=== PATIENT | male | born 1940 | race Caucasian/White ===

== ENCOUNTER → 2017-10-04 07:46 | Outpatient (CLI) | payer MEDICARE, BC, SELFPAY ==
[2017-10-04 09:02] LABS: Basophils % 0.5 % (0.1-2.0); Eosinophils # 0.1 K/mm3 (0.0-0.4); Hematocrit 39.7 % (42.0-52.0); Hemoglobin 13.2 g/dL (14.1-18.0); Lymphocytes # 1.3 K/mm3 (0.7-4.5); Lymphocytes % 22.2 K/mm3 (10-50); Mean Corpuscular HGB Conc 33.2 g/dL (31.8-35.4); Mean Corpuscular Hemoglobin 32.2 pg (27.0-31.2); Mean Corpuscular Volume 97.1 fl (80-94); Mean Platelet Volume 7.2 fl (7.4-10.4); Monocytes # 0.3 K/mm3 (0.1-1.0); Monocytes % 5.9 % (1.7-9.3); Neutrophils # 3.9 K/mm3 (1.8-7.8); Neutrophils % 69.4 % (37.0-80.0); Platelet Count 187 K/mm3 (142-424); Red Blood Count 4.09 M/mm3 (4.60-6.20); Red Cell Distribution Width 17.5 % (11.5-17.5); White Blood Count 5.6 K/mm3 (4.8-10.8)
[2017-10-04 10:31] LABS: Alanine Aminotransferase 21 U/L (12-78); Albumin Level 3.1 gm/dL (3.4-5.0); Alkaline Phosphatase 65 U/L (46-116); Anion Gap 13.3 mEq/L (5-15); Aspartate Amino Transferase 19 U/L (15-37); Bilirubin,Total 0.7 mg/dL (0.2-1.0); Blood Urea Nitrogen 11 mg/dL (7-18); Calcium 8.4 mg/dL (8.5-10.1); Carbon Dioxide 26 mmol/L (21.0-32.0); Chloride 100 mmol/L (98-107); Creatinine,Serum 1.03 mg/dL (0.70-1.30); Estimated Glomerular Filt Rate 70 ml/min (>60); GFR (African American) 85 ML/MIN (>60); Globulin 3.2 gm/dl (1.3-3.2); Glucose 129 mg/dL (74-106); Potassium 3.3 mmoL/L (3.5-5.1); Sodium 136 mmol/L (136-145); Total Protein,Serum 6.3 gm/dL (6.4-8.2)
== END ==
PROVIDERS: PCP Internal Medicine; Visit Provider Dermatology
DX: L40.0 Psoriasis vulgaris (principal)
CPT/HCPCS: 36415; 80053; 85025

== ENCOUNTER → 2017-11-17 07:40 | Outpatient (CLI) | payer MEDICARE, BC, SELFPAY ==
[2017-11-17 08:15] LABS: Alanine Aminotransferase 29 U/L (12-78); Albumin/Globulin Ratio 0.8 (1.1-1.8); Alkaline Phosphatase 71 U/L (46-116); Anion Gap 10.5 mEq/L (5-15); Aspartate Amino Transferase 15 U/L (15-37); Bilirubin,Total 0.5 mg/dL (0.2-1.0); Blood Urea Nitrogen 13 mg/dL (7-18); Calcium 8.6 mg/dL (8.5-10.1); Carbon Dioxide 28 mmol/L (21.0-32.0); Chloride 100 mmol/L (98-107); Creatinine,Serum 1.09 mg/dL (0.70-1.30); Estimated Glomerular Filt Rate 66 ml/min (>60); GFR (African American) 80 ML/MIN (>60); Globulin 3.9 gm/dl (1.3-3.2); Glucose 143 mg/dL (74-106); Potassium 3.5 mmoL/L (3.5-5.1); Sodium 135 mmol/L (136-145); Total Protein,Serum 6.9 gm/dL (6.4-8.2)
[2017-11-17 08:20] LABS: Basophils # 0.1 K/mm3 (0-0.2); Basophils % 0.6 % (0.1-2.0); Eosinophils # 0.1 K/mm3 (0.0-0.4); Eosinophils % 1.7 % (0.1-12.0); Hematocrit 43.6 % (42.0-52.0); Hemoglobin 13.8 g/dL (14.1-18.0); Lymphocytes # 1.5 K/mm3 (0.7-4.5); Lymphocytes % 19.7 K/mm3 (10-50); Mean Corpuscular HGB Conc 31.7 g/dL (31.8-35.4); Mean Corpuscular Hemoglobin 32.2 pg (27.0-31.2); Mean Corpuscular Volume 101.5 fl (80-94); Mean Platelet Volume 7.2 fl (7.4-10.4); Monocytes # 0.5 K/mm3 (0.1-1.0); Neutrophils # 5.4 K/mm3 (1.8-7.8); Platelet Count 280 K/mm3 (142-424); Red Blood Count 4.29 M/mm3 (4.60-6.20); Red Cell Distribution Width 16.3 % (11.5-17.5); White Blood Count 7.6 K/mm3 (4.8-10.8)
== END ==
PROVIDERS: Visit Provider Dermatology
DX: L40.0 Psoriasis vulgaris (principal)
CPT/HCPCS: 36415; 80053; 85025

== ENCOUNTER → 2018-01-03 07:55 | Outpatient (CLI) | payer MEDICARE, BC, SELFPAY ==
[2018-01-03 09:07] LABS: Basophils % 0.6 % (0.1-2.0); Eosinophils # 0.1 K/mm3 (0.0-0.4); Eosinophils % 2.2 % (0.1-12.0); Hematocrit 41.2 % (42.0-52.0); Hemoglobin 13.4 g/dL (14.1-18.0); Lymphocytes # 1.3 K/mm3 (0.7-4.5); Lymphocytes % 20.6 K/mm3 (10-50); Mean Corpuscular HGB Conc 32.4 g/dL (31.8-35.4); Mean Corpuscular Hemoglobin 31.7 pg (27.0-31.2); Mean Corpuscular Volume 97.8 fl (80-94); Mean Platelet Volume 7.1 fl (7.4-10.4); Monocytes # 0.3 K/mm3 (0.1-1.0); Monocytes % 4.3 % (1.7-9.3); Neutrophils # 4.5 K/mm3 (1.8-7.8); Neutrophils % 72.3 % (37.0-80.0); Platelet Count 271 K/mm3 (142-424); Red Blood Count 4.21 M/mm3 (4.60-6.20); White Blood Count 6.2 K/mm3 (4.8-10.8)
[2018-01-03 10:00] LABS: Hemoglobin A1C 6.5 % (0.0-7.0)
[2018-01-03 10:06] LABS: Chol/HDL Ratio 2.6 (1-3.5); Cholesterol 170 mg/dL (140-200); HDL Cholesterol 65 mg/dL (27-67); LDL Cholesterol 88 mg/dL (0-130); Triglycerides 84 mg/dL (30-200); VLDL Cholesterol 17 mg/dL (0-40)
[2018-01-03 10:08] LABS: Alanine Aminotransferase 27 U/L (12-78); Albumin Level 3.1 gm/dL (3.4-5.0); Albumin/Globulin Ratio 0.9 (1.1-1.8); Alkaline Phosphatase 76 U/L (46-116); Anion Gap 15.8 mEq/L (5-15); Aspartate Amino Transferase 25 U/L (15-37); Bilirubin,Total 0.7 mg/dL (0.2-1.0); Blood Urea Nitrogen 14 mg/dL (7-18); Calcium 8.9 mg/dL (8.5-10.1); Carbon Dioxide 25 mmol/L (21.0-32.0); Chloride 101 mmol/L (98-107); Estimated Glomerular Filt Rate 82 ml/min (>60); GFR (African American) 99 ML/MIN (>60); Globulin 3.4 gm/dl (1.3-3.2); Glucose 133 mg/dL (74-106); Potassium 3.8 mmoL/L (3.5-5.1); Sodium 138 mmol/L (136-145); Total Protein,Serum 6.5 gm/dL (6.4-8.2)
[2018-01-06 12:43] LABS: Microalbumin, Urine 12.8 ug/mL (Not Estab.)
== END ==
PROVIDERS: Dermatology; PCP Internal Medicine; Visit Provider Internal Medicine
DX: E11.9 Type 2 diabetes mellitus without complications (principal); I10 Essential (primary) hypertension; E78.5 Hyperlipidemia, unspecified; L40.0 Psoriasis vulgaris
CPT/HCPCS: 36415; 80053; 80061; 82043; 83036; 85025

== ENCOUNTER → 2018-02-13 07:09 | Outpatient (CLI) | payer MEDICARE, BC, SELFPAY ==
[2018-02-13 08:17] LABS: Basophils # 0.1 K/mm3 (0-0.2); Basophils % 0.7 % (0.1-2.0); Eosinophils # 0.2 K/mm3 (0.0-0.4); Eosinophils % 2.4 % (0.1-12.0); Hematocrit 44.9 % (42.0-52.0); Hemoglobin 13.8 g/dL (14.1-18.0); Lymphocytes # 1.8 K/mm3 (0.7-4.5); Lymphocytes % 23.8 K/mm3 (10-50); Mean Corpuscular HGB Conc 30.7 g/dL (31.8-35.4); Mean Corpuscular Hemoglobin 30.5 pg (27.0-31.2); Mean Corpuscular Volume 99.3 fl (80-94); Mean Platelet Volume 7.1 fl (7.4-10.4); Monocytes # 0.5 K/mm3 (0.1-1.0); Monocytes % 6.2 % (1.7-9.3); Neutrophils # 5.2 K/mm3 (1.8-7.8); Platelet Count 261 K/mm3 (142-424); Red Blood Count 4.52 M/mm3 (4.60-6.20); Red Cell Distribution Width 16.4 % (11.5-17.5); White Blood Count 7.7 K/mm3 (4.8-10.8)
[2018-02-16 13:09] LABS: Alanine Aminotransferase 25 U/L (12-78); Albumin Level 3.2 gm/dL (3.4-5.0); Alkaline Phosphatase 87 U/L (46-116); Anion Gap 14.9 mEq/L (5-15); Aspartate Amino Transferase 14 U/L (15-37); Bilirubin,Total 0.4 mg/dL (0.2-1.0); Blood Urea Nitrogen 15 mg/dL (7-18); Calcium 8.8 mg/dL (8.5-10.1); Carbon Dioxide 26 mmol/L (21.0-32.0); Chloride 102 mmol/L (98-107); Creatinine,Serum 1.11 mg/dL (0.70-1.30); Estimated Glomerular Filt Rate 64 ml/min (>60); GFR (African American) 78 ML/MIN (>60); Globulin 3.1 gm/dl (1.3-3.2); Glucose 141 mg/dL (74-106); Potassium 3.9 mmoL/L (3.5-5.1); Sodium 139 mmol/L (136-145); Total Protein,Serum 6.3 gm/dL (6.4-8.2)
== END ==
PROVIDERS: Visit Provider Dermatology
DX: L40.0 Psoriasis vulgaris (principal)
CPT/HCPCS: 36415; 80053; 85025

== ENCOUNTER → 2018-03-27 07:19 | Outpatient (CLI) | payer MEDICARE, BC, SELFPAY ==
[2018-03-27 07:37] LABS: Basophils # 0.1 K/mm3 (0-0.2); Basophils % 0.7 % (0.1-2.0); Eosinophils # 0.2 K/mm3 (0.0-0.4); Eosinophils % 2.4 % (0.1-12.0); Hematocrit 43.8 % (42.0-52.0); Hemoglobin 14.2 g/dL (14.1-18.0); Lymphocytes # 1.8 K/mm3 (0.7-4.5); Lymphocytes % 17.7 K/mm3 (10-50); Mean Corpuscular HGB Conc 32.5 g/dL (31.8-35.4); Mean Corpuscular Hemoglobin 31.4 pg (27.0-31.2); Mean Corpuscular Volume 96.6 fl (80-94); Mean Platelet Volume 6.9 fl (7.4-10.4); Monocytes # 0.4 K/mm3 (0.1-1.0); Monocytes % 4.1 % (1.7-9.3); Neutrophils # 7.4 K/mm3 (1.8-7.8); Platelet Count 216 K/mm3 (142-424); Red Blood Count 4.53 M/mm3 (4.60-6.20); Red Cell Distribution Width 15.9 % (11.5-17.5); White Blood Count 9.9 K/mm3 (4.8-10.8)
[2018-03-27 09:42] LABS: Alanine Aminotransferase 25 U/L (12-78); Albumin Level 3.1 gm/dL (3.4-5.0); Albumin/Globulin Ratio 0.9 (1.1-1.8); Alkaline Phosphatase 76 U/L (46-116); Anion Gap 14.2 mEq/L (5-15); Aspartate Amino Transferase 14 U/L (15-37); Bilirubin,Total 0.6 mg/dL (0.2-1.0); Blood Urea Nitrogen 15 mg/dL (7-18); Calcium 8.6 mg/dL (8.5-10.1); Carbon Dioxide 25 mmol/L (21.0-32.0); Chloride 106 mmol/L (98-107); Creatinine,Serum 1.07 mg/dL (0.70-1.30); Estimated Glomerular Filt Rate 67 ml/min (>60); GFR (African American) 81 ML/MIN (>60); Globulin 3.4 gm/dl (1.3-3.2); Glucose 128 mg/dL (74-106); Potassium 4.2 mmoL/L (3.5-5.1); Sodium 141 mmol/L (136-145); Total Protein,Serum 6.5 gm/dL (6.4-8.2)
== END ==
PROVIDERS: Visit Provider Dermatology
DX: L40.0 Psoriasis vulgaris (principal)
CPT/HCPCS: 36415; 80053; 85025

== ENCOUNTER → 2018-04-26 08:05 | Outpatient (CLI) | payer MEDICARE, BC, SELFPAY ==
[2018-04-26 08:29] LABS: Basophils # 0.1 K/mm3 (0-0.2); Basophils % 0.6 % (0.1-2.0); Eosinophils # 0.2 K/mm3 (0.0-0.4); Eosinophils % 1.8 % (0.1-12.0); Hematocrit 44.5 % (42.0-52.0); Hemoglobin 14.4 g/dL (14.1-18.0); Lymphocytes # 1.9 K/mm3 (0.7-4.5); Lymphocytes % 22.9 K/mm3 (10-50); Mean Corpuscular HGB Conc 32.3 g/dL (31.8-35.4); Mean Corpuscular Volume 96.2 fl (80-94); Mean Platelet Volume 6.9 fl (7.4-10.4); Monocytes # 0.6 K/mm3 (0.1-1.0); Monocytes % 6.6 % (1.7-9.3); Neutrophils # 5.8 K/mm3 (1.8-7.8); Neutrophils % 68.2 % (37.0-80.0); Platelet Count 210 K/mm3 (142-424); Red Blood Count 4.63 M/mm3 (4.60-6.20); White Blood Count 8.5 K/mm3 (4.8-10.8)
[2018-04-26 09:00] LABS: Alanine Aminotransferase 26 U/L (12-78); Albumin Level 3.2 gm/dL (3.4-5.0); Albumin/Globulin Ratio 0.9 (1.1-1.8); Alkaline Phosphatase 75 U/L (46-116); Aspartate Amino Transferase 17 U/L (15-37); Bilirubin,Total 0.6 mg/dL (0.2-1.0); Blood Urea Nitrogen 16 mg/dL (7-18); Calcium 8.8 mg/dL (8.5-10.1); Carbon Dioxide 27 mmol/L (21.0-32.0); Chloride 101 mmol/L (98-107); Creatinine,Serum 1.28 mg/dL (0.70-1.30); Estimated Glomerular Filt Rate 55 ml/min (>60); GFR (African American) 66 ML/MIN (>60); Globulin 3.4 gm/dl (1.3-3.2); Glucose 140 mg/dL (74-106); Sodium 138 mmol/L (136-145); Total Protein,Serum 6.6 gm/dL (6.4-8.2)
== END ==
PROVIDERS: Visit Provider Dermatology
DX: L40.0 Psoriasis vulgaris (principal)
CPT/HCPCS: 36415; 80053; 85025

== ENCOUNTER → 2018-04-27 07:46 | Outpatient (CLI) | payer MEDICARE, BC, SELFPAY ==
--- NOTE | 2018-04-27 07:50 | CA_ITS ---
PROCEDURE: 2-D M-mode and color Doppler study INDICATIONS FOR THE TEST: Chest pain COPD Heart Murmur Tobacco Smoking Palpitations Fatigue Syncope EdemaX HypertensionXDiabetes MellitusX Rheumatic Fever SOBXDOEXObesityXHyperlipidemia Family History HD Additional History CAD,AF,SUMAN TDS OBESITY PATIENT INFORMATION HEIGHT: 70 WEIGHT:284 GENDER: Male B/P:133/60 2-D/M-MODE INTERPRETATION: 2-D MEASUREMENTS OBSERVED VALUES IN CMS Right Ventricular Dimension (RVDd) 1.9 Interventricular Septum (Thickness)(IVsd) 1.4 Left Ventricular Internal Dimensions(LVIDd) 5.0 Left Ventricular Posterior Wall (Thickness)(LVPWd) 1.2 Aortic Root 3.4 Aortic Cusp Separation 1.9 Left Atrial Dimensions (LAD) 4.0 2D 1. Left atrium is mildly enlarged, left ventricle is normal size, mild concentric left ventricular hypertrophy, visually estimated ejection fraction 55% with no obvious regional wall motion abnormality, endocardial surfaces are poorly visualized. 2. The right atrium and right ventricle are mildly enlarged with normal contractility. 3. The aortic valve is minimally thickened and fibrosed. 4. The mitral and tricuspid valve is normal. 5. The pulmonic valve is poorly 6. No significant pericardial effusion noted. DOPPLER INTERROGATION: Doppler interrogation of the aortic, mitral and tricuspid valvular presence of mild mitral and tricuspid regurgitation, tricuspid regurgitant jet velocity insufficient for calculation of the right ventricular systolic pressure, diastolic parameters are inconclusive. CONCLUSION: 1. Mildly enlarged left atrium, normal left ventricular size, mild concentric left ventricular hypertrophy, visually estimated ejection fraction 55% with no obvious regional wall motion abnormality, endocardial surfaces are poorly visualized. Diastolic parameters are inconclusive. 2. Mild mitral and tricuspid regurgitation 3. No significant pericardial effusion noted.
== END ==
PROVIDERS: Family Provider Internal Medicine; PCP Internal Medicine; Visit Provider Internal Medicine
DX: I48.0 Paroxysmal atrial fibrillation (principal); I25.10 Atherosclerotic heart disease of native coronary artery without angina pectoris; R06.00 Dyspnea, unspecified; R60.9 Edema, unspecified
CPT/HCPCS: 93306

== ENCOUNTER → 2018-04-28 11:39 | Outpatient (CLI) | payer MEDICARE, BC, SELFPAY ==
--- NOTE | 2018-04-28 11:41 | NM_ITS ---
History and Indications: Obesity, hypertension, diabetes, chest pain, shortness of breath and fatigue Procedure: Patient received a 0.4 mg of Lexiscan, resting heart rate was 87 beats per resting blood pressure 142/77, with Lexiscan maximum heart rate achieved was 96 bpm which is less than 85% of the maximum predicted heart rate and a blood pressure was 120/61. With Lexiscan patient complained of nausea. Electrocardiogram: Resting electrocardiogram showed atrial fibrillation, right bundle branch block, with Lexiscan there is less than 1.[address] segment depression noted from the baseline EKG. The EKG portion of the Lexiscan Myoview is nondiagnostic. Cardiac stress and resting SPECT images: Cardiac stress and rest SPECT images were obtained using technetium 99 Myoview 31.0 mCi at stress and 10.6 mCi at rest. Gated SPECT further analysis of segmental wall motion and calculation of the ejection fraction also done. Cardiac stress and rest images show uniform myocardial activity without any segmental perfusion abnormality, computer derived ejection fraction is over 65% with no obvious regional wall motion abnormality, right ventricle is mildly enlarged with normal contractility. Conclusion: 1. The EKG portion of the Lexiscan Myoview is nondiagnostic. 2. No obvious scintigraphic evidence of reversible ischemia seen, computer derived ejection fraction is over 65% with no obvious regional wall motion abnormality, right ventricle is mildly enlarged with normal contractility.
== END ==
PROVIDERS: Family Provider Internal Medicine; PCP Internal Medicine; Visit Provider Internal Medicine
DX: I48.91 Unspecified atrial fibrillation (principal); R06.00 Dyspnea, unspecified; I25.10 Atherosclerotic heart disease of native coronary artery without angina pectoris
CPT/HCPCS: 78452; 93017; A9502; J2785

== ENCOUNTER 2018-05-29 13:53 | Outpatient (RCR) | payer MEDICARE, BC, SELFPAY | END 2018-07-26 10:19 | disposition home or self-care (01) | LOC: PT 13:53 | PROVIDERS: Family Provider Internal Medicine; PCP Internal Medicine; Visit Provider Internal Medicine | DX: I73.9 Peripheral vascular disease, unspecified (principal) | CPT/HCPCS: 93798 ==

== ENCOUNTER → 2018-06-26 07:26 | Outpatient (CLI) | payer MEDICARE, BC, SELFPAY ==
[2018-06-26 08:29] LABS: Basophils # 0.1 K/mm3 (0-0.2); Basophils % 0.7 % (0.1-2.0); Eosinophils # 0.2 K/mm3 (0.0-0.4); Eosinophils % 2.8 % (0.1-12.0); Hemoglobin 12.3 g/dL (14.1-18.0); Lymphocytes # 1.4 K/mm3 (0.7-4.5); Lymphocytes % 20.7 K/mm3 (10-50); Mean Corpuscular HGB Conc 32.5 g/dL (31.8-35.4); Mean Corpuscular Hemoglobin 30.6 pg (27.0-31.2); Mean Corpuscular Volume 94.3 fl (80-94); Mean Platelet Volume 7.1 fl (7.4-10.4); Monocytes # 0.4 K/mm3 (0.1-1.0); Monocytes % 6.2 % (1.7-9.3); Neutrophils # 4.7 K/mm3 (1.8-7.8); Neutrophils % 69.5 % (37.0-80.0); Platelet Count 241 K/mm3 (142-424); Red Blood Count 4.03 M/mm3 (4.60-6.20); Red Cell Distribution Width 16.9 % (11.5-17.5); White Blood Count 6.7 K/mm3 (4.8-10.8)
[2018-06-26 08:44] LABS: Hemoglobin A1C 6.9 % (0.0-7.0)
[2018-06-26 09:36] LABS: Alanine Aminotransferase 23 U/L (12-78); Albumin Level 3.1 gm/dL (3.4-5.0); Alkaline Phosphatase 91 U/L (46-116); Anion Gap 12.1 mEq/L (5-15); Aspartate Amino Transferase 21 U/L (15-37); Bilirubin,Total 0.8 mg/dL (0.2-1.0); Blood Urea Nitrogen 14 mg/dL (7-18); Calcium 8.7 mg/dL (8.5-10.1); Carbon Dioxide 29 mmol/L (21.0-32.0); Chloride 103 mmol/L (98-107); Creatinine,Serum 1.02 mg/dL (0.70-1.30); Estimated Glomerular Filt Rate 71 ml/min (>60); GFR (African American) 86 ML/MIN (>60); Globulin 3.2 gm/dl (1.3-3.2); Glucose 160 mg/dL (74-106); Potassium 3.1 mmoL/L (3.5-5.1); Sodium 141 mmol/L (136-145); Total Protein,Serum 6.3 gm/dL (6.4-8.2)
[2018-06-26 09:47] LABS: Chol/HDL Ratio 1.8 (1-3.5); Cholesterol 114 mg/dL (140-200); HDL Cholesterol 62 mg/dL (27-67); LDL Cholesterol 34 mg/dL (0-130); Prostate Specific Ag, Diagnost 3.04 ng/mL (0.0-4.0); Triglycerides 91 mg/dL (30-200); VLDL Cholesterol 18 mg/dL (0-40)
== END ==
PROVIDERS: PCP Internal Medicine; Visit Provider Dermatology
DX: L40.0 Psoriasis vulgaris (principal); E11.59 Type 2 diabetes mellitus with other circulatory complications; R39.198 Other difficulties with micturition; E78.5 Hyperlipidemia, unspecified; I10 Essential (primary) hypertension; R33.9 Retention of urine, unspecified
CPT/HCPCS: 36415; 80053; 80061; 83036; 84153; 85025

== ENCOUNTER → 2018-08-01 16:40 | Outpatient (CLI) | payer MEDICARE, BC, SELFPAY | LOC: LAB 16:50 → LAB.DROPOF 08-02 08:16 | PROVIDERS: Visit Provider Urology | DX: N39.9 Disorder of urinary system, unspecified (principal); R82.90 Unspecified abnormal findings in urine | CPT/HCPCS: 87086 ==

== ENCOUNTER → 2018-08-14 08:37 | Outpatient (CLI) | payer MEDICARE, BC, SELFPAY ==
[2018-08-14 09:12] LABS: Basophils % 0.5 % (0.1-2.0); Eosinophils # 0.1 K/mm3 (0.0-0.4); Eosinophils % 1.3 % (0.1-12.0); Hematocrit 38.3 % (42.0-52.0); Hemoglobin 12.1 g/dL (14.1-18.0); Lymphocytes # 1.6 K/mm3 (0.7-4.5); Mean Corpuscular HGB Conc 31.5 g/dL (31.8-35.4); Mean Corpuscular Hemoglobin 30.1 pg (27.0-31.2); Mean Corpuscular Volume 95.4 fl (80-94); Monocytes # 0.2 K/mm3 (0.1-1.0); Monocytes % 2.6 % (1.7-9.3); Neutrophils # 6.8 K/mm3 (1.8-7.8); Neutrophils % 77.6 % (37.0-80.0); Platelet Count 276 K/mm3 (142-424); Red Blood Count 4.02 M/mm3 (4.60-6.20); Red Cell Distribution Width 16.6 % (11.5-17.5); White Blood Count 8.8 K/mm3 (4.8-10.8)
[2018-08-14 11:07] LABS: Alanine Aminotransferase 30 U/L (12-78); Albumin Level 3.1 gm/dL (3.4-5.0); Albumin/Globulin Ratio 0.8 (1.1-1.8); Alkaline Phosphatase 101 U/L (46-116); Anion Gap 14.7 mEq/L (5-15); Aspartate Amino Transferase 32 U/L (15-37); Bilirubin,Total 0.8 mg/dL (0.2-1.0); Blood Urea Nitrogen 13 mg/dL (7-18); Calcium 9.2 mg/dL (8.5-10.1); Carbon Dioxide 28 mmol/L (21.0-32.0); Chloride 100 mmol/L (98-107); Creatinine,Serum 1.11 mg/dL (0.70-1.30); Estimated Glomerular Filt Rate 64 ml/min (>60); GFR (African American) 78 ML/MIN (>60); Globulin 3.7 gm/dl (1.3-3.2); Glucose 161 mg/dL (74-106); Potassium 3.7 mmoL/L (3.5-5.1); Sodium 139 mmol/L (136-145); Total Protein,Serum 6.8 gm/dL (6.4-8.2)
== END ==
PROVIDERS: Visit Provider Dermatology
DX: L40.0 Psoriasis vulgaris (principal)
CPT/HCPCS: 36415; 80053; 85025

== ENCOUNTER → 2018-10-02 09:03 | Outpatient (CLI) | payer MEDICARE, BC, SELFPAY ==
[2018-10-02 09:23] LABS: Basophils # 0.1 K/mm3 (0-0.2); Basophils % 0.7 % (0.1-2.0); Eosinophils # 0.1 K/mm3 (0.0-0.4); Eosinophils % 1.8 % (0.1-12.0); Hematocrit 36.6 % (42.0-52.0); Hemoglobin 11.7 g/dL (14.1-18.0); Lymphocytes # 1.5 K/mm3 (0.7-4.5); Mean Corpuscular HGB Conc 31.9 g/dL (31.8-35.4); Mean Corpuscular Hemoglobin 29.9 pg (27.0-31.2); Mean Corpuscular Volume 93.7 fl (80-94); Mean Platelet Volume 7.1 fl (7.4-10.4); Monocytes # 0.4 K/mm3 (0.1-1.0); Monocytes % 5.4 % (1.7-9.3); Neutrophils # 5.5 K/mm3 (1.8-7.8); Neutrophils % 72.1 % (37.0-80.0); Platelet Count 267 K/mm3 (142-424); Red Blood Count 3.91 M/mm3 (4.60-6.20); Red Cell Distribution Width 16.6 % (11.5-17.5); White Blood Count 7.7 K/mm3 (4.8-10.8)
[2018-10-02 10:56] LABS: Hemoglobin A1C 7.9 % (0.0-7.0)
[2018-10-02 13:06] LABS: Alanine Aminotransferase 31 U/L (12-78); Albumin Level 3.1 gm/dL (3.4-5.0); Albumin/Globulin Ratio 0.9 (1.1-1.8); Alkaline Phosphatase 101 U/L (46-116); Anion Gap 16.6 mEq/L (5-15); Aspartate Amino Transferase 27 U/L (15-37); Bilirubin,Total 0.6 mg/dL (0.2-1.0); Blood Urea Nitrogen 16 mg/dL (7-18); Calcium 8.8 mg/dL (8.5-10.1); Carbon Dioxide 25 mmol/L (21.0-32.0); Chloride 102 mmol/L (98-107); Chol/HDL Ratio 2.7 (1-3.5); Cholesterol 142 mg/dL (140-200); Creatinine,Serum 1.15 mg/dL (0.70-1.30); Estimated Glomerular Filt Rate 62 ml/min (>60); GFR (African American) 75 ML/MIN (>60); Globulin 3.6 gm/dl (1.3-3.2); Glucose 187 mg/dL (74-106); HDL Cholesterol 52 mg/dL (27-67); LDL Cholesterol 73 mg/dL (0-130); Potassium 3.6 mmoL/L (3.5-5.1); Prostate Specific Ag Screen 4.1 ng/mL (0.0-4.0); Sodium 140 mmol/L (136-145); Total Protein,Serum 6.7 gm/dL (6.4-8.2); Triglycerides 85 mg/dL (30-200); VLDL Cholesterol 17 mg/dL (0-40)
== END ==
PROVIDERS: Dermatology; Visit Provider Internal Medicine
DX: E11.59 Type 2 diabetes mellitus with other circulatory complications (principal); I25.10 Atherosclerotic heart disease of native coronary artery without angina pectoris; Z12.5 Encounter for screening for malignant neoplasm of prostate; E66.01 Morbid (severe) obesity due to excess calories; I10 Essential (primary) hypertension; K50.90 Crohn's disease, unspecified, without complications; G47.33 Obstructive sleep apnea (adult) (pediatric)
CPT/HCPCS: 36415; 80053; 80061; 83036; 85025; G0103

== ENCOUNTER 2018-10-25 02:02 | Observation (INO) | payer MEDICARE, BC, SELFPAY ==
[2018-10-25 02:02] VITALS: BP 123/59; PULSE 60; RESP 18; TEMP 36.4; O2SAT 96; BMI 40.1
--- NOTE | 2018-10-25 02:09 | XR_ITS ---
XR chest AP HISTORY: Pain following injury ITS.REASON: fall ORDERING PHYSICIAN: Craig Vegas MD PATIENT AGE: 78 years COMPARISON: 08/20/2013 FINDINGS: Cardiomegaly without failure. Clear lungs. No acute bony findings. Old left eighth and ninth rib fracture. IMPRESSION: Cardiomegaly, no acute finding.
--- NOTE | 2018-10-25 02:09 | XR_ITS ---
XR pelvis 1-2V HISTORY: Fall with injury and pain ITS.REASON: fall ORDERING PHYSICIAN: Craig Vegas MD PATIENT AGE: 78 years Comparison: None FINDINGS: No fracture or dislocation is evident. No significant degenerative change. No lytic or blastic change. The SI joints have an unremarkable appearance. Unremarkable soft tissues. Small sclerotic focus is present overlying the left ilium medially 7 mm and could be due to bone island or an overlying soft tissue calcification. A curvilinear density overlies right ilium could be due to a clip with a similar density in the right lower quadrant. There are mild osteoarthritic changes of the hips IMPRESSION: No acute finding
--- NOTE | 2018-10-25 02:09 | CT_ITS ---
CT CERVICAL SPINE WITHOUT CONTRAST CT RECONSTRUCTIONS HISTORY:Neck pain following injury, cervical sprain or strain all with inability to get up ORDERING PHYSICIAN: Craig Vegas MD PATIENT AGE: 78 years COMPARISON: None Technique: All CT scans at the facility use one or more dose reduction, viz: automated exposure control, ma/kV adjustment per patient size (including targeted exams where dose is matched to indication, i.e. head), or iterative reconstruction technique PROCEDURE: Axial spiral CT scanning performed of the cervical spine beginning at the base of the skull and continuing to the upper T-spine. 3-D multiplanar reconstruction with 3-D manipulation of volumetric data set in image rendering was completed by the radiologist and/or technologist with the supervision of the radiologist on independent workstation. FINDINGS: Normal alignment. No fracture or dislocation evident. Mild degenerative disc disease along the facet and uncovertebral arthrosis. C5-C6: Degenerative disc disease with endplate osteophytes/bulging disc with canal stenosis and bilateral lateral recess and foraminal narrowing. C6-C7: Degenerative disc disease with endplate osteophyte/bulging disc with canal stenosis and bilateral lateral recess and foraminal narrowing. No prevertebral soft tissue swelling. There are scattered small nodes in the hepatic. There is a 6 mm noncalcified nodule in the left apex. There is mild thickening of the upper thoracic esophagus. IMPRESSION: 1. No acute fracture. 2. Cervical spondylosis with canal stenosis C5-C6 and C6-C7 3. Noncalcified 6 mm left apical nodule. Consider 6 month follow-up
--- NOTE | 2018-10-25 02:09 | CT_ITS ---
CT head/brain wo con HISTORY: Headache, pain, contusion or hematoma following blunt trauma ITS.REASON: fall ORDERING PHYSICIAN: Craig Vegas MD PATIENT AGE: 78 years COMPARISON: None TECHNIQUE: Axial images obtained without contrast. Brain and bone windows reviewed. All CT scans at the facility use one or more dose reduction, viz: automated exposure control, ma/kV adjustment per patient size (including targeted exams where dose is matched to indication, i.e. head), or iterative reconstruction technique. FINDINGS: No midline shift, mass effect, intracranial hemorrhage, hydrocephalus, or extra-axial fluid collection is evident. Involutional changes of age with mild atrophy and mild periventricular ischemic gliotic change. Small osteoma is present in the left frontal sinus The calvarium has an unremarkable appearance. No mastoid effusion. No sinus air-fluid levels.. IMPRESSION: No acute intracranial findings
[2018-10-25 02:13] VITALS: BP 102/45; BP 105/57; BP 123/59; PULSE 51; PULSE 58; PULSE 69
[2018-10-25 02:25] LABS: Basophils # 0.1 K/mm3 (0-0.2); Basophils % 0.4 % (0.1-2.0); Eosinophils # 0.1 K/mm3 (0.0-0.4); Eosinophils % 1.1 % (0.1-12.0); Hematocrit 35.8 % (42.0-52.0); Hemoglobin 11.4 g/dL (14.1-18.0); Lymphocytes # 2.8 K/mm3 (0.7-4.5); Mean Corpuscular HGB Conc 31.9 g/dL (31.8-35.4); Mean Corpuscular Hemoglobin 29.8 pg (27.0-31.2); Mean Corpuscular Volume 93.3 fl (80-94); Mean Platelet Volume 7.1 fl (7.4-10.4); Monocytes # 0.7 K/mm3 (0.1-1.0); Monocytes % 6.6 % (1.7-9.3); Neutrophils # 6.8 K/mm3 (1.8-7.8); Neutrophils % 64.8 % (37.0-80.0); Platelet Count 260 K/mm3 (142-424); Red Blood Count 3.84 M/mm3 (4.60-6.20); White Blood Count 10.5 K/mm3 (4.8-10.8)
[2018-10-25 02:42] LABS: Alanine Aminotransferase 20 U/L (12-78); Albumin Level 3.1 gm/dL (3.4-5.0); Albumin/Globulin Ratio 0.8 (1.1-1.8); Alkaline Phosphatase 99 U/L (46-116); Anion Gap 15.5 mEq/L (5-15); Aspartate Amino Transferase 16 U/L (15-37); Bilirubin,Total 0.6 mg/dL (0.2-1.0); Blood Urea Nitrogen 14 mg/dL (7-18); Carbon Dioxide 26 mmol/L (21.0-32.0); Chloride 101 mmol/L (98-107); Creatinine Clearance Estimated 77 mL/min (50-200); Creatinine,Serum 1.44 mg/dL (0.70-1.30); Digoxin 0.55 ng/mL (0.90-2.00); Estimated Glomerular Filt Rate 48 ml/min (>60); GFR (African American) 58 ML/MIN (>60); Globulin 4.1 gm/dl (1.3-3.2); Glucose 188 mg/dL (74-106); Potassium 3.5 mmoL/L (3.5-5.1); Sodium 139 mmol/L (136-145); Total Protein,Serum 7.2 gm/dL (6.4-8.2); Troponin I < 0.02 ng/ml (0.00-0.06)
--- NOTE | 2018-10-25 02:53 | HMH.EDDIZZ ---
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 Obesity Qualifiers: Obesity type: due to excess calories Obesity classification: adult class 3 (BMI >= 40) Serious obesity comorbidity presence: with serious comorbidity Body mass index: BMI 40.0-44.9 Qualified Code(s): E66.01 - Morbid (severe) obesity due to excess calories; Z68.41 - Body mass index (BMI) 40.0-44.9, adult Disposition: Admitted as Observation Condition on Discharge: Good Referrals: [place] [Primary Care Provider] - - Critical Care Critical Care Time: No Attestation: On 10/25/18, the high probability of a clinically significant, sudden or life threatening deterioration of the following system(s) required my full and direct attention, intervention and personal management. The time I documented below is in addition to time spent performing reported procedures but includes the following listed in this critical care notation. Medical Decision Making - Medical Records Medical records reviewed: Yes: I reviewed the patient's medical records. - Quentin Inquiry Pt receiving controlled substance: No Vital Signs: 10/25/18 02:02 10/25/18 02:13 Temperature 97.5 F L Temperature Source Oral Pulse Rate [Orthostatic Lying Right Radial] 69 Pulse Rate [Orthostatic Sitting Right Radial] 51 L Pulse Rate [Orthostatic Standing Right Brachial] 58 L Pulse Rate [Right Radial] 60 Respiratory Rate 18 Blood Pressure [Orthostatic Lying Right Arm] 123/59 L Blood Pressure [Orthostatic Sitting Right Arm] 102/45 L Blood Pressure [Orthostatic Standing Right Arm] 105/57 L Blood Pressure [Right Arm] 123/59 L Blood Pressure Mean [Right Arm] 80 02 Sat by Pulse Oximetry 96 - Lab Data Lab results reviewed: Yes: I reviewed the patient's lab results. Lab Results 10/25/18 02:00: WBC 10.5, RBC 3.84 L, Hgb 11.4 L, Hct 35.8 L, MCV 93.3, MCH 29.8, MCHC 31.9, RDW 17.0, Plt Count 260, MPV 7.1 L, Neut % (Auto) 64.8, Lymph % (Auto) 27.0, [place] % (Auto) 6.6, Eos % (Auto) 1.1, Baso % (Auto) 0.4, Neut # (Auto) 6.8, Lymph # (Auto) 2.8, [place] # (Auto) 0.7, Eos # (Auto) 0.1, Baso # (Auto) 0.1 10/25/18 02:00: Sodium 139, Potassium 3.5, Chloride 101, Carbon Dioxide 26, Anion Gap 15.5 H, BUN 14, Creatinine 1.44 H, Estimated Creat Clear 77, Estimated GFR 48 L, Est GFR ( Amer) 58 L, Glucose 188 H, Calcium 9.0, Total Bilirubin 0.6, AST 16, ALT 20, Alkaline Phosphatase 99, Troponin I < 0.02, Total Protein 7.2, Albumin 3.1 L, Globulin 4.1 H, Albumin/Globulin Ratio 0.8 L, Digoxin 0.55 L Result diagrams: 10/25/18 02:00 10/25/18 02:00 Orders (Tests/Meds): ED MEDICATIONS Generic Name Dose Route Start Last Admin Trade Name Freq PRN Reason Stop Dose Admin Sodium Chloride 1,000 mls @ 999 mls/hr 10/25/18 02:15 Sod Chlor 0.9% 1000ml Bag IV 10/25/18 03:15 .Q1H1M STEWART Sodium Chloride 10 ml 10/25/18 02:09 Saline Flush 10ml Syringe IV 11/24/18 02:08 NEEDED PRN Maintain IV Site ORDERS Category Date Time Status CT cervical spine wo con Stat Cat Scan 10/25/18 02:[address] head/brain wo con Stat Cat Scan 10/25/18 02:09 Ordered XR chest AP Stat Exams 10/25/18 02:09 Ordered XR pelvis 1-2V Stat Exams 10/25/18 02:09 Ordered - Radiology Data #1 Image(s): Chest, Pelvis Image Reviewed: Yes I reviewed the patient's radiology image Preliminary Findings: No Fracture Seen - CT Data CT Scan: Head, C-Spine Time Received: 03:[address] Reviewed: Yes: I have viewed the radiologist's in
[2018-10-25 04:22] VITALS: BP 127/79; PULSE 61; RESP 14; TEMP 36.6; O2SAT 95
[2018-10-25 04:35] VITALS: BP 106/53; PULSE 66; RESP 17; TEMP 36.4; O2SAT 98; BMI 37.0
--- NOTE | 2018-10-25 04:45 | PC.NURSE ---
ARRIVED TO FLOOR, PER STRETCHER, FROM ED @ 1903
[2018-10-25 04:47] VITALS: PULSE 52
[2018-10-25 06:17] LABS: POC Glucose,Bedside 166 (70-110)
[2018-10-25 06:20] LABS: Basophils % 0.4 % (0.1-2.0); Eosinophils % 0.1 % (0.1-12.0); Hematocrit 32.7 % (42.0-52.0); Hemoglobin 10.4 g/dL (14.1-18.0); Lymphocytes # 0.8 K/mm3 (0.7-4.5); Lymphocytes % 10.2 % (10-50); Mean Corpuscular HGB Conc 31.9 g/dL (31.8-35.4); Mean Corpuscular Hemoglobin 29.8 pg (27.0-31.2); Mean Corpuscular Volume 93.5 fl (80-94); Mean Platelet Volume 6.8 fl (7.4-10.4); Monocytes # 0.3 K/mm3 (0.1-1.0); Monocytes % 4.1 % (1.7-9.3); Neutrophils % 85.2 % (37.0-80.0); Platelet Count 205 K/mm3 (142-424); Red Cell Distribution Width 17.1 % (11.5-17.5); White Blood Count 8.3 K/mm3 (4.8-10.8)
[2018-10-25 06:29] LABS: Anion Gap 12.5 mEq/L (5-15); Blood Urea Nitrogen 13 mg/dL (7-18); Calcium 8.7 mg/dL (8.5-10.1); Carbon Dioxide 27 mmol/L (21.0-32.0); Chloride 103 mmol/L (98-107); Creatinine Clearance Estimated 83 mL/min (50-200); Creatinine,Serum 1.24 mg/dL (0.70-1.30); Estimated Glomerular Filt Rate 57 ml/min (>60); GFR (African American) 68 ML/MIN (>60); Glucose 185 mg/dL (74-106); Potassium 3.5 mmoL/L (3.5-5.1); Sodium 139 mmol/L (136-145)
--- NOTE | 2018-10-25 06:35 | PC.NURSE ---
0600 ROUND ICE WATER FILLED AND TRASH EMPTIED . HEART MONITOR FIXED . PATIENT VOICED NO NEEDS AT THIS TIME BUT SLEEP.
[2018-10-25 06:38] LABS: MANUAL DIFFERENTIAL MANUAL DIFFERENTIAL (MANUAL DIFF)
[2018-10-25 06:47] LABS: Magnesium 1.5 mg/dL (1.4-2.2); Troponin I < 0.02 ng/ml (0.00-0.06)
--- NOTE | 2018-10-25 07:25 | PC.NURSE ---
REPORT GIVEN TO Konstantin LUCIANO W/C
--- NOTE | 2018-10-25 07:32 | P.CONPHA_ITS ---
[facility] Pharmacy VTE Monitoring - Patient Demographics Admission date: 10/25/18 Report Date: 10/25/18 Time: 07:32 Allergies/Adverse Reactions: Patient Allergies infliximab [From Remicade] Allergy (Severe, Verified 10/25/18 02:15) S-ANAPHYLAXIS Influenza Virus Vaccines Allergy (Unknown, Verified 10/25/18 02:15) HX OF GUILLAN BARRE ustekinumab [From Stelara] Allergy (Unknown, Verified 10/25/18 02:15) SUPPRESS IMMUNE SYSTEM Height: 1.78 m Weight: 117.197 kg Patient Problems: Current Active Problems Dizziness (Acute) Obesity (Acute) DM2 (diabetes mellitus, type 2) (Chronic) Afib (Chronic) - VTE Risk Labs: VTE Related Lab Results Hgb 10.4 g/dL (14.1-18.0) L 10/25/18 05:58 Hct 32.7 % (42.0-52.0) L 10/25/18 05:58 Plt Count 205 K/mm3 (142-424) 10/25/18 05:58 BUN 13 mg/dL (7-18) 10/25/18 05:58 Creatinine 1.24 mg/dL (0.70-1.30) 10/25/18 05:58 Estimated Creat Clear 83 mL/min (50-200) 10/25/18 05:58 Was VTE Risk Assessment Performed: Yes VTE Score: 3 VTE Risk Level: Low Risk - Prophylaxis VTE Prophylaxis Ordered?: Yes Types of VTE Prophylaxis: TEDS Knee High, Pharmacological Location of Applied Device: Bilateral Lower Extremeties Pharmacologic Type: Other (ELIQUIS) - VTE Diagnosis Confirmed Treatment or plan recommended: Continue Current Treatment
[2018-10-25 08:00] VITALS: BP 92/51; PULSE 62; RESP 16; TEMP 36.7; O2SAT 96
[2018-10-25 08:03] LABS: Eosinophils % 1 % (0-3); Lymphocytes % 9 % (10-50); Monocytes % 4 % (2-9); Neutrophils % 86 % (42-76); Platelet Estimate Normal; Total Cells Counted 100
[2018-10-25 08:04] LABS: RBC Morphology Normal
--- NOTE | 2018-10-25 08:31 | HMH.HPDC ---
General - General Admission date:: 10/25/18 Discharge date: 10/25/18 *Admission Date: 10/25/18 *Chief complaint: Fall with dizziness *History of present illness: 78-year-old white male with history of chronic atrial fibrillation over the past 3-4 months who has been maintained on rate control with digoxin as well as anticoagulation therapy who was at his home yesterday evening after returning from the basketball game in [place] and had done well with normal exercise walking to and from the game and had gone home uneventfully. He awoke around 1 AM to go use the restroom and when he got up from the side of his bed slid down on to the floor with some weakness and orthostasis type dizziness but no actual vertiginous symptoms. He was unable to get back up because of the orthostatic weakness and summoned EMS who brought him to the hospital. He was found to be in his chronic atrial fibrillation rhythm. Initial troponins were negative. CT scan of head and other imaging of musculoskeletal areas were unremarkable and he was admitted overnight to rule out [place] and to further evaluate his cause of presyncope with orthostasis. This morning he feels much better. Is slightly weak, ate breakfast well with no problems. Of note, he reports that last night he took 1 of his 's tizanidine tablets before bedtime because of some muscle aches and he thinks this also may have been a problem. [facility] History I have reviewed the patient's past medical history: Yes Medical History: Reports:: Atrial Fibrillation, Coronary Artery Disease, Diabetes Mellitus Type 2, Gastroesophageal Reflux Disease(GERD), Hypertension Denies:: Cancer, Diabetes Mellitus Type 1, Internal Pacemaker, MRSA, Seizures Have you ever received a pneumonia vaccine?: No Have you received a flu vaccine this season?: No Other Surgeries: Yes: Cardiac Catheterization. No: Pacemaker Amputation: No Fractures: No - *Social History Educational Level: Completed College Smoking Status: Never smoker Alcohol Intake: never Alcohol Intake Frequency:: other Substance Use Type: denies use Occupational Status: retired Housing: house Household Members: spouse Travel in the last 8 weeks: None - Psychiatric History Expresses thoughts of harming self/others: None Suicide Plan Description: No Plan Family Hx:: Cancer Review of Systems - Review of Systems Review of systems:: pertinent systems reviewed and negative unless documented below - Constitutional Denies anorexia, Denies body ache(s) - Eyes Denies blind spots, Denies blurry vision - ENT Denies abnormal hearing - *Cardiovascular Reports irregular heart rhythm, Denies chest pain, Denies chest pain at rest, Denies shortness of breath when lying down - *Respiratory Denies change in phlegm color, Denies chest congestion, Denies shortness of breath with activity - *Gastrointestinal Denies abdominal pain, Denies belching - *Genitourinary Denies difficulty urinating - *Musculoskeletal Denies abnormal walking, Denies limited joint movement - Integumentary/Breasts Denies acne, Denies hair loss, Denies change in skin color - *Neurologic Reports dizziness, Reports localized weakness, Reports dizziness, Reports weakness, Denies headache(s), Denies seizure-like activity - Psychiatric Denies abnormal sleep pattern - Endocrine Denies cold intolerance - Hematologic/Lymphatic Denies easy bleeding Exam Vital signs and Labs for Last 24 Hours: Temp Pulse Resp BP Pulse Ox 97.6 F 52 L 17 106/53 L 98 10/25/18 04:35 10/25/18 04:47 10/25/18 04:35 10/25/18 04:35 10/25/18 04:35 Laboratory Results - last 24 hr 10/25/18 02:00: WBC 10.5, RBC 3.84 L, Hgb 11.4 L, Hct 35.8 L, MCV 93.3, MCH 29.8, MCHC 31.9, RDW 17.0, Plt Count 260, MPV 7.1 L, Neut % (Auto) 64.8, Lymph % (Auto) 27.0, [place] % (Auto) 6.6, Eos % (Auto) 1.1, Baso % (Auto) 0.4, Neut # (Auto) 6.8, Lymph # (Auto) 2.8, [place] # (Auto) 0.7, Eos # (Auto) 0.1, Baso # (Auto)
--- NOTE | 2018-10-25 08:35 | P.HPDS_ITS ---
General - General Admission date:: 10/25/18 Discharge date: 10/25/18 *Admission Date: 10/25/18 *Chief complaint: Fall with dizziness *History of present illness: 78-year-old white male with history of chronic atrial fibrillation over the past 3-4 months who has been maintained on rate control with digoxin as well as anticoagulation therapy who was at his home yesterday evening after returning from the basketball game in [place] and had done well with normal exercise walking to and from the game and had gone home uneventfully. He awoke around 1 AM to go use the restroom and when he got up from the side of his bed slid down on to the floor with some weakness and orthostasis type dizziness but no actual vertiginous symptoms. He was unable to get back up because of the orthostatic weakness and summoned EMS who brought him to the hospital. He was found to be in his chronic atrial fibrillation rhythm. Initial troponins were negative. CT scan of head and other imaging of musculoskeletal areas were unremarkable and he was admitted overnight to rule out [place] and to further evaluate his cause of presyncope with orthostasis. This morning he feels much better. Is slightly weak, ate breakfast well with no problems. Of note, he reports that last night he took 1 of his 's tizanidine tablets before bedtime because of some muscle aches and he thinks this also may have been a problem. [facility] History I have reviewed the patient's past medical history: Yes Medical History: Reports:: Atrial Fibrillation, Coronary Artery Disease, Diabetes Mellitus Type 2, Gastroesophageal Reflux Disease(GERD), Hypertension Denies:: Cancer, Diabetes Mellitus Type 1, Internal Pacemaker, MRSA, Seizures Have you ever received a pneumonia vaccine?: No Have you received a flu vaccine this season?: No Other Surgeries: Yes: Cardiac Catheterization. No: Pacemaker Amputation: No Fractures: No - *Social History Educational Level: Completed College Smoking Status: Never smoker Alcohol Intake: never Alcohol Intake Frequency:: other Substance Use Type: denies use Occupational Status: retired Housing: house Household Members: spouse Travel in the last 8 weeks: None - Psychiatric History Expresses thoughts of harming self/others: None Suicide Plan Description: No Plan Family Hx:: Cancer Review of Systems - Review of Systems Review of systems:: pertinent systems reviewed and negative unless documented below - Constitutional Denies anorexia, Denies body ache(s) - Eyes Denies blind spots, Denies blurry vision - ENT Denies abnormal hearing - *Cardiovascular Reports irregular heart rhythm, Denies chest pain, Denies chest pain at rest, Denies shortness of breath when lying down - *Respiratory Denies change in phlegm color, Denies chest congestion, Denies shortness of breath with activity - *Gastrointestinal Denies abdominal pain, Denies belching - *Genitourinary Denies difficulty urinating - *Musculoskeletal Denies abnormal walking, Denies limited joint movement - Integumentary/Breasts Denies acne, Denies hair loss, Denies change in skin color - *Neurologic Reports dizziness, Reports localized weakness, Reports dizziness, Reports weakness, Denies headache(s), Denies seizure-like activity - Psychiatric Denies abnormal sleep pattern - Endocrine Denies cold intolerance - Hematologic/Lymphatic Denies easy bleeding Exam Vital signs and Labs for Last 24 Hours:
--- NOTE | 2018-10-25 09:35 | HMH.PTEV ---
Physical Therapy Evaluation Rehab PT IP Evaluation Start: 10/25/18 07:55 Freq: ONCE Status: Active Protocol: Document 10/25/18 09:33 MULU (Rec: 10/25/18 09:35 MULU [id number]) Subjective/History History History This is the initial IP PT evaluation for Ned Melendez. Pt is a 78 y/o male admitted to [facility] s/p fall at home from syncopal episode Subjective Subjective no complaints Rehab PT IP Eval Objective Appearance Patient Behavior Appropriate Cooperative Patient Orientation Person Place Time Difficulty following instructions none Speech Pattern Clear Appropriate Ambulation Patient Able to Ambulate Yes Ambulation Observation IP General Gait Pattern Observation No Deviations/Normal Ambulation Distance (feet) 400 Ambulation Assistive Device None Balance Ability to Arise Able, w/o using arms Sitting Balance Steady, safe Standing Balance Narrow stance w/o support Dynamic Sitting Balance Ability Normal Dynamic Standing Balance Ability Good Transfers Bed Transfer Ability Independent Sit to Stand Bed Transfer Ability Independent ROM All Extremities PT ROM Status WFL MMT All Extremities PT MMT WFL Rehab PT IP prob,goals,plan Problems Date of Evaluation: 10/25/18 Rehab Potential Rehab Potential Innapropriate for Skilled Therapy Discharge Plan PT Discharge Plan dc today to home G -code Required Yes Eval Complexity Eval Charge Codes 81621 - Low Complexity G Codes PT Current Status Mobility PT Current Status Modifier CI-At least 1% but less than 20% impaired, limited or restricted PT Goal Status Mobility PT Goal Status Modifer CI-At least 1% but less than 20% impaired, limited or restricted PHYSICIAN CERTIFICATION: I certify the specified therapy services for Ned Melendez are required, authorized, and reviewed every 30 days.
--- NOTE | 2018-10-25 12:01 | HMH.PHAINT ---
DISCHARGE--DISCUSSED WITH PATIENT MD CHANGING DIGOXIN TO Q48H AT THIS TIME. OTHER MEDS ALL REMAINED THE SAME.
== END 2018-10-25 09:59 | disposition home or self-care (01) ==
LOC: ER 02:09 → 2ND 04:08
PROVIDERS: Admitting Provider Internal Medicine Adolescent Medicine; Emergency Provider Emergency Medicine; PCP Internal Medicine; Visit Provider Internal Medicine Adolescent Medicine
DX: R00.1 Bradycardia, unspecified (principal); R42 Dizziness and giddiness; I48.2 Chronic atrial fibrillation; E11.8 Type 2 diabetes mellitus with unspecified complications; E66.01 Morbid (severe) obesity due to excess calories; Z68.41 Body mass index [BMI] 40.0-44.9, adult; R11.0 Nausea; I25.10 Atherosclerotic heart disease of native coronary artery without angina pectoris; Z79.899 Other long term (current) drug therapy; Z88.7 Allergy status to serum and vaccine; Z88.8 Allergy status to other drugs, medicaments and biological substances; I10 Essential (primary) hypertension
CPT/HCPCS: 36415; 70450; 71045; 72125; 72170; 80048; 80053; 80162; 82962; 83735; 84484; 85007; 85025; 93005; 96365; 97161; 99284; G0378

== ENCOUNTER → 2018-11-14 07:41 | Outpatient (CLI) | payer MEDICARE, BC, SELFPAY ==
[2018-11-14 08:12] LABS: Basophils % 0.5 % (0.1-2.0); Eosinophils # 0.2 K/mm3 (0.0-0.4); Eosinophils % 2.2 % (0.1-12.0); Hematocrit 37.1 % (42.0-52.0); Hemoglobin 12.1 g/dL (14.1-18.0); Lymphocytes # 1.8 K/mm3 (0.7-4.5); Lymphocytes % 20.2 % (10-50); Mean Corpuscular HGB Conc 32.5 g/dL (31.8-35.4); Mean Corpuscular Hemoglobin 29.8 pg (27.0-31.2); Mean Corpuscular Volume 91.8 fl (80-94); Mean Platelet Volume 6.9 fl (7.4-10.4); Monocytes # 0.5 K/mm3 (0.1-1.0); Monocytes % 5.6 % (1.7-9.3); Neutrophils # 6.2 K/mm3 (1.8-7.8); Neutrophils % 71.6 % (37.0-80.0); Platelet Count 243 K/mm3 (142-424); Red Blood Count 4.04 M/mm3 (4.60-6.20); Red Cell Distribution Width 16.8 % (11.5-17.5); White Blood Count 8.7 K/mm3 (4.8-10.8)
[2018-11-14 09:52] LABS: Alanine Aminotransferase 24 U/L (12-78); Albumin Level 3.3 gm/dL (3.4-5.0); Albumin/Globulin Ratio 0.9 (1.1-1.8); Alkaline Phosphatase 106 U/L (46-116); Anion Gap 14.6 mEq/L (5-15); Aspartate Amino Transferase 20 U/L (15-37); Bilirubin,Total 0.7 mg/dL (0.2-1.0); Blood Urea Nitrogen 15 mg/dL (7-18); Carbon Dioxide 27 mmol/L (21.0-32.0); Chloride 100 mmol/L (98-107); Creatinine,Serum 1.13 mg/dL (0.70-1.30); Estimated Glomerular Filt Rate 63 ml/min (>60); GFR (African American) 76 ML/MIN (>60); Globulin 3.8 gm/dl (1.3-3.2); Glucose 171 mg/dL (74-106); Potassium 3.6 mmoL/L (3.5-5.1); Sodium 138 mmol/L (136-145); Total Protein,Serum 7.1 gm/dL (6.4-8.2)
== END ==
PROVIDERS: Visit Provider Dermatology
DX: L40.0 Psoriasis vulgaris (principal)
CPT/HCPCS: 36415; 80053; 85025

== ENCOUNTER → 2018-12-22 07:44 | Outpatient (CLI) | payer MEDICARE, BC, SELFPAY ==
[2018-12-22 08:02] LABS: Basophils % 0.4 % (0.1-2.0); Eosinophils # 0.1 K/mm3 (0.0-0.4); Eosinophils % 1.6 % (0.1-12.0); Hematocrit 34.5 % (42.0-52.0); Hemoglobin 11.6 g/dL (14.1-18.0); Lymphocytes # 1.5 K/mm3 (0.7-4.5); Lymphocytes % 19.5 % (10-50); Mean Corpuscular HGB Conc 33.6 g/dL (31.8-35.4); Mean Corpuscular Hemoglobin 29.8 pg (27.0-31.2); Mean Corpuscular Volume 88.6 fl (80-94); Monocytes # 0.2 K/mm3 (0.1-1.0); Monocytes % 2.4 % (1.7-9.3); Neutrophils # 5.9 K/mm3 (1.8-7.8); Neutrophils % 76.1 % (37.0-80.0); Platelet Count 232 K/mm3 (142-424); Red Blood Count 3.89 M/mm3 (4.60-6.20); Red Cell Distribution Width 16.2 % (11.5-17.5); White Blood Count 7.8 K/mm3 (4.8-10.8)
[2018-12-22 13:55] LABS: Alanine Aminotransferase 29 U/L (12-78); Albumin Level 3.4 gm/dL (3.4-5.0); Albumin/Globulin Ratio 0.9 (1.1-1.8); Alkaline Phosphatase 92 U/L (46-116); Anion Gap 19.7 mEq/L (5-15); Aspartate Amino Transferase 35 U/L (15-37); Bilirubin,Total 0.8 mg/dL (0.2-1.0); Blood Urea Nitrogen 14 mg/dL (7-18); Calcium 8.9 mg/dL (8.5-10.1); Carbon Dioxide 22 mmol/L (21.0-32.0); Chloride 99 mmol/L (98-107); Estimated Glomerular Filt Rate 59 ml/min (>60); GFR (African American) 71 ML/MIN (>60); Globulin 3.6 gm/dl (1.3-3.2); Glucose 170 mg/dL (74-106); Potassium 3.7 mmoL/L (3.5-5.1); Sodium 137 mmol/L (136-145)
== END ==
PROVIDERS: PCP Internal Medicine; Visit Provider Dermatology
DX: L40.0 Psoriasis vulgaris (principal); Z79.899 Other long term (current) drug therapy
CPT/HCPCS: 36415; 80053; 85025

== ENCOUNTER → 2019-01-29 07:48 | Outpatient (CLI) | payer MEDICARE, BC, SELFPAY ==
[2019-01-29 08:11] LABS: Basophils # 0.1 K/mm3 (0-0.2); Basophils % 0.7 % (0.1-2.0); Eosinophils # 0.2 K/mm3 (0.0-0.4); Eosinophils % 2.1 % (0.1-12.0); Hemoglobin 11.7 g/dL (14.1-18.0); Lymphocytes # 1.5 K/mm3 (0.7-4.5); Lymphocytes % 18.2 % (10-50); Mean Corpuscular HGB Conc 31.7 g/dL (31.8-35.4); Mean Corpuscular Hemoglobin 29.6 pg (27.0-31.2); Mean Corpuscular Volume 93.4 fl (80-94); Mean Platelet Volume 7.1 fl (7.4-10.4); Monocytes # 0.6 K/mm3 (0.1-1.0); Neutrophils # 6.1 K/mm3 (1.8-7.8); Platelet Count 241 K/mm3 (142-424); Red Blood Count 3.96 M/mm3 (4.60-6.20); Red Cell Distribution Width 17.1 % (11.5-17.5); White Blood Count 8.4 K/mm3 (4.8-10.8)
[2019-01-29 10:42] LABS: Alanine Aminotransferase 25 U/L (12-78); Albumin Level 3.2 gm/dL (3.4-5.0); Albumin/Globulin Ratio 0.9 (1.1-1.8); Alkaline Phosphatase 110 U/L (46-116); Anion Gap 15.4 mEq/L (5-15); Aspartate Amino Transferase 16 U/L (15-37); Bilirubin,Total 0.6 mg/dL (0.2-1.0); Blood Urea Nitrogen 14 mg/dL (7-18); Calcium 9.2 mg/dL (8.5-10.1); Carbon Dioxide 28 mmol/L (21.0-32.0); Chloride 103 mmol/L (98-107); Creatinine,Serum 1.29 mg/dL (0.70-1.30); Estimated Glomerular Filt Rate 54 ml/min (>60); GFR (African American) 65 ML/MIN (>60); Globulin 3.7 gm/dl (1.3-3.2); Glucose 152 mg/dL (74-106); Potassium 4.4 mmoL/L (3.5-5.1); Sodium 142 mmol/L (136-145); Total Protein,Serum 6.9 gm/dL (6.4-8.2)
== END ==
PROVIDERS: Visit Provider Dermatology
DX: L40.0 Psoriasis vulgaris (principal); Z79.899 Other long term (current) drug therapy
CPT/HCPCS: 36415; 80053; 85025

== ENCOUNTER → 2019-03-19 07:50 | Outpatient (CLI) | payer MEDICARE, BC, SELFPAY ==
[2019-03-19 08:02] LABS: Basophils # 0.1 K/mm3 (0-0.2); Basophils % 0.5 % (0.1-2.0); Eosinophils # 0.2 K/mm3 (0.0-0.4); Hematocrit 38.8 % (42.0-52.0); Hemoglobin 11.8 g/dL (14.1-18.0); Lymphocytes # 1.6 K/mm3 (0.7-4.5); Mean Corpuscular HGB Conc 30.3 g/dL (31.8-35.4); Mean Corpuscular Hemoglobin 28.4 pg (27.0-31.2); Mean Corpuscular Volume 93.8 fl (80-94); Mean Platelet Volume 7.4 fl (7.4-10.4); Monocytes # 0.4 K/mm3 (0.1-1.0); Monocytes % 4.7 % (1.7-9.3); Neutrophils # 6.9 K/mm3 (1.8-7.8); Neutrophils % 75.8 % (37.0-80.0); Platelet Count 367 K/mm3 (142-424); Red Blood Count 4.14 M/mm3 (4.60-6.20); Red Cell Distribution Width 17.4 % (11.5-17.5); White Blood Count 9.1 K/mm3 (4.8-10.8)
[2019-03-19 09:23] LABS: Alanine Aminotransferase 29 U/L (12-78); Albumin/Globulin Ratio 0.9 (1.1-1.8); Alkaline Phosphatase 112 U/L (46-116); Anion Gap 13.1 mEq/L (5-15); Aspartate Amino Transferase 25 U/L (15-37); Bilirubin,Total 0.5 mg/dL (0.2-1.0); Blood Urea Nitrogen 16 mg/dL (7-18); Calcium 8.7 mg/dL (8.5-10.1); Carbon Dioxide 30 mmol/L (21.0-32.0); Chloride 102 mmol/L (98-107); Creatinine,Serum 1.21 mg/dL (0.70-1.30); Estimated Glomerular Filt Rate 58 ml/min (>60); GFR (African American) 70 ML/MIN (>60); Globulin 3.5 gm/dl (1.3-3.2); Glucose 166 mg/dL (74-106); Potassium 4.1 mmoL/L (3.5-5.1); Sodium 141 mmol/L (136-145); Total Protein,Serum 6.5 gm/dL (6.4-8.2)
== END ==
PROVIDERS: Visit Provider Dermatology
DX: L40.0 Psoriasis vulgaris (principal); Z79.899 Other long term (current) drug therapy
CPT/HCPCS: 36415; 80053; 85025

== ENCOUNTER 2019-04-12 16:59 | Inpatient (IN) ==
--- NOTE | 2019-04-12 17:26 | Emergency Department Note ---
ED Disposition Clinical Impression: Fever, Prostatitis Disposition: Admitted as Observation Condition on Discharge: Fair Time of Disposition: 21:11 - Critical Care Critical Care Time: No Attestation: On 04/12/19, the high probability of a clinically significant, sudden or life threatening deterioration of the following system(s) required my full and direct attention, intervention and personal management. The time I documented below is in addition to time spent performing reported procedures but includes the following listed in this critical care notation. Medical Decision Making - Medical Records Medical records reviewed: Yes: I reviewed the patient's medical records. - Quentin Inquiry Pt receiving controlled substance: No Quentin was queried for this patient: No Vital Signs: 04/12/19 17:02 04/12/19 17:53 04/12/19 18:54 Temperature 100.3 F H Temperature Source Oral Pulse Rate [Right Radial] 89 82 86 Respiratory Rate 16 22 20 Blood Pressure [Right Arm] 124/58 L 139/59 L 120/65 Blood Pressure Mean [Right Arm] 80 85 83 Blood Pressure Source [Right Arm] Automatic Cuff Automatic Cuff Blood Pressure Position [Right Arm] Sitting Supine 02 Sat by Pulse Oximetry 95 95 95 Oxygen Delivery Method Room Air Room Air 04/12/19 20:30 Temperature 98.8 F Temperature Source Oral Pulse Rate [Right Radial] 73 Respiratory Rate 18 Blood Pressure [Right Arm] 103/48 L Blood Pressure Mean [Right Arm] 66 Blood Pressure Source [Right Arm] Automatic Cuff Blood Pressure Position [Right Arm] Sitting 02 Sat by Pulse Oximetry 93 L Oxygen Delivery Method Room Air - Lab Data Lab results reviewed: Yes: I reviewed the patient's lab results. Lab Results 04/12/19 17:00: WBC 19.0 H, RBC 4.42 L, Hgb 12.5 L, Hct 40.4 L, MCV 91.5, MCH 28.3, MCHC 30.9 L, RDW 17.5, Plt Count 251, MPV 8.0, Neut % (Auto) 91.7 H, Lymph % (Auto) 5.3 L, [place] % (Auto) 2.7, Eos % (Auto) 0.0 L, Baso % (Auto) 0.2, Neut # (Auto) 17.4 H, Lymph # (Auto) 1.0, [place] # (Auto) 0.5, Eos # (Auto) 0.0, Baso # (Auto) 0.0, Total Counted 100, Neutrophils % (Manual) 90 H, Lymphocytes % (Manual) 7 L, Monocytes % (Manual) 3, Platelet Estimate Normal, RBC Morphology Not Reportable, Hypochromasia 1+ 04/12/19 17:00: Sodium 134 L, Potassium 3.0 L, Chloride 95 L, Carbon Dioxide 24, Anion Gap 18.0 H, BUN 19 H, Creatinine 1.85 H, Estimated Creat Clear 54, Estim ated GFR 36 L, Est GFR ( Amer) 43 L, Glucose 208 H, Calcium 9.3, Total Bilirubin 1.2 H, AST 13 L, ALT 19, Alkaline Phosphatase 83, Total Protein 7.4, Albumin 3.0 L, Globulin 4.4 H, Albumin/Globulin Ratio 0.7 L 04/12/19 17:20: Lactate 2.6 H 04/12/19 19:32: Urine Color Yellow, Urine Appearance Clear, Urine pH 5.5, Ur Specific [place] 1.025, Urine Protein 2+, Urine Glucose (UA) Trace, Urine Ketones Trace, Urine Blood 3+, Urine Nitrate Negative, Urine Bilirubin Negative, Urine Urobilinogen 0.2, Ur Leukocyte Esterase 2+ A, Urine RBC 10-20, Urine WBC 20-50, Urine Bacteria 3+ Result diagrams: 04/12/19 17:00 04/12/19 17:00 Orders (Tests/Meds): ED MEDICATIONS Generic Name Dose Route Start Last Admin Trade Name Freq PRN Reason Stop Dose Admin Sodium Chloride 1,000 mls @ 999 mls/hr 04/12/19 17:30 04/12/19 18:49 Sod Chlor 0.9% 1000ml Bag IV 04/12/19 19:30 999 mls/hr .Q1H1M STEWART Administration Ceftriaxone Sodium 2 gm/ 100 mls @ 200 mls/hr 04/12/19 20:15 04/12/19 20:11 Sodium Chloride IV 04/26/19 20:14 200 mls/hr Q24H STEWART Administration Protocol Discontinued Medications Generic Name Dose Route Start Last Admin Trade Name Freq PRN Reason Stop Dose Admin Acetaminophen 1,000 mg 04/12/19 18:48 04/12/19 18:49 Tylenol 500mg Tablet PO 04/12/19 18:49 1,000 mg ONCE ONE Administration ORDERS Category Date Time Status Blood Culture Stat Micro 04/12/19 17:20 Received Urine Culture Stat Micro 04/12/19 19:32 Received - Physician Consults Time: 21:10 General Adult HPI - General Chief complaint: Nausea/Vomiting/Diarrhea Stated complaint: NAUSEA Time Seen by Provider: 04/12/19 17:23 Mode of Arrival: EMS Source of Information: Patient Limitations: No Limitations Description of Symptoms (Recalled from ER Triage Doc. by RN): PT BROUGHT IN VIA EMS WITH C/O NAUSEA X FEW DAYS. PT DENIES VOMITING AND/OR DIARRHEA - Related Data Home Medications Medication Instructions Recorded Confirmed diphenhydramine 50 mg capsule 50 mg PO Q4-6H PRN 01/31/18 01/30/19 latanoprost 0.005 % eye drops 1 drp OPHTHALMIC HS 01/31/18 01/30/19 omeprazole 20 mg capsule,delayed 20 mg PO DAILY 01/31/18 01/30/19 release diltiazem 120 mg tablet 120 mg PO DAILY tab 04/25/18 01/30/19 folic acid 1 mg tablet 1 mg PO DAILY 04/25/18 01/30/19 Apixaban [Eliquis] 5 mg PO BID 10/25/18 01/30/19 Atorvastatin Calcium [Lipitor 40mg 40 mg PO DAILY 10/25/18 01/30/19 Tablet] Losartan/Hydrochlorothiazide 1 each PO DAILY 10/25/18 01/30/19 [Losartan-Hctz 100-12.5 mg Tab] metformin 500 mg tablet 1,000 mg PO DAILY tab 11/21/18 01/30/19 methotrexate 2.5 mg/mL oral 2.5 mg PO WEEKLY ml 11/21/18 01/30/19 solution sulfasalazine 500 mg tablet 1.5 g PO BID tab 11/21/18 01/30/19 Previous Rx's Medication Instructions Recorded Digoxin 0.125 mg PO Q48H #0 10/25/18 Tamsulosin HCl [Flomax 0.4mg 0.4 mg PO HS cap.er.24h 10/25/18 capsule] apixaban 5 mg tablet 5 mg PO BID #60 tab 03/21/19 Allergies Allergy/AdvReac Type Severity Reaction Status Date / Time infliximab [From Remicade] Allergy Severe S-ANAPHYLAX Verified 01/30/19 11:00 IS Influenza Virus Vaccines Allergy Unknown 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 I have reviewed the patient's past medical history: Yes Medical History: Reports:: Atrial Fibrillation, Coronary Artery Disease, Diabetes Mellitus Type 2, Gastroesophageal Reflux Disease(GERD), Hypertension Denies:: Cancer, Diabetes Mellitus Type 1, Internal Pacemaker, MRSA, Seizures Other Medical History: Reports: Glaucoma Comment: Immune disease Other Surgeries: Yes: Cardiac Catheterization, Colon Resection. No: Pacemaker Amputation: No Fractures: No Comment: Lasik bilat, Lithotripsy, Heart Cath - Social History Smoking Status: Never smoker Alcohol Intake: never Alcohol Intake Frequency:: other Substance Use Type: denies use Occupational Status: retired Housing: house Household Members: spouse Family Hx:: Cancer Comment: Immune disease, COPD ROS Obtained: Yes All systems reviewed & no additional complaints - Constitutional Constitutional: Reports chills, Reports fever(s) - Cardiovascular Cardiovascular: Denies chest pain - Respiratory Respiratory: No chest congestion, No cough, No dyspnea - Gastrointestinal Gastrointestingal: Reports: diarrhea, nausea, vomiting. Denies: abdominal pain - Genitourinary Male Genitourinary: Reports difficulty urinating, Denies flank pain, Denies hematuria - Musculoskeletal Musculoskeletal: Reports muscle weakness - Integumentary/Breasts Skin/Breast: Denies rash, Denies skin pain - Neurologic Neurologic: Denies headache(s) - Hematologic/Lymphatic Henatologic/Lymphatic: Denies easy bleeding, Denies easy bruising Physical Exam - General General appearance: alert, other (appears to feel poorly) - Head Head exam: atraumatic, normocephalic, normal inspection - ENT ENT exam: Present: normal exam, normal oropharynx, mucous membranes moist, mucous membranes dry, TM's normal bilaterally, normal external ear exam - Neck Neck exam: Present: normal inspection - Respiratory Respiratory exam: Present: normal lung sounds bilaterally. Absent: respiratory distress - Cardiovascular Cardiovascular exam: Present: regular rate, normal rhythm. Absent: JVD - Abdominal Exam Abdominal exam: Present: soft. Absent: distention, tenderness - Back Exam Back exam: Present: normal inspection. Absent: tenderness - Neurological Exam Neurological exam: Present: alert, oriented X3, CN II-XII intact - Psychiatric Psychiatric exam: Present: normal affect - Skin Skin exam: Present: warm, dry, intact, normal color - Lymphatic Lymphatic Findings: no adenopathy
[2019-04-12 17:35] LABS: Basophils % 0.2 % (0.1-2.0); Hematocrit 40.4 % (42.0-52.0); Hemoglobin 12.5 g/dL (14.1-18.0); Lymphocytes % 5.3 % (10-50); Mean Corpuscular HGB Conc 30.9 g/dL (31.8-35.4); Mean Corpuscular Volume 91.5 fl (80-94); Monocytes # 0.5 K/mm3 (0.1-1.0); Monocytes % 2.7 % (1.7-9.3); Neutrophils # 17.4 K/mm3 (1.8-7.8); Neutrophils % 91.7 % (37.0-80.0); Platelet Count 251 K/mm3 (142-424); Red Blood Count 4.42 M/mm3 (4.60-6.20); Red Cell Distribution Width 17.5 % (11.5-17.5)
[2019-04-12 17:46] LABS: Albumin/Globulin Ratio 0.7 (1.1-1.8); Bilirubin,Total 1.2 mg/dL (0.2-1.0); Calcium 9.3 mg/dL (8.5-10.1); Globulin 4.4 gm/dl (1.3-3.2); Total Protein,Serum 7.4 gm/dL (6.4-8.2)
[2019-04-12 18:23] LABS: Lymphocytes % 7 % (10-50); Monocytes % 3 % (2-9); Neutrophils % 90 % (42-76); Total Cells Counted 100
[2019-04-12 18:24] LABS: Hypochromasia 1+
[2019-04-12 19:39] LABS: Microscopic, Urine URINE MICROSCOPIC (MICROSCOPIC)
[2019-04-12 19:42] LABS: Appearance,Urine CLEAR (Clear); Bilirubin,Urine Negative (Negative); Blood, Urine 3+ (Negative); Color,Urine YELLOW (Yellow); Glucose,Urine (UA) TRACE (Negative); Ketones,Urine TRACE (Negative); Leukocyte Esterase,Urine 2+ (Negative); PH,Urine 5.5 (5.0-8.5); Protein,Urine 2+ (Negative); Specific Gravity, Urine 1.025 (1.005-1.030); Urobilinogen,Urine 0.2 EU/dl (0.2)
[2019-04-12 20:13] LABS: Bacteria,Urine 3+ /lpf; WBC,Urine 20-50 #/hpf (0-3)
[2019-04-13 06:57] LABS: Anion Gap 13.3 mEq/L (5-15)
[2019-04-13 06:58] LABS: Basophils % 0.2 % (0.1-2.0); Eosinophils % 0.1 % (0.1-12.0); Hematocrit 34.9 % (42.0-52.0); Lymphocytes # 0.6 K/mm3 (0.7-4.5); Lymphocytes % 3.6 % (10-50); Mean Corpuscular HGB Conc 30.7 g/dL (31.8-35.4); Mean Corpuscular Volume 91.3 fl (80-94); Mean Platelet Volume 7.5 fl (7.4-10.4); Monocytes # 0.5 K/mm3 (0.1-1.0); Monocytes % 3.1 % (1.7-9.3); Platelet Count 175 K/mm3 (142-424); Red Blood Count 3.82 M/mm3 (4.60-6.20); Red Cell Distribution Width 17.5 % (11.5-17.5); White Blood Count 16.1 K/mm3 (4.8-10.8)
[2019-04-13 07:16] LABS: Calcium 7.9 mg/dL (8.5-10.1)
[2019-04-13 07:29] LABS: Hemoglobin 10.8 g/dL (14.1-18.0)
--- NOTE | 2019-04-13 07:51 | History & Physical Report ---
*Admission Date: 04/12/19 *Chief complaint: abdominal pain, nausea *History of present illness: Mr. Melendez is a 78-year-old male who presented yesterday to the ER via ambulance due to abdominal pain, nausea, fatigue. He has a history of immune suppression and Crohn's, diabetes, hypertension. States he has had an episode similar to this before that was prostatitis from his diabetes medication. He is found good benefit with his Jardiance but concerned it may be causing his problem. States he has had no dysuria, no shortness of breath, no chest pain. Does report some nausea without emesis or diarrhea. Has felt more fatigued and was unable to get himself up and come by personal vehicle yesterday, hence the reason he had the ambulance bring him to the hospital. States he feels stable this morning, no new symptoms or significant change. Arteaga was placed in the ER with very turbid urine. Lab findings consistent with with urinary tract infection versus prostatitis. Patient has been tachycardic with an elevated white cell count therefore meeting criteria for sepsis. Tolerating IV fluids. Admitted to medicine for further management [facility] History I have reviewed the patient's past medical history: Yes Medical History: Reports:: Atrial Fibrillation, Coronary Artery Disease, Diabetes Mellitus Type 2, Gastroesophageal Reflux Disease(GERD), Hypertension Denies:: Cancer, Diabetes Mellitus Type 1, Internal Pacemaker, MRSA, Seizures *Have you ever received a pneumonia vaccine?: No *Have you received a flu vaccine this season?: No Other Medical History: Reports: Glaucoma Other Surgeries: Yes: Cardiac Catheterization, Colon Resection. No: Pacemaker Amputation: No Fractures: No - *Social History Educational Level: Completed College Smoking Status: Never smoker Alcohol Intake: never Alcohol Intake Frequency:: other Substance Use Type: denies use *Occupational Status:: retired Housing: house Household Members: spouse *Travel in the last 8 weeks: None - Psychiatric History Expresses thoughts of harming self/others: None Suicide Plan Description: No Plan Family Hx:: Cancer Review of Systems - Review of Systems Review of systems:: pertinent systems reviewed and negative unless documented below - *Neurologic Denies headache(s) Meds Home Medications Medication Instructions Recorded Confirmed Type latanoprost 0.005 % eye drops 1 drp OPHTHALMIC HS 01/31/18 04/12/19 History omeprazole 20 mg capsule,delayed 20 mg PO HS 01/31/18 04/12/19 History release diltiazem 120 mg tablet 120 mg PO DAILY tab 04/25/18 04/12/19 History folic acid 1 mg tablet 1 mg PO WEEKLY 04/25/18 04/12/19 History Atorvastatin Calcium [Lipitor 40mg 40 mg PO HS 10/25/18 04/13/19 History Tablet] Losartan/Hydrochlorothiazide 1 each PO DAILY 10/25/18 04/12/19 History [Losartan-Hctz 100-12.5 mg Tab] Tamsulosin HCl [Flomax 0.4mg 0.4 mg PO HS cap.er.24h 10/25/18 04/12/19 Rx capsule] metformin 500 mg tablet 1,000 mg PO HS tab 11/21/18 04/12/19 History sulfasalazine 500 mg tablet 1.5 g PO BID tab 11/21/18 04/12/19 History apixaban 5 mg tablet 5 mg PO BID #60 tab 03/21/19 04/12/19 Rx Digoxin [Digoxin 0.125mg Tablet] 125 mcg PO Q48H 04/12/19 04/12/19 History metHOTREXate sodium [metHOTREXate 12.5 mg PO WEEKLY 04/13/19 04/13/19 History 2.5mg Tablet] Allergies Allergy/AdvReac Type Severity Reaction Status Date / Time infliximab [From Remicade] Allergy Severe S-ANAPHYLAX Verified 01/30/19 11:00 IS Influenza Virus Vaccines Allergy Unknown 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 [From Stelara] Allergy Unknown SUPPRESS Verified 01/30/19 11:00 IMMUNE SYSTEM Exam Vital signs and Labs for Last 24 Hours: Temp Pulse Resp BP Pulse Ox 98.5 F 77 24 133/51 L 91 L 04/13/19 04:00 04/13/19 04:00 04/13/19 04:00 04/13/19 04:00 04/13/19 04:00 Laboratory Results - last 24 hr 04/12/19 17:00: WBC 19.0 H, RBC 4.42 L, Hgb 12.5 L, Hct 40.4 L, MCV 91.5, MCH 28.3, MCHC 30.9 L, RDW 17.5, Plt Count 251, MPV 8.0, Neut % (Auto) 91.7 H, Lymph % (Auto) 5.3 L, [place] % (Auto) 2.7, Eos % (Auto) 0.0 L, Baso % (Auto) 0.2, Neut # (Auto) 17.4 H, Lymph # (Auto) 1.0, [place] # (Auto) 0.5, Eos # (Auto) 0.0, Baso # (Auto) 0.0, Total Counted 100, Neutrophils % (Manual) 90 H, Lymphocytes % (Manual) 7 L, Monocytes % (Manual) 3, Platelet Estimate Normal, RBC Morphology Not Reportable, Hypochromasia 1+ 04/12/19 17:00: Sodium 134 L, Potassium 3.0 L, Chloride 95 L, Carbon Dioxide 24, Anion Gap 18.0 H, BUN 19 H, Creatinine 1.85 H, Estimated Creat Clear 54, Estimated GFR 36 L, Est GFR ( Amer) 43 L, Glucose 208 H, Calcium 9.3, Total Bilirubin 1.2 H, AST 13 L, ALT 19, Alkaline Phosphatase 83, Total Protein 7.4, Albumin 3.0 L, Globulin 4.4 H, Albumin/Globulin Ratio 0.7 L 04/12/19 17:20: Lactate 2.6 H 04/12/19 19:32: Urine Color Yellow, Urine Appearance Clear, Urine pH 5.5, Ur Specific [place] 1.025, Urine Protein 2+, Urine Glucose (UA) Trace, Urine Ketones Trace, Urine Blood 3+, Urine Nitrate Negative, Urine Bilirubin Negative, Urine Urobilinogen 0.2, Ur Leukocyte Esterase 2+ A, Urine RBC 10-20, Urine WBC 20-50, Urine Bacteria 3+ 04/12/19 22:10: Lactate 2.9 H 04/13/19 00:30: Lactate 6.2 H 04/13/19 06:20: WBC 16.1 H, RBC 3.82 L, Hgb 10.8 L D, Hct 34.9 L, MCV 91.3, MCH 28.0, MCHC 30.7 L, RDW 17.5, Plt Count 175 D, MPV 7.5, Neut % (Auto) 93.0 H, Lymph % (Auto) 3.6 L, [place] % (Auto) 3.1, Eos % (Auto) 0.1, Baso % (Auto) 0.2, Neut # (Auto) 15.0 H, Lymph # (Auto) 0.6 L, [place] # (Auto) 0.5, Eos # (Auto) 0.0, Baso # (Auto) 0.0 04/13/19 06:20: Sodium 135 L, Potassium 3.3 L, Chloride 100, Carbon Dioxide 25, Anion Gap 13.3, BUN 21 H, Creatinine 1.83 H, Estimated Creat Clear 56, Estimated GFR 36 L, Est GFR ( Amer) 44 L, Glucose 221 H, Calcium 7.9 L D I & O for Last 24 hours: Intake & Output 04/10/19 04/11/19 04/12/19 04/13/19 23:59 23:59 23:59 23:59 Intake Total 1008 / 1008 Output Total 550 / 550 Balance 458 / 458 Weight 116.205 kg 118.104 kg - Constitutional no acute distress, obese - *Routine HEENT Exam Head: Present: normocephalic, atraumatic Eye: Present: EOMI, PERRL ENT: Present: mucous membranes moist - *Routine Neck Exam Present: supple, full ROM. Absent: JVD - *Routine Respiratory Exam Present: CTA bilaterally. Absent: prolonged expiratory phase, wheezes - *Routine Cardiovascular Exam Present: RRR, Normal S1, Normal S2. Absent: murmur - *Routine Abdominal Exam Present: soft, normoactive bowel sounds, distended - *Routine Rectal Exam Patient deferred: visual exam - *Routine Exam Comments: arteaga in place. - *Routine Extremities Exam Present: edema (trace). Absent: cyanosis, clubbing - *Routine Skin Exam Present: intact. Absent: cyanosis, erythema - *Routine Neurological Exam Present: alert, oriented X3. Absent: altered mental status Assessment and Plan (1) Sepsis Current visit: Yes Status: Acute Qualifiers: Sepsis type: sepsis due to unspecified organism Category: Medical Code(s): A41.9 - Sepsis, unspecified organism Tachycardic greater than 90, leukocytosis, presumed urinary tract infection. Antibiotics initiated on admission, continue IV fluids. Continue to monitor for defervescence (2) Prostatitis Current visit: Yes Status: Acute Qualifiers: Prostatitis type: acute Qualified Code(s): N41.0 - Acute prostatitis Category: Medical Code(s): N41.9 - Inflammatory disease of prostate, unspecified (3) Crohn disease Current visit: No Status: Chronic Qualifiers: Digestive disease complication type: without complication Category: Medical Code(s): K50.90 - Crohn's disease, unspecified, without complications Complicates his care given immune suppression. 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 Sliding scale insulin during admission. (6) Fatigue Current visit: No Status: Acute Qualifiers: Fatigue type: chronic, unspecified Qualified Code(s): R53.82 - Chronic fatigue, unspecified Category: Medical Code(s): R53.83 - Other fatigue Suspect due to acute illness (7) HTN (hypertension) Current visit: No Status: Chronic Qualifiers: Hypertension type: essential hypertension Qualified Code(s): I10 - Essential (primary) hypertension Category: Medical Code(s): I10 - Essential (primary) hypertension (8) SUMAN (obstructive sleep apnea) Current visit: No Status: Chronic Category: Medical Code(s): G47.33 - Obstructive sleep apnea (adult) (pediatric) We will continue CPAP if patient wears at home. - Assessment and plan all Dx Assessment and Plan for all problems:: Patient at this time meets criteria for sepsis. Will transition to acute admission. Continue antibiotics, transition to Levaquin for better coverage of prostatitis. Continue IV fluids in the setting of sepsis. Continue to monitor ins and outs strictly. Acute kidney injury still present, monitor for improvement with fluid rehydration. Continues to require inpatient management
--- NOTE | 2019-04-13 08:47 | Pharmacy Consult Notes ---
[facility] Pharmacy VTE Monitoring - Patient Demographics Admission date: 04/12/19 Report Date: 04/13/19 Time: 08:47 Allergies/Adverse Reactions: Patient Allergies infliximab [From Remicade] Allergy (Severe, Verified 01/30/19 11:00) S-ANAPHYLAXIS Influenza Virus Vaccines Allergy (Unknown, Verified 01/30/19 11:00) HX OF GUILLAN BARRE ustekinumab [From Stelara] Allergy (Unknown, Verified 01/30/19 11:00) SUPPRESS IMMUNE SYSTEM Height: 1.78 m Weight: 118.104 kg Patient Problems: Current Active Problems Fever (Acute) Prostatitis (Acute) - VTE Risk Labs: VTE Related Lab Results Hgb 10.8 g/dL (14.1-18.0) L D 04/13/19 06:20 Hct 34.9 % (42.0-52.0) L 04/13/19 06:20 Plt Count 175 K/mm3 (142-424) D 04/13/19 06:20 BUN 21 mg/dL (7-18) H 04/13/19 06:20 Creatinine 1.83 mg/dL (0.70-1.30) H 04/13/19 06:20 Estimated Creat Clear 56 mL/min (50-200) 04/13/19 06:20 - Prophylaxis VTE Prophylaxis Ordered?: Yes Types of VTE Prophylaxis: Pharmacological Pharmacologic Type: Other (ELIQUIS)
[2019-04-13 13:08] LABS: Hypochromasia 1+; Lymphocytes % 5 % (10-50); Monocytes % 3 % (2-9); Neutrophils % 89 % (42-76); Total Cells Counted 100
[2019-04-14 06:29] LABS: Basophils % 0.1 % (0.1-2.0); Eosinophils % 0.2 % (0.1-12.0); Hematocrit 30.7 % (42.0-52.0); Hemoglobin 9.9 g/dL (14.1-18.0); Lymphocytes # 0.6 K/mm3 (0.7-4.5); Lymphocytes % 5.4 % (10-50); Mean Corpuscular HGB Conc 32.3 g/dL (31.8-35.4); Mean Corpuscular Volume 88.1 fl (80-94); Mean Platelet Volume 7.9 fl (7.4-10.4); Monocytes # 0.5 K/mm3 (0.1-1.0); Monocytes % 4.7 % (1.7-9.3); Neutrophils # 10.1 K/mm3 (1.8-7.8); Neutrophils % 89.5 % (37.0-80.0); Platelet Count 151 K/mm3 (142-424); Red Blood Count 3.48 M/mm3 (4.60-6.20); Red Cell Distribution Width 17.8 % (11.5-17.5); White Blood Count 11.3 K/mm3 (4.8-10.8)
[2019-04-14 06:50] LABS: Anion Gap 14.3 mEq/L (5-15)
[2019-04-14 07:27] LABS: Calcium 7.1 mg/dL (8.5-10.1)
--- NOTE | 2019-04-14 08:26 | Progress Note ---
Internal Medicine - PN: Subj *Date: 04/14/19 *Time: 08:23 Interval history: Overnight patient states that he feels a little bit less fatigued, but has had some coughing and some shortness of air. This morning has been placed on 2 L nasal cannula because of O2 saturations in the mid 80% range. Labs show some improvement in white cell count, and his acute kidney injury is also improving nicely. Hypocalcemia noted on labs this morning. Urine culture is no growth, somewhat surprisingly. Exam Vital signs and Labs for Last 24 Hours: Temp Pulse Resp BP Pulse Ox 98.1 F 87 20 152/62 H 90 L 04/14/19 07:56 04/14/19 08:12 04/14/19 08:12 04/14/19 07:56 04/14/19 08:12 Laboratory Results - last 24 hr 04/13/19 06:20: Total Counted 100, Neutrophils % (Manual) 89 H, Band Neutrophils % 3.0, Lymphocytes % (Manual) 5 L, Monocytes % (Manual) 3, Platelet Estimate Normal, RBC Morphology Not Reportable, Hypochromasia 1+ 04/13/19 19:35: POC Glucose 180 H 04/14/19 06:05: WBC 11.3 H D, RBC 3.48 L, Hgb 9.9 L, Hct 30.7 L, MCV 88.1, MCH 28.5, MCHC 32.3, RDW 17.8 H, Plt Count 151, MPV 7.9, Neut % (Auto) 89.5 H, Lymph % (Auto) 5.4 L, [place] % (Auto) 4.7, Eos % (Auto) 0.2, Baso % (Auto) 0.1, Neut # (Auto) 10.1 H, Lymph # (Auto) 0.6 L, [place] # (Auto) 0.5, Eos # (Auto) 0.0, Baso # (Auto) 0.0 04/14/19 06:05: Sodium 137, Potassium 3.3 L, Chloride 103, Carbon Dioxide 23, Anion Gap 14.3, BUN 21 H, Creatinine 1.39 H D, Estimated Creat Clear 74, Estimated GFR 50 L, Est GFR ( Amer) 60 D, Glucose 156 H D, Calcium 7.1 L D I & O for Last 24 hours: Intake & Output 04/11/19 04/12/19 04/13/19 04/14/19 11:59 11:59 11:59 11:59 Intake Total 1368 / 1368 3210 / 3210 Output Total 550 / 550 500 / 500 Balance 818 / 818 2710 / 2710 Weight 260 lb 6 oz 258 lb 6 oz Microbiology Reports for the Last 24 Hours: Microbiology 04/12/19 17:20 Blood Blood Culture - Preliminary 04/12/19 19:32 Urine,Clean Catch Urine Culture - Final Klebsiella oxytoca 04/13/19 00:50 Urine,Catheterized Urine Culture - Preliminary Narrative: Patient is awake. Alert. Appears fatigued but is oriented x3. Lungs have some rhonchi and expiratory wheezing that were not present yesterday. No crackles noted. Abdomen is soft and nontender. Vital signs unremarkable. Labs reviewed. Distal extremities warm and well-perfused. Patel catheter draining cloudy urine as previously noted. Perirectal area eroded with evidence of yeast and some skin abrasions right around the rectal area. (Patient notes this has been a problem since he started his SGLT2 inhibitor for diabetes several weeks ago.) Prostate exam done, tender, 45 g. No masses. Assessment and Plan (1) Sepsis Current visit: Yes Status: Acute Qualifiers: Sepsis type: sepsis due to unspecified organism Category: Medical Code(s): A41.9 - Sepsis, unspecified organism (2) Prostatitis Current visit: Yes Status: Acute Qualifiers: Prostatitis type: acute Qualified Code(s): N41.0 - Acute prostatitis Category: Medical Code(s): N41.9 - Inflammatory disease of prostate, unspecified (3) Crohn disease Current visit: No Status: Chronic Qualifiers: Digestive disease complication type: without complication Category: Medical Code(s): K50.90 - Crohn's disease, unspecified, without complications (4) Obesity Current visit: No Status: Acute Qualifiers: Obesity type: due to excess calories Obesity classification: adult class 3 (BMI >= 40) Serious obesity comorbidity presence: with serious comorbidity Body mass index: BMI 40.0-44.9 Qualified Code(s): E66.01 - Morbid (severe) obesity due to excess calories; Z68.41 - Body mass index (BMI) 40.0-44.9, adult Category: Medical Code(s): E66.9 - Obesity, unspecified (5) DM2 (diabetes mellitus, type 2) Current visit: No Status: Chronic Qualifiers: Diabetes mellitus half-way insulin use: with intermission coordinator use Diabetes mellitus complication status: without complication Qualified Code(s): E11.9 - Type 2 diabetes mellitus without complications; Z79.4 - jail (current) use of insulin Category: Medical Code(s): E11.9 - Type 2 diabetes mellitus without complications (6) Fatigue Current visit: No Status: Acute Qualifiers: Fatigue type: chronic, unspecified Qualified Code(s): R53.82 - Chronic fatigue, unspecified Category: Medical Code(s): R53.83 - Other fatigue (7) HTN (hypertension) Current visit: No Status: Chronic Qualifiers: Hypertension type: essential hypertension Qualified Code(s): I10 - Essential (primary) hypertension Category: Medical Code(s): I10 - Essential (primary) hypertension (8) SUMAN (obstructive sleep apnea) Current visit: No Status: Chronic Category: Medical Code(s): G47.33 - Obstructive sleep apnea (adult) (pediatric) - Assessment and plan all Dx Assessment and Plan for all problems:: Continue present management with levofloxacin and fluids which have certainly help from a lab perspective. I believe patient has prostatitis, I also think skin infection around the rectal area may be contributing to his fever and we may need to reconsider his SGLT2 inhibitor on discharge. Nystatin topically. Continue levofloxacin. Patient also has developed pulmonary symptoms. I believe these were not present on admission because he was dry and I think there is a high likelihood of pneumonia that was home acquired. Chest x-ray today. Breathing treatments. Sputum culture and upper respiratory PCR.
[2019-04-14 08:39] LABS: Lymphocytes % 1 % (10-50); Monocytes % 2 % (2-9); Neutrophils % 97 % (42-76); RBC Morphology Normal; Total Cells Counted 100
[2019-04-14 08:42] LABS: Coronavirus 229E Not Detected (NotDetected); Coronavirus NL63 Not Detected (NotDetected); Coronavirus OC43 Not Detected (NotDetected); Coronovirus HKU1,PCR Not Detected (NotDetected)
[2019-04-15 07:39] LABS: Basophils % 0.2 % (0.1-2.0); Hematocrit 29.3 % (42.0-52.0); Hemoglobin 9.3 g/dL (14.1-18.0); Lymphocytes # 0.9 K/mm3 (0.7-4.5); Lymphocytes % 9.6 % (10-50); Mean Corpuscular HGB Conc 31.7 g/dL (31.8-35.4); Mean Corpuscular Volume 87.8 fl (80-94); Mean Platelet Volume 7.9 fl (7.4-10.4); Monocytes # 0.6 K/mm3 (0.1-1.0); Monocytes % 5.8 % (1.7-9.3); Neutrophils # 8.3 K/mm3 (1.8-7.8); Neutrophils % 84.5 % (37.0-80.0); Platelet Count 164 K/mm3 (142-424); Red Blood Count 3.34 M/mm3 (4.60-6.20); Red Cell Distribution Width 17.7 % (11.5-17.5); White Blood Count 9.8 K/mm3 (4.8-10.8)
[2019-04-15 07:50] LABS: Albumin Level 1.9 gm/dL (3.4-5.0); Albumin/Globulin Ratio 0.5 (1.1-1.8); Anion Gap 13.7 mEq/L (5-15); Bilirubin,Total 0.6 mg/dL (0.2-1.0); Calcium 7.6 mg/dL (8.5-10.1); Globulin 3.9 gm/dl (1.3-3.2); Total Protein,Serum 5.8 gm/dL (6.4-8.2)
--- NOTE | 2019-04-15 08:59 | Progress Note ---
Internal Medicine - PN: Subj *Date: 04/15/19 *Time: 08:56 Interval history: Patient continues to feel "rough" but has had episodes of feeling somewhat better. Respiratory treatments have improved his dyspnea, but he still continues to have an oxygen requirement. Chest x-ray, labs and culture results reviewed. Exam Vital signs and Labs for Last 24 Hours: Temp Pulse Resp BP Pulse Ox 98.4 F 72 20 113/92 H 92 L 04/15/19 08:00 04/15/19 08:00 04/15/19 08:00 04/15/19 08:00 04/15/19 08:00 Laboratory Results - last 24 hr 04/14/19 08:00: Chlamy pneumoniae PCR Not detected, Adenovirus (PCR) Not detected, B. pertussis DNA (PCR) Not detected, Coronavirus OC43 (PCR) Not detected, Coronavirus HKU1 (PCR) Not detected, Coronavirus 229E (PCR) Not detected, Coronavirus NL63 (PCR) Not detected, Human Metapneumovir PCR Not detected, Influenza A (H1) PCR Not detected, Influ A (H1N1/09) PCR Not detected, Influenza A (H3) PCR Not detected, Influenza Type A (PCR) Not detected, Influenza Type B (PCR) Not detected, M. pneumoniae (PCR) Not detected, Parainfluenza 1 (PCR) Not detected, Parainfluenza 2 (PCR) Not detected, Parainfluenza 3 (PCR) Not detected, Parainfluenza 4 (PCR) Not detected, RSV (PCR) Not detected, Entero/Rhino (PCR) Not detected 04/14/19 11:27: POC Glucose 166 H 04/14/19 16:27: POC Glucose 201 H 04/14/19 21:46: POC Glucose 162 H 04/15/19 06:10: POC Glucose 148 H 04/15/19 07:20: WBC 9.8, RBC 3.34 L, Hgb 9.3 L, Hct 29.3 L, MCV 87.8, MCH 27.9, MCHC 31.7 L, RDW 17.7 H, Plt Count 164, MPV 7.9, Neut % (Auto) 84.5 H, Lymph % (Auto) 9.6 L, [place] % (Auto) 5.8, Eos % (Auto) 0.0 L, Baso % (Auto) 0.2, Neut # (Auto) 8.3 H, Lymph # (Auto) 0.9, [place] # (Auto) 0.6, Eos # (Auto) 0.0, Baso # (Auto) 0.0 04/15/19 07:20: Sodium 135 L, Potassium 2.7 L*, Chloride 102, Carbon Dioxide 22, Anion Gap 13.7, BUN 17, Creatinine 1.27, Estimated Creat Clear 83, Estimated GFR 55 L, Est GFR ( Amer) 67, Glucose 147 H, Calcium 7.6 L, Total Bilirubin 0.6, AST 23 D, ALT 14 D, Alkaline Phosphatase 77, Total Protein 5.8 L, Albumin 1.9 L, Globulin 3.9 H, Albumin/Globulin Ratio 0.5 L I & O for Last 24 hours: Intake & Output 04/12/19 04/13/19 04/14/19 04/15/19 11:59 11:59 11:59 11:59 Intake Total 1368 / 1368 3210 / 3210 5572 / 5572 Output Total 550 / 550 500 / 500 1600 / 1600 Balance 818 / 818 2710 / 2710 3972 / 3972 Weight 260 lb 6 oz 258 lb 6 oz 267 lb 2 oz Microbiology Reports for the Last 24 Hours: Microbiology 04/12/19 17:20 Blood Blood Culture - Preliminary Gram Negative Rods Gram Negative Rods#2 04/13/19 00:50 Urine,Catheterized Urine Culture - Preliminary Gram Negative Rods Gram Negative Rods#2 04/12/19 17:20 Blood Blood Culture - Preliminary NO GROWTH AFTER 48 HOURS 04/12/19 19:32 Urine,Clean Catch Urine Culture - Final Klebsiella oxytoca Narrative: Patient is alert, oriented x3. Patel catheter draining clear yellow urine. Lung [place] are clear than yesterday. Heart rate regular. Abdomen soft. Oropharynx clear, no JVD. Perfusion is good. Neurologically patient is intact although globally weak and fatigued. Assessment and Plan (1) Sepsis Current visit: Yes Status: Acute Qualifiers: Sepsis type: sepsis due to unspecified organism Category: Medical Code(s): A41.9 - Sepsis, unspecified organism Probable Klebsiella sepsis along with possible Enterobacter. Patient is improving lab correa and clinically on single agent levofloxacin therapy. Await culture results and assess need for length of therapy once culture results and echocardiogram have returned. (2) Prostatitis Current visit: Yes Status: Acute Qualifiers: Prostatitis type: acute Qualified Code(s): N41.0 - Acute prostatitis Category: Medical Code(s): N41.9 - Inflammatory disease of prostate, unspecified (3) Crohn disease Current visit: No Status: Chronic Qualifiers: Digestive disease complication type: without complication Category: Medical Code(s): K50.90 - Crohn's disease, unspecified, without complications (4) Obesity Current visit: No Status: Acute Qualifiers: Obesity type: due to excess calories Obesity classification: adult class 3 (BMI >= 40) Serious obesity comorbidity presence: with serious comorbidity Body mass index: BMI 40.0-44.9 Qualified Code(s): E66.01 - Morbid (severe) obesity due to excess calories; Z68.41 - Body mass index (BMI) 40.0-44.9, adult Category: Medical Code(s): E66.9 - Obesity, unspecified Complicates his care (5) DM2 (diabetes mellitus, type 2) Current visit: No Status: Chronic Qualifiers: Diabetes mellitus tank terminal gauger insulin use: with assisted use Diabetes mellitus complication status: without complication Qualified Code(s): E11.9 - Type 2 diabetes mellitus without complications; Z79.4 - local company intermodal truck driver (current) use of insulin Category: Medical Code(s): E11.9 - Type 2 diabetes mellitus without complications (6) Fatigue Current visit: No Status: Acute Qualifiers: Fatigue type: chronic, unspecified Qualified Code(s): R53.82 - Chronic fatigue, unspecified Category: Medical Code(s): R53.83 - Other fatigue Obviously patient has significant medical problems to cause fatigue. PT/OT evaluation to assess and assist in recovery from his metabolic illness. (7) HTN (hypertension) Current visit: No Status: Chronic Qualifiers: Hypertension type: essential hypertension Qualified Code(s): I10 - Essential (primary) hypertension Category: Medical Code(s): I10 - Essential (primary) hypertension (8) SUMAN (obstructive sleep apnea) Current visit: No Status: Chronic Category: Medical Code(s): G47.33 - Obstructive sleep apnea (adult) (pediatric) (9) Hypokalemia Current visit: Yes Status: Acute Category: Medical Code(s): E87.6 - Hypokalemia Replace orally today. Repeat labs tomorrow. (10) Dyspnea Current visit: No Status: Chronic Qualifiers: Dyspnea type: dyspnea on exertion Qualified Code(s): R06.09 - Other forms of dyspnea Category: Medical Code(s): R06.00 - Dyspnea, unspecified Improving with oxygen, probably from metabolic disease. Check echocardiogram tomorrow.
[2019-04-16 06:48] LABS: Basophils % 0.2 % (0.1-2.0); Eosinophils % 0.1 % (0.1-12.0); Hemoglobin 10.1 g/dL (14.1-18.0); Lymphocytes % 8.3 % (10-50); Mean Corpuscular HGB Conc 31.6 g/dL (31.8-35.4); Mean Corpuscular Volume 88.3 fl (80-94); Mean Platelet Volume 7.3 fl (7.4-10.4); Monocytes # 0.9 K/mm3 (0.1-1.0); Monocytes % 7.1 % (1.7-9.3); Neutrophils # 10.7 K/mm3 (1.8-7.8); Neutrophils % 84.4 % (37.0-80.0); Platelet Count 226 K/mm3 (142-424); Red Blood Count 3.63 M/mm3 (4.60-6.20); Red Cell Distribution Width 17.8 % (11.5-17.5); White Blood Count 12.7 K/mm3 (4.8-10.8)
[2019-04-16 07:16] LABS: Albumin/Globulin Ratio 0.5 (1.1-1.8); Anion Gap 11.9 mEq/L (5-15); Bilirubin,Total 0.6 mg/dL (0.2-1.0); Calcium 7.8 mg/dL (8.5-10.1); Globulin 4.4 gm/dl (1.3-3.2); Total Protein,Serum 6.4 gm/dL (6.4-8.2)
--- NOTE | 2019-04-16 08:30 | Progress Note ---
Internal Medicine - PN: Subj *Date: 04/16/19 *Time: 08:28 Interval history: Patient has the main complaint today of insomnia. He reports bad dreams with trazodone and melatonin last night was ineffective. At home apparently he takes Unisom and this seems to help him. However otherwise he feels a little better, is up in a chair and has eaten some breakfast. Physical therapy notes reviewed from yesterday. Has been afebrile. Exam Vital signs and Labs for Last 24 Hours: Temp Pulse Resp BP Pulse Ox 98.0 F 90 20 123/51 L 94 L 04/16/19 04:00 04/16/19 06:10 04/16/19 04:00 04/16/19 04:00 04/16/19 06:10 Laboratory Results - last 24 hr 04/15/19 11:04: POC Glucose 185 H 04/15/19 16:34: POC Glucose 176 H 04/15/19 21:41: POC Glucose 160 H 04/16/19 06:28: WBC 12.7 H D, RBC 3.63 L, Hgb 10.1 L, Hct 32.0 L, MCV 88.3, MCH 27.9, MCHC 31.6 L, RDW 17.8 H, Plt Count 226 D, MPV 7.3 L, Neut % (Auto) 84.4 H , Lymph % (Auto) 8.3 L, [place] % (Auto) 7.1, Eos % (Auto) 0.1, Baso % (Auto) 0.2, Neut # (Auto) 10.7 H, Lymph # (Auto) 1.0, [place] # (Auto) 0.9, Eos # (Auto) 0.0, Baso # (Auto) 0.0 04/16/19 06:28: Sodium 137, Potassium 2.9 L*, Chloride 105, Carbon Dioxide 23, Anion Gap 11.9, BUN 19 H, Creatinine 1.25, Estimated Creat Clear 86, Estimated GFR 56 L, Est GFR ( Amer) 68, Glucose 142 H, Calcium 7.8 L, Total Bilirubin 0.6, AST 33 D, ALT 20 D, Alkaline Phosphatase 115, Total Protein 6.4, Albumin 2.0 L, Globulin 4.4 H, Albumin/Globulin Ratio 0.5 L 04/16/19 06:28: POC Glucose 139 H I & O for Last 24 hours: Intake & Output 04/13/19 04/14/19 04/15/19 04/16/19 11:59 11:59 11:59 11:59 Intake Total 1368 / 1368 3210 / 3210 5722 / 5722 4764 / 4764 Output Total 550 / 550 500 / 500 1600 / 1600 1425 / 1425 Balance 818 / 818 2710 / 2710 4122 / 4122 3339 / 3339 Weight 260 lb 6 oz 258 lb 6 oz 267 lb 2 oz 270 lb 4 oz Microbiology Reports for the Last 24 Hours: Microbiology 04/12/19 17:20 Blood Blood Culture - Preliminary Gram Negative Rods Gram Negative Rods#2 04/13/19 00:50 Urine,Catheterized Urine Culture - Preliminary Gram Negative Rods Gram Negative Rods#2 Narrative: Alert, oriented x3, appears fatigued but is very pleasant. Lungs have good air movement. Heart rate regular. Abdomen soft. Patel catheter draining clear yellow urine than previously. No edema or clubbing. Sensorium intact. Oropharynx moist. No JVD. Assessment and Plan (1) Sepsis Current visit: Yes Status: Acute Qualifiers: Sepsis type: sepsis due to unspecified organism Category: Medical Code(s): A41.9 - Sepsis, unspecified organism (2) Prostatitis Current visit: Yes Status: Acute Qualifiers: Prostatitis type: acute Qualified Code(s): N41.0 - Acute prostatitis Category: Medical Code(s): N41.9 - Inflammatory disease of prostate, unspecified (3) Crohn disease Current visit: No Status: Chronic Qualifiers: Digestive disease complication type: without complication Category: Medical Code(s): K50.90 - Crohn's disease, unspecified, without complications (4) Obesity Current visit: No Status: Acute Qualifiers: Obesity type: due to excess calories Obesity classification: adult class 3 (BMI >= 40) Serious obesity comorbidity presence: with serious comorbidity Body mass index: BMI 40.0-44.9 Qualified Code(s): E66.01 - Morbid (severe) obesity due to excess calories; Z68.41 - Body mass index (BMI) 40.0-44.9, adult Category: Medical Code(s): E66.9 - Obesity, unspecified (5) DM2 (diabetes mellitus, type 2) Current visit: No Status: Chronic Qualifiers: Diabetes mellitus mcc insulin use: with mcc use Diabetes mellitus complication status: without complication Qualified Code(s): E11.9 - Type 2 diabetes mellitus without complications; Z79.4 - intermediate teacher (current) use of insulin Category: Medical Code(s): E11.9 - Type 2 diabetes mellitus without complications (6) Fatigue Current visit: No Status: Acute Qualifiers: Fatigue type: chronic, unspecified Qualified Code(s): R53.82 - Chronic fatigue, unspecified Category: Medical Code(s): R53.83 - Other fatigue (7) HTN (hypertension) Current visit: No Status: Chronic Qualifiers: Hypertension type: essential hypertension Qualified Code(s): I10 - Essential (primary) hypertension Category: Medical Code(s): I10 - Essential (primary) hypertension (8) SUMAN (obstructive sleep apnea) Current visit: No Status: Chronic Category: Medical Code(s): G47.33 - Obstructive sleep apnea (adult) (pediatric) (9) Hypokalemia Current visit: Yes Status: Acute Category: Medical Code(s): E87.6 - Hypokalemia (10) Dyspnea Current visit: No Status: Chronic Qualifiers: Dyspnea type: dyspnea on exertion Qualified Code(s): R06.09 - Other forms of dyspnea Category: Medical Code(s): R06.00 - Dyspnea, unspecified - Assessment and plan all Dx Assessment and Plan for all problems:: Overall patient is slightly improved. Blood counts improving. Plan will be to have PICC line placed today. We await final identification and sensitivities on gram-negative nicholas #2 from the blood, so far Klebsiella species from urine has shown good sensitivity to levofloxacin. Echocardiogram preliminary report looks encouraging and I would anticipate continuing IV antibiotics for the next week given his severe sepsis on admission with the addition of other coverage if sensitivities indicate. Physical therapy will need to continue. I think a swing bed would be reasonable for this patient but we will check his insurance status. Replace potassium orally, and pharmacy will work on obtaining some Unisom for the patient to help him sleep.
--- NOTE | 2019-04-16 09:02 | Progress Note ---
Internal Medicine - PN: Subj *Date: 04/16/19 *Time: 09:02 Exam Vital signs and Labs for Last 24 Hours: Temp Pulse Resp BP Pulse Ox 98.2 F 87 19 162/68 H 96 04/16/19 08:00 04/16/19 08:00 04/16/19 08:00 04/16/19 08:00 04/16/19 08:00 Laboratory Results - last 24 hr 04/15/19 11:04: POC Glucose 185 H 04/15/19 16:34: POC Glucose 176 H 04/15/19 21:41: POC Glucose 160 H 04/16/19 06:28: WBC 12.7 H D, RBC 3.63 L, Hgb 10.1 L, Hct 32.0 L, MCV 88.3, MCH 27.9, MCHC 31.6 L, RDW 17.8 H, Plt Count 226 D, MPV 7.3 L, Neut % (Auto) 84.4 H , Lymph % (Auto) 8.3 L, [place] % (Auto) 7.1, Eos % (Auto) 0.1, Baso % (Auto) 0.2, Neut # (Auto) 10.7 H, Lymph # (Auto) 1.0, [place] # (Auto) 0.9, Eos # (Auto) 0.0, Baso # (Auto) 0.0 04/16/19 06:28: Sodium 137, Potassium 2.9 L*, Chloride 105, Carbon Dioxide 23, Anion Gap 11.9, BUN 19 H, Creatinine 1.25, Estimated Creat Clear 86, Estimated GFR 56 L, Est GFR ( Amer) 68, Glucose 142 H, Calcium 7.8 L, Total Bilirubin 0.6, AST 33 D, ALT 20 D, Alkaline Phosphatase 115, Total Protein 6.4, Albumin 2.0 L, Globulin 4.4 H, Albumin/Globulin Ratio 0.5 L 04/16/19 06:28: POC Glucose 139 H I & O for Last 24 hours: Intake & Output 04/13/19 04/14/19 04/15/19 04/16/19 23:59 23:59 23:59 23:59 Intake Total 2118 / 2118 4156 / 4156 6413 / 6413 2617 / 2617 Output Total 1050 / 1050 700 / 700 1525 / 1525 800 / 800 Balance 1068 / 1068 3456 / 3456 4888 / 4888 1817 / 1817 Weight 118.104 kg 117.197 kg 121.166 kg 122.583 kg Microbiology Reports for the Last 24 Hours: Microbiology 04/12/19 17:20 Blood Blood Culture - Preliminary Gram Negative Rods Gram Negative Rods#2 04/13/19 00:50 Urine,Catheterized Urine Culture - Preliminary Gram Negative Rods Gram Negative Rods#2 Assessment and Plan (1) Sepsis Current visit: Yes Status: Acute Qualifiers: Sepsis type: sepsis due to unspecified organism Category: Medical Code(s): A41.9 - Sepsis, unspecified organism (2) Prostatitis Current visit: Yes Status: Acute Qualifiers: Prostatitis type: acute Qualified Code(s): N41.0 - Acute prostatitis Category: Medical Code(s): N41.9 - Inflammatory disease of prostate, unspecified (3) Crohn disease Current visit: No Status: Chronic Qualifiers: Digestive disease complication type: without complication Category: Medical Code(s): K50.90 - Crohn's disease, unspecified, without complications (4) Obesity Current visit: No Status: Acute Qualifiers: Obesity type: due to excess calories Obesity classification: adult class 3 (BMI >= 40) Serious obesity comorbidity presence: with serious comorbidity Body mass index: BMI 40.0-44.9 Qualified Code(s): E66.01 - Morbid (severe) obesity due to excess calories; Z68.41 - Body mass index (BMI) 40.0-44.9, adult Category: Medical Code(s): E66.9 - Obesity, unspecified (5) DM2 (diabetes mellitus, type 2) Current visit: No Status: Chronic Qualifiers: Diabetes mellitus mcc insulin use: with terminal gauger supervisor use Diabetes mellitus complication status: without complication Qualified Code(s): E11.9 - Type 2 diabetes mellitus without complications; Z79.4 - halfway (current) use of insulin Category: Medical Code(s): E11.9 - Type 2 diabetes mellitus without complications (6) Fatigue Current visit: No Status: Acute Qualifiers: Fatigue type: chronic, unspecified Qualified Code(s): R53.82 - Chronic fatigue, unspecified Category: Medical Code(s): R53.83 - Other fatigue (7) HTN (hypertension) Current visit: No Status: Chronic Qualifiers: Hypertension type: essential hypertension Qualified Code(s): I10 - Essential (primary) hypertension Category: Medical Code(s): I10 - Essential (primary) hypertension (8) SUMAN (obstructive sleep apnea) Current visit: No Status: Chronic Category: Medical Code(s): G47.33 - Obstructive sleep apnea (adult) (pediatric) (9) Hypokalemia Current visit: Yes Status: Acute Category: Medical Code(s): E87.6 - Hypokalemia (10) Dyspnea Current visit: No Status: Chronic Qualifiers: Dyspnea type: dyspnea on exertion Qualified Code(s): R06.09 - Other forms of dyspnea Category: Medical Code(s): R06.00 - Dyspnea, unspecified The patient's infection will respond to the chosen ABx?: Yes Is the patient receiving the right drug, dose, and route?: Yes Could a more targeted ABx be ordered?: No (CULTURES STILL PENDING WITH KLEBSIELLA SENSITIVE TO LEVAQUIN)
--- NOTE | 2019-04-16 18:03 | Cardiology Report ---
PROCEDURE: 2-D M-mode and color Doppler study INDICATIONS FOR THE TEST: Chest pain COPD Heart Murmur Tobacco Smoking Palpitations FatigueX Syncope Edema HypertensionXDiabetes MellitusX Rheumatic Fever SOBXDOE ObesityXHyperlipidemia Family History HD Additional History CROHN DISEASE,SUMAN,ABN EKG TLS/ TDS OBESITY PATIENT INFORMATION HEIGHT: 70 WEIGHT:267 GENDER: Male B/P:113/92 2-D/M-MODE INTERPRETATION: 2-D MEASUREMENTS OBSERVED VALUES IN CMS Right Ventricular Dimension (RVDd) 3.0 Interventricular Septum (Thickness)(IVsd) 1.2 Left Ventricular Internal Dimensions(LVIDd) 4.5 Left Ventricular Posterior Wall (Thickness)(LVPWd) 1.0 Aortic Root 4.0 Aortic Cusp Separation 2.2 Left Atrial Dimensions (LAD) 4.0 2D 1. Left atrium is mildly enlarged size, mild concentric left ventricular hypertrophy, visually estimated ejection fraction 55% with no regional wall motion abnormality. 2. The right atrium and right ventricle are moderately enlarged with normal contractility. 3. The aortic valve is minimally thickened and fibrosed. 4. The mitral and tricuspid valve leaflets are minimally thickened. 5. Pulmonic valve is poorly visualized. 6. No significant pericardial effusion noted. DOPPLER INTERROGATION: Doppler interrogation of the aortic, mitral and tricuspid valvular presence of mild mitral and tricuspid regurgitation, tricuspid regurgitation jet velocity is inadequate for calculation of the right ventricular systolic pressure, diastolic parameters are inconclusive. CONCLUSION: 1. Mildly enlarged left atrium, normal left ventricular size, mild concentric left ventricular hypertrophy, visually is 55% with no regional wall motion abnormality, diastolic parameters are inconclusive. 2. Moderately enlarged right atrium and right ventricle, contractility of the right ventricle is normal 3. Mild mitral and tricuspid regurgitation 4. No significant pericardial effusion noted.
[2019-04-17 06:55] LABS: Basophils % 0.1 % (0.1-2.0); Eosinophils % 0.1 % (0.1-12.0); Hematocrit 33.5 % (42.0-52.0); Hemoglobin 10.6 g/dL (14.1-18.0); Lymphocytes # 1.1 K/mm3 (0.7-4.5); Lymphocytes % 6.7 % (10-50); Mean Corpuscular HGB Conc 31.7 g/dL (31.8-35.4); Mean Corpuscular Volume 88.2 fl (80-94); Mean Platelet Volume 7.3 fl (7.4-10.4); Monocytes # 1.2 K/mm3 (0.1-1.0); Monocytes % 7.2 % (1.7-9.3); Neutrophils % 85.9 % (37.0-80.0); Platelet Count 301 K/mm3 (142-424); Red Cell Distribution Width 17.9 % (11.5-17.5); White Blood Count 16.3 K/mm3 (4.8-10.8)
[2019-04-17 07:27] LABS: Total Protein,Serum 6.5 gm/dL (6.4-8.2)
[2019-04-17 07:52] LABS: Albumin Level 2.1 gm/dL (3.4-5.0); Albumin/Globulin Ratio 0.5 (1.1-1.8); Anion Gap 14.6 mEq/L (5-15); Bilirubin,Total 0.8 mg/dL (0.2-1.0); Calcium 8.3 mg/dL (8.5-10.1); Globulin 4.4 gm/dl (1.3-3.2)
--- NOTE | 2019-04-17 10:23 | Progress Note ---
Internal Medicine - PN: Subj *Date: 04/17/19 *Time: 08:45 Interval history: Overnight the patient had some abdominal discomfort and bloating. KUB was obtained showing mild ileus. Try to take p.o. potassium but is been intolerant due to tearing of his stomach. Treated reflux overnight as well as this was his main complaint. Slept poorly though wore his CPAP while trying to sleep. Sitting up in chair at bedside on interview this morning. Denies any nausea, vomiting, diarrhea, headache, chest pain. Stable shortness of breath. Afebrile Exam Vital signs and Labs for Last 24 Hours: Temp Pulse Resp BP Pulse Ox 98.2 F 88 21 118/57 L 96 04/17/19 08:00 04/17/19 08:00 04/17/19 08:00 04/17/19 08:00 04/17/19 08:00 Laboratory Results - last 24 hr 04/16/19 11:56: POC Glucose 162 H 04/16/19 17:03: POC Glucose 140 H 04/16/19 21:15: POC Glucose 159 H 04/17/19 05:36: POC Glucose 153 H 04/17/19 06:30: WBC 16.3 H D, RBC 3.80 L, Hgb 10.6 L, Hct 33.5 L, MCV 88.2, MCH 28.0, MCHC 31.7 L, RDW 17.9 H, Plt Count 301 D, MPV 7.3 L, Neut % (Auto) 85.9 H , Lymph % (Auto) 6.7 L, [place] % (Auto) 7.2, Eos % (Auto) 0.1, Baso % (Auto) 0.1, Neut # (Auto) 14.0 H, Lymph # (Auto) 1.1, [place] # (Auto) 1.2 H, Eos # (Auto) 0.0, Baso # (Auto) 0.0 04/17/19 06:30: Sodium 139, Potassium 2.6 L*, Chloride 103, Carbon Dioxide 24, Anion Gap 14.6, BUN 18, Creatinine 1.27, Estimated Creat Clear 87, Estimated GFR 55 L, Est GFR ( Amer) 67, Glucose 153 H, Calcium 8.3 L, Total Bilirubin 0.8, AST 25, ALT 18, Alkaline Phosphatase 114, Total Protein 6.5, Albumin 2.1 L, Globulin 4.4 H, Albumin/Globulin Ratio 0.5 L I & O for Last 24 hours: Intake & Output 04/14/19 04/15/19 04/16/19 04/17/19 23:59 23:59 23:59 23:59 Intake Total 4156 / 4156 6563 / 6563 4805 / 4805 120 / 120 Output Total 700 / 700 1525 / 1525 1550 / 1550 200 / 200 Balance 3456 / 3456 5038 / 5038 3255 / 3255 -80 / -80 Weight 117.197 kg 121.166 kg 122.583 kg 126.666 kg Microbiology Reports for the Last 24 Hours: Microbiology 04/15/19 10:05 Blood Blood Culture - Preliminary NO GROWTH AFTER 48 HOURS 04/15/19 09:50 Blood Blood Culture - Preliminary NO GROWTH AFTER 48 HOURS 04/13/19 00:50 Urine,Catheterized Urine Culture - Final Enterobacter cloacae Klebsiella pneumoniae ozaenae Narrative: Alert, oriented x3, appears fatigued but is very pleasant. In bedside chair Heart regular rate and rhythm, no murmur appreciated. Lungs have good air movement, distant breath sounds due to body habitus Abdomen distended with no guarding or rebound, abdominal sounds sluggish Patel catheter in place draining light yellow urine 2+ edema to knees, no clubbing Oropharynx moist. No JVD Assessment and Plan (1) Sepsis Current visit: Yes Status: Acute Qualifiers: Sepsis type: sepsis due to unspecified organism Category: Medical Code(s): A41.9 - Sepsis, unspecified organism (2) Prostatitis Current visit: Yes Status: Acute Qualifiers: Prostatitis type: acute Qualified Code(s): N41.0 - Acute prostatitis Category: Medical Code(s): N41.9 - Inflammatory disease of prostate, unspecified (3) Crohn disease Current visit: No Status: Chronic Qualifiers: Digestive disease complication type: without complication Category: Medical Code(s): K50.90 - Crohn's disease, unspecified, without complications (4) Obesity Current visit: No Status: Acute Qualifiers: Obesity type: due to excess calories Obesity classification: adult class 3 (BMI >= 40) Serious obesity comorbidity presence: with serious comorbidity Body mass index: BMI 40.0-44.9 Qualified Code(s): E66.01 - Morbid (severe) obesity due to excess calories; Z68.41 - Body mass index (BMI) 40.0-44.9, adult Category: Medical Code(s): E66.9 - Obesity, unspecified (5) DM2 (diabetes mellitus, type 2) Current visit: No Status: Chronic Qualifiers: Diabetes mellitus intermediate school teacher insulin use: with intermediate school teacher use Diabetes mellitus complication status: without complication Qualified Code(s): E11.9 - Type 2 diabetes mellitus without complications; Z79.4 - long-term (current) use of insulin Category: Medical Code(s): E11.9 - Type 2 diabetes mellitus without complications (6) Fatigue Current visit: No Status: Acute Qualifiers: Fatigue type: chronic, unspecified Qualified Code(s): R53.82 - Chronic fatigue, unspecified Category: Medical Code(s): R53.83 - Other fatigue (7) HTN (hypertension) Current visit: No Status: Chronic Qualifiers: Hypertension type: essential hypertension Qualified Code(s): I10 - Essential (primary) hypertension Category: Medical Code(s): I10 - Essential (primary) hypertension (8) SUMAN (obstructive sleep apnea) Current visit: No Status: Chronic Category: Medical Code(s): G47.33 - Obstructive sleep apnea (adult) (pediatric) (9) Hypokalemia Current visit: Yes Status: Acute Category: Medical Code(s): E87.6 - Hypokalemia (10) Dyspnea Current visit: No Status: Chronic Qualifiers: Dyspnea type: dyspnea on exertion Qualified Code(s): R06.09 - Other forms of dyspnea Category: Medical Code(s): R06.00 - Dyspnea, unspecified - Assessment and plan all Dx Assessment and Plan for all problems:: Patient continues to require acute care. Continue antibiotics based on sensitivities. Will replace potassium via IV today due to intolerance of p.o. Liquid diet given ileus. Stopped IV fluids due to volume overload and edema. Will diuresis x1 today with discontinuing Patel thereafter. Encourage patient to get up and ambulate to help mobilize his bowels. Still not appropriate for swing status. Repeat labs this evening.
[2019-04-17 13:11] LABS: Lymphocytes % 6 % (10-50); Monocytes % 7 % (2-9); Neutrophils % 87 % (42-76); Total Cells Counted 100
[2019-04-17 13:13] LABS: Anisocytosis 1+
[2019-04-17 13:14] LABS: Ovalocytes 1+; Stomatocytes 1+
[2019-04-17 18:09] LABS: Basophils % 0.2 % (0.1-2.0); Eosinophils # 0.1 K/mm3 (0.0-0.4); Eosinophils % 0.4 % (0.1-12.0); Hemoglobin 10.8 g/dL (14.1-18.0); Lymphocytes # 0.9 K/mm3 (0.7-4.5); Lymphocytes % 5.8 % (10-50); Mean Corpuscular HGB Conc 31.6 g/dL (31.8-35.4); Mean Corpuscular Volume 88.5 fl (80-94); Mean Platelet Volume 7.5 fl (7.4-10.4); Monocytes # 0.9 K/mm3 (0.1-1.0); Monocytes % 5.8 % (1.7-9.3); Neutrophils # 13.9 K/mm3 (1.8-7.8); Neutrophils % 87.8 % (37.0-80.0); Platelet Count 318 K/mm3 (142-424); Red Blood Count 3.85 M/mm3 (4.60-6.20); Red Cell Distribution Width 17.9 % (11.5-17.5); White Blood Count 15.8 K/mm3 (4.8-10.8)
[2019-04-17 18:17] LABS: Anion Gap 12.7 mEq/L (5-15); Calcium 8.7 mg/dL (8.5-10.1)
[2019-04-17 21:33] LABS: Eosinophils % 1 % (0-3); Lymphocytes % 7 % (10-50); Monocytes % 6 % (2-9); Neutrophils % 86 % (42-76); Total Cells Counted 100
[2019-04-17 21:34] LABS: RBC Morphology Normal
[2019-04-18 06:25] LABS: Basophils % 0.3 % (0.1-2.0); Eosinophils % 0.3 % (0.1-12.0); Hematocrit 32.4 % (42.0-52.0); Hemoglobin 10.1 g/dL (14.1-18.0); Lymphocytes % 7.9 % (10-50); Mean Corpuscular HGB Conc 31.2 g/dL (31.8-35.4); Mean Corpuscular Volume 87.9 fl (80-94); Mean Platelet Volume 7.2 fl (7.4-10.4); Monocytes # 1.3 K/mm3 (0.1-1.0); Monocytes % 9.9 % (1.7-9.3); Neutrophils # 10.4 K/mm3 (1.8-7.8); Neutrophils % 81.5 % (37.0-80.0); Platelet Count 363 K/mm3 (142-424); Red Blood Count 3.69 M/mm3 (4.60-6.20); Red Cell Distribution Width 18.1 % (11.5-17.5); White Blood Count 12.7 K/mm3 (4.8-10.8)
[2019-04-18 06:37] LABS: Anion Gap 10.6 mEq/L (5-15); Calcium 8.5 mg/dL (8.5-10.1)
--- NOTE | 2019-04-18 08:26 | Progress Note ---
Internal Medicine - PN: Subj *Date: 04/18/19 *Time: 08:24 Interval history: Patient had NG tube placed yesterday. Had 750 mL's of bilious gastric juice removed, since that time feels much better, less heartburn symptoms. Less abdominal pressure. Exam Vital signs and Labs for Last 24 Hours: Temp Pulse Resp BP Pulse Ox 97.9 F 81 16 134/69 95 04/18/19 04:00 04/18/19 05:49 04/18/19 04:00 04/18/19 04:00 04/18/19 04:00 Laboratory Results - last 24 hr 04/17/19 06:30: Total Counted 100, Neutrophils % (Manual) 87 H, Lymphocytes % (Manual) 6 L, Monocytes % (Manual) 7, Platelet Estimate Normal, Anisocytosis 1+, Ovalocytes 1+, Stomatocytes 1+ 04/17/19 11:46: POC Glucose 164 H 04/17/19 17:29: POC Glucose 152 H 04/17/19 18:00: Sodium 138, Potassium 2.7 L*, Chloride 102, Carbon Dioxide 26, Anion Gap 12.7, BUN 17, Creatinine 1.29, Estimated Creat Clear 86, Estimated GFR 54 L, Est GFR ( Amer) 65, Glucose 151 H, Calcium 8.7 04/17/19 18:30: WBC 15.8 H, RBC 3.85 L, Hgb 10.8 L, Hct 34.0 L, MCV 88.5, MCH 28.0, MCHC 31.6 L, RDW 17.9 H, Plt Count 318, MPV 7.5, Neut % (Auto) 87.8 H, Lymph % (Auto) 5.8 L, [place] % (Auto) 5.8, Eos % (Auto) 0.4, Baso % (Auto) 0.2, Neut # (Auto) 13.9 H, Lymph # (Auto) 0.9, [place] # (Auto) 0.9, Eos # (Auto) 0.1, Baso # (Auto) 0.0, Total Counted 100, Neutrophils % (Manual) 86 H, Lymphocytes % (Manual) 7 L, Monocytes % (Manual) 6, Eosinophils % (Manual) 1, Platelet Estimate Normal, RBC Morphology Normal 04/17/19 21:52: POC Glucose 142 H 04/18/19 06:00: WBC 12.7 H, RBC 3.69 L, Hgb 10.1 L, Hct 32.4 L, MCV 87.9, MCH 27.4, MCHC 31.2 L, RDW 18.1 H, Plt Count 363, MPV 7.2 L, Neut % (Auto) 81.5 H, Lymph % (Auto) 7.9 L, [place] % (Auto) 9.9 H, Eos % (Auto) 0.3, Baso % (Auto) 0.3, Neut # (Auto) 10.4 H, Lymph # (Auto) 1.0, [place] # (Auto) 1.3 H, Eos # (Auto) 0.0, Baso # (Auto) 0.0 04/18/19 06:00: Sodium 141, Potassium 2.6 L*, Chloride 104, Carbon Dioxide 29, Anion Gap 10.6, BUN 19 H, Creatinine 1.22, Estimated Creat Clear 90, Estimated GFR 58 L, Est GFR ( Amer) 70, Glucose 134 H, Calcium 8.5 04/18/19 06:47: POC Glucose 132 H I & O for Last 24 hours: Intake & Output 04/15/19 04/16/19 04/17/19 04/18/19 11:59 11:59 11:59 11:59 Intake Total 5872 / 5872 5004 / 5004 2308 / 2308 490 / 490 Output Total 1600 / 1600 1425 / 1425 3150 / 3150 2075 / 2075 Balance 4272 / 4272 3579 / 3579 -842 / -842 -1585 / -1585 Weight 267 lb 2 oz 270 lb 4 oz 279 lb 4 oz 277 lb 8 oz Microbiology Reports for the Last 24 Hours: Microbiology 04/12/19 17:20 Blood Blood Culture - Final NO GROWTH AFTER 5 DAYS 04/15/19 10:05 Blood Blood Culture - Preliminary NO GROWTH AFTER 48 HOURS 04/15/19 09:50 Blood Blood Culture - Preliminary NO GROWTH AFTER 48 HOURS Narrative: Patient is alert, pleasant. Appears a little bit better as far as perfusion status and alertness than yesterday. Lungs have good air movement. Abdomen is soft, NG tube in good position in the nostril. Heart rate regular. Distal perfusion status looks good. Oropharynx clear. Neurologically intact. Assessment and Plan (1) Sepsis Current visit: Yes Status: Acute Qualifiers: Sepsis type: sepsis due to unspecified organism Category: Medical Code(s): A41.9 - Sepsis, unspecified organism (2) Prostatitis Current visit: Yes Status: Acute Qualifiers: Prostatitis type: acute Qualified Code(s): N41.0 - Acute prostatitis Category: Medical Code(s): N41.9 - Inflammatory disease of prostate, unspecified (3) Crohn disease Current visit: No Status: Chronic Qualifiers: Digestive disease complication type: without complication Category: Medical Code(s): K50.90 - Crohn's disease, unspecified, without complications (4) Obesity Current visit: No Status: Acute Qualifiers: Obesity type: due to excess calories Obesity classification: adult class 3 (BMI >= 40) Serious obesity comorbidity presence: with serious comorbidity Body mass index: BMI 40.0-44.9 Qualified Code(s): E66.01 - Morbid (severe) obesity due to excess calories; Z68.41 - Body mass index (BMI) 40.0-44.9, adult Category: Medical Code(s): E66.9 - Obesity, unspecified (5) DM2 (diabetes mellitus, type 2) Current visit: No Status: Chronic Qualifiers: Diabetes mellitus long-term insulin use: with long-term use Diabetes mellitus complication status: without complication Qualified Code(s): E11.9 - Type 2 diabetes mellitus without complications; Z79.4 - [facility] (current) use of insulin Category: Medical Code(s): E11.9 - Type 2 diabetes mellitus without complications (6) Fatigue Current visit: No Status: Acute Qualifiers: Fatigue type: chronic, unspecified Qualified Code(s): R53.82 - Chronic fatigue, unspecified Category: Medical Code(s): R53.83 - Other fatigue (7) HTN (hypertension) Current visit: No Status: Chronic Qualifiers: Hypertension type: essential hypertension Qualified Code(s): I10 - Essential (primary) hypertension Category: Medical Code(s): I10 - Essential (primary) hypertension (8) SUMAN (obstructive sleep apnea) Current visit: No Status: Chronic Category: Medical Code(s): G47.33 - Obstructive sleep apnea (adult) (pediatric) (9) Hypokalemia Current visit: Yes Status: Acute Category: Medical Code(s): E87.6 - Hypokalemia (10) Dyspnea Current visit: No Status: Chronic Qualifiers: Dyspnea type: dyspnea on exertion Qualified Code(s): R06.09 - Other forms of dyspnea Category: Medical Code(s): R06.00 - Dyspnea, unspecified - Assessment and plan all Dx Assessment and Plan for all problems:: Patient continues to be significantly ill, but is improved after NG tube. I given instructions to the nurses if drainage slows down to place a drain bag to see if patient can have this removed tomorrow. Patient's kidney function remains appropriate and normal with lab work this morning. Remains hypokalemic. Replace intravenously today. Pulmonary status improving. Continue intravenous antibiotics for sepsis/bloodstream infection.
[2019-04-19 07:01] LABS: Basophils % 0.3 % (0.1-2.0); Eosinophils # 0.1 K/mm3 (0.0-0.4); Eosinophils % 1.4 % (0.1-12.0); Hematocrit 30.9 % (42.0-52.0); Hemoglobin 9.9 g/dL (14.1-18.0); Lymphocytes # 1.2 K/mm3 (0.7-4.5); Lymphocytes % 12.3 % (10-50); Mean Corpuscular HGB Conc 32.1 g/dL (31.8-35.4); Mean Corpuscular Volume 87.9 fl (80-94); Monocytes # 0.8 K/mm3 (0.1-1.0); Monocytes % 7.9 % (1.7-9.3); Neutrophils # 7.7 K/mm3 (1.8-7.8); Neutrophils % 78.1 % (37.0-80.0); Platelet Count 410 K/mm3 (142-424); Red Blood Count 3.51 M/mm3 (4.60-6.20); White Blood Count 9.9 K/mm3 (4.8-10.8)
[2019-04-19 07:13] LABS: Calcium 8.5 mg/dL (8.5-10.1)
[2019-04-19 07:37] LABS: Anion Gap 8.8 mEq/L (5-15)
--- NOTE | 2019-04-19 14:09 | Progress Note ---
Internal Medicine - PN: Subj *Date: 04/19/19 *Time: 08:30 Interval history: Overnight Mr. Mendieta did well. Tolerated the NG yesterday well with good response. Has been feeling better after low wall suction and rest of his bowels. Tolerated clear liquid diet last night and this morning with no issues. Denied any nausea this morning on rounds. Remains hemodynamically stable, afebrile. Review labs this morning shows improvement in his leukocytosis. Continues to have hypokalemia. Denies nausea, chest pain, headache, shortness of breath. Still feeling bloated though better. Later this afternoon, called to check on patient and was reported that he had had an episode of emesis and was feeling more distended. Exam Vital signs and Labs for Last 24 Hours: Temp Pulse Resp BP Pulse Ox 97.5 F L 91 H 18 115/55 L 99 04/19/19 08:00 04/19/19 13:49 04/19/19 08:00 04/19/19 08:00 04/19/19 08:00 Laboratory Results - last 24 hr 04/18/19 16:50: POC Glucose 144 H 04/18/19 21:21: POC Glucose 132 H 04/19/19 06:45: WBC 9.9, RBC 3.51 L, Hgb 9.9 L, Hct 30.9 L, MCV 87.9, MCH 28.2, MCHC 32.1, RDW 18.0 H, Plt Count 410, MPV 7.0 L, Neut % (Auto) 78.1, Lymph % (Auto) 12.3, [place] % (Auto) 7.9, Eos % (Auto) 1.4, Baso % (Auto) 0.3, Neut # (Auto) 7.7, Lymph # (Auto) 1.2, [place] # (Auto) 0.8, Eos # (Auto) 0.1, Baso # (Auto) 0.0 04/19/19 06:45: Sodium 142, Potassium 2.8 L*, Chloride 104, Carbon Dioxide 32, Anion Gap 8.8, BUN 18, Creatinine 1.17, Estimated Creat Clear 92, Estimated GFR 60, Est GFR ( Amer) 73, Glucose 116 H, Calcium 8.5 04/19/19 06:48: POC Glucose 96 08/08/19 12:46: POC Glucose 126 H I & O for Last 24 hours: Intake & Output 04/16/19 04/17/19 04/18/19 04/19/19 23:59 23:59 23:59 23:59 Intake Total 4805 / 4805 610 / 610 470 / 470 800 / 800 Output Total 1550 / 1550 3600 / 3600 1125 / 1125 150 / 150 Balance 3255 / 3255 -2990 / -2990 -655 / -655 650 / 650 Weight 122.583 kg 126.666 kg 125.872 kg 122.555 kg Narrative: Patient is alert, pleasant, upright in bedside chair. Not dyspneic on interview. Lungs have good air movement. Abdomen is soft, but distended. Heart rate regular, no murmurs Distal perfusion status looks good, 2+ edema to knee Oropharynx clear. Neurologically intact. Assessment and Plan (1) Sepsis Current visit: Yes Status: Acute Qualifiers: Sepsis type: sepsis due to unspecified organism Category: Medical Code(s): A41.9 - Sepsis, unspecified organism (2) Prostatitis Current visit: Yes Status: Acute Qualifiers: Prostatitis type: acute Qualified Code(s): N41.0 - Acute prostatitis Category: Medical Code(s): N41.9 - Inflammatory disease of prostate, unspecified (3) Crohn disease Current visit: No Status: Chronic Qualifiers: Digestive disease complication type: without complication Category: Medical Code(s): K50.90 - Crohn's disease, unspecified, without complications (4) Obesity Current visit: No Status: Acute Qualifiers: Obesity type: due to excess calories Obesity classification: adult class 3 (BMI >= 40) Serious obesity comorbidity presence: with serious comorbidity Body mass index: BMI 40.0-44.9 Qualified Code(s): E66.01 - Morbid (severe) obesity due to excess calories; Z68.41 - Body mass index (BMI) 40.0-44.9, adult Category: Medical Code(s): E66.9 - Obesity, unspecified (5) DM2 (diabetes mellitus, type 2) Current visit: No Status: Chronic Qualifiers: Diabetes mellitus longterm insulin use: with adjunct faculty for medical terminology use Diabetes mellitus complication status: without complication Qualified Code(s): E11.9 - Type 2 diabetes mellitus without complications; Z79.4 - alf (current) use of insulin Category: Medical Code(s): E11.9 - Type 2 diabetes mellitus without complications (6) Fatigue Current visit: No Status: Acute Qualifiers: Fatigue type: chronic, unspecified Qualified Code(s): R53.82 - Chronic fatigue, unspecified Category: Medical Code(s): R53.83 - Other fatigue (7) HTN (hypertension) Current visit: No Status: Chronic Qualifiers: Hypertension type: essential hypertension Qualified Code(s): I10 - Essential (primary) hypertension Category: Medical Code(s): I10 - Essential (primary) hypertension (8) SUMAN (obstructive sleep apnea) Current visit: No Status: Chronic Category: Medical Code(s): G47.33 - Obstructive sleep apnea (adult) (pediatric) (9) Hypokalemia Current visit: Yes Status: Acute Category: Medical Code(s): E87.6 - Hypokalemia (10) Dyspnea Current visit: No Status: Chronic Qualifiers: Dyspnea type: dyspnea on exertion Qualified Code(s): R06.09 - Other forms of dyspnea Category: Medical Code(s): R06.00 - Dyspnea, unspecified - Assessment and plan all Dx Assessment and Plan for all problems:: Interval improvement this morning though some slight concern given emesis around lunchtime. We will continue current course. Replacing potassium aggressively today with IV runs. Will diuresis with Lasix x1. Additionally will order some Reglan for nausea or repeat emesis to help with gastric motility and anti-emetic benefit. Continues have guarded condition and fair prognosis. Physical therapy continuing to work with patient. Continue IV antibiotics.
[2019-04-20 07:32] LABS: Basophils % 0.3 % (0.1-2.0); Eosinophils # 0.1 K/mm3 (0.0-0.4); Eosinophils % 1.2 % (0.1-12.0); Hematocrit 32.1 % (42.0-52.0); Hemoglobin 10.1 g/dL (14.1-18.0); Lymphocytes # 1.6 K/mm3 (0.7-4.5); Mean Corpuscular HGB Conc 31.4 g/dL (31.8-35.4); Mean Corpuscular Volume 87.6 fl (80-94); Mean Platelet Volume 6.9 fl (7.4-10.4); Monocytes # 1.2 K/mm3 (0.1-1.0); Neutrophils # 8.2 K/mm3 (1.8-7.8); Neutrophils % 73.4 % (37.0-80.0); Platelet Count 449 K/mm3 (142-424); Red Blood Count 3.66 M/mm3 (4.60-6.20); Red Cell Distribution Width 18.3 % (11.5-17.5); White Blood Count 11.2 K/mm3 (4.8-10.8)
[2019-04-20 09:47] LABS: Anion Gap 13.9 mEq/L (5-15); Calcium 8.6 mg/dL (8.5-10.1)
--- NOTE | 2019-04-20 11:23 | Progress Note ---
Internal Medicine - PN: Subj *Date: 04/20/19 *Time: 08:55 Interval history: Mr. Melendez did well overnight with one single episode of emesis. Denies significant abdominal pain this morning, however does still have significant distention. Belly nontender per his report. Still no bowel movement in the past 24 hours. Tolerating clear liquids. Remains afebrile, hemodynamically stable. In bedside chair this morning on assessment. Responding well to Lasix with good diuresis however still fluid positive with significant edema. Denies shortness of breath, headache, chest pain. Exam Vital signs and Labs for Last 24 Hours: Temp Pulse Resp BP Pulse Ox 98.1 F 86 20 135/60 98 04/20/19 08:00 04/20/19 08:00 04/20/19 08:00 04/20/19 08:00 04/20/19 08:00 Laboratory Results - last 24 hr 04/19/19 06:48: POC Glucose 96 04/19/19 12:46: POC Glucose 126 H 04/19/19 17:01: POC Glucose 133 H 04/19/19 18:06: Potassium 2.8 L* 04/19/19 20:44: POC Glucose 114 H 04/20/19 06:48: POC Glucose 115 H 04/20/19 07:13: WBC 11.2 H, RBC 3.66 L, Hgb 10.1 L, Hct 32.1 L, MCV 87.6, MCH 27.5, MCHC 31.4 L, RDW 18.3 H, Plt Count 449 H, MPV 6.9 L, Neut % (Auto) 73.4, Lymph % (Auto) 14.0, [place] % (Auto) 11.0 H, Eos % (Auto) 1.2, Baso % (Auto) 0.3, Neut # (Auto) 8.2 H, Lymph # (Auto) 1.6, [place] # (Auto) 1.2 H, Eos # (Auto) 0.1, Baso # (Auto) 0.0 04/20/19 08:30: Sodium 139, Potassium 2.9 L*, Chloride 100, Carbon Dioxide 28, Anion Gap 13.9, BUN 16, Creatinine 1.16, Estimated Creat Clear 94, Estimated GFR 61, Est GFR ( Amer) 74, Glucose 113 H, Calcium 8.6 I & O for Last 24 hours: Intake & Output 04/17/19 04/18/19 04/19/19 04/20/19 23:59 23:59 23:59 23:59 Intake Total 610 / 610 620 / 620 1711.667 / 1711.667 0 / 0 Output Total 3600 / 3600 1125 / 1125 950 / 950 100 / 100 Balance -2990 / -2990 -505 / -505 761.667 / 761.667 -100 / -100 Weight 126.666 kg 125.872 kg 122.555 kg 124.874 kg Microbiology Reports for the Last 24 Hours: Microbiology 04/15/19 10:05 Blood Blood Culture - Final NO GROWTH AFTER 5 DAYS 04/15/19 09:50 Blood Blood Culture - Final NO GROWTH AFTER 5 DAYS Narrative: Patient is alert, Oriented x 3. pleasant, upright in bedside chair. Not dyspneic on interview. Lungs have good air movement. Abdomen is soft, but distended. Heart rate regular, no murmurs Distal perfusion status looks good, 2+ edema to knee, marginal improvement in past 24hrs. Oropharynx clear. Neurologically intact, Assessment and Plan (1) Sepsis Current visit: Yes Status: Acute Qualifiers: Sepsis type: sepsis due to unspecified organism Severe sepsis acute organ dysfunction type: acute renal failure Severe sepsis shock status: without septic shock Category: Medical Code(s): A41.9 - Sepsis, unspecified organism Sepsis due to Enterobacter Klebsiella.. (2) Prostatitis Current visit: Yes Status: Acute Qualifiers: Prostatitis type: acute Qualified Code(s): N41.0 - Acute prostatitis Category: Medical Code(s): N41.9 - Inflammatory disease of prostate, unspecified (3) Crohn disease Current visit: No Status: Chronic Qualifiers: Digestive disease complication type: without complication Category: Medical Code(s): K50.90 - Crohn's disease, unspecified, without complications (4) Obesity Current visit: No Status: Acute Qualifiers: Obesity type: due to excess calories Obesity classification: adult class 3 (BMI >= 40) Serious obesity comorbidity presence: with serious comorbidity Body mass index: BMI 40.0-44.9 Qualified Code(s): E66.01 - Morbid (severe) obesity due to excess calories; Z68.41 - Body mass index (BMI) 40.0-44.9, adult Category: Medical Code(s): E66.9 - Obesity, unspecified (5) DM2 (diabetes mellitus, type 2) Current visit: No Status: Chronic Qualifiers: Diabetes mellitus longterm insulin use: with terminal worker use Diabetes mellitus complication status: without complication Qualified Code(s): E11.9 - Type 2 diabetes mellitus without complications; Z79.4 - intermediate project manager (current) use of insulin Category: Medical Code(s): E11.9 - Type 2 diabetes mellitus without complications (6) Fatigue Current visit: No Status: Acute Qualifiers: Fatigue type: chronic, unspecified Qualified Code(s): R53.82 - Chronic fatigue, unspecified Category: Medical Code(s): R53.83 - Other fatigue (7) HTN (hypertension) Current visit: No Status: Chronic Qualifiers: Hypertension type: essential hypertension Qualified Code(s): I10 - Essential (primary) hypertension Category: Medical Code(s): I10 - Essential (primary) hypertension (8) SUMAN (obstructive sleep apnea) Current visit: No Status: Chronic Category: Medical Code(s): G47.33 - Obstructive sleep apnea (adult) (pediatric) (9) Hypokalemia Current visit: Yes Status: Acute Category: Medical Code(s): E87.6 - Hypokalemia (10) Dyspnea Current visit: No Status: Chronic Qualifiers: Dyspnea type: dyspnea on exertion Qualified Code(s): R06.09 - Other forms of dyspnea Category: Medical Code(s): R06.00 - Dyspnea, unspecified (11) Ileus Current visit: Yes Status: Acute Category: Medical Code(s): K56.7 - Ileus, unspecified Secondary to severe infection/illness. Continue to monitor with slow advancement of diet. Enema today to promote gastric motility from below. Reglan for nausea to promote gastric motility. Low threshold to make n.p.o. and place NG tube if patient's symptoms worsen. - Assessment and plan all Dx Assessment and Plan for all problems:: Patient was initiated on antibiotics at time of admission. 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 Transitioned to Levaquin on the sixth. Currently day 4 of 14 of goal-directed therapy based on sensitivities. Continuing to monitor for improvement. Ileus complicating disposition. Continue to advance diet slowly and promote gastric motility as well as bowel movements. Diuresis again today in hopes of decreasing volume overload. Continue repletion of potassium for hypokalemia. Patient's condition is guarded, prognosis fair. Will have case management discuss disposition options consisting of swing status or possible short-term nursing care status when patient ready for discharge.
--- NOTE | 2019-04-20 11:31 | Progress Note ---
Internal Medicine - PN: Subj *Date: 04/20/19 *Time: 11:30 Exam Vital signs and Labs for Last 24 Hours: Temp Pulse Resp BP Pulse Ox 98.1 F 86 20 135/60 98 04/20/19 08:00 04/20/19 08:00 04/20/19 08:00 04/20/19 08:00 04/20/19 08:00 Laboratory Results - last 24 hr 04/19/19 06:48: POC Glucose 96 04/19/19 12:46: POC Glucose 126 H 04/19/19 17:01: POC Glucose 133 H 04/19/19 18:06: Potassium 2.8 L* 04/19/19 20:44: POC Glucose 114 H 04/20/19 06:48: POC Glucose 115 H 04/20/19 07:13: WBC 11.2 H, RBC 3.66 L, Hgb 10.1 L, Hct 32.1 L, MCV 87.6, MCH 27.5, MCHC 31.4 L, RDW 18.3 H, Plt Count 449 H, MPV 6.9 L, Neut % (Auto) 73.4, Lymph % (Auto) 14.0, [place] % (Auto) 11.0 H, Eos % (Auto) 1.2, Baso % (Auto) 0.3, Neut # (Auto) 8.2 H, Lymph # (Auto) 1.6, [place] # (Auto) 1.2 H, Eos # (Auto) 0.1, Baso # (Auto) 0.0 04/20/19 08:30: Sodium 139, Potassium 2.9 L*, Chloride 100, Carbon Dioxide 28, Anion Gap 13.9, BUN 16, Creatinine 1.16, Estimated Creat Clear 94, Estimated GFR 61, Est GFR ( Amer) 74, Glucose 113 H, Calcium 8.6 I & O for Last 24 hours: Intake & Output 04/17/19 04/18/19 04/19/19 04/20/19 23:59 23:59 23:59 23:59 Intake Total 610 / 610 620 / 620 1711.667 / 1711.667 0 / 0 Output Total 3600 / 3600 1125 / 1125 950 / 950 100 / 100 Balance -2990 / -2990 -505 / -505 761.667 / 761.667 -100 / -100 Weight 126.666 kg 125.872 kg 122.555 kg 124.874 kg Microbiology Reports for the Last 24 Hours: Microbiology 04/15/19 10:05 Blood Blood Culture - Final NO GROWTH AFTER 5 DAYS 04/15/19 09:50 Blood Blood Culture - Final NO GROWTH AFTER 5 DAYS Assessment and Plan (1) Sepsis Current visit: Yes Status: Acute Qualifiers: Sepsis type: sepsis due to unspecified organism Category: Medical Code(s): A41.9 - Sepsis, unspecified organism (2) Prostatitis Current visit: Yes Status: Acute Qualifiers: Prostatitis type: acute Qualified Code(s): N41.0 - Acute prostatitis Category: Medical Code(s): N41.9 - Inflammatory disease of prostate, unspecified (3) Crohn disease Current visit: No Status: Chronic Qualifiers: Digestive disease complication type: without complication Category: Medical Code(s): K50.90 - Crohn's disease, unspecified, without complications (4) Obesity Current visit: No Status: Acute Qualifiers: Obesity type: due to excess calories Obesity classification: adult class 3 (BMI >= 40) Serious obesity comorbidity presence: with serious comorbidity Body mass index: BMI 40.0-44.9 Qualified Code(s): E66.01 - Morbid (severe) obesity due to excess calories; Z68.41 - Body mass index (BMI) 40.0-44.9, adult Category: Medical Code(s): E66.9 - Obesity, unspecified (5) DM2 (diabetes mellitus, type 2) Current visit: No Status: Chronic Qualifiers: Diabetes mellitus fci insulin use: with manager terminal use Diabetes mellitus complication status: without complication Qualified Code(s): E11.9 - Type 2 diabetes mellitus without complications; Z79.4 - senior living (current) use of insulin Category: Medical Code(s): E11.9 - Type 2 diabetes mellitus without complications (6) Fatigue Current visit: No Status: Acute Qualifiers: Fatigue type: chronic, unspecified Qualified Code(s): R53.82 - Chronic fatigue, unspecified Category: Medical Code(s): R53.83 - Other fatigue (7) HTN (hypertension) Current visit: No Status: Chronic Qualifiers: Hypertension type: essential hypertension Qualified Code(s): I10 - Essential (primary) hypertension Category: Medical Code(s): I10 - Essential (primary) hypertension (8) SUMAN (obstructive sleep apnea) Current visit: No Status: Chronic Category: Medical Code(s): G47.33 - Obstructive sleep apnea (adult) (pediatric) (9) Hypokalemia Current visit: Yes Status: Acute Category: Medical Code(s): E87.6 - Hypokalemia (10) Dyspnea Current visit: No Status: Chronic Qualifiers: Dyspnea type: dyspnea on exertion Qualified Code(s): R06.09 - Other forms of dyspnea Category: Medical Code(s): R06.00 - Dyspnea, unspecified The patient's infection will respond to the chosen ABx?: Yes Is the patient receiving the right drug, dose, and route?: Yes Could a more targeted ABx be ordered?: No (CULTURES SENSITIVE TO LEVAQUIN)
[2019-04-21 07:18] LABS: Basophils % 0.2 % (0.1-2.0); Eosinophils # 0.1 K/mm3 (0.0-0.4); Eosinophils % 0.5 % (0.1-12.0); Hematocrit 31.7 % (42.0-52.0); Lymphocytes # 1.5 K/mm3 (0.7-4.5); Lymphocytes % 11.9 % (10-50); Mean Corpuscular HGB Conc 31.6 g/dL (31.8-35.4); Mean Corpuscular Volume 87.4 fl (80-94); Mean Platelet Volume 6.7 fl (7.4-10.4); Monocytes # 0.9 K/mm3 (0.1-1.0); Monocytes % 6.9 % (1.7-9.3); Neutrophils # 10.2 K/mm3 (1.8-7.8); Neutrophils % 80.4 % (37.0-80.0); Platelet Count 427 K/mm3 (142-424); Red Blood Count 3.63 M/mm3 (4.60-6.20); Red Cell Distribution Width 18.2 % (11.5-17.5); White Blood Count 12.7 K/mm3 (4.8-10.8)
[2019-04-21 07:29] LABS: Anion Gap 14.9 mEq/L (5-15); Calcium 8.7 mg/dL (8.5-10.1)
--- NOTE | 2019-04-21 08:15 | Progress Note ---
Internal Medicine - PN: Subj *Date: 04/21/19 *Time: 08:55 Interval history: Patient responded well to enema yesterday with improvement in his distention and discomfort. Tolerating full liquid diet without complaint. No further emesis overnight. Responded well to Lasix, difficulty quantifying output due to use of diapers and patient having accidents. Of concern is this morning he still has hypokalemia. Magnesium also low. Remains afebrile, hemodynamically stable. No headache, chest pain, shortness of breath. Continuing to transfer with assistance from the bed to bedside chair. Ambulating to the bathroom with assistance. Exam Vital signs and Labs for Last 24 Hours: Temp Pulse Resp BP Pulse Ox 98.4 F 88 17 141/78 H 95 04/21/19 07:36 04/21/19 07:36 04/21/19 07:36 04/21/19 07:36 04/21/19 07:36 Laboratory Results - last 24 hr 04/20/19 08:30: Sodium 139, Potassium 2.9 L*, Chloride 100, Carbon Dioxide 28, Anion Gap 13.9, BUN 16, Creatinine 1.16, Estimated Creat Clear 94, Estimated GFR 61, Est GFR ( Amer) 74, Glucose 113 H, Calcium 8.6 04/20/19 12:32: POC Glucose 120 H 04/20/19 17:11: POC Glucose 126 H 04/20/19 22:06: POC Glucose 116 H 04/21/19 06:21: POC Glucose 117 H 04/21/19 06:40: WBC 12.7 H, RBC 3.63 L, Hgb 10.0 L, Hct 31.7 L, MCV 87.4, MCH 27.6, MCHC 31.6 L, RDW 18.2 H, Plt Count 427 H, MPV 6.7 L, Neut % (Auto) 80.4 H, Lymph % (Auto) 11.9, [place] % (Auto) 6.9, Eos % (Auto) 0.5, Baso % (Auto) 0.2, Neut # (Auto) 10.2 H, Lymph # (Auto) 1.5, [place] # (Auto) 0.9, Eos # (Auto) 0.1, Baso # (Auto) 0.0 04/21/19 06:40: Sodium 140, Potassium 2.9 L*, Chloride 99, Carbon Dioxide 29, Anion Gap 14.9, BUN 16, Creatinine 1.17, Estimated Creat Clear 93, Estimated GFR 60, Est GFR ( Amer) 73, Glucose 122 H, Calcium 8.7 04/21/19 06:40: Magnesium 1.3 L I & O for Last 24 hours: Intake & Output 04/18/19 04/19/19 04/20/19 04/21/19 23:59 23:59 23:59 23:59 Intake Total 620 / 620 1861.667 / 5285.770 7220 / 1463 480 / 480 Output Total 1125 / 1125 950 / 950 400 / 400 200 / 200 Balance -505 / -505 911.667 / 980.749 8202 / 1063 280 / 280 Weight 125.872 kg 122.555 kg 124.874 kg 124.874 kg Microbiology Reports for the Last 24 Hours: Microbiology 04/12/19 17:20 Blood Blood Culture - Final Klebsiella pneumoniae 04/15/19 10:05 Blood Blood Culture - Final NO GROWTH AFTER 5 DAYS 04/15/19 09:50 Blood Blood Culture - Final NO GROWTH AFTER 5 DAYS Narrative: Patient is alert, Oriented x 3. pleasant, upright in bedside chair. Not dyspneic on interview. No longer wearing nasal cannula oxygen Lungs have good air movement. Abdomen is soft, less distention than previous exam. Bowel sounds active. Nontender Heart rate regular, no murmurs Distal perfusion status looks good, 2+ edema to knee, marginal improvement in past 24hrs, wrinkles noticed in anterior shins Oropharynx clear. Neurologically intact, Assessment and Plan (1) Sepsis Current visit: Yes Status: Acute Qualifiers: Sepsis type: sepsis due to unspecified organism Severe sepsis acute organ dysfunction type: acute renal failure Severe sepsis shock status: without septic shock Category: Medical Code(s): A41.9 - Sepsis, unspecified organism (2) Prostatitis Current visit: Yes Status: Acute Qualifiers: Prostatitis type: acute Qualified Code(s): N41.0 - Acute prostatitis Category: Medical Code(s): N41.9 - Inflammatory disease of prostate, unspecified (3) Crohn disease Current visit: No Status: Chronic Qualifiers: Digestive disease complication type: without complication Category: Medical Code(s): K50.90 - Crohn's disease, unspecified, without complications (4) Obesity Current visit: No Status: Acute Qualifiers: Obesity type: due to excess calories Obesity classification: adult class 3 (BMI >= 40) Serious obesity comorbidity presence: with serious comorbidity Body mass index: BMI 40.0-44.9 Qualified Code(s): E66.01 - Morbid (severe) obesity due to excess calories; Z68.41 - Body mass index (BMI) 40.0-44.9, adult Category: Medical Code(s): E66.9 - Obesity, unspecified (5) DM2 (diabetes mellitus, type 2) Current visit: No Status: Chronic Qualifiers: Diabetes mellitus halfway insulin use: with watermelon harvesting supervisor use Diabetes mellitus complication status: without complication Qualified Code(s): E11.9 - Type 2 diabetes mellitus without complications; Z79.4 - bed bug exterminator (current) use of insulin Category: Medical Code(s): E11.9 - Type 2 diabetes mellitus without complications (6) Fatigue Current visit: No Status: Acute Qualifiers: Fatigue type: chronic, unspecified Qualified Code(s): R53.82 - Chronic fatigue, unspecified Category: Medical Code(s): R53.83 - Other fatigue (7) HTN (hypertension) Current visit: No Status: Chronic Qualifiers: Hypertension type: essential hypertension Qualified Code(s): I10 - Essential (primary) hypertension Category: Medical Code(s): I10 - Essential (primary) hypertension (8) SUMAN (obstructive sleep apnea) Current visit: No Status: Chronic Category: Medical Code(s): G47.33 - Obstructive sleep apnea (adult) (pediatric) (9) Hypokalemia Current visit: Yes Status: Acute Category: Medical Code(s): E87.6 - Hypokalemia (10) Dyspnea Current visit: No Status: Chronic Qualifiers: Dyspnea type: dyspnea on exertion Qualified Code(s): R06.09 - Other forms of dyspnea Category: Medical Code(s): R06.00 - Dyspnea, unspecified (11) Ileus Current visit: Yes Status: Acute Category: Medical Code(s): K56.7 - Ileus, unspecified - Assessment and plan all Dx Assessment and Plan for all problems:: Slow gradual improvement. Still requiring significant electrolyte repletion. If does better with advancement of diet, bowel movements, electrolyte repletion in the next 24 hours may consider transitioning to oral antibiotics and possible transition to swing status or SNF for rehab. He needs to require inpatient management
[2019-04-22 06:24] LABS: Basophils % 0.2 % (0.1-2.0); Eosinophils # 0.1 K/mm3 (0.0-0.4); Eosinophils % 0.6 % (0.1-12.0); Hematocrit 30.9 % (42.0-52.0); Hemoglobin 9.7 g/dL (14.1-18.0); Lymphocytes # 1.3 K/mm3 (0.7-4.5); Lymphocytes % 9.3 % (10-50); Mean Corpuscular HGB Conc 31.3 g/dL (31.8-35.4); Mean Corpuscular Volume 87.6 fl (80-94); Mean Platelet Volume 6.5 fl (7.4-10.4); Monocytes # 1.1 K/mm3 (0.1-1.0); Monocytes % 7.8 % (1.7-9.3); Neutrophils # 11.2 K/mm3 (1.8-7.8); Neutrophils % 82.2 % (37.0-80.0); Platelet Count 450 K/mm3 (142-424); Red Blood Count 3.53 M/mm3 (4.60-6.20); Red Cell Distribution Width 18.3 % (11.5-17.5); White Blood Count 13.6 K/mm3 (4.8-10.8)
[2019-04-22 06:43] LABS: Albumin Level 2.1 gm/dL (3.4-5.0); Albumin/Globulin Ratio 0.5 (1.1-1.8); Anion Gap 14.3 mEq/L (5-15); Bilirubin,Total 0.8 mg/dL (0.2-1.0); Calcium 8.3 mg/dL (8.5-10.1); Globulin 4.1 gm/dl (1.3-3.2); Phosphorous 2.9 mg/dL (2.4-4.9); Total Protein,Serum 6.2 gm/dL (6.4-8.2)
--- NOTE | 2019-04-22 09:10 | Progress Note ---
Internal Medicine - PN: Subj *Date: 04/22/19 *Time: 09:51 Interval history: Mr. George Petersen did well overnight. No hiccups while he slept however has repeat hiccups this morning. Continuing to have significant loose stools however noninfectious based on stool study yesterday. Tolerating p.o. intake with full liquid diet. Remains afebrile and hemodynamically stable. Sitting in bedside chair again this morning. Worked with physical therapy today for a little bit. Overall improving slowly but still very tired and weak. Denies nausea, vomiting, chest pain, shortness of breath, headache. Complains of some abdominal distention and intermittent pain but nothing persistent Exam Vital signs and Labs for Last 24 Hours: Temp Pulse Resp BP Pulse Ox 98.1 F 84 17 129/58 L 95 04/22/19 07:38 04/22/19 07:49 04/22/19 07:38 04/22/19 07:38 04/22/19 07:49 Laboratory Results - last 24 hr 04/21/19 08:28: Stl Aeromonas (PCR) Not detected, Stl C. cayetanensis PCR Not detected, Stool Rotavirus (PCR) Not detected, Stl Adenov F 40/41 PCR Not detected, Stool Astrovirus (PCR) Not detected, Stool Campylobacter PCR Not detected, Stl C.difficile Tox PCR Not detected, Stool Cryptosporidium PCR Not detected, Stl E.coli Shiga Tox PCR Not detected, Stool E coli O157 PCR Not detected, Stl Enterotoxigenic E PCR Not detected, Stool EPEC (PCR) Not detected, Stool EAEC (PCR) Not detected, Stl E. histolytica PCR Not detected, Stool Giardia Lamblia PCR Not detected, Stool Salmonella PCR Not detected, Stool Sapovirus (PCR) Not detected, Stl P. shigelloides PCR Not detected, Stl Shigella/EIEC PCR Not detected, St Y.enterocolitica PCR Not detected, Stool Vibrio (PCR) Not detected, Stl Vibrio cholerae PCR Not detected, Stl Norovirus GI/GII PCR Not detected 04/21/19 11:58: POC Glucose 126 H 04/21/19 16:59: POC Glucose 123 H 04/21/19 20:29: POC Glucose 106 04/22/19 06:10: WBC 13.6 H, RBC 3.53 L, Hgb 9.7 L, Hct 30.9 L, MCV 87.6, MCH 27.4, MCHC 31.3 L, RDW 18.3 H, Plt Count 450 H, MPV 6.5 L, Neut % (Auto) 82.2 H, Lymph % (Auto) 9.3 L, [place] % (Auto) 7.8, Eos % (Auto) 0.6, Baso % (Auto) 0.2, Neut # (Auto) 11.2 H, Lymph # (Auto) 1.3, [place] # (Auto) 1.1 H, Eos # (Auto) 0.1, Baso # (Auto) 0.0 04/22/19 06:10: Sodium 137, Potassium 3.3 L, Chloride 97 L, Carbon Dioxide 29, Anion Gap 14.3, BUN 17, Creatinine 1.16, Estimated Creat Clear 90, Estimated GFR 61, Est GFR ( Amer) 74, Glucose 105, Calcium 8.3 L, Phosphorus 2.9, Magnesium 1.7 D, Total Bilirubin 0.8, AST 14 L, ALT 8 L, Alkaline Phosphatase 95, Total Protein 6.2 L, Albumin 2.1 L, Globulin 4.1 H, Albumin/Globulin Ratio 0.5 L 04/22/19 06:15: POC Glucose 105 I & O for Last 24 hours: Intake & Output 04/19/19 04/20/19 04/21/19 04/22/19 23:59 23:59 23:59 23:59 Intake Total 1861.667 / 9732.660 4479 / 1613 2040 / 2040 480 / 480 Output Total 950 / 950 400 / 400 504 / 504 Balance 911.667 / 652.269 1508 / 1213 1536 / 1536 480 / 480 Weight 122.555 kg 124.874 kg 124.874 kg 119.862 kg Narrative: Patient is alert, Oriented x 3. pleasant, upright in bedside chair. Not dyspneic on interview. No longer wearing nasal cannula oxygen Lungs have good air movement. Abdomen is soft, less distention than previous exam. Bowel sounds active. Nontender Heart rate regular, no murmurs Distal perfusion status looks good, 2+ edema to knee, wrinkles noticed in anterior shins Oropharynx clear. Neurologically intact Assessment and Plan (1) Sepsis Current visit: Yes Status: Acute Qualifiers: Sepsis type: sepsis due to unspecified organism Severe sepsis acute organ dysfunction type: acute renal failure Severe sepsis shock status: without septic shock Category: Medical Code(s): A41.9 - Sepsis, unspecified organism (2) Prostatitis Current visit: Yes Status: Acute Qualifiers: Prostatitis type: acute Qualified Code(s): N41.0 - Acute prostatitis Category: Medical Code(s): N41.9 - Inflammatory disease of prostate, unspecified (3) Crohn disease Current visit: No Status: Chronic Qualifiers: Digestive disease complication type: without complication Category: Medical Code(s): K50.90 - Crohn's disease, unspecified, without complications (4) Obesity Current visit: No Status: Acute Qualifiers: Obesity type: due to excess calories Obesity classification: adult class 3 (BMI >= 40) Serious obesity comorbidity presence: with serious comorbidity Body mass index: BMI 40.0-44.9 Qualified Code(s): E66.01 - Morbid (severe) obesity due to excess calories; Z68.41 - Body mass index (BMI) 40.0-44.9, adult Category: Medical Code(s): E66.9 - Obesity, unspecified (5) DM2 (diabetes mellitus, type 2) Current visit: No Status: Chronic Qualifiers: Diabetes mellitus usp insulin use: with long term care pharmacist use Diabetes mellitus complication status: without complication Qualified Code(s): E11.9 - Type 2 diabetes mellitus without complications; Z79.4 - retirement (current) use of insulin Category: Medical Code(s): E11.9 - Type 2 diabetes mellitus without complications (6) Fatigue Current visit: No Status: Acute Qualifiers: Fatigue type: chronic, unspecified Qualified Code(s): R53.82 - Chronic fatigue, unspecified Category: Medical Code(s): R53.83 - Other fatigue (7) HTN (hypertension) Current visit: No Status: Chronic Qualifiers: Hypertension type: essential hypertension Qualified Code(s): I10 - Essential (primary) hypertension Category: Medical Code(s): I10 - Essential (primary) hypertension (8) SUMAN (obstructive sleep apnea) Current visit: No Status: Chronic Category: Medical Code(s): G47.33 - Obstructive sleep apnea (adult) (pediatric) (9) Hypokalemia Current visit: Yes Status: Acute Category: Medical Code(s): E87.6 - Hypokalemia (10) Dyspnea Current visit: No Status: Chronic Qualifiers: Dyspnea type: dyspnea on exertion Qualified Code(s): R06.09 - Other forms of dyspnea Category: Medical Code(s): R06.00 - Dyspnea, unspecified (11) Ileus Current visit: Yes Status: Acute Category: Medical Code(s): K56.7 - Ileus, unspecified - Assessment and plan all Dx Assessment and Plan for all problems:: Continue current course. Initiate probiotics for loose stools today. Will attempt to wrap legs or place IRINEO hose to mobilize edema. Diuresis x1 to help decrease volume overload. Continue aggressive potassium and magnesium repletion. Patient showing improvement. Plan to assess for placement in nursing facility for continued rehab and recovery. Continues to require acute management.
[2019-04-23 06:27] LABS: Basophils % 0.2 % (0.1-2.0); Eosinophils # 0.1 K/mm3 (0.0-0.4); Eosinophils % 0.9 % (0.1-12.0); Hematocrit 33.1 % (42.0-52.0); Hemoglobin 10.1 g/dL (14.1-18.0); Lymphocytes # 1.4 K/mm3 (0.7-4.5); Lymphocytes % 9.9 % (10-50); Mean Corpuscular HGB Conc 30.4 g/dL (31.8-35.4); Mean Corpuscular Volume 87.8 fl (80-94); Monocytes # 1.4 K/mm3 (0.1-1.0); Monocytes % 9.4 % (1.7-9.3); Neutrophils # 11.6 K/mm3 (1.8-7.8); Neutrophils % 79.7 % (37.0-80.0); Platelet Count 458 K/mm3 (142-424); Red Blood Count 3.77 M/mm3 (4.60-6.20); Red Cell Distribution Width 18.2 % (11.5-17.5); White Blood Count 14.5 K/mm3 (4.8-10.8)
[2019-04-23 06:56] LABS: Albumin Level 2.2 gm/dL (3.4-5.0); Albumin/Globulin Ratio 0.5 (1.1-1.8); Anion Gap 15.1 mEq/L (5-15); Bilirubin,Total 0.7 mg/dL (0.2-1.0); Calcium 8.1 mg/dL (8.5-10.1); Globulin 4.3 gm/dl (1.3-3.2); Total Protein,Serum 6.5 gm/dL (6.4-8.2)
--- NOTE | 2019-04-23 07:39 | Progress Note ---
Internal Medicine - PN: Subj *Date: 04/23/19 *Time: 07:37 Interval history: Patient continues to have liquid stools, serologic testing was negative for detectable enteric pathogens. Patient remains afebrile, has tolerated intravenous levofloxacin very well. Blood cultures remain negative from repeat earlier last week. No fevers noted. Breathing is better, no oxygen requirements. Exam Vital signs and Labs for Last 24 Hours: Temp Pulse Resp BP Pulse Ox 97.8 F 88 21 139/68 95 04/23/19 03:41 04/23/19 03:41 04/23/19 03:41 04/23/19 03:41 04/23/19 03:41 Laboratory Results - last 24 hr 04/22/19 06:15: POC Glucose 105 04/22/19 12:01: POC Glucose 99 04/22/19 17:05: POC Glucose 104 04/22/19 20:54: POC Glucose 90 04/23/19 05:40: WBC 14.5 H, RBC 3.77 L, Hgb 10.1 L, Hct 33.1 L, MCV 87.8, MCH 26.7 L, MCHC 30.4 L, RDW 18.2 H, Plt Count 458 H, MPV 7.0 L, Neut % (Auto) 79.7, Lymph % (Auto) 9.9 L, [place] % (Auto) 9.4 H, Eos % (Auto) 0.9, Baso % (Auto) 0.2, Neut # (Auto) 11.6 H, Lymph # (Auto) 1.4, [place] # (Auto) 1.4 H, Eos # (Auto) 0.1, Baso # (Auto) 0.0 04/23/19 05:40: Sodium 137, Potassium 3.1 L, Chloride 97 L, Carbon Dioxide 28, Anion Gap 15.1 H, BUN 17, Creatinine 1.20, Estimated Creat Clear 85, Estimated GFR 59, Est GFR ( Amer) 71, Glucose 92, Calcium 8.1 L, Magnesium 1.7, Total Bilirubin 0.7, AST 15, ALT 11 L D, Alkaline Phosphatase 102, Total Protein 6.5, Albumin 2.2 L, Globulin 4.3 H, Albumin/Globulin Ratio 0.5 L 04/23/19 06:00: POC Glucose 88 I & O for Last 24 hours: Intake & Output 04/20/19 04/21/19 04/22/19 04/23/19 11:59 11:59 11:59 11:59 Intake Total 1521.667 / 9582.448 1727 / 2193 2089 / 2089 1943 / 1943 Output Total 900 / 900 503 / 503 301 / 301 127 / 127 Balance 621.667 / 110.883 6585 / 1690 1789 / 1789 1817 / 1817 Weight 275 lb 4.8 oz 275 lb 4.8 oz 264 lb 4 oz 258 lb 1 oz Narrative: Patient appears very weak, however is pleasant, talkative and alert and oriented x3. Lungs are clear. Heart rate regular. Oropharynx clear, no JVD. Abdomen soft and nontender. Distal extremities are warm and well-perfused. Assessment and Plan (1) Sepsis Current visit: Yes Status: Acute Qualifiers: Sepsis type: sepsis due to unspecified organism Severe sepsis acute organ dysfunction type: acute renal failure Severe sepsis shock status: without septic shock Category: Medical Code(s): A41.9 - Sepsis, unspecified organism Secondary to Klebsiella and Enterobacter. Prostatitis seems to be the causative agent for the sepsis. (2) Prostatitis Current visit: Yes Status: Acute Qualifiers: Prostatitis type: acute Qualified Code(s): N41.0 - Acute prostatitis Category: Medical Code(s): N41.9 - Inflammatory disease of prostate, unspecified Secondary to Klebsiella/Enterobacter. (3) Crohn disease Current visit: No Status: Chronic Qualifiers: Digestive disease complication type: without complication Category: Medical Code(s): K50.90 - Crohn's disease, unspecified, without complications (4) Obesity Current visit: No Status: Acute Qualifiers: Obesity type: due to excess calories Obesity classification: adult class 3 (BMI >= 40) Serious obesity comorbidity presence: with serious comorbidity Body mass index: BMI 40.0-44.9 Qualified Code(s): E66.01 - Morbid (severe) obesity due to excess calories; Z68.41 - Body mass index (BMI) 40.0-44.9, adult Category: Medical Code(s): E66.9 - Obesity, unspecified (5) DM2 (diabetes mellitus, type 2) Current visit: No Status: Chronic Qualifiers: Diabetes mellitus termite control technician insulin use: with retirement use Diabetes mellitus complication status: without complication Qualified Code(s): E11.9 - Type 2 diabetes mellitus without complications; Z79.4 - [facility] (current) use of insulin Category: Medical Code(s): E11.9 - Type 2 diabetes mellitus without complications (6) Fatigue Current visit: No Status: Acute Qualifiers: Fatigue type: chronic, unspecified Qualified Code(s): R53.82 - Chronic fatigue, unspecified Category: Medical Code(s): R53.83 - Other fatigue (7) HTN (hypertension) Current visit: No Status: Chronic Qualifiers: Hypertension type: essential hypertension Qualified Code(s): I10 - Essential (primary) hypertension Category: Medical Code(s): I10 - Essential (primary) hypertension (8) SUMAN (obstructive sleep apnea) Current visit: No Status: Chronic Category: Medical Code(s): G47.33 - Obstructive sleep apnea (adult) (pediatric) (9) Hypokalemia Current visit: Yes Status: Acute Category: Medical Code(s): E87.6 - Hypokalemia (10) Dyspnea Current visit: No Status: Chronic Qualifiers: Dyspnea type: dyspnea on exertion Qualified Code(s): R06.09 - Other forms of dyspnea Category: Medical Code(s): R06.00 - Dyspnea, unspecified (11) Ileus Current visit: Yes Status: Acute Category: Medical Code(s): K56.7 - Ileus, unspecified (12) Diarrhea Current visit: Yes Status: Acute Category: Medical Code(s): R19.7 - Diarrhea, unspecified Stop metformin. Stop HCTZ given his hypokalemia. Seems to be noninfectious but possibly antibiotic associated. Given his ongoing weakness we will evaluate for transfer to skilled care for ongoing physical therapy.
[2019-04-23 08:57] LABS: Anion Gap 11.9 mEq/L (5-15)
--- NOTE | 2019-04-23 14:08 | Discharge Summary ---
General - General Admission date:: 04/13/19 Discharge date: 04/23/19 HPI HPI: Mr. Melendez is a 78-year-old male who presented yesterday to the ER via ambulance due to abdominal pain, nausea, fatigue. He has a history of immune suppression and Crohn's, diabetes, hypertension. States he has had an episode similar to this before that was prostatitis from his diabetes medication. He is found good benefit with his Jardiance but concerned it may be causing his problem. States he has had no dysuria, no shortness of breath, no chest pain. Does report some nausea without emesis or diarrhea. Has felt more fatigued and was unable to get himself up and come by personal vehicle yesterday, hence the reason he had the ambulance bring him to the hospital. States he feels stable this morning, no new symptoms or significant change. Patel was placed in the ER with very turbid urine. Lab findings consistent with with urinary tract infection versus prostatitis. Patient has been tachycardic with an elevated white cell count therefore meeting criteria for sepsis. Tolerating IV fluids. Admitted to medicine for further management Hospital Course Hospital Course: Patient was admitted as noted above. Found to exhibit signs and symptoms of sepsis and indeed did have bacteremia of Klebsiella and Enterobacter. Fortunately, both organisms were sensitive to levofloxacin and this was continued intravenously for 10 days -- PICC line was placed patient tolerated this well. Source of infection was identified as prostatitis-see progress notes. Patient improved in a stepwise fashion in regards to leukocytosis. Did have an episode of an ileus, NG tube was placed overnight which seemed to resolve this and Reglan, 1 dose, seem to help with improvement in this allowed us to re-feed patient with good oral toleration. Patient was exceedingly weak, physical therapy evaluated him and felt that he would be a good candidate for long-term care for skilled rehabilitation for PT and OT. Patient's diarrhea was evaluated with serologic testing, no evidence of C. difficile or other bacterial or viral organisms identified in the DNA testing. Today patient is awake, alert, eating much better, feels much more energetic and is able to participate in PT. Plan will be to transfer to [place] today, I will recommend continuing the PICC line for at least a week in case we need this for IV fluids. He will have several medication changes: I have recommended losartan instead of losartan/HCTZ because of ongoing hypokalemia. I recommended stopping metformin and doing sliding scale insulin, medium intensity, with fingersticks q. before meals and at bedtime over the next 3 to 4 days, and holding all oral diabetic agents because of his yeast balanitis issues and diarrhea respectively. In regards to his hypokalemia potassium will be prescribed and will need to have a CBC and a BMP done in the morning of April 25. PT/OT/speech therapy will need to continue. Diet will need to be a low residue diet, follow-up will be per our skilled nursing rounds. Objective Vital signs: Temp Pulse Resp BP Pulse Ox 98.3 F 84 16 118/56 L 96 04/23/19 08:00 04/23/19 08:26 04/23/19 08:00 04/23/19 08:00 04/23/19 08:00 Narrative: Patient is awake, up in the chair, abdomen soft, hyperactive bowel sounds. Some burping. Oropharynx clear, no JVD. Heart rate regular. Lungs clear and well-expanded. Neurologic exam is notable for patient's global weakness but no cranial nerve deficits. No skin breakdown, no pedal edema, good distal perfusion. Results Labs on day of discharge: Labs from last 24 hours 04/23/19 04/23/19 04/23/19 12:08 08:25 06:00 WBC RBC Hgb Hct MCV MCH MCHC RDW Plt Count MPV Neut % (Auto) Lymph % (Auto) Terrell % (Auto) Eos % (Auto) Baso % (Auto) Neut # (Auto) Lymph # (Auto) Terrell # (Auto) Eos # (Auto) Baso # (Auto) Sodium 136 Potassium 2.9 L* Chloride 97 L Carbon Dioxide 30 Anion Gap 11.9 BUN 16 Creatinine 1.18 Estimated Creat Clear 87 Estimated GFR 60 Est GFR ( Amer) 72 Glucose 105 POC Glucose 112 H 88 Calcium 8.0 L Magnesium Total Bilirubin AST ALT Alkaline Phosphatase Total Protein Albumin Globulin Albumin/Globulin Ratio 04/23/19 04/23/19 04/22/19 05:40 05:40 20:54 WBC 14.5 H RBC 3.77 L Hgb 10.1 L Hct 33.1 L MCV 87.8 MCH 26.7 L MCHC 30.4 L RDW 18.2 H Plt Count 458 H MPV 7.0 L Neut % (Auto) 79.7 Lymph % (Auto) 9.9 L Terrell % (Auto) 9.4 H Eos % (Auto) 0.9 Baso % (Auto) 0.2 Neut # (Auto) 11.6 H Lymph # (Auto) 1.4 Terrell # (Auto) 1.4 H Eos # (Auto) 0.1 Baso # (Auto) 0.0 Sodium 137 Potassium 3.1 L Chloride 97 L Carbon Dioxide 28 Anion Gap 15.1 H BUN 17 Creatinine 1.20 Estimated Creat Clear 85 Estimated GFR 59 Est GFR ( Amer) 71 Glucose 92 POC Glucose 90 Calcium 8.1 L Magnesium 1.7 Total Bilirubin 0.7 AST 15 ALT 11 L D Alkaline Phosphatase 102 Total Protein 6.5 Albumin 2.2 L Globulin 4.3 H Albumin/Globulin Ratio 0.5 L 04/22/19 17:05 WBC RBC Hgb Hct MCV MCH MCHC RDW Plt Count MPV Neut % (Auto) Lymph % (Auto) [place] % (Auto) Eos % (Auto) Baso % (Auto) Neut # (Auto) Lymph # (Auto) [place] # (Auto) Eos # (Auto) Baso # (Auto) Sodium Potassium Chloride Carbon Dioxide Anion Gap BUN Creatinine Estimated Creat Clear Estimated GFR Est GFR ( Amer) Glucose POC Glucose 104 Calcium Magnesium Total Bilirubin AST ALT Alkaline Phosphatase Total Protein Albumin Globulin Albumin/Globulin Ratio DS: Diagnosis - Discharge Diagnosis (1) Sepsis Status: Resolved (2) Prostatitis Status: Resolved (3) Crohn disease Status: Chronic (4) Obesity Status: Chronic (5) DM2 (diabetes mellitus, type 2) Status: Chronic (6) Fatigue Status: Acute (7) HTN (hypertension) Status: Chronic (8) SUMAN (obstructive sleep apnea) Status: Chronic (9) Hypokalemia Status: Acute (10) Dyspnea Status: Resolved (11) Ileus Status: Resolved (12) Diarrhea Status: Acute Discharge Plan - Patient Discharge Instructions ACTIVITY: Continue current activity DIET: other (low residue) Patient Instructions: Fever of Unknown Origin, DI for Urinary Tract Infection (UTI), DI for Sepsis -- Adult, DI for Multiple Drug-resistant Organism (MDRO) Infection, DI for Acute Prostatitis - Follow up Plan Follow up with: Carey Pereyra APRN [Nurse Practitioner] - Disposition: Xfer [facility] Home Medications: Home Medications Medication Instructions Recorded Confirmed Type latanoprost 0.005 % eye drops 1 drp OPHTHALMIC HS 01/31/18 04/12/19 History omeprazole 20 mg capsule,delayed 20 mg PO HS 01/31/18 04/12/19 History release diltiazem 120 mg tablet 120 mg PO DAILY tab 04/25/18 04/12/19 History folic acid 1 mg tablet 1 mg PO WEEKLY 04/25/18 04/12/19 History Atorvastatin Calcium [Lipitor 40mg 40 mg PO HS 10/25/18 04/13/19 History Tablet] Losartan/Hydrochlorothiazide 1 each PO DAILY 10/25/18 04/12/19 History [Losartan-Hctz 100-12.5 mg Tab] Tamsulosin HCl [Flomax 0.4mg 0.4 mg PO HS cap.er.24h 10/25/18 04/12/19 Rx capsule] metformin 500 mg tablet 1,000 mg PO HS tab 11/21/18 04/12/19 History sulfasalazine 500 mg tablet 1.5 g PO BID tab 11/21/18 04/12/19 History apixaban 5 mg tablet 5 mg PO BID #60 tab 03/21/19 04/12/19 Rx Digoxin [Digoxin 0.125mg Tablet] 125 mcg PO Q48H 04/12/19 04/12/19 History metHOTREXate sodium [metHOTREXate 12.5 mg PO WEEKLY 04/13/19 04/13/19 History 2.5mg Tablet] Lactobacillus 3/Fos/Pantethine 1 each PO DAILY #30 capsule 04/23/19 Rx [Probiotic & Acidophilus Cap] Potassium Chloride [K-Tab ER 20 20 meq PO BID #60 tab 04/23/19 Rx mEq] Prescriptions/Medication Reconciliation: New Lactobacillus 3/Fos/Pantethine [Probiotic & Acidophilus Cap] 1 each PO DAILY #30 capsule Potassium Chloride [K-Tab ER 20 mEq] 20 meq PO BID #60 tab Continued omeprazole 20 mg capsule,delayed release 20 mg PO HS latanoprost 0.005 % eye drops 1 drp OPHTHALMIC HS folic acid 1 mg tablet 1 mg PO WEEKLY diltiazem 120 mg tablet 120 mg PO DAILY tab sulfasalazine 500 mg tablet 1.5 g PO BID tab apixaban 5 mg tablet 5 mg PO BID #60 tab Atorvastatin Calcium [Lipitor 40mg Tablet] 40 mg PO HS Tamsulosin HCl [Flomax 0.4mg capsule] 0.4 mg PO HS cap.er.24h Digoxin [Digoxin 0.125mg Tablet] 125 mcg PO Q48H metHOTREXate sodium [metHOTREXate 2.5mg Tablet] 12.5 mg PO WEEKLY Discontinued metformin 500 mg tablet 1,000 mg PO HS tab Losartan/Hydrochlorothiazide [Losartan-Hctz 100-12.5 mg Tab] 1 each PO DAILY - Problem Reconciliation Problems Reviewed?: Yes
== END 2019-04-23 15:33 | DRG 872 ==
LOC: 2ND 16:59 → ER 16:59 → 2ND 21:52
PROVIDERS: ADMIT Family Medicine; ATTEND Internal Medicine Adolescent Medicine
CPT/HCPCS: 36415; 36569; 71010; 71045; 74000; 74018; 74021; 74022; 80048; 80053; 81001; 82962; 83605; 83735; 84100; 84132; 85007; 85025; 87040; 87077; 87086; 87088; 87186; 87486; 87506; 87581; 87633; 87798; 93306; 94640; 94761; 96365; 96366; 97110; 97116; 97162; 97166; 97530; 97535; 99285; C1751; G0378; J1956; J2405

== ENCOUNTER → 2019-06-19 08:02 | Outpatient (CLI) | payer MEDICARE, BC, SELFPAY ==
[2019-06-19 08:23] LABS: Basophils # 0.1 K/mm3 (0-0.2); Basophils % 0.8 % (0.1-2.0); Eosinophils # 0.2 K/mm3 (0.0-0.4); Eosinophils % 2.4 % (0.1-12.0); Hematocrit 34.1 % (42.0-52.0); Hemoglobin 10.3 g/dL (14.1-18.0); Lymphocytes % 22.9 % (10-50); Mean Corpuscular HGB Conc 30.2 g/dL (31.8-35.4); Mean Corpuscular Hemoglobin 25.1 pg (27.0-31.2); Mean Corpuscular Volume 83.2 fl (80-94); Mean Platelet Volume 7.6 fl (7.4-10.4); Monocytes # 0.6 K/mm3 (0.1-1.0); Monocytes % 6.5 % (1.7-9.3); Neutrophils % 67.5 % (37.0-80.0); Platelet Count 347 K/mm3 (142-424); Red Cell Distribution Width 16.2 % (11.5-17.5); White Blood Count 8.8 K/mm3 (4.8-10.8)
[2019-06-19 08:35] LABS: Alanine Aminotransferase 12 U/L (12-78); Albumin/Globulin Ratio 0.7 (1.1-1.8); Alkaline Phosphatase 91 U/L (46-116); Anion Gap 12.9 mEq/L (5-15); Aspartate Amino Transferase 13 U/L (15-37); Bilirubin,Total 0.4 mg/dL (0.2-1.0); Blood Urea Nitrogen 13 mg/dL (7-18); Calcium 8.7 mg/dL (8.5-10.1); Carbon Dioxide 26 mmol/L (21.0-32.0); Chloride 101 mmol/L (98-107); Creatinine,Serum 0.99 mg/dL (0.70-1.30); Estimated Glomerular Filt Rate 73 ml/min (>60); GFR (African American) 88 ML/MIN (>60); Globulin 4.4 gm/dl (1.3-3.2); Glucose 155 mg/dL (74-106); Potassium 3.9 mmoL/L (3.5-5.1); Sodium 136 mmol/L (136-145); Total Protein,Serum 7.4 gm/dL (6.4-8.2)
== END ==
PROVIDERS: Visit Provider Dermatology
DX: L40.0 Psoriasis vulgaris (principal); Z79.899 Other long term (current) drug therapy
CPT/HCPCS: 36415; 80053; 85025

== ENCOUNTER → 2019-08-15 07:52 | Outpatient (CLI) | payer MEDICARE, BC, SELFPAY ==
[2019-08-15 09:06] LABS: Basophils % 0.3 % (0.1-2.0); Eosinophils # 0.2 K/mm3 (0.0-0.4); Eosinophils % 2.2 % (0.1-12.0); Hematocrit 34.9 % (42.0-52.0); Hemoglobin 10.4 g/dL (14.1-18.0); Lymphocytes # 1.7 K/mm3 (0.7-4.5); Lymphocytes % 20.7 % (10-50); Mean Corpuscular HGB Conc 29.8 g/dL (31.8-35.4); Mean Corpuscular Volume 80.6 fl (80-94); Mean Platelet Volume 7.5 fl (7.4-10.4); Monocytes # 0.5 K/mm3 (0.1-1.0); Monocytes % 5.8 % (1.7-9.3); Platelet Count 280 K/mm3 (142-424); Red Blood Count 4.33 M/mm3 (4.60-6.20); White Blood Count 8.4 K/mm3 (4.8-10.8)
[2019-08-15 10:42] LABS: Alanine Aminotransferase 13 U/L (12-78); Albumin Level 3.2 gm/dL (3.4-5.0); Albumin/Globulin Ratio 0.8 (1.1-1.8); Alkaline Phosphatase 110 U/L (46-116); Anion Gap 14.1 mEq/L (5-15); Aspartate Amino Transferase 16 U/L (15-37); Bilirubin,Total 0.6 mg/dL (0.2-1.0); Blood Urea Nitrogen 14 mg/dL (7-18); Calcium 8.5 mg/dL (8.5-10.1); Carbon Dioxide 25 mmol/L (21.0-32.0); Chloride 103 mmol/L (98-107); Creatinine,Serum 1.01 mg/dL (0.70-1.30); Estimated Glomerular Filt Rate 71 ml/min (>60); GFR (African American) 86 ML/MIN (>60); Globulin 3.8 gm/dl (1.3-3.2); Glucose 149 mg/dL (74-106); Potassium 4.1 mmoL/L (3.5-5.1); Sodium 138 mmol/L (136-145)
== END ==
PROVIDERS: Visit Provider Dermatology
DX: L40.0 Psoriasis vulgaris (principal); Z79.899 Other long term (current) drug therapy; Z92.25 Personal history of immunosuppression therapy
CPT/HCPCS: 36415; 80053; 85025

== ENCOUNTER → 2019-09-03 11:08 | Outpatient (CLI) | payer MEDICARE, BC, SELFPAY ==
[2019-09-03 13:01] LABS: Reticulocyte % (Auto) 2.5 % (0.9-3.2)
[2019-09-04 04:13] LABS: Iron 202 ug/dL (38-169); UIBC 153 ug/dL (111-343)
[2019-09-06 05:20] LABS: Iron Saturation 57 % (15-55); Vitamin B12 386 pg/mL (232-1245)
== END ==
PROVIDERS: Visit Provider Internal Medicine
DX: D64.9 Anemia, unspecified (principal); R53.83 Other fatigue
CPT/HCPCS: 36415; 82607; 83540; 83550; 85044

== ENCOUNTER → 2019-10-02 08:29 | Outpatient (CLI) | payer MEDICARE, BC, SELFPAY ==
[2019-10-02 09:39] LABS: Basophils # 0.1 K/mm3 (0-0.2); Basophils % 0.7 % (0.1-2.0); Eosinophils # 0.3 K/mm3 (0.0-0.4); Eosinophils % 3.3 % (0.1-12.0); Hematocrit 35.1 % (42.0-52.0); Hemoglobin 10.9 g/dL (14.1-18.0); Lymphocytes # 1.7 K/mm3 (0.7-4.5); Mean Corpuscular Hemoglobin 24.7 pg (27.0-31.2); Mean Corpuscular Volume 79.9 fl (80-94); Mean Platelet Volume 7.9 fl (7.4-10.4); Monocytes # 0.7 K/mm3 (0.1-1.0); Monocytes % 7.2 % (1.7-9.3); Neutrophils # 6.4 K/mm3 (1.8-7.8); Neutrophils % 69.9 % (37.0-80.0); Platelet Count 275 K/mm3 (142-424); Red Cell Distribution Width 19.5 % (11.5-17.5); White Blood Count 9.1 K/mm3 (4.8-10.8)
[2019-10-02 11:27] LABS: Alanine Aminotransferase 12 U/L (12-78); Albumin Level 3.1 gm/dL (3.4-5.0); Albumin/Globulin Ratio 0.9 (1.1-1.8); Alkaline Phosphatase 108 U/L (46-116); Anion Gap 17.1 mEq/L (5-15); Aspartate Amino Transferase 10 U/L (15-37); Bilirubin,Total 0.8 mg/dL (0.2-1.0); Blood Urea Nitrogen 15 mg/dL (7-18); Calcium 8.7 mg/dL (8.5-10.1); Carbon Dioxide 24 mmol/L (21.0-32.0); Chloride 100 mmol/L (98-107); Creatinine,Serum 1.18 mg/dL (0.70-1.30); Estimated Glomerular Filt Rate 60 ml/min (>60); GFR (African American) 72 ML/MIN (>60); Globulin 3.6 gm/dl (1.3-3.2); Glucose 194 mg/dL (74-106); Potassium 4.1 mmoL/L (3.5-5.1); Sodium 137 mmol/L (136-145); Total Protein,Serum 6.7 gm/dL (6.4-8.2)
== END ==
PROVIDERS: Visit Provider Dermatology
DX: L40.0 Psoriasis vulgaris (principal); Z79.899 Other long term (current) drug therapy
CPT/HCPCS: 36415; 80053; 85025

== ENCOUNTER → 2019-11-15 07:47 | Outpatient (CLI) | payer MEDICARE, BC, SELFPAY ==
[2019-11-15 08:47] LABS: Basophils # 0.1 K/mm3 (0-0.2); Basophils % 0.7 % (0.1-2.0); Eosinophils # 0.1 K/mm3 (0.0-0.4); Eosinophils % 1.7 % (0.1-12.0); Hematocrit 36.5 % (42.0-52.0); Hemoglobin 11.1 g/dL (14.1-18.0); Lymphocytes # 1.6 K/mm3 (0.7-4.5); Lymphocytes % 20.9 % (10-50); Mean Corpuscular HGB Conc 30.3 g/dL (31.8-35.4); Mean Corpuscular Hemoglobin 24.9 pg (27.0-31.2); Mean Corpuscular Volume 82.3 fl (80-94); Mean Platelet Volume 7.5 fl (7.4-10.4); Monocytes # 0.3 K/mm3 (0.1-1.0); Monocytes % 3.5 % (1.7-9.3); Neutrophils # 5.5 K/mm3 (1.8-7.8); Neutrophils % 73.2 % (37.0-80.0); Platelet Count 325 K/mm3 (142-424); Red Blood Count 4.44 M/mm3 (4.60-6.20); White Blood Count 7.5 K/mm3 (4.8-10.8)
[2019-11-15 09:23] LABS: Chloride 99 mmol/L (98-107)
[2019-11-15 09:24] LABS: Potassium 4.3 mmoL/L (3.5-5.1); Sodium 133 mmol/L (136-145)
[2019-11-15 09:26] LABS: Alanine Aminotransferase 14 U/L (12-78); Anion Gap 12.3 mEq/L (5-15); Aspartate Amino Transferase 20 U/L (17-59); Blood Urea Nitrogen 15 mg/dl (9-20); Carbon Dioxide 26 mmol/L (22.0-30.0); Estimated Glomerular Filt Rate 82 ml/min (>60); GFR (African American) 99 ML/MIN (>60)
[2019-11-15 09:27] LABS: Albumin Level 3.8 g/dl (3.5-5.0); Albumin/Globulin Ratio 1.4 (1.1-1.8); Alkaline Phosphatase 131 U/L (38-126); Bilirubin,Total 0.5 mg/dl (0.2-1.3); Calcium 9.3 mg/dl (8.4-10.2); Globulin 2.8 g/dL (1.3-3.2); Glucose 282 mg/dl (74-100); Total Protein,Serum 6.6 g/dl (6.3-8.2)
[2019-11-15 17:21] LABS: Hemoglobin A1C 9.8 % (4.0-6.0)
== END ==
PROVIDERS: Internal Medicine; Visit Provider Dermatology
DX: N40.1 Benign prostatic hyperplasia with lower urinary tract symptoms (principal); N13.8 Other obstructive and reflux uropathy; L40.0 Psoriasis vulgaris; E11.59 Type 2 diabetes mellitus with other circulatory complications; Z79.84 Long term (current) use of oral hypoglycemic drugs; Z79.899 Other long term (current) drug therapy
CPT/HCPCS: 36415; 80053; 83036; 84153; 85025

== ENCOUNTER → 2019-12-31 08:43 | Outpatient (CLI) | payer MEDICARE, BC, SELFPAY ==
[2019-12-31 10:05] LABS: Basophils # 0.1 K/mm3 (0-0.2); Eosinophils # 0.2 K/mm3 (0.0-0.4); Eosinophils % 1.7 % (0.1-12.0); Hematocrit 36.8 % (42.0-52.0); Hemoglobin 11.4 g/dL (14.1-18.0); Lymphocytes # 2.3 K/mm3 (0.7-4.5); Mean Corpuscular HGB Conc 31.1 g/dL (31.8-35.4); Mean Corpuscular Hemoglobin 25.4 pg (27.0-31.2); Mean Corpuscular Volume 81.8 fl (80-94); Mean Platelet Volume 8.4 fl (7.4-10.4); Monocytes # 0.7 K/mm3 (0.1-1.0); Monocytes % 7.1 % (1.7-9.3); Neutrophils # 6.4 K/mm3 (1.8-7.8); Neutrophils % 66.2 % (37.0-80.0); Platelet Count 304 K/mm3 (142-424); Red Cell Distribution Width 17.7 % (11.5-17.5); White Blood Count 9.6 K/mm3 (4.8-10.8)
[2019-12-31 10:15] LABS: Alanine Aminotransferase 18 U/L (12-78); Albumin Level 3.8 g/dl (3.5-5.0); Albumin/Globulin Ratio 1.4 (1.1-1.8); Alkaline Phosphatase 116 U/L (38-126); Anion Gap 15.2 mEq/L (5-15); Aspartate Amino Transferase 21 U/L (17-59); Bilirubin,Total 0.5 mg/dl (0.2-1.3); Blood Urea Nitrogen 15 mg/dl (9-20); Calcium 9.1 mg/dl (8.4-10.2); Carbon Dioxide 22 mmol/L (22.0-30.0); Chloride 99 mmol/L (98-107); Estimated Glomerular Filt Rate 72 ml/min (>60); GFR (African American) 87 ML/MIN (>60); Globulin 2.8 g/dL (1.3-3.2); Glucose 235 mg/dl (74-100); Potassium 4.2 mmoL/L (3.5-5.1); Sodium 132 mmol/L (136-145); Total Protein,Serum 6.6 g/dl (6.3-8.2)
== END ==
PROVIDERS: Visit Provider Dermatology
DX: L40.0 Psoriasis vulgaris (principal); Z92.25 Personal history of immunosuppression therapy; Z79.899 Other long term (current) drug therapy
CPT/HCPCS: 36415; 80053; 85025

== ENCOUNTER → 2020-02-12 08:51 | Outpatient (CLI) | payer MEDICARE, BC, SELFPAY ==
[2020-02-12 09:25] LABS: Basophils # 0.1 K/mm3 (0-0.2); Basophils % 0.7 % (0.1-2.0); Eosinophils # 0.2 K/mm3 (0.0-0.4); Eosinophils % 2.1 % (0.1-12.0); Hematocrit 33.8 % (42.0-52.0); Hemoglobin 10.4 g/dL (14.1-18.0); Lymphocytes # 1.9 K/mm3 (0.7-4.5); Lymphocytes % 20.7 % (10-50); Mean Corpuscular HGB Conc 30.9 g/dL (31.8-35.4); Mean Corpuscular Hemoglobin 26.6 pg (27.0-31.2); Mean Corpuscular Volume 86.3 fl (80-94); Mean Platelet Volume 7.5 fl (7.4-10.4); Monocytes # 0.6 K/mm3 (0.1-1.0); Monocytes % 6.3 % (1.7-9.3); Neutrophils # 6.5 K/mm3 (1.8-7.8); Neutrophils % 70.3 % (37.0-80.0); Platelet Count 258 K/mm3 (142-424); Red Blood Count 3.92 M/mm3 (4.60-6.20); Red Cell Distribution Width 17.8 % (11.5-17.5); White Blood Count 9.3 K/mm3 (4.8-10.8)
[2020-02-12 10:23] LABS: Chloride 102 mmol/L (98-107); Potassium 4.4 mmoL/L (3.5-5.1); Sodium 136 mmol/L (136-145)
[2020-02-12 10:25] LABS: Blood Urea Nitrogen 14 mg/dl (9-20); Estimated Glomerular Filt Rate 72 ml/min (>60); GFR (African American) 87 ML/MIN (>60)
[2020-02-12 10:26] LABS: Alanine Aminotransferase 16 U/L (12-78); Albumin Level 3.7 g/dl (3.5-5.0); Albumin/Globulin Ratio 1.2 (1.1-1.8); Alkaline Phosphatase 121 U/L (38-126); Anion Gap 12.4 mEq/L (5-15); Aspartate Amino Transferase 25 U/L (17-59); Bilirubin,Total 0.7 mg/dl (0.2-1.3); Calcium 9.1 mg/dl (8.4-10.2); Carbon Dioxide 26 mmol/L (22.0-30.0); Glucose 189 mg/dl (74-100); Total Protein,Serum 6.7 g/dl (6.3-8.2)
== END ==
PROVIDERS: Visit Provider Dermatology
DX: L40.0 Psoriasis vulgaris (principal); Z92.25 Personal history of immunosuppression therapy; Z79.899 Other long term (current) drug therapy
CPT/HCPCS: 36415; 80053; 85025

== ENCOUNTER → 2020-03-07 13:51 | Outpatient (CLI) | payer MEDICARE, BC, SELFPAY ==
--- NOTE | 2020-03-07 13:56 | XR_ITS ---
PROCEDURE: XR KNEE LT 4V CLINICAL INDICATION: left knee pain COMPARISON: No exams were available for comparison FINDINGS: Degenerative narrowing of the medial and patellofemoral joint spaces are present.. There is ossification of the tendinous insertions into the patella. There is no fracture or dislocation and the soft tissues are intact. IMPRESSION: No fracture or dislocation, degenerative changes as above. Dictated by: Sammy Dent 03/07/2020 14:15 Electronically signed by Sammy Dent in [place] 03/07/2020 14:15
== END ==
PROVIDERS: PCP Internal Medicine; Visit Provider Orthopaedic Surgery
DX: M25.562 Pain in left knee (principal)
CPT/HCPCS: 73564

== ENCOUNTER → 2020-03-31 07:42 | Outpatient (CLI) | payer MEDICARE, BC, SELFPAY ==
[2020-03-31 08:05] LABS: Basophils % 0.4 % (0.1-2.0); Eosinophils # 0.2 K/mm3 (0.0-0.4); Eosinophils % 2.5 % (0.1-12.0); Hematocrit 33.7 % (42.0-52.0); Lymphocytes % 22.8 % (10-50); Mean Corpuscular HGB Conc 32.8 g/dL (31.8-35.4); Mean Corpuscular Hemoglobin 26.8 pg (27.0-31.2); Mean Corpuscular Volume 81.8 fl (80-94); Mean Platelet Volume 7.8 fl (7.4-10.4); Monocytes # 0.4 K/mm3 (0.1-1.0); Monocytes % 4.4 % (1.7-9.3); Neutrophils % 69.9 % (37.0-80.0); Platelet Count 250 K/mm3 (142-424); Red Blood Count 4.12 M/mm3 (4.60-6.20); Red Cell Distribution Width 18.9 % (11.5-17.5); White Blood Count 8.6 K/mm3 (4.8-10.8)
[2020-03-31 09:02] LABS: Chloride 98 mmol/L (98-107)
[2020-03-31 09:03] LABS: Potassium 3.9 mmoL/L (3.5-5.1); Sodium 135 mmol/L (136-145)
[2020-03-31 09:05] LABS: Alanine Aminotransferase 16 U/L (12-78); Alkaline Phosphatase 133 U/L (38-126); Aspartate Amino Transferase 22 U/L (17-59); Bilirubin,Total 0.7 mg/dl (0.2-1.3); Blood Urea Nitrogen 13 mg/dl (9-20); Estimated Glomerular Filt Rate 82 ml/min (>60); GFR (African American) 99 ML/MIN (>60)
[2020-03-31 09:06] LABS: Albumin Level 3.7 g/dl (3.5-5.0); Albumin/Globulin Ratio 1.3 (1.1-1.8); Anion Gap 15.9 mEq/L (5-15); Calcium 8.8 mg/dl (8.4-10.2); Carbon Dioxide 25 mmol/L (22.0-30.0); Globulin 2.9 g/dL (1.3-3.2); Glucose 174 mg/dl (74-100); Total Protein,Serum 6.6 g/dl (6.3-8.2)
[2020-03-31 09:13] LABS: Hemoglobin A1C 8.5 % (4.0-6.0)
== END ==
PROVIDERS: Internal Medicine; Visit Provider Dermatology
DX: E11.59 Type 2 diabetes mellitus with other circulatory complications (principal); Z79.84 Long term (current) use of oral hypoglycemic drugs; L40.0 Psoriasis vulgaris; Z92.25 Personal history of immunosuppression therapy; Z79.899 Other long term (current) drug therapy
CPT/HCPCS: 36415; 80053; 83036; 85025

== ENCOUNTER → 2020-05-12 08:22 | Outpatient (CLI) | payer MEDICARE, BC, SELFPAY ==
[2020-05-12 09:12] LABS: Basophils # 0.1 K/mm3 (0-0.2); Basophils % 0.5 % (0.1-2.0); Eosinophils # 0.2 K/mm3 (0.0-0.4); Eosinophils % 1.5 % (0.1-12.0); Hematocrit 32.1 % (42.0-52.0); Hemoglobin 10.3 g/dL (14.1-18.0); Lymphocytes # 1.9 K/mm3 (0.7-4.5); Lymphocytes % 18.5 % (10-50); Mean Corpuscular HGB Conc 32.2 g/dL (31.8-35.4); Mean Corpuscular Hemoglobin 26.4 pg (27.0-31.2); Mean Corpuscular Volume 82.1 fl (80-94); Mean Platelet Volume 7.3 fl (7.4-10.4); Monocytes # 0.6 K/mm3 (0.1-1.0); Monocytes % 5.4 % (1.7-9.3); Neutrophils # 7.6 K/mm3 (1.8-7.8); Neutrophils % 74.1 % (37.0-80.0); Platelet Count 208 K/mm3 (142-424); Red Blood Count 3.91 M/mm3 (4.60-6.20); Red Cell Distribution Width 19.7 % (11.5-17.5); White Blood Count 10.2 K/mm3 (4.8-10.8)
[2020-05-12 09:37] LABS: Alanine Aminotransferase 16 U/L (12-78); Albumin Level 3.8 g/dl (3.5-5.0); Albumin/Globulin Ratio 1.4 (1.1-1.8); Alkaline Phosphatase 143 U/L (38-126); Anion Gap 13.9 mEq/L (5-15); Aspartate Amino Transferase 21 U/L (17-59); Bilirubin,Total 0.6 mg/dl (0.2-1.3); Blood Urea Nitrogen 14 mg/dl (9-20); Calcium 8.9 mg/dl (8.4-10.2); Carbon Dioxide 29 mmol/L (22.0-30.0); Chloride 97 mmol/L (98-107); Estimated Glomerular Filt Rate 72 ml/min (>60); GFR (African American) 87 ML/MIN (>60); Globulin 2.7 g/dL (1.3-3.2); Glucose 168 mg/dl (74-100); Potassium 3.9 mmoL/L (3.5-5.1); Sodium 136 mmol/L (136-145); Total Protein,Serum 6.5 g/dl (6.3-8.2)
== END ==
PROVIDERS: Visit Provider Dermatology
DX: L40.0 Psoriasis vulgaris (principal); Z92.25 Personal history of immunosuppression therapy; Z79.899 Other long term (current) drug therapy
CPT/HCPCS: 36415; 80053; 85025

== ENCOUNTER → 2020-06-24 08:12 | Outpatient (CLI) | payer MEDICARE, BC, SELFPAY ==
[2020-06-24 08:57] LABS: Basophils # 0.1 K/mm3 (0-0.2); Basophils % 0.6 % (0.1-2.0); Eosinophils # 0.2 K/mm3 (0.0-0.4); Eosinophils % 2.1 % (0.1-12.0); Hematocrit 33.2 % (42.0-52.0); Hemoglobin 9.9 g/dL (14.1-18.0); Lymphocytes # 1.9 K/mm3 (0.7-4.5); Lymphocytes % 18.2 % (10-50); Mean Corpuscular HGB Conc 29.7 g/dL (31.8-35.4); Mean Corpuscular Hemoglobin 24.7 pg (27.0-31.2); Mean Corpuscular Volume 83.2 fl (80-94); Mean Platelet Volume 7.8 fl (7.4-10.4); Monocytes # 0.9 K/mm3 (0.1-1.0); Monocytes % 8.3 % (1.7-9.3); Neutrophils # 7.5 K/mm3 (1.8-7.8); Neutrophils % 70.7 % (37.0-80.0); Platelet Count 238 K/mm3 (142-424); Red Blood Count 3.99 M/mm3 (4.60-6.20); White Blood Count 10.6 K/mm3 (4.8-10.8)
[2020-06-24 09:16] LABS: Chloride 100 mmol/L (98-107); Potassium 4.1 mmoL/L (3.5-5.1); Sodium 137 mmol/L (136-145)
[2020-06-24 09:18] LABS: Blood Urea Nitrogen 15 mg/dl (9-20); Estimated Glomerular Filt Rate 72 ml/min (>60); GFR (African American) 87 ML/MIN (>60)
[2020-06-24 09:19] LABS: Alanine Aminotransferase 16 U/L (12-78); Albumin Level 3.8 g/dl (3.5-5.0); Albumin/Globulin Ratio 1.5 (1.1-1.8); Alkaline Phosphatase 136 U/L (38-126); Anion Gap 12.1 mEq/L (5-15); Aspartate Amino Transferase 24 U/L (17-59); Bilirubin,Total 0.5 mg/dl (0.2-1.3); Calcium 8.9 mg/dl (8.4-10.2); Carbon Dioxide 29 mmol/L (22.0-30.0); Globulin 2.5 g/dL (1.3-3.2); Glucose 159 mg/dl (74-100); Total Protein,Serum 6.3 g/dl (6.3-8.2)
== END ==
PROVIDERS: Visit Provider Dermatology
DX: L40.0 Psoriasis vulgaris (principal); Z92.25 Personal history of immunosuppression therapy; Z79.899 Other long term (current) drug therapy
CPT/HCPCS: 36415; 80053; 85025

== ENCOUNTER → 2020-06-30 11:46 | Outpatient (CLI) | payer MEDICARE, BC, SELFPAY ==
--- NOTE | 2020-06-30 11:51 | XR_ITS ---
PROCEDURE: XR CERVICAL SPINE 5V CLINICAL INDICATION: CERVICALGIA COMPARISON: CT SPCERVWO CT cervical spine wo con from 10/25/2018 FINDINGS: There is normal curvature and alignment. C1 through C7 appear intact. There is [id number] neural foraminal compromise at the C6-7 level bilaterally secondary to spurring of the uncinate joints. There several small focal ossifications in the soft tissues of the posterior neck likely within the nuchal ligament and usually this is secondary to multiple repeated minor trauma. There is mild anterior osteophytic spurring at C2-3 and C3-4 levels. The prevertebral soft tissues are normal and the odontoid is normal. IMPRESSION: Chronic changes as described above basically unchanged from the previous CT scan cervical spine Dictated by: Dr. Jose Guadalupe Kulkarni MD 06/30/2020 13:15 Dr. Jose Guadalupe Kulkarni MD in [place] 06/30/2020 13:15
== END ==
PROVIDERS: PCP Internal Medicine; Visit Provider Internal Medicine
DX: M54.2 Cervicalgia (principal)
CPT/HCPCS: 72050

== ENCOUNTER → 2020-07-09 08:21 | Outpatient (CLI) | payer MEDICARE, BC, SELFPAY ==
[2020-07-09 08:47] LABS: Basophils # 0.1 K/mm3 (0-0.2); Basophils % 0.7 % (0.1-2.0); Eosinophils # 0.2 K/mm3 (0.0-0.4); Eosinophils % 2.1 % (0.1-12.0); Hematocrit 34.3 % (42.0-52.0); Hemoglobin 10.9 g/dL (14.1-18.0); Lymphocytes # 2.1 K/mm3 (0.7-4.5); Lymphocytes % 19.8 % (10-50); Mean Corpuscular HGB Conc 31.8 g/dL (31.8-35.4); Mean Corpuscular Hemoglobin 24.9 pg (27.0-31.2); Mean Corpuscular Volume 78.3 fl (80-94); Mean Platelet Volume 7.5 fl (7.4-10.4); Monocytes # 0.7 K/mm3 (0.1-1.0); Monocytes % 6.8 % (1.7-9.3); Neutrophils # 7.3 K/mm3 (1.8-7.8); Neutrophils % 70.7 % (37.0-80.0); Platelet Count 269 K/mm3 (142-424); Red Blood Count 4.38 M/mm3 (4.60-6.20); Red Cell Distribution Width 19.1 % (11.5-17.5); White Blood Count 10.4 K/mm3 (4.8-10.8)
[2020-07-09 09:00] LABS: Chloride 99 mmol/L (98-107); Sodium 135 mmol/L (136-145)
[2020-07-09 09:01] LABS: Potassium 3.7 mmoL/L (3.5-5.1)
[2020-07-09 09:03] LABS: Alanine Aminotransferase 16 U/L (12-78); Albumin Level 3.9 g/dl (3.5-5.0); Albumin/Globulin Ratio 1.5 (1.1-1.8); Alkaline Phosphatase 115 U/L (38-126); Anion Gap 12.7 mEq/L (5-15); Aspartate Amino Transferase 27 U/L (17-59); Bilirubin,Total 0.7 mg/dl (0.2-1.3); Blood Urea Nitrogen 12 mg/dl (9-20); Calcium 8.8 mg/dl (8.4-10.2); Carbon Dioxide 27 mmol/L (22.0-30.0); Estimated Glomerular Filt Rate 81 ml/min (>60); GFR (African American) 98 ML/MIN (>60); Globulin 2.6 g/dL (1.3-3.2); Glucose 191 mg/dl (74-100); Iron 40 ug/dL (49-181); Total Protein,Serum 6.5 g/dl (6.3-8.2)
[2020-07-09 09:13] LABS: Total Iron Binding Capacity 416 ug/dL (261-462)
[2020-07-09 09:38] LABS: Ferritin 9.65 ng/ml (17.9-464)
== END ==
PROVIDERS: PCP Internal Medicine; Visit Provider Dermatology
DX: L40.0 Psoriasis vulgaris (principal); Z79.899 Other long term (current) drug therapy; Z92.241 Personal history of systemic steroid therapy; D50.9 Iron deficiency anemia, unspecified
CPT/HCPCS: 36415; 80053; 82728; 83540; 83550; 85025

== ENCOUNTER 2020-07-29 10:00 | Outpatient (RCR) | payer MEDICARE, BC, SELFPAY | END 2020-07-29 10:54 | disposition home or self-care (01) | LOC: PT 10:00 | PROVIDERS: PCP Internal Medicine; Visit Provider Internal Medicine | DX: M54.2 Cervicalgia (principal) | CPT/HCPCS: 97163 ==

== ENCOUNTER → 2020-08-09 07:44 | Outpatient (CLI) | payer MEDICARE, BC, SELFPAY ==
[2020-08-09 10:11] LABS: Coronavirus 19 IgG Antibody Negative (Negative); Coronavirus 19 IgM Antibody Negative (Negative)
== END ==
PROVIDERS: Visit Provider Internal Medicine Gastroenterology
DX: L40.0 Psoriasis vulgaris (principal); Z79.899 Other long term (current) drug therapy; Z92.25 Personal history of immunosuppression therapy
CPT/HCPCS: 36415; 86328

== ENCOUNTER 2020-08-11 09:50 | Day surgery (SDC) | payer MEDICARE, BC, SELFPAY ==
[2020-08-04 12:50] VITALS: BMI 33.9
[2020-08-11 10:07] VITALS: BP 161/61; PULSE 86; RESP 18; TEMP 36.4; O2SAT 97
[2020-08-11 10:17] LABS: POC Glucose,Bedside 215 (70-110)
--- NOTE | 2020-08-11 10:44 | HMH.ANESCL ---
[facility] Anesthesia Checklist - Patient Identification Patient Identification: Arm Band - Structural Data Admitted From: Home Planned Operative Procedure/s: colonoscopy Consent for Planned Operative Procedure(s) Verified: Yes Verified Documents: Surgical Consent, History and Physical - NPO Status Verified Time NPO: 00:00 - Additional verifications Anesthesia Reactions: No - Airway Assessment C-Spine Mobility Assessed: Yes (mp2) TMJ Mobility Assessed: Yes Dentition: Good Dentition - Neurological Assessment Level of Consciousness: Awake, Alert - Anesthesia Plan Anesthesia Risk discussed: Yes Anesthesia Plan: Verified ASA Class: III Anesthesia Type: MAC [facility] History I have reviewed the patient's past medical history: Yes Medical History: Reports:: Atrial Fibrillation, Coronary Artery Disease, Diabetes Mellitus Type 2, Gastroesophageal Reflux Disease(GERD), Hypertension Denies:: Cancer, Diabetes Mellitus Type 1, Internal Pacemaker, MRSA, Seizures *Have you ever received a pneumonia vaccine?: Yes *Have you received a flu vaccine this season?: No (not flu season) Other Medical History: Reports: Glaucoma, Other Anesthesia experience/problems:: nac Other Surgeries: Yes: Cardiac Catheterization, Colonoscopy, Colon Resection, Other. No: Pacemaker Amputation: No Fractures: No - *Social History Last grade of school completed: Advanced degree Smoking Status: Never smoker Alcohol Intake: never Alcohol Intake Frequency:: other Substance Use Type: denies use *Occupational Status:: retired Housing: house Household Members: spouse *Travel in the last 8 weeks: None Family Hx:: Cancer
--- NOTE | 2020-08-11 11:10 | HMH.PROC ---
[facility] Procedure Note Procedure Note:: Colonoscopy Procedure Report: Colonoscopy with cold biopsies Endoscopist: Michael Catherine II, MD Referring physician: Sal[place] MD Date of Procedure: August 11, 2020 Equipment: Olympus 180 variable stiffness pediatric colonoscope Sedation: MAC sedation Indication: Mr. Melendez is a 80-year-old gentleman who is here for follow-up surveillance colonoscopy of his longstanding moderate Crohn's disease. The patient does have longstanding Crohn's disease diagnosed 30 years ago. He has had prior right hemicolectomy with ileocolonic anastomosis in April 1998 (Dr. Rupesh Greenwood?colorectal surgery [place]). The patient has been on methotrexate and sulfasalazine as maintenance therapy. The patient did have an anaphylactic reaction to Remicade previously. 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 The patient has had anemia recently with hemoglobin 10.9 and hematocrit 34.3 (microcytic indices). His serum iron was 40 with iron saturation of 9.6% and ferritin level of 9.65. His liver and kidney function were normal. He has had some exacerbation of his psoriasis. Procedure: Prior to the procedure, a history and physical exam was performed, and patient's medications and allergies were reviewed. The risks, benefits and alternatives of the sedation and procedure were discussed with the patient. All questions were answered and informed consent was obtained. The patient was brought to the procedure room. Patient identification and proposed procedure were verified by the physician and the nurse. The patient was placed in a left lateral decubitus position and the scope was passed under direct vision. Throughout the procedure, the patient's blood pressure, pulse, and oxygen saturations were monitored continuously. The colonoscopy was accomplished without difficulty. The patient tolerated the procedure well. Findings: On digital rectal examination there was significant psoriasis extending from the perianal region into the buttocks area. There were no external hemorrhoids. The prostate was 2+, smooth, soft, symmetric without nodules. The colonoscope was introduced through the anal canal to the rectum and advanced to the ileocolonic anastomosis.the scope was advanced approximately 30 cm into the ileum. There was involvement of the Crohn's disease in the latter 5 cm of ileum with moderately active disease with some penetration but no stenosis. Cold biopsies were obtained. The scope was then withdrawn into the colon. The remainder of the descending, sigmoid and rectum were grossly normal. Upon retroflexion within the rectum there were grade 1-2 internal hemorrhoids. The preparation was excellent throughout. Impression: 1. Moderate Crohn's disease of the terminal ileum (moderate Crohn's ileitis) without stenosis or visible fistulous disease 2. Prior extended right hemicolectomy with remaining descending colon to rectum (no evidence of Crohn's colitis) Plan: I would continue methotrexate as maintenance therapy along with the sulfasalazine. I do feel that the patient's iron deficiency anemia is likely related to the active Crohn's disease. He may require long-term maintenance with an iron supplement. 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 I will discuss whether ongoing surveillance is warranted. He does have otherwise very good health.
[2020-08-11 11:14] VITALS: O2SAT 97
[2020-08-11 11:30] VITALS: BP 96/64; PULSE 75; RESP 16; TEMP 36.8; O2SAT 95
[2020-08-11 11:40] VITALS: BP 115/59; PULSE 73; RESP 18; O2SAT 93
[2020-08-11 11:50] VITALS: BP 141/75; PULSE 62; RESP 16; O2SAT 96
[2020-08-11 12:25] VITALS: BP 160/91; PULSE 65; RESP 16; O2SAT 94
== END 2020-08-11 12:25 | disposition home or self-care (01) ==
LOC: OUTP 09:52
PROVIDERS: PCP Internal Medicine; Visit Provider Internal Medicine Gastroenterology
PROC: 0DJD8ZZ Inspection of Lower Intestinal Tract, Via Natural or Artificial Opening Endoscopic (ICD-10-PCS; CPT 45378; principal; 2020-08-11 11:00)
DX: Z12.11 Encounter for screening for malignant neoplasm of colon (principal); K50.10 Crohn's disease of large intestine without complications; Z90.49 Acquired absence of other specified parts of digestive tract; G61.0 Guillain-Barre syndrome; D64.9 Anemia, unspecified; L40.9 Psoriasis, unspecified; I48.91 Unspecified atrial fibrillation; I25.10 Atherosclerotic heart disease of native coronary artery without angina pectoris; E11.9 Type 2 diabetes mellitus without complications; I10 Essential (primary) hypertension; K21.9 Gastro-esophageal reflux disease without esophagitis; Z80.9 Family history of malignant neoplasm, unspecified
CPT/HCPCS: 45380; 82962; 88305

== ENCOUNTER → 2020-08-26 09:03 | Outpatient (CLI) | payer MEDICARE, BC, SELFPAY ==
[2020-08-26 10:14] LABS: Basophils % 0.5 % (0.1-2.0); Eosinophils # 0.2 K/mm3 (0.0-0.4); Hematocrit 37.4 % (42.0-52.0); Hemoglobin 11.7 g/dL (14.1-18.0); Lymphocytes # 1.5 K/mm3 (0.7-4.5); Lymphocytes % 15.6 % (10-50); Mean Corpuscular HGB Conc 31.2 g/dL (31.8-35.4); Mean Corpuscular Hemoglobin 24.5 pg (27.0-31.2); Mean Corpuscular Volume 78.4 fl (80-94); Monocytes # 0.5 K/mm3 (0.1-1.0); Monocytes % 4.7 % (1.7-9.3); Neutrophils # 7.4 K/mm3 (1.8-7.8); Neutrophils % 77.2 % (37.0-80.0); Platelet Count 233 K/mm3 (142-424); Red Blood Count 4.77 M/mm3 (4.60-6.20); Red Cell Distribution Width 20.4 % (11.5-17.5); White Blood Count 9.6 K/mm3 (4.8-10.8)
[2020-08-26 10:25] LABS: Chloride 99 mmol/L (98-107); Potassium 3.5 mmoL/L (3.5-5.1); Sodium 138 mmol/L (136-145)
[2020-08-26 10:28] LABS: Alanine Aminotransferase 18 U/L (12-78); Albumin Level 4.1 g/dl (3.5-5.0); Albumin/Globulin Ratio 1.4 (1.1-1.8); Alkaline Phosphatase 127 U/L (38-126); Anion Gap 12.5 mEq/L (5-15); Aspartate Amino Transferase 30 U/L (17-59); Bilirubin,Total 0.9 mg/dl (0.2-1.3); Blood Urea Nitrogen 10 mg/dl (9-20); Carbon Dioxide 30 mmol/L (22.0-30.0); Estimated Glomerular Filt Rate 93 ml/min (>60); GFR (African American) 113 ML/MIN (>60); Glucose 180 mg/dl (74-100); Total Protein,Serum 7.1 g/dl (6.3-8.2)
== END ==
PROVIDERS: Visit Provider Dermatology
DX: L40.0 Psoriasis vulgaris (principal); Z92.25 Personal history of immunosuppression therapy; Z79.899 Other long term (current) drug therapy
CPT/HCPCS: 36415; 80053; 85025

== ENCOUNTER → 2020-10-17 08:20 | Outpatient (CLI) | payer MEDICARE, BC, SELFPAY ==
[2020-10-17 09:06] LABS: Basophils # 0.1 K/mm3 (0-0.2); Basophils % 0.7 % (0.1-2.0); Eosinophils # 0.2 K/mm3 (0.0-0.4); Hematocrit 38.8 % (42.0-52.0); Hemoglobin 11.9 g/dL (14.1-18.0); Lymphocytes # 1.8 K/mm3 (0.7-4.5); Lymphocytes % 19.4 % (10-50); Mean Corpuscular HGB Conc 30.5 g/dL (31.8-35.4); Mean Corpuscular Hemoglobin 25.9 pg (27.0-31.2); Mean Corpuscular Volume 84.9 fl (80-94); Mean Platelet Volume 7.4 fl (7.4-10.4); Monocytes # 0.3 K/mm3 (0.1-1.0); Monocytes % 3.5 % (1.7-9.3); Neutrophils # 6.9 K/mm3 (1.8-7.8); Neutrophils % 74.4 % (37.0-80.0); Platelet Count 245 K/mm3 (142-424); Red Blood Count 4.57 M/mm3 (4.60-6.20); Red Cell Distribution Width 19.1 % (11.5-17.5); White Blood Count 9.3 K/mm3 (4.8-10.8)
[2020-10-17 09:26] LABS: Chloride 102 mmol/L (98-107); Potassium 3.9 mmoL/L (3.5-5.1); Sodium 137 mmol/L (136-145)
[2020-10-17 09:29] LABS: Alanine Aminotransferase 20 U/L (12-78); Albumin Level 3.9 g/dl (3.5-5.0); Albumin/Globulin Ratio 1.3 (1.1-1.8); Alkaline Phosphatase 143 U/L (38-126); Anion Gap 11.9 mEq/L (5-15); Aspartate Amino Transferase 27 U/L (17-59); Bilirubin,Total 0.7 mg/dl (0.2-1.3); Blood Urea Nitrogen 13 mg/dl (9-20); Carbon Dioxide 27 mmol/L (22.0-30.0); Estimated Glomerular Filt Rate 81 ml/min (>60); GFR (African American) 98 ML/MIN (>60); Globulin 3.1 g/dL (1.3-3.2)
[2020-10-17 09:30] LABS: Calcium 9.7 mg/dl (8.4-10.2); Glucose 211 mg/dl (74-100)
== END ==
PROVIDERS: Visit Provider Dermatology
DX: L40.0 Psoriasis vulgaris (principal); Z92.25 Personal history of immunosuppression therapy; Z79.899 Other long term (current) drug therapy
CPT/HCPCS: 36415; 80053; 85025

== ENCOUNTER → 2020-11-24 09:09 | Outpatient (CLI) | payer MEDICARE, BC, SELFPAY ==
[2020-11-24 09:35] LABS: Basophils # 0.1 K/mm3 (0-0.2); Basophils % 0.6 % (0.1-2.0); Eosinophils # 0.3 K/mm3 (0.0-0.4); Eosinophils % 3.3 % (0.1-12.0); Hematocrit 40.5 % (42.0-52.0); Hemoglobin 12.8 g/dL (14.1-18.0); Lymphocytes # 1.5 K/mm3 (0.7-4.5); Lymphocytes % 16.8 % (10-50); Mean Corpuscular HGB Conc 31.7 g/dL (31.8-35.4); Mean Corpuscular Hemoglobin 28.1 pg (27.0-31.2); Mean Corpuscular Volume 88.6 fl (80-94); Mean Platelet Volume 7.9 fl (7.4-10.4); Monocytes # 0.6 K/mm3 (0.1-1.0); Monocytes % 6.7 % (1.7-9.3); Neutrophils # 6.7 K/mm3 (1.8-7.8); Neutrophils % 72.7 % (37.0-80.0); Platelet Count 248 K/mm3 (142-424); Red Blood Count 4.58 M/mm3 (4.60-6.20); Red Cell Distribution Width 17.5 % (11.5-17.5); White Blood Count 9.1 K/mm3 (4.8-10.8)
[2020-11-24 10:05] LABS: Chloride 98 mmol/L (98-107); Potassium 3.7 mmoL/L (3.5-5.1); Sodium 135 mmol/L (136-145)
[2020-11-24 10:07] LABS: Blood Urea Nitrogen 11 mg/dl (9-20); Estimated Glomerular Filt Rate 81 ml/min (>60); GFR (African American) 98 ML/MIN (>60)
[2020-11-24 10:08] LABS: Alanine Aminotransferase 22 U/L (12-78); Albumin Level 3.9 g/dl (3.5-5.0); Albumin/Globulin Ratio 1.2 (1.1-1.8); Alkaline Phosphatase 134 U/L (38-126); Anion Gap 11.7 mEq/L (5-15); Aspartate Amino Transferase 33 U/L (17-59); Bilirubin,Total 0.9 mg/dl (0.2-1.3); Calcium 9.5 mg/dl (8.4-10.2); Carbon Dioxide 29 mmol/L (22.0-30.0); Globulin 3.2 g/dL (1.3-3.2); Glucose 256 mg/dl (74-100); Total Protein,Serum 7.1 g/dl (6.3-8.2)
== END ==
PROVIDERS: Visit Provider Dermatology
DX: L40.0 Psoriasis vulgaris (principal); Z92.25 Personal history of immunosuppression therapy; Z79.899 Other long term (current) drug therapy
CPT/HCPCS: 36415; 80053; 85025

== ENCOUNTER → 2021-01-13 08:26 | Outpatient (CLI) | payer MEDICARE, BC, SELFPAY ==
[2021-01-13 08:53] LABS: Basophils # 0.1 K/mm3 (0-0.2); Basophils % 0.8 % (0.1-2.0); Eosinophils # 0.2 K/mm3 (0.0-0.4); Eosinophils % 2.3 % (0.1-12.0); Hematocrit 40.9 % (42.0-52.0); Hemoglobin 13.2 g/dL (14.1-18.0); Lymphocytes # 2.2 K/mm3 (0.7-4.5); Lymphocytes % 21.4 % (10-50); Mean Corpuscular HGB Conc 32.4 g/dL (31.8-35.4); Mean Corpuscular Hemoglobin 28.7 pg (27.0-31.2); Mean Corpuscular Volume 88.7 fl (80-94); Monocytes # 0.6 K/mm3 (0.1-1.0); Neutrophils # 7.1 K/mm3 (1.8-7.8); Neutrophils % 69.6 % (37.0-80.0); Platelet Count 251 K/mm3 (142-424); Red Blood Count 4.61 M/mm3 (4.60-6.20); Red Cell Distribution Width 17.2 % (11.5-17.5); White Blood Count 10.2 K/mm3 (4.8-10.8)
[2021-01-13 09:41] LABS: Chloride 99 mmol/L (98-107); Sodium 135 mmol/L (136-145)
[2021-01-13 09:42] LABS: Potassium 3.7 mmoL/L (3.5-5.1)
[2021-01-13 09:44] LABS: Alanine Aminotransferase 23 U/L (12-78); Alkaline Phosphatase 137 U/L (38-126); Aspartate Amino Transferase 29 U/L (17-59); Bilirubin,Total 0.8 mg/dl (0.2-1.3); Blood Urea Nitrogen 10 mg/dl (9-20); Estimated Glomerular Filt Rate 93 ml/min (>60); GFR (African American) 113 ML/MIN (>60)
[2021-01-13 09:45] LABS: Anion Gap 13.7 mEq/L (5-15); Calcium 9.3 mg/dl (8.4-10.2); Carbon Dioxide 26 mmol/L (22.0-30.0); Glucose 248 mg/dl (74-100); Total Protein,Serum 6.8 g/dl (6.3-8.2)
[2021-01-13 11:16] LABS: Hemoglobin A1C 10.5 % (4.0-6.0)
[2021-01-13 16:19] LABS: Albumin/Globulin Ratio 1.4 (1.1-1.8); Globulin 2.8 g/dL (1.3-3.2)
== END ==
PROVIDERS: Visit Provider Dermatology
DX: L40.0 Psoriasis vulgaris (principal); Z79.899 Other long term (current) drug therapy
CPT/HCPCS: 36415; 80053; 83036; 85025

== ENCOUNTER → 2021-02-03 10:50 | Outpatient (CLI) | payer MEDICARE, BC, SELFPAY ==
--- NOTE | 2021-02-03 10:58 | XR_ITS ---
PROCEDURE: XR KUB CLINICAL INDICATION: hematuria COMPARISON: CT ABDWO CT ABD W/O CONT(RENAL ST.orAPP from 04/16/2015 CR XR ACUTE ABDOMEN SERIES from 04/17/2019 FINDINGS: Bowel gas pattern is nonspecific. Calcific densities are present in the left lower abdominal region and could be due to stones overlying the lower pole of the low lying left kidney. The largest of these calcifications measures 8 mm. IMPRESSION: Suspect stones within the lower pole of the low lying left kidney which could be confirmed with CT. Dictated by: Bernardo Alves MD 02/03/2021 11:46 Bernardo Alves MD in [place] 02/03/2021 11:46
== END ==
PROVIDERS: PCP Internal Medicine; Visit Provider Urology
DX: R31.9 Hematuria, unspecified (principal)
CPT/HCPCS: 74018

== ENCOUNTER → 2021-02-23 08:18 | Outpatient (CLI) | payer MEDICARE, BC, SELFPAY ==
[2021-02-23 09:08] LABS: Basophils # 0.1 K/mm3 (0-0.2); Basophils % 0.9 % (0.1-2.0); Eosinophils # 0.2 K/mm3 (0.0-0.4); Eosinophils % 2.3 % (0.1-12.0); Hematocrit 38.6 % (42.0-52.0); Hemoglobin 12.5 g/dL (14.1-18.0); Lymphocytes # 1.9 K/mm3 (0.7-4.5); Lymphocytes % 23.1 % (10-50); Mean Corpuscular HGB Conc 32.3 g/dL (31.8-35.4); Mean Corpuscular Hemoglobin 28.3 pg (27.0-31.2); Mean Corpuscular Volume 87.6 fl (80-94); Mean Platelet Volume 7.7 fl (7.4-10.4); Monocytes # 0.5 K/mm3 (0.1-1.0); Monocytes % 6.5 % (1.7-9.3); Neutrophils # 5.6 K/mm3 (1.8-7.8); Neutrophils % 67.1 % (37.0-80.0); Platelet Count 227 K/mm3 (142-424); Red Blood Count 4.41 M/mm3 (4.60-6.20); Red Cell Distribution Width 16.9 % (11.5-17.5); White Blood Count 8.3 K/mm3 (4.8-10.8)
[2021-02-23 09:52] LABS: Alanine Aminotransferase 19 U/L (12-78); Albumin Level 3.8 g/dl (3.5-5.0); Albumin/Globulin Ratio 1.4 (1.1-1.8); Alkaline Phosphatase 119 U/L (38-126); Aspartate Amino Transferase 28 U/L (17-59); Blood Urea Nitrogen 8 mg/dl (9-20); Calcium 8.9 mg/dl (8.4-10.2); Carbon Dioxide 26 mmol/L (22.0-30.0); Chloride 101 mmol/L (98-107); Estimated Glomerular Filt Rate 93 ml/min (>60); GFR (African American) 113 ML/MIN (>60); Globulin 2.7 g/dL (1.3-3.2); Glucose 197 mg/dl (74-100); Sodium 134 mmol/L (136-145); Total Protein,Serum 6.5 g/dl (6.3-8.2)
== END ==
PROVIDERS: Visit Provider Dermatology
DX: L40.0 Psoriasis vulgaris (principal); Z92.25 Personal history of immunosuppression therapy; Z79.899 Other long term (current) drug therapy
CPT/HCPCS: 36415; 80053; 85025

== ENCOUNTER 2021-04-06 01:36 | Observation (INO) | payer MEDICARE, BC, SELFPAY ==
[2021-04-06] VITALS (23 sets, daily range): BP systolic 127–181; BP diastolic 51–82; PULSE 57–76; RESP 16–18; TEMP 36.4–36.8; O2SAT 92–98; BMI 33.4; BMI 34.4
--- NOTE | 2021-04-06 01:55 | CT_ITS ---
PROCEDURE INFORMATION: Exam: CT Abdomen And Pelvis Without Contrast Exam date and time: 04/06/2021 1:55 AM Age: 80 years old Clinical indication: Abdominal pain; Left; Prior surgery; Surgery date: 6+ months; Surgery type: Lithotripsy; Patient HX: HX of stones, PT knows he has a stone, lt flank pain TECHNIQUE: Imaging protocol: Computed tomography of the abdomen and pelvis without contrast. Radiation optimization: All CT scans at this facility use at least one of these dose optimization techniques: automated exposure control; mA and/or kV adjustment per patient size (includes targeted exams where dose is matched to clinical indication); or iterative reconstruction. COMPARISON: ABDWO CT ABD W/O CONT(RENAL ST.orAPP 04/16/2015 10:21 AM FINDINGS: Lungs: Scattered punctate granulomas at the lung bases. Heart: Cardiomegaly. Coronary arterial calcifications. Mediastinal space: Small hiatal hernia. Liver: Scattered calcified granulomas in the liver. Gallbladder and bile ducts: Cholelithiasis. No gallbladder wall thickening. Pancreas: Unremarkable noncontrast appearance. Spleen: Calcified granulomas in the spleen. No splenomegaly. Adrenal glands: Normal. No mass. Kidneys and ureters: There is an 8 x 3 mm calculus in the left mid ureter. There is mild to moderate upstream left ureterectasis and pelvocaliectasis. There are several left renal caliceal calculi measuring up to 8 mm in size. No right renal/ureteral calculi. No right hydronephrosis. There is an apparent exophytic, isoattenuating 1.9 x 2.1 cm right anterior renal lesion, indeterminate (series 3, image 64). Stomach and bowel: No bowel obstruction. Postsurgical changes of subtotal colectomy are again seen. Appendix: Surgically absent. Intraperitoneal space: No pneumoperitoneum. No ascites. Vasculature: No abdominal aortic aneurysm. Scattered atherosclerotic calcifications. Lymph nodes: No enlarged lymph nodes. Urinary bladder: Bladder is partially fluid-filled, without evidence of wall thickening. Reproductive: Prostate gland is mildly enlarged, with nodular herniation into the bladder base. Bones/joints: Spondylosis with associated multilevel neural foraminal narrowing and mild multilevel degenerative malalignment. Soft tissues: Mild to moderate bilateral inguinal hernias containing fat. IMPRESSION: 1. Obstructing 8 x 3 mm calculus in the left mid ureter with mild to moderate upstream hydroureteronephrosis. 2. Additional nonobstructing left renal caliceal calculi. 3. Probable indeterminate right renal lesion measuring 1.9 x 2.1 cm. Less likely, this could represent a prominent lobulation of the renal parenchyma. Further evaluation with a nonemergent renal protocol MRI or CT is advised. 4. Cholelithiasis. Other chronic/ancillary findings as above.
[2021-04-06 02:02] LABS: Basophils # 0.1 K/mm3 (0-0.2); Basophils % 0.6 % (0.1-2.0); Eosinophils # 0.2 K/mm3 (0.0-0.4); Eosinophils % 1.7 % (0.1-12.0); Hematocrit 39.3 % (42.0-52.0); Hemoglobin 12.2 g/dL (14.1-18.0); Lymphocytes # 1.7 K/mm3 (0.7-4.5); Lymphocytes % 15.7 % (10-50); Mean Corpuscular Hemoglobin 27.3 pg (27.0-31.2); Mean Corpuscular Volume 87.8 fl (80-94); Monocytes # 0.7 K/mm3 (0.1-1.0); Monocytes % 5.9 % (1.7-9.3); Neutrophils # 8.4 K/mm3 (1.8-7.8); Platelet Count 242 K/mm3 (142-424); Red Blood Count 4.47 M/mm3 (4.60-6.20); Red Cell Distribution Width 17.2 % (11.5-17.5)
[2021-04-06 02:04] LABS: Potassium 3.8 mmoL/L (3.5-5.1); Sodium 136 mmol/L (136-145)
[2021-04-06 02:05] LABS: Chloride 96 mmol/L (98-107)
[2021-04-06 02:06] LABS: Blood Urea Nitrogen 10 mg/dl (9-20); Creatinine Clearance Estimated 90 mL/min (50-200); Estimated Glomerular Filt Rate 72 ml/min (>60); GFR (African American) 87 ML/MIN (>60)
[2021-04-06 02:07] LABS: Alanine Aminotransferase 21 U/L (12-78); Albumin Level 4.4 g/dl (3.5-5.0); Albumin/Globulin Ratio 1.4 (1.1-1.8); Alkaline Phosphatase 160 U/L (38-126); Anion Gap 11.8 mEq/L (5-15); Aspartate Amino Transferase 31 U/L (17-59); Bilirubin,Total 0.8 mg/dl (0.2-1.3); Carbon Dioxide 32 mmol/L (22.0-30.0); Globulin 3.2 g/dL (1.3-3.2); Glucose 284 mg/dl (74-100); Total Protein,Serum 7.6 g/dl (6.3-8.2)
--- NOTE | 2021-04-06 02:56 | HMH.EDGENADL ---
ED Disposition Clinical Impression: Left ureteral calculus, Nephrolithiasis, Renal lesion Cholelithiasis Qualifiers: Cholelithiasis location: gallbladder Cholecystitis presence: without cholecystitis Biliary obstruction: without biliary obstruction Qualified Code(s): K80.20 - Calculus of gallbladder without cholecystitis without obstruction Disposition: Admitted as Observation Condition on Discharge: Fair Referrals: [place] [Primary Care Provider] - - Critical Care Critical Care Time: No Attestation: On 04/06/21, the high probability of a clinically significant, sudden or life threatening deterioration of the following system(s) required my full and direct attention, intervention and personal management. The time I documented below is in addition to time spent performing reported procedures but includes the following listed in this critical care notation. Medical Decision Making - Quentin Inquiry Pt receiving controlled substance: No Quentin was queried for this patient: Yes Vital Signs: 04/06/21 01:37 04/06/21 02:00 04/06/21 02:20 Temperature 97.9 F Temperature Source Oral Pulse Rate 74 72 Pulse Rate [Right] 71 Respiratory Rate 18 Blood Pressure 158/68 H 161/51 H Blood Pressure [Right Arm] 181/75 H Blood Pressure Mean 87 Blood Pressure Mean [Right Arm] 110 Blood Pressure Source Blood Pressure Position Supine 02 Sat by Pulse Oximetry 97 97 95 Oxygen Delivery Method Room Air 04/06/21 02:30 04/06/21 02:52 04/06/21 03:00 Temperature Temperature Source Pulse Rate 68 73 63 Pulse Rate [Right] Respiratory Rate Blood Pressure 148/52 H 151/54 H 153/82 H Blood Pressure [Right Arm] Blood Pressure Mean 85 86 105 Blood Pressure Mean [Right Arm] Blood Pressure Source Blood Pressure Position Supine Supine 02 Sat by Pulse Oximetry 96 96 96 Oxygen Delivery Method Room Air 04/06/21 03:30 04/06/21 04:00 Temperature Temperature Source Pulse Rate 72 Pulse Rate [Right] Respiratory Rate Blood Pressure 153/82 H 159/60 H Blood Pressure [Right Arm] Blood Pressure Mean Blood Pressure Mean [Right Arm] Blood Pressure Source Automatic Cuff Blood Pressure Position Supine Supine 02 Sat by Pulse Oximetry 94 L 93 L Oxygen Delivery Method Room Air Room Air - Lab Data Lab Results 04/06/21 01:46: WBC 11.0 H, RBC 4.47 L, Hgb 12.2 L, Hct 39.3 L, MCV 87.8, MCH 27.3, MCHC 31.0 L, RDW 17.2, Plt Count 242, MPV 7.0 L, Neut % (Auto) 76.0, Lymph % (Auto) 15.7, [place] % (Auto) 5.9, Eos % (Auto) 1.7, Baso % (Auto) 0.6, Neut # (Auto) 8.4 H, Lymph # (Auto) 1.7, [place] # (Auto) 0.7, Eos # (Auto) 0.2, Baso # (Auto) 0.1 04/06/21 01:46: Sodium 136, Potassium 3.8, Chloride 96 L, Carbon Dioxide 32 H, Anion Gap 11.8, BUN 10, Creatinine 1.00, Estimated Creat Clear 90, Estimated GFR 72, Est GFR ( Amer) 87, Glucose 284 H, Calcium 9.0, Total Bilirubin 0.8, AST 31, ALT 21, Alkaline Phosphatase 160 H, Total Protein 7.6, Albumin 4.4, Globulin 3.2, Albumin/Globulin Ratio 1.4 04/06/21 03:10: SARS-CoV-2 (PCR) Not detected, Influenza A Untype (PCR) Not detected, Influenza Type B (PCR) Not detected 04/06/21 03:33: Urine Color Dk yellow, Urine Appearance Cloudy, Urine pH 6.0, Ur Specific [place] 1.020, Urine Protein 2+, Urine Glucose (UA) 3+, Urine Ketones Negative, Urine Blood 3+, Urine Nitrate Negative, Urine Bilirubin Negative, Urine Urobilinogen 0.2, Ur Leukocyte Esterase Trace, Urine RBC 50-100, Urine WBC 5-10 Result diagrams: 04/06/21 01:46 04/06/21 01:46 Orders (Tests/Meds): ED MEDICATIONS Generic Name Dose Route Start Last Admin Trade Name Freq PRN Reason Stop Dose Admin Sodium Chloride 1,000 mls @ 999 mls/hr 04/06/21 02:15 04/06/21 02:18 Sod Chlor 0.9% 1000ml Bag IV 04/06/21 03:15 999 mls/hr .[id number] STEWART Administration Discontinued Medications Generic Name Dose Route Start Last Admin Trade Name Freq PRN Reason Stop Dose Admin Ketorolac Tromethamine
[2021-04-06 03:17] LABS: Coronavirus 19, PCR Not Detected (NotDetected); Influenza A, PCR Not Detected (NotDetected); Influenza B, PCR Not Detected (NotDetected)
--- NOTE | 2021-04-06 03:23 | PC.NURSE ---
paged dr peterson @ this time
[2021-04-06 03:42] LABS: Microscopic, Urine URINE MICROSCOPIC (MICROSCOPIC)
[2021-04-06 03:44] LABS: Appearance,Urine CLOUDY (Clear); Bilirubin,Urine Negative (Negative); Blood, Urine 3+ (Negative); Color,Urine DK YELLOW (Yellow); Glucose,Urine (UA) 3+ (Negative); Ketones,Urine Negative (Negative); Leukocyte Esterase,Urine TRACE (Negative); Nitrate,Urine Negative (Negative); Protein,Urine 2+ (Negative); Urobilinogen,Urine 0.2 EU/dl (0.2)
[2021-04-06 03:47] LABS: RBC,Urine 50-100 #/hpf (0-3)
--- NOTE | 2021-04-06 04:06 | PC.NURSE ---
marco titus on phone with dr peterson
--- NOTE | 2021-04-06 04:14 | PC.NURSE ---
marco titus on phone with dr santana
--- NOTE | 2021-04-06 04:30 | PC.NURSE ---
Pt is an admission with no available bed on the floor, pt is now an ER boarder.
--- NOTE | 2021-04-06 05:06 | PC.NURSE ---
Pt is resting comfortably at this time, family has gone home for the night. Dr Martinez is aware of pt and will see him in the AM
--- NOTE | 2021-04-06 06:06 | PC.NURSE ---
pt resting voiced no c/o @ this time. call light within reach
--- NOTE | 2021-04-06 07:01 | PC.NURSE ---
report given to Balaji Reis. pt voiced no c/o @ this time
--- NOTE | 2021-04-06 08:03 | PC.NURSE ---
report called to brittany mccullough
--- NOTE | 2021-04-06 08:32 | HMH.HP ---
*Admission Date: 04/06/21 *Chief complaint: Left flank and groin pain *History of present illness: 80-year-old white male with excruciating left back and flank pain that started last night, relieved in the ER with some narcotic and antiemetic therapy, but CT scan revealed obstructing stone disease. Admitted to hospital for urology consultation given high likelihood of recurrence. [facility] History I have reviewed the patient's past medical history: Yes Medical History: Reports:: Atrial Fibrillation, Coronary Artery Disease, Diabetes Mellitus Type 2, Gastroesophageal Reflux Disease(GERD), Hypertension Denies:: Cancer, Diabetes Mellitus Type 1, Internal Pacemaker, MRSA, Seizures *Have you ever received a pneumonia vaccine?: No *Have you received a flu vaccine this season?: No Other Medical History: Reports: Glaucoma, Other Other Surgeries: Yes: No Previous Surgery, Cardiac Catheterization, Colonoscopy, Colon Resection, Other. No: Pacemaker Amputation: No Fractures: No - *Social History Smoking Status: Never smoker Alcohol Intake: never Alcohol Intake Frequency:: other Substance Use Type: denies use *Occupational Status:: retired Housing: house Household Members: spouse *Travel in the last 8 weeks: None Family Hx:: Cancer Review of Systems - Review of Systems Review of systems:: pertinent systems reviewed and negative unless documented below Meds Home Medications Medication Instructions Recorded Confirmed Type folic acid 1 mg tablet 1 mg PO WEEKLY 04/25/18 04/06/21 History aspirin 81 mg tablet,delayed 81 mg PO DAILY 07/10/19 04/06/21 History release digoxin 125 mcg (0.125 mg) tablet 125 mcg PO DAILY tab 07/10/19 04/06/21 History losartan 25 mg tablet 25 mg PO DAILY 07/10/19 04/06/21 History omeprazole 20 mg capsule,delayed 20 mg PO DAILY cap 07/10/19 04/06/21 History release sitagliptin 100 mg tablet 100 mg PO DAILY 07/10/19 04/06/21 History metformin 500 mg tablet 500 mg PO BID 03/25/20 04/06/21 History potassium chloride 10 mEq 10 meq PO DAILY tab 04/07/20 04/06/21 History tablet,extended release ferrous gluconate 325 mg (37 mg 325 mg PO DAILY 07/07/20 04/06/21 History iron) tablet Apixaban [Eliquis] 5 mg PO BID 08/04/20 04/06/21 History Tamsulosin HCl [Flomax 0.4mg 0.4 mg PO HS 08/04/20 04/06/21 History capsule] sulfasalazine 500 mg tablet 1.5 g PO BID tab 09/24/20 04/06/21 History atorvastatin 40 mg tablet 40 mg PO HS #90 tab 10/15/20 04/06/21 Rx diltiazem HCl 120 mg 120 mg PO DAILY cap 04/01/21 04/06/21 History capsule,extended release 24 hr furosemide 40 mg tablet 40 mg PO DAILY PRN tab 04/01/21 04/06/21 History methotrexate sodium 2.5 mg tablet 10 mg PO WEEKLY tab 04/01/21 04/06/21 History Allergies Allergy/AdvReac Type Severity Reaction Status Date / Time infliximab [From Remicade] Allergy Severe S-ANAPHYLAX Verified 04/01/21 11:25 IS Influenza Virus Vaccines Allergy Unknown 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 [From Stelara] Allergy Unknown SUPPRESS Verified 04/01/21 11:25 IMMUNE SYSTEM Exam Vital signs and Labs for Last 24 Hours: Temp Pulse Resp BP Pulse Ox 98 F 67 16 164/74 H 97 04/06/21 08:21 04/06/21 08:21 04/06/21 08:21 04/06/21 08:21 04/06/21 07:31 Laboratory Results - last 24 hr 04/06/21 01:46: WBC 11.0 H, RBC 4.47 L, Hgb 12.2 L, Hct 39.3 L, MCV 87.8, MCH 27.3, MCHC 31.0 L, RDW 17.2, Plt Count 242, MPV 7.0 L, Neut % (Auto) 76.0, Lymph % (Auto) 15.7, [place] % (Auto) 5.9, Eos % (Auto) 1.7, Baso % (Auto) 0.6, Neut # (Auto) 8.4 H, Lymph # (Auto) 1.7, [place] # (Auto) 0.7, Eos # (Auto) 0.2, Baso # (Auto) 0.1 04/06/21 01:46: Sodium 136, Potassium 3.8, Chloride 96 L, Carbon Dioxide 32 H, Anion Gap 11.8, BUN 10, Creatinine 1.00, Estimated Creat Clear 90, Estimated GFR 72, Est GFR ( Amer) 87, Glucose 284 H, Calcium 9.0, Total Bilirubin 0.8, AST 31, ALT 21, Alkaline Phosphatase 160 H, Total Protein 7.6, Albumin 4.4,
--- NOTE | 2021-04-06 08:47 | HMH.PHAVTE ---
[facility] Pharmacy VTE Monitoring - Patient Demographics Admission date: 04/06/21 Report Date: 04/06/21 Time: 08:47 Allergies/Adverse Reactions: Patient Allergies infliximab [From Remicade] Allergy (Severe, Verified 04/01/21 11:25) S-ANAPHYLAXIS Influenza Virus Vaccines Allergy (Unknown, Verified 04/01/21 11:25) HX OF GUILLAN BARRE ustekinumab [From Stelara] Allergy (Unknown, Verified 04/01/21 11:25) SUPPRESS IMMUNE SYSTEM Height: 1.78 m Weight: 109.089 kg Patient Problems: Current Active Problems Left ureteral calculus (Acute) Nephrolithiasis (Acute) Cholelithiasis (Acute) Renal lesion (Acute) - VTE Risk Labs: VTE Related Lab Results Hgb 12.2 g/dL (14.1-18.0) L 04/06/21 01:46 Hct 39.3 % (42.0-52.0) L 04/06/21 01:46 Plt Count 242 K/mm3 (142-424) 04/06/21 01:46 BUN 10 mg/dl (9-20) 04/06/21 01:46 Creatinine 1.00 mg/dl (0.66-1.25) 04/06/21 01:46 Estimated Creat Clear 90 mL/min (50-200) 04/06/21 01:46 Clinical Trial Participant: No - Prophylaxis VTE Prophylaxis Ordered?: Yes Types of VTE Prophylaxis: TEDS Knee High, Pharmacological Pharmacologic Type: Other (ELIQUIS)
--- NOTE | 2021-04-06 11:03 | HMH.PHAINT ---
home medication list verified using list from cardiology office, dr garcia office and home pharmacy
--- NOTE | 2021-04-06 15:36 | HMH.CONS ---
*Admission Date: 04/06/21 *Reason for consult:: Left ureteral stone with obstruction *History of present illness: Patient is a 80-year-old white male with history of nephrolithiasis. He presented yesterday with left renal colic and a CT scan showed an 8 x 3 mm stone in the mid ureter. He was admitted for pain control and hydration. States his pain is improved on the pain medicine and he is not having any nausea. He is afebrile and his white count was 11,000 on admission with normal renal function. There is also an exophytic 2.1 x 1.9 cm right anterior renal lesion which is indeterminate as to its diagnosis. It was not visualized on his last CT scan in 2014. [facility] History Medical History: Reports:: Atrial Fibrillation, Coronary Artery Disease, Diabetes Mellitus Type 2, Gastroesophageal Reflux Disease(GERD), Hyperlipidemia, Hypertension Denies:: Cancer, Diabetes Mellitus Type 1, Internal Pacemaker, MRSA, Seizures *Have you ever received a pneumonia vaccine?: Yes *Have you received a flu vaccine this season?: Yes Other Medical History: Reports: Glaucoma, Other Other Surgeries: Yes: No Previous Surgery, Cardiac Catheterization, Colonoscopy, Colon Resection, Other. No: Pacemaker Amputation: No Fractures: No - *Social History Last grade of school completed: Advanced degree Smoking Status: Never smoker Alcohol Intake: never Alcohol Intake Frequency:: other Substance Use Type: denies use *Occupational Status:: retired Housing: house Household Members: spouse *Travel in the last 8 weeks: None Family Hx:: Cancer Review of Systems - Review of Systems Review of systems:: pertinent systems reviewed and negative unless documented below Meds Home Medications Medication Instructions Recorded Confirmed Type folic acid 1 mg tablet 1 mg PO WEEKLY 04/25/18 04/06/21 History aspirin 81 mg tablet,delayed 81 mg PO DAILY 07/10/19 04/06/21 History release digoxin 125 mcg (0.125 mg) tablet 125 mcg PO DAILY tab 07/10/19 04/06/21 History losartan 25 mg tablet 25 mg PO DAILY 07/10/19 04/06/21 History omeprazole 20 mg capsule,delayed 20 mg PO DAILY cap 07/10/19 04/06/21 History release sitagliptin 100 mg tablet 100 mg PO DAILY 07/10/19 04/06/21 History metformin 500 mg tablet 500 mg PO BID 03/25/20 04/06/21 History potassium chloride 10 mEq 10 meq PO DAILY tab 04/07/20 04/06/21 History tablet,extended release Apixaban [Eliquis] 5 mg PO BID 08/04/20 04/06/21 History Tamsulosin HCl [Flomax 0.4mg 0.4 mg PO HS 08/04/20 04/06/21 History capsule] sulfasalazine 500 mg tablet 1,500 mg PO BID tab 09/24/20 04/06/21 History atorvastatin 40 mg tablet 40 mg PO HS #90 tab 10/15/20 04/06/21 Rx diltiazem HCl 120 mg 120 mg PO DAILY cap 04/01/21 04/06/21 History capsule,extended release 24 hr furosemide 40 mg tablet 40 mg PO DAILY tab 04/01/21 04/06/21 History methotrexate sodium 2.5 mg tablet 12.5 mg PO WEEKLY tab 04/01/21 04/06/21 History Ferrous Sulfate [Ferrous Sulfate 325 mg PO DAILY 04/06/21 04/06/21 History 325mg Tab] Gabapentin 600 mg PO HS 04/06/21 04/06/21 History Allergies Allergy/AdvReac Type Severity Reaction Status Date / Time infliximab [From Remicade] Allergy Severe S-ANAPHYLAX Verified 04/01/21 11:25 IS Influenza Virus Vaccines Allergy Unknown 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
--- NOTE | 2021-04-06 16:57 | US_ITS ---
PROCEDURE: US KIDNEY CLINICAL INDICATION: R renal lesion COMPARISON: CT CT ABDOMEN PELVIS WO CON from 04/06/2021 FINDINGS: The right kidney is [id number]. There is a cyst on the lower pole of the right kidney which measures 2 cm. This may correspond to the area of protrudes noted on the CT scan.. The left kidney is [id number]. A 2 cm cyst is present in the lower pole of the left kidney with a questionable solid lesion in the mid aspect of the left kidney anteriorly at 16 mm. Left renal calculi are also noted. Study is somewhat limited secondary to patient's body habitus. IMPRESSION: Bilateral renal cyst with questionable solid nodule in the mid polar region of the left kidney. Renal MRI or CT without and with contrast suggested for further evaluation. Dictated by: Bernardo Alves MD 04/08/2021 11:34 Bernardo Alves MD in [place] 04/08/2021 11:34
[2021-04-06 17:48] LABS: POC Glucose,Bedside 204 (70-110)
[2021-04-06 17:48] LABS: POC Glucose,Bedside 175 (70-110)
--- NOTE | 2021-04-06 19:35 | PC.NURSE ---
HE IS AOX4, HAS BEEN MEDICATED ONCE WITH PRN DILAUDID PER MAR WITH GOOD EFFECTIVENESS, TOLERATED PO INTAKE WELL, AMBULATED TO RESTROOM INDEPENDENTLY. VSS. NO NEEDS VOICED.
[2021-04-07] VITALS (24 sets, daily range): BP systolic 119–146; BP diastolic 54–73; PULSE 64–79; RESP 12–18; TEMP 36.5–43; O2SAT 91–97; BMI 33.9
--- NOTE | 2021-04-07 | XR_ITS ---
PROCEDURE: XR KUB CLINICAL INDICATION: URETEROSCOPY WITH STONE EXTRACTION COMPARISON: CT CT ABDOMEN PELVIS WO CON from 04/06/2021 FINDINGS: Fluoroscopy time: 45 seconds. Single image submitted shows ureteral scope in the left distal ureteral area. IMPRESSION: Status post ureteroscopy with C-arm assistance. Dictated by: Bernardo Alves MD 04/07/2021 18:00 Bernardo Alves MD in [place] 04/07/2021 18:00
[2021-04-07 01:00] LABS: POC Glucose,Bedside 215 (70-110)
--- NOTE | 2021-04-07 03:37 | PC.NURSE ---
No acute changes overnight . Pt asked for Dilaudid x1 for pain in flank region with desired effects. LUngs CTA, on room air. bowel sounds x4, abd soft and nontender. Urine being strained, no calculi noted this shift. Pt reports feeling better. VSS, call light in reach, no concerns at this time.
[2021-04-07 06:37] LABS: POC Glucose,Bedside 173 (70-110)
--- NOTE | 2021-04-07 07:20 | HMH.ACPN2 ---
Internal Medicine - PN: Subj *Date: 04/07/21 *Time: 07:20 Interval history: Patient did well overnight, no significant pain or vomiting. No fevers. Exam Vital signs and Labs for Last 24 Hours: Temp Pulse Resp BP Pulse Ox 98.1 F 75 17 140/68 95 04/07/21 04:00 04/07/21 04:00 04/07/21 04:00 04/07/21 04:00 04/07/21 04:00 Laboratory Results - last 24 hr 04/06/21 11:44: POC Glucose 175 H 04/06/21 17:37: POC Glucose 204 H 04/06/21 21:06: POC Glucose 215 H 04/07/21 05:20: POC Glucose 173 H I & O for Last 24 hours: Intake & Output 04/04/21 04/05/21 04/06/21 04/07/21 11:59 11:59 11:59 11:59 Intake Total 1080 / 1080 Balance 1080 / 1080 Weight 240 lb 8 oz 237 lb Narrative: Alert, pleasant. ENT exam clear, lungs clear, heart rate regular. Abdomen soft nontender. No edema or clubbing. Assessment and Plan (1) Left ureteral calculus Status: Acute Category: Medical Code(s): N20.1 - Calculus of ureter - Assessment and plan all Dx Assessment and Plan for all problems:: Patient had worsened pain last night, elected to stay overnight for urology intervention this morning given the size and obstructive issue of the stone.
--- NOTE | 2021-04-07 10:13 | HMH.CONFU ---
Internal Medicine - PN: Subj *Date: 04/07/21 *Time: 10:13 Interval history: Patient states some mild discomfort overnight states he may have taken a pain pill but has not had any significant left renal colic since yesterday morning. He has not passed a stone. Exam Vital signs and Labs for Last 24 Hours: Temp Pulse Resp BP Pulse Ox 98.4 F 64 17 125/67 95 04/07/21 08:00 04/07/21 08:33 04/07/21 08:00 04/07/21 08:00 04/07/21 08:00 Laboratory Results - last 24 hr 04/06/21 11:44: POC Glucose 175 H 04/06/21 17:37: POC Glucose 204 H 04/06/21 21:06: POC Glucose 215 H 04/07/21 05:20: POC Glucose 173 H I & O for Last 24 hours: Intake & Output 04/04/21 04/05/21 04/06/21 04/07/21 23:59 23:59 23:59 23:59 Intake Total 1080 / 1080 0 / 0 Output Total 200 / 200 Balance 1080 / 1080 -200 / -200 Weight 109 kg 107.501 kg - Constitutional no acute distress - *Routine HEENT Exam Head: Present: normocephalic Eye: Present: EOMI, PERRL ENT: Present: mucous membranes moist - *Routine Neck Exam Present: supple. Absent: lymphadenopathy - *Routine Respiratory Exam Absent: accessory muscle use - *Routine Cardiovascular Exam Absent: JVD - *Routine Abdominal Exam Present: soft. Absent: tenderness - *Routine Extremities Exam Absent: cyanosis, clubbing, edema - *Routine Skin Exam Present: warm. Absent: rash - *Routine Neurological Exam Present: alert, oriented X3 Assessment and Plan (1) Left ureteral calculus Status: Acute Category: Medical Code(s): N20.1 - Calculus of ureter (2) Right renal mass Status: Acute Category: Medical Code(s): N28.89 - Other specified disorders of kidney and ureter Patient with an 8 x 3 mm left proximal ureteral calculus. We discussed treatment options and he would like to proceed with stone management today. We discussed the possibility that the stone is pretty high in the ureter and we may not be able to get to it in which case a stent would be placed and we went stage the procedure at another date. We discussed possible complications including ureteral injury. CT scan has also shown a 2 cm right renal lesion and ultrasound was performed. By my reading that right renal lesion appears cystic and there is evidence of a small left renal lesion. The radiologist does not read the films yet and I will follow-up.
[2021-04-07 11:55] LABS: POC Glucose,Bedside 179 (70-110)
--- NOTE | 2021-04-07 12:24 | PC.NURSE ---
Pt down for surgery @ approx 1215.
--- NOTE | 2021-04-07 13:29 | HMH.ANESCL ---
[facility] Anesthesia Checklist - Structural Data Admitted From: Inpatient Planned Operative Procedure/s: l ureteroscopy Consent for Planned Operative Procedure(s) Verified: Yes - Additional verifications Anesthesia Reactions: No - Airway Assessment C-Spine Mobility Assessed: Yes TMJ Mobility Assessed: Yes Dentition: Good Dentition - Neurological Assessment Level of Consciousness: Awake, Alert, Appropriate - Anesthesia Plan Anesthesia Risk discussed: Yes Anesthesia Plan: Verified ASA Class: III Anesthesia Type: General [facility] History I have reviewed the patient's past medical history: Yes Medical History: Reports:: Atrial Fibrillation, Coronary Artery Disease, Diabetes Mellitus Type 2, Gastroesophageal Reflux Disease(GERD), Hyperlipidemia, Hypertension Denies:: Cancer, Diabetes Mellitus Type 1, Internal Pacemaker, MRSA, Seizures *Have you ever received a pneumonia vaccine?: Yes *Have you received a flu vaccine this season?: Yes Other Medical History: Reports: Glaucoma, Other Anesthesia experience/problems:: none Other Surgeries: Yes: No Previous Surgery, Cardiac Catheterization, Colonoscopy, Colon Resection, Other. No: Pacemaker Amputation: No Fractures: No - *Social History Last grade of school completed: Advanced degree Smoking Status: Never smoker Alcohol Intake: never Alcohol Intake Frequency:: other Substance Use Type: denies use *Occupational Status:: retired Housing: house Household Members: spouse *Travel in the last 8 weeks: None Family Hx:: Cancer
--- NOTE | 2021-04-07 14:23 | HMH.ANESI ---
[facility] Anesthesia Record Part I Intake, IV Amount: 1,000 Estimated blood loss (mL): 5 Urine output (mL): 50 Blood Pressure: 120/57 SaO2: 92 Pulse Rate: 78 Respiratory Rate: 14 Temperature: 98.3 F Patient is:: Awake Stable to PACU at:: 14:20
[2021-04-07 14:43] LABS: POC Glucose,Bedside 175 (70-110)
--- NOTE | 2021-04-07 15:06 | HMH.OPNOTE ---
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 CT scan shows an obstructing 8 x 3 mm stone in the proximal left ureter. He also has larger kidney stones in the upper, middle and lower pole of the left kidney. These are nonobstructing. His white count was 11,000 on admission and his renal function is normal. He has had some mild discomfort overnight but is worried that the stone will cause a more pain and would like to proceed with urologic management. Operative findings:: The ureteral stone had passed to the distal portion of the mid ureter. It was removed and sent for analysis. The bladder neck was quite high in instrumentation did result in some bleeding from the bladder neck and this was fulgurated and a Patel catheter placed for tamponade. Operative note:: Patient taken to the operating room after informed consent was obtained. He was placed on the operating table in the supine position and general anesthesia administered. He had been on preoperative IV Rocephin on the floor. Sequential compression devices placed and patient placed into the dorsal lithotomy position. Was prepped draped in the standard surgical fashion. 22 Nasim passed into the urethra and to the prostatic urethra which showed bilobar hyperplasia. The bladder neck was very high and there was difficulty getting the scope into the bladder but we were successful. The bladder was examined in a systematic fashion. There is no evidence of mucosal abnormalities, stones, diverticula or trabeculation. The left ureteral orifice was cannulated with a 0.035 guidewire and passed up to the renal pelvis without difficulty. Fluoroscopy was used during the case. There is no evidence of calcifications along the ureter however calcification was noted in the lower pole of the left kidney. The cystoscope removed and our flexible ureteroscope was then passed over the guidewire and into the left ureter. The guidewire was removed and the stone was noted in the distal portion of the mid ureter. A 1.9 Qatari flexible basket was passed through the scope and the stone engaged and brought down the ureter but we lost it in the bladder. The cystoscope was then passed back into the bladder and there was a lot of clot in the bladder making the stone difficult to visualize. It was difficult to irrigate the clot with the 22 Qatari scope and we removed the 22 Qatari scope and passed a 26 Qatari resectoscope sheath. We were then able to irrigate the clot and the stone out. There was some bleeding noted that bladder neck and it was lightly fulgurated. Scope then removed and a 20 Qatari coud? catheter passed without difficulty. Clear urine was obtained. Patient tolerated procedure well no complications. The stone was sent off for analysis as it was radiolucent. Condition: stable Disposition: PACU Specimens:: Ureteral stone Complications:: None
[2021-04-07 16:47] LABS: POC Glucose,Bedside 245 (70-110)
--- NOTE | 2021-04-07 19:54 | PC.NURSE ---
Pt is alert and oriented and able to make needs known. RR even and unlabored. NAD and no c/o of pain. Pt has had gross hematuia in arteaga cath draining since coming back from stone extraction this afternoon. Dr. Martinez was aware of the hematuria. Urine is more yellow and has slight hematuria at this time,therefore it is improving. CB in reach. VSS.
[2021-04-07 21:50] LABS: POC Glucose,Bedside 325 (70-110)
--- NOTE | 2021-04-07 21:56 | PC.NURSE ---
He is A&Ox3. He denies pain. He reports that he ambulates independently. SCDS removed per his request. He continues on RA. F/c patent and draining reddish brown urine. Eliquis held per Dr. Martinez @ 1999. He reports his last BM was today.
[2021-04-08] VITALS: BP 146/64; PULSE 72; RESP 18; TEMP 36.6; O2SAT 94
[2021-04-08 03:12] VITALS: BP 155/76; PULSE 75; RESP 18; TEMP 36.8; O2SAT 95
[2021-04-08 05:00] VITALS: BMI 33.9
[2021-04-08 05:31] LABS: POC Glucose,Bedside 271 (70-110)
--- NOTE | 2021-04-08 07:44 | HMH.DCSUM ---
General - General Admission date:: 04/06/21 Discharge date: 04/08/21 HPI HPI: 80-year-old white male with excruciating left back and flank pain that started last night, relieved in the ER with some narcotic and antiemetic therapy, but CT scan revealed obstructing stone disease. Admitted to hospital for urology consultation given high likelihood of recurrence. Hospital Course Hospital Course: Patient was admitted to hospital, did well with pain control and fluids but was unable to pass this fairly large stone was held over for urology intervention, intervention yesterday was successful, the stone was able to be retrieved, please see progress notes for details. Patel catheter was left into tamponade a minor amount of bleeding. This morning patient was doing well, eating well. No complaints except for mild discomfort from the Patel catheter. There was no blood in the Patel bag, and urine was clear. As a result Patel was discontinued, after patient urinates he will be discharged home. We will send him home with Omnicef to cover possible infection and recent instrumentation of his bladder, he will follow up with Dr. Martinez next week. Objective Vital signs: Temp Pulse Resp BP Pulse Ox 98.3 F 75 18 155/76 H 95 04/08/21 03:12 04/08/21 03:12 04/08/21 03:12 04/08/21 03:12 04/08/21 03:12 no acute distress - *Routine HEENT Exam Head: Present: normocephalic Eye: Present: EOMI, PERRL ENT: Present: mucous membranes moist - *Routine Neck Exam Present: supple - *Routine Respiratory Exam Present: CTA bilaterally - *Routine Cardiovascular Exam Present: RRR - *Routine Abdominal Exam Present: soft, normoactive bowel sounds. Absent: tenderness - *Routine Exam Comments: Patel catheter draining clear yellow urine - *Routine Extremities Exam Absent: cyanosis, clubbing, edema - *Routine Skin Exam Present: warm. Absent: rash - Detailed Eye Exam Eyelids: Bilateral normal inspection Results Labs on day of discharge: Labs from last 24 hours 04/08/21 04/07/21 04/07/21 05:13 19:47 15:37 POC Glucose 271 H 325 H* 245 H 04/07/21 04/07/21 14:26 11:37 POC Glucose 175 H 179 H DS: Diagnosis - Discharge Diagnosis (1) Left ureteral calculus Status: Resolved (2) Right renal mass Status: Acute Discharge Plan - Patient Discharge Instructions ACTIVITY: Continue current activity Patient Instructions: Kidney Stones -- Adult, Hydronephrosis -- Adult, DI for Surgical Site Infection - Follow up Plan Follow up with: Darren Martinez MD [Staff Physician] - 04/14/21 Disposition: Home, Self-Care Condition at discharge:: Improved Home Medications: Home Medications Medication Instructions Recorded Confirmed Type folic acid 1 mg tablet 1 mg PO WEEKLY 04/25/18 04/06/21 History aspirin 81 mg tablet,delayed 81 mg PO DAILY 07/10/19 04/06/21 History release digoxin 125 mcg (0.125 mg) tablet 125 mcg PO DAILY tab 07/10/19 04/06/21 History losartan 25 mg tablet 25 mg PO DAILY 07/10/19 04/06/21 History omeprazole 20 mg capsule,delayed 20 mg PO DAILY cap 07/10/19 04/06/21 History release sitagliptin 100 mg tablet 100 mg PO DAILY 07/10/19 04/06/21 History metformin 500 mg tablet 500 mg PO BID 03/25/20 04/06/21 History potassium chloride 10 mEq 10 meq PO DAILY tab 04/07/20 04/06/21 History tablet,extended release Apixaban [Eliquis] 5 mg PO BID 08/04/20 04/06/21 History Tamsulosin HCl [Flomax 0.4mg 0.4 mg PO HS 08/04/20 04/06/21 History capsule] sulfasalazine 500 mg tablet 1,500 mg PO BID tab 09/24/20 04/06/21 History atorvastatin 40 mg tablet 40 mg PO HS #90 tab 10/15/20 04/06/21 Rx diltiazem HCl 120 mg 120 mg PO DAILY cap 04/01/21 04/06/21 History capsule,extended release 24 hr furosemide 40 mg tablet 40 mg PO DAILY tab 04/01/21 04/06/21 History methotrexate sodium 2.5 mg tablet 12.5 mg PO WEEKLY tab 04/01/21 04/06/21 History Ferrous Sulfat
[2021-04-08 08:00] VITALS: BP 134/69; PULSE 77; RESP 15; TEMP 36.6; O2SAT 96
--- NOTE | 2021-04-08 10:12 | HMH.ANESII ---
[facility] Anesthesia Record Part II Discharge Time: 14:50 Destination: Medical Surgical Department PACU nurse assessment reviewed?: Yes Patient Condition:: Good Anesthesia Complications:: None Swallowing reflex intact?: Yes Cyanosis?: No Blood Pressure: 129/64 Pulse Rate: 75 Temperature: 97.8 F Mental Status: Alert & Oriented Pain level:: 0 Nausea and/or vomitting:: None Intake, IV Amount: 0
[2021-04-08 10:13] VITALS: BP 129/64; PULSE 75; TEMP 36.6
[2021-04-08 11:58] LABS: POC Glucose,Bedside 278 (70-110)
--- NOTE | 2021-04-08 13:13 | PC.NURSE ---
Pt did void prior to leaving. Pt's urine was bright yellow with scant hematuria. D/C instructions given prior to d/c.
== END 2021-04-08 12:54 | disposition home or self-care (01) ==
LOC: ER 04:15 → 2ND 04:22
PROVIDERS: Urology; Admitting Provider Internal Medicine Adolescent Medicine; Emergency Provider Emergency Medicine; PCP Internal Medicine; Visit Provider Internal Medicine Adolescent Medicine
PROC: (CPT 52352; principal; 2021-04-07 13:00)
DX: N40.0 Benign prostatic hyperplasia without lower urinary tract symptoms (principal); N20.1 Calculus of ureter; E11.9 Type 2 diabetes mellitus without complications; Z87.442 Personal history of urinary calculi; Z79.84 Long term (current) use of oral hypoglycemic drugs; I48.91 Unspecified atrial fibrillation; I10 Essential (primary) hypertension; I25.10 Atherosclerotic heart disease of native coronary artery without angina pectoris; K21.9 Gastro-esophageal reflux disease without esophagitis; Z79.899 Other long term (current) drug therapy; Z88.7 Allergy status to serum and vaccine; Z88.8 Allergy status to other drugs, medicaments and biological substances; Z20.822 Contact with and (suspected) exposure to COVID-19
CPT/HCPCS: 52214; 52352; G0378; 74018; 74176; 76000; 76770; 80053; 81001; 82370; 82962; 85025; 96365; 96375; 96376; 99284; J2405; J8610; U0003

== ENCOUNTER → 2021-04-10 18:18 | Outpatient (CLI) | payer MEDICARE, BC, SELFPAY | PROVIDERS: Visit Provider Internal Medicine | DX: Z01.812 Encounter for preprocedural laboratory examination (principal); N39.0 Urinary tract infection, site not specified; R31.9 Hematuria, unspecified | CPT/HCPCS: 87086 ==

== ENCOUNTER → 2021-04-21 08:08 | Outpatient (CLI) | payer MEDICARE, BC, SELFPAY ==
--- NOTE | 2021-04-21 08:21 | CT_ITS ---
PROCEDURE: CT ABDOMEN PELVIS WO/W CON CLINICAL INDICATION: renal lesion Evaluate bilateral renal lesions COMPARISON: CT ABDPELW/O CT ABD PELVIS W/O CONTRAST from 08/16/[address] ABD W/O CONT(RENAL ST.orAPP from 04/16/2015 US US KIDNEY from 04/06/[address] ABDOMEN PELVIS WO CON from 04/06/2021 TECHNIQUE: IV Contrast: 75ML Isovue 370 Oral Contrast None Axial images obtained with sagittal and coronal reformats. All CT scans at the facility use one or more dose reduction, viz: automated exposure control, ma/kV adjustment per patient size (including targeted exams where dose is matched to indication, i.e. head), or iterative reconstruction technique. FINDINGS: LOWER THORAX: No acute finding ABDOMEN & PELVIS: There is a small hiatal hernia. Small gallstones are present. The spleen, pancreas, and adrenal glands have an unremarkable appearance. Right kidney: An exophytic soft tissue density projects off the anterior aspect of the right kidney measuring approximately 18 mm. Unenhanced density is 25 Hounsfield units, immediate post enhanced density 35 Hounsfield units, 5 minutes delayed density 32 Hounsfield units. This does not appear to represent a simple cyst by CT criteria but did appear cystic on the previous ultrasound. There is a nonobstructing 2 mm stone in the anterior aspect of the right kidney. There is horizontal rotation of the right kidney Left kidney: Multiple left renal calculi are present in upper mid and lower pole measuring up to 10 mm. No ureteral calculi. No hydronephrosis. At 15 mm cyst is present in the lower pole. Ultrasound suggested a possible solid lesion in the mid aspect of the left kidney however this is not confirmed by CT. No retroperitoneal adenopathy. The renal veins are normal caliber with no thrombosis apparent. No intestinal obstruction or free air. There has been a prior right hemicolectomy. Urinary bladder wall is thickened with a small amount air within the urinary bladder anteriorly. There is a mixed sclerotic and lucent lesion within the right ilium at approximately 1.9 cm stable. Two sclerotic foci are present in the left ilium which appear stable. IMPRESSION: 1. Solid-appearing right renal nodule as described above measuring approximately 18 mm. This was felt to represent a cystic lesion by recent ultrasound however, this does not appear cystic by CT and appears suspicious for a solid neoplasm. Since there is discrepancy between the 2 imaging modalities, with suggest MRI without and with contrast to solidify the diagnosis.. 2. No solid appearing lesions of the left kidney. 3. Nonobstructing bilateral renal calculi Dictated by: Bernardo Alves MD 04/22/2021 10:45 Bernardo Alves MD in [place] 04/22/2021 10:45
[2021-04-21 08:33] LABS: Blood Urea Nitrogen 9 mg/dl (9-20); Estimated Glomerular Filt Rate 81 ml/min (>60); GFR (African American) 98 ML/MIN (>60)
== END ==
PROVIDERS: Visit Provider Urology
DX: N28.9 Disorder of kidney and ureter, unspecified (principal)
CPT/HCPCS: 36415; 74178; 82565; 84520; Q9967

== ENCOUNTER → 2021-05-04 08:39 | Outpatient (CLI) | payer MEDICARE, BC, SELFPAY ==
[2021-05-04 09:15] LABS: Basophils # 0.1 K/mm3 (0-0.2); Basophils % 0.7 % (0.1-2.0); Eosinophils # 0.2 K/mm3 (0.0-0.4); Eosinophils % 2.2 % (0.1-12.0); Hematocrit 38.9 % (42.0-52.0); Hemoglobin 12.3 g/dL (14.1-18.0); Lymphocytes % 21.1 % (10-50); Mean Corpuscular HGB Conc 31.7 g/dL (31.8-35.4); Mean Corpuscular Hemoglobin 27.3 pg (27.0-31.2); Mean Corpuscular Volume 85.9 fl (80-94); Mean Platelet Volume 8.3 fl (7.4-10.4); Monocytes # 0.3 K/mm3 (0.1-1.0); Monocytes % 2.7 % (1.7-9.3); Neutrophils # 6.9 K/mm3 (1.8-7.8); Neutrophils % 73.3 % (37.0-80.0); Platelet Count 244 K/mm3 (142-424); Red Blood Count 4.53 M/mm3 (4.60-6.20); Red Cell Distribution Width 16.3 % (11.5-17.5); White Blood Count 9.4 K/mm3 (4.8-10.8)
[2021-05-04 09:29] LABS: Chloride 100 mmol/L (98-107); Potassium 4.1 mmoL/L (3.5-5.1); Sodium 136 mmol/L (136-145)
[2021-05-04 09:32] LABS: Alanine Aminotransferase 23 U/L (12-78); Albumin Level 3.8 g/dl (3.5-5.0); Albumin/Globulin Ratio 1.4 (1.1-1.8); Alkaline Phosphatase 135 U/L (38-126); Anion Gap 15.1 mEq/L (5-15); Aspartate Amino Transferase 32 U/L (17-59); Bilirubin,Total 0.8 mg/dl (0.2-1.3); Blood Urea Nitrogen 13 mg/dl (9-20); Calcium 9.3 mg/dl (8.4-10.2); Carbon Dioxide 25 mmol/L (22.0-30.0); Estimated Glomerular Filt Rate 93 ml/min (>60); GFR (African American) 113 ML/MIN (>60); Globulin 2.8 g/dL (1.3-3.2); Glucose 214 mg/dl (74-100); Total Protein,Serum 6.6 g/dl (6.3-8.2)
== END ==
PROVIDERS: Visit Provider Dermatology
DX: L40.0 Psoriasis vulgaris (principal); Z92.25 Personal history of immunosuppression therapy; Z79.899 Other long term (current) drug therapy
CPT/HCPCS: 36415; 80053; 85025

== ENCOUNTER → 2021-06-15 09:14 | Outpatient (CLI) | payer MEDICARE, BC, SELFPAY ==
--- NOTE | 2021-06-15 09:17 | CA_ITS ---
APPROVED REPORT EXAM: Comprehensive 2D, Doppler, and color-flow Echocardiogram Ssn/Ssbn Assistant Navigator: Genie Srinivasan RVT Ht: 5 ft 10 in Wt: 240lbs BSA: 2.26 BP: 152/45 mmHg Indications: A-FIB,CAD,SUMAN,RBBB,ABN EKG,GERD,DM,GUERRERO,HTN,EDEMA 2D Dimensions LVOT 2.28 cm (M/F) 1.5-2.5 LA Volume 67.60 mL LA Volume Index 30.04 mL/m2 (M/F) 16-34 M-Mode Dimensions RVDd 3.46 cm (0.9-2.6) LA Diam 5.39 cm (1.9-4.0) LVDd 5.11 cm (3.5-5.7) Ao Diam 3.13 cm (2.0-3.7) LVDs 3.38 cm (3.5-5.7) IVSd 1.57 cm (0.6-1.1) PWd 1.25 cm (0.6-1.1) EF (Teich) 62.40% FS 33.90% EDV (Teich) 124.40 mL TAPSE 2.09 (<1.7) ESV (Teich) 46.80 mL LV Diastology E Decel Time 150.00 (160-240 msec) E/A Ratio 2.6 MED E' 7.40 (< 7 cm/sec) E'/MED E' Ratio 15.11 (>14) LAT E' 12.00 (<10 cm/sec) E/LAT E' Ratio 9.32 (>14) Aortic Valve AO Peak GR. 3.80 mmHg Mitral Valve MV E Max Carroll. 112.00 (40-130 cm/s) MV A Velocity 43.00 (40-130 cm/s) E/A Ratio 2.59 MV Decel. Time 150.00 (160-240 ms) MV PHT 44.00 ms Pulmonary Valve PV Peak Velocity 85.00 (50-150 cm/s) Tricuspid Valve TR P. Velocity 325.00 cm/s RAP Estimate 10.00 mmHg RVSP 52.30 mmHg Left Ventricle Left atrium is mildly enlarged, left ventricle is normal size, mild concentric left ventricular hypertrophy, visually estimated ejection fraction 55% with no regional wall motion abnormality, diastolic parameters are inconclusive. Right Ventricle Right atrium and right ventricle are mildly enlarged with normal contractility. Aortic Valve Aortic valve is minimally thickened and fibrosed, there is no aortic stenosis or aortic insufficiency. Mitral Valve Mitral valve leaflets are minimally thickened, there is mild mitral regurgitation. Tricuspid Valve Tricuspid valve is grossly normal, there is mild tricuspid regurgitation, tricuspid regurgitation jet velocity is inadequate for accurate assessment of the right ventricular systolic pressure. Pulmonic Valve Pulmonic valve is poorly visualized. Great Vessels Aortic root is normal size. Inferior vena cava is mildly dilated with normal inspiratory collapse. Pericardium No significant pericardial effusion noted. Conclusion 1. Mild biatrial enlargement, normal left ventricular size, mild concentric left ventricular hypertrophy, visually estimated ejection fraction 55% with no regional wall motion abnormality, diastolic parameters are inconclusive. 2. Mildly enlarged right ventricle with normal contractility. 3. Mild mitral and tricuspid regurgitation, tricuspid regurgitation jet velocity is inadequate for accurate assessment of the right ventricular systolic pressure. 4. No significant pericardial effusion noted. 5. Inferior vena cava is mildly dilated with normal inspiratory collapse. Electronically signed by : Patrick Yang MD 06/15/2021 19:53:08
== END ==
PROVIDERS: PCP Internal Medicine; Visit Provider Urology
DX: R06.00 Dyspnea, unspecified (principal)
CPT/HCPCS: 93306

== ENCOUNTER → 2021-06-29 08:05 | Outpatient (CLI) | payer MEDICARE, BC, SELFPAY ==
[2021-06-29 08:20] LABS: Basophils # 0.1 K/mm3 (0-0.2); Basophils % 0.8 % (0.1-2.0); Eosinophils # 0.1 K/mm3 (0.0-0.4); Eosinophils % 1.5 % (0.1-12.0); Hematocrit 39.9 % (42.0-52.0); Hemoglobin 12.6 g/dL (14.1-18.0); Lymphocytes # 1.6 K/mm3 (0.7-4.5); Lymphocytes % 20.1 % (10-50); Mean Corpuscular HGB Conc 31.6 g/dL (31.8-35.4); Mean Corpuscular Hemoglobin 28.9 pg (27.0-31.2); Mean Corpuscular Volume 91.4 fl (80-94); Mean Platelet Volume 7.3 fl (7.4-10.4); Monocytes # 0.3 K/mm3 (0.1-1.0); Monocytes % 3.9 % (1.7-9.3); Neutrophils # 5.9 K/mm3 (1.8-7.8); Neutrophils % 73.7 % (37.0-80.0); Platelet Count 204 K/mm3 (142-424); Red Blood Count 4.37 M/mm3 (4.60-6.20); Red Cell Distribution Width 18.8 % (11.5-17.5)
[2021-06-29 10:14] LABS: Chloride 99 mmol/L (98-107)
[2021-06-29 10:15] LABS: Sodium 138 mmol/L (136-145)
[2021-06-29 10:17] LABS: Alanine Aminotransferase 24 U/L (12-78); Blood Urea Nitrogen 10 mg/dl (9-20); Estimated Glomerular Filt Rate 109 ml/min (>60); GFR (African American) 131 ML/MIN (>60)
[2021-06-29 10:18] LABS: Albumin Level 3.6 g/dl (3.5-5.0); Albumin/Globulin Ratio 1.4 (1.1-1.8); Alkaline Phosphatase 139 U/L (38-126); Aspartate Amino Transferase 25 U/L (17-59); Bilirubin,Total 0.5 mg/dl (0.2-1.3); Calcium 9.1 mg/dl (8.4-10.2); Carbon Dioxide 28 mmol/L (22.0-30.0); Globulin 2.5 g/dL (1.3-3.2); Glucose 252 mg/dl (74-100); Total Protein,Serum 6.1 g/dl (6.3-8.2)
== END ==
PROVIDERS: Visit Provider Dermatology
DX: L40.0 Psoriasis vulgaris (principal); Z92.25 Personal history of immunosuppression therapy; Z79.899 Other long term (current) drug therapy
CPT/HCPCS: 36415; 80053; 85025

== ENCOUNTER → 2021-08-25 09:14 | Outpatient (CLI) | payer MEDICARE, BC, SELFPAY ==
--- NOTE | 2021-08-25 09:46 | XR_ITS ---
PROCEDURE: XR LUMBAR SPINE MIN 4V CLINICAL INDICATION: S/P FALL 08/21/21, LOW BACK AND TAIL BONE PAIN COMPARISON: No exams were available for comparison FINDINGS: There is mild retrolisthesis of L2 on L3 5 mm and 3 mm retrolisthesis of L3 on L4. Mild degenerative disc disease L1-L2 and L2-L3. Small anterior osteophytes are present. No fracture or dislocation. No lytic or blastic change. Incidental note is made several stones along the lower pole of the left kidney the largest at 6 mm. Surgical clips are present in the right abdomen and gastric region. Mild degenerative changes of the hips. IMPRESSION: Degenerative changes lumbar spine. Left nephrolithiasis. Dictated by: Bernardo Alves MD 08/25/2021 17:16 Bernardo Alves MD in [place] 08/25/2021 17:16
--- NOTE | 2021-08-25 09:47 | XR_ITS ---
PROCEDURE: XR SACRUM COCCYX MIN 2V CLINICAL INDICATION: S/P FALL 08/21/21, LOW BACK AND TAIL BONE PAIN COMPARISON: CR XR KUB from 02/03/2021 CR XR KUB from 04/07/2021 FINDINGS: No fracture or dislocation. No lytic or blastic change. There is normal mineralization. Small sclerotic focus overlies the left ilium medially and may be due to small bone island at approximately eight mm. Other findings:None. IMPRESSION: No acute findings. Dictated by: Bernardo Alves MD 08/25/2021 17:08 Bernardo Alves MD in [facility] 08/25/2021 17:08
[2021-08-25 10:21] LABS: Basophils # 0.1 K/mm3 (0-0.2); Basophils % 0.6 % (0.1-2.0); Eosinophils # 0.2 K/mm3 (0.0-0.4); Hematocrit 38.3 % (42.0-52.0); Hemoglobin 12.2 g/dL (14.1-18.0); Lymphocytes # 1.6 K/mm3 (0.7-4.5); Lymphocytes % 13.8 % (10-50); Mean Corpuscular HGB Conc 31.9 g/dL (31.8-35.4); Mean Corpuscular Hemoglobin 28.4 pg (27.0-31.2); Mean Corpuscular Volume 89.1 fl (80-94); Mean Platelet Volume 8.1 fl (7.4-10.4); Monocytes # 0.7 K/mm3 (0.1-1.0); Monocytes % 6.3 % (1.7-9.3); Neutrophils # 8.8 K/mm3 (1.8-7.8); Neutrophils % 77.3 % (37.0-80.0); Platelet Count 217 K/mm3 (142-424); Red Cell Distribution Width 17.1 % (11.5-17.5); White Blood Count 11.4 K/mm3 (4.8-10.8)
[2021-08-25 11:45] LABS: Chloride 100 mmol/L (98-107); Potassium 3.6 mmoL/L (3.5-5.1); Sodium 136 mmol/L (136-145)
[2021-08-25 11:48] LABS: Alanine Aminotransferase 18 U/L (12-78); Albumin/Globulin Ratio 1.5 (1.1-1.8); Alkaline Phosphatase 134 U/L (38-126); Anion Gap 13.6 mEq/L (5-15); Aspartate Amino Transferase 28 U/L (17-59); Bilirubin,Total 0.9 mg/dl (0.2-1.3); Blood Urea Nitrogen 12 mg/dl (9-20); Calcium 9.1 mg/dl (8.4-10.2); Carbon Dioxide 26 mmol/L (22.0-30.0); Estimated Glomerular Filt Rate 109 ml/min (>60); GFR (African American) 131 ML/MIN (>60); Globulin 2.6 g/dL (1.3-3.2); Glucose 212 mg/dl (74-100); Total Protein,Serum 6.6 g/dl (6.3-8.2)
== END ==
PROVIDERS: Dermatology; PCP Internal Medicine; Visit Provider Internal Medicine
DX: M54.50 Low back pain, unspecified (principal); W19.XXXA Unspecified fall, initial encounter; L40.0 Psoriasis vulgaris; Z92.25 Personal history of immunosuppression therapy; Z79.899 Other long term (current) drug therapy; M53.3 Sacrococcygeal disorders, not elsewhere classified
CPT/HCPCS: 36415; 72110; 72220; 80053; 85025

== ENCOUNTER → 2021-10-15 08:14 | Outpatient (CLI) | payer MEDICARE, BC, SELFPAY ==
[2021-10-15 09:51] LABS: Basophils # 0.1 K/mm3 (0-0.2); Basophils % 0.7 % (0.1-2.0); Eosinophils # 0.2 K/mm3 (0.0-0.4); Eosinophils % 1.8 % (0.1-12.0); Hematocrit 40.4 % (42.0-52.0); Hemoglobin 12.5 g/dL (14.1-18.0); Lymphocytes # 1.7 K/mm3 (0.7-4.5); Lymphocytes % 19.5 % (10-50); Mean Corpuscular Hemoglobin 27.7 pg (27.0-31.2); Mean Corpuscular Volume 89.2 fl (80-94); Mean Platelet Volume 8.5 fl (7.4-10.4); Monocytes # 0.3 K/mm3 (0.1-1.0); Monocytes % 3.5 % (1.7-9.3); Neutrophils # 6.4 K/mm3 (1.8-7.8); Neutrophils % 74.5 % (37.0-80.0); Platelet Count 213 K/mm3 (142-424); Red Blood Count 4.53 M/mm3 (4.60-6.20); Red Cell Distribution Width 18.1 % (11.5-17.5); White Blood Count 8.6 K/mm3 (4.8-10.8)
[2021-10-15 10:17] LABS: Alanine Aminotransferase 23 U/L (12-78); Albumin Level 4.1 g/dl (3.5-5.0); Alkaline Phosphatase 136 U/L (38-126); Aspartate Amino Transferase 31 U/L (17-59); Bilirubin,Direct 0.4 mg/dl (0.0-0.4); Bilirubin,Indirect 0.4 mg/dL (0.0-0.9); Bilirubin,Total 0.8 mg/dl (0.2-1.3); Bilirubin,Unconjugated 0.4 mg/dL (0.0-1.1); Cholesterol 122 mg/dl (140-200); HDL Cholesterol 62 mg/dl (40-60); Total Protein,Serum 6.6 g/dl (6.3-8.2); Triglycerides 103 mg/dl (30-150); VLDL Cholesterol 21 mg/dL (0-40)
[2021-10-15 10:19] LABS: Alanine Aminotransferase 23 U/L (12-78); Albumin Level 4.1 g/dl (3.5-5.0); Albumin/Globulin Ratio 1.6 (1.1-1.8); Alkaline Phosphatase 131 U/L (38-126); Anion Gap 11.3 mEq/L (5-15); Aspartate Amino Transferase 31 U/L (17-59); Bilirubin,Total 0.7 mg/dl (0.2-1.3); Blood Urea Nitrogen 9 mg/dl (9-20); Calcium 9.4 mg/dl (8.4-10.2); Carbon Dioxide 30 mmol/L (22.0-30.0); Chloride 99 mmol/L (98-107); Estimated Glomerular Filt Rate 93 ml/min (>60); GFR (African American) 113 ML/MIN (>60); Globulin 2.5 g/dL (1.3-3.2); Glucose 191 mg/dl (74-100); Potassium 4.3 mmoL/L (3.5-5.1); Sodium 136 mmol/L (136-145); Total Protein,Serum 6.6 g/dl (6.3-8.2)
[2021-10-15 10:28] LABS: Direct LDL Cholesterol 50.58 mg/dL (100-129)
[2021-10-16 15:12] LABS: Hemoglobin A1C 9.4 % (4.0-6.0)
== END ==
PROVIDERS: PCP Internal Medicine; Visit Provider Internal Medicine
DX: E11.9 Type 2 diabetes mellitus without complications (principal); G47.33 Obstructive sleep apnea (adult) (pediatric); I10 Essential (primary) hypertension; I25.10 Atherosclerotic heart disease of native coronary artery without angina pectoris; I45.10 Unspecified right bundle-branch block; I48.91 Unspecified atrial fibrillation; K21.9 Gastro-esophageal reflux disease without esophagitis; K50.90 Crohn's disease, unspecified, without complications; R06.00 Dyspnea, unspecified; R60.9 Edema, unspecified; R94.31 Abnormal electrocardiogram [ECG] [EKG]; L40.0 Psoriasis vulgaris; Z79.899 Other long term (current) drug therapy; Z79.84 Long term (current) use of oral hypoglycemic drugs
CPT/HCPCS: 36415; 80053; 80061; 80076; 83036; 85025

== ENCOUNTER 2021-10-23 13:00 | Outpatient (RCR) | payer MEDICARE, BC, SELFPAY ==
--- NOTE | 2021-09-25 11:54 | HMH.PTOPEV ---
PT Outpatient Evaluation Rehab PT Outpatient Evaluation Start: 09/25/21 11:36 Freq: Status: Active Protocol: Document 09/25/21 11:36 WON (Rec: 09/25/21 11:54 WON [id number]) Electronically Signed By Terence Landry, PT 09/25/21 11:36 Outpatient Therapy Subjective History Subjective History Patient is an 81 year old male presenting to outpatient PT with reports of poor balance and BLE pain/claudication. Patient has experienced 1 fall over the past 6 months in which he landed on his tailbone resulting in minimal low back pain. Patient main concern is poor balance and BLE weakness. Patient reports significant increase in symptoms over the past 2 months. Patient experiences peripheral neuoropathy in both feet secondary to diabetes. Patient was diagnosed with Guillan-Magdalena syndrom approximately 2 years ago which resulted in significant decondtioning/functional decline. Other comorbidities include hx of psoriatic arthritis, cardiac cath, autoimmune disorders, chrons disease and glaucoma/cataract sx. Chief Complaint Pain,Paresthesia,Weakness, Decreased Coordination Symptom Type Tingling Symptoms Relieved By Rest/Positioning Prior Functional Limitations Housework,Standing,Recreation Activity,Walking,Stairs, Balance Current Functional Limitations Housework,Standing,Recreation Activity,Walking,Stairs, Balance Symptom Description Constant but Variable Level of pain today (0-10) 3 Pain scale - at its best (0-10) 2 Pain scale - at its worst (0-10) 6 Balance Eval Subjective Hx of Complaint Comment Hx of poor balance, weakness, neuropathy and claudication Chief Complaint Did you feel dizzy, unsteady or faint? Yes: Unsteady due to weakness and neuropathy Activity at onset progressively worse over past 2 months
== END 2021-10-23 13:05 | disposition home or self-care (01) ==
LOC: PT 13:00
PROVIDERS: PCP Internal Medicine; Visit Provider Internal Medicine
DX: M79.605 Pain in left leg (principal); M79.604 Pain in right leg
CPT/HCPCS: 97110; 97112; 97163

== ENCOUNTER → 2021-12-29 08:09 | Outpatient (CLI) | payer MEDICARE, BC, SELFPAY ==
[2021-12-29 09:22] LABS: Basophils # 0.3 K/mm3 (0-0.2); Eosinophils # 0.2 K/mm3 (0.0-0.4); Eosinophils % 2.4 % (0.1-12.0); Hematocrit 38.1 % (42.0-52.0); Lymphocytes # 1.7 K/mm3 (0.7-4.5); Lymphocytes % 19.7 % (10-50); Mean Corpuscular HGB Conc 31.6 g/dL (31.8-35.4); Mean Corpuscular Hemoglobin 27.9 pg (27.0-31.2); Mean Corpuscular Volume 88.1 fl (80-94); Monocytes # 0.6 K/mm3 (0.1-1.0); Monocytes % 7.1 % (1.7-9.3); Neutrophils # 5.9 K/mm3 (1.8-7.8); Neutrophils % 67.7 % (37.0-80.0); Platelet Count 206 K/mm3 (142-424); Red Blood Count 4.32 M/mm3 (4.60-6.20); Red Cell Distribution Width 19.2 % (11.5-17.5); White Blood Count 8.6 K/mm3 (4.8-10.8)
[2021-12-29 09:47] LABS: Chloride 101 mmol/L (98-107); Potassium 3.8 mmoL/L (3.5-5.1); Sodium 133 mmol/L (136-145)
[2021-12-29 09:50] LABS: Alanine Aminotransferase 25 U/L (12-78); Albumin Level 3.6 g/dl (3.5-5.0); Alkaline Phosphatase 156 U/L (38-126); Aspartate Amino Transferase 30 U/L (17-59); Bilirubin,Total 0.5 mg/dl (0.2-1.3); Blood Urea Nitrogen 12 mg/dl (9-20); Estimated Glomerular Filt Rate 93 ml/min (>60); GFR (African American) 113 ML/MIN (>60)
[2021-12-29 09:51] LABS: Albumin/Globulin Ratio 1.5 (1.1-1.8); Anion Gap 9.8 mEq/L (5-15); Calcium 8.4 mg/dl (8.4-10.2); Carbon Dioxide 26 mmol/L (22.0-30.0); Globulin 2.4 g/dL (1.3-3.2); Glucose 223 mg/dl (74-100)
== END ==
PROVIDERS: Visit Provider Dermatology
DX: L40.0 Psoriasis vulgaris (principal); Z79.899 Other long term (current) drug therapy
CPT/HCPCS: 36415; 80053; 85025

== ENCOUNTER → 2022-02-08 08:29 | Outpatient (CLI) | payer MEDICARE, BC, SELFPAY ==
[2022-02-08 08:54] LABS: Basophils # 0.1 K/mm3 (0-0.2); Basophils % 1.6 % (0.1-2.0); Eosinophils # 0.2 K/mm3 (0.0-0.4); Eosinophils % 2.7 % (0.1-12.0); Hematocrit 38.7 % (42.0-52.0); Hemoglobin 12.9 g/dL (14.1-18.0); Lymphocytes # 1.6 K/mm3 (0.7-4.5); Lymphocytes % 19.3 % (10-50); Mean Corpuscular HGB Conc 33.4 g/dL (31.8-35.4); Mean Corpuscular Hemoglobin 28.3 pg (27.0-31.2); Mean Corpuscular Volume 84.8 fl (80-94); Mean Platelet Volume 8.3 fl (7.4-10.4); Monocytes # 0.7 K/mm3 (0.1-1.0); Monocytes % 8.1 % (1.7-9.3); Neutrophils # 5.6 K/mm3 (1.8-7.8); Neutrophils % 68.4 % (37.0-80.0); Platelet Count 239 K/mm3 (142-424); Red Blood Count 4.56 M/mm3 (4.60-6.20); White Blood Count 8.1 K/mm3 (4.8-10.8)
[2022-02-08 09:27] LABS: Alanine Aminotransferase 26 U/L (12-78); Albumin Level 3.7 g/dl (3.5-5.0); Albumin/Globulin Ratio 1.3 (1.1-1.8); Alkaline Phosphatase 148 U/L (38-126); Anion Gap 12.8 mEq/L (5-15); Aspartate Amino Transferase 33 U/L (17-59); Bilirubin,Total 0.4 mg/dl (0.2-1.3); Blood Urea Nitrogen 9 mg/dl (9-20); Calcium 9.3 mg/dl (8.4-10.2); Carbon Dioxide 28 mmol/L (22.0-30.0); Chloride 97 mmol/L (98-107); Estimated Glomerular Filt Rate 109 ml/min (>60); GFR (African American) 131 ML/MIN (>60); Globulin 2.8 g/dL (1.3-3.2); Glucose 251 mg/dl (74-100); Potassium 3.8 mmoL/L (3.5-5.1); Sodium 134 mmol/L (136-145); Total Protein,Serum 6.5 g/dl (6.3-8.2)
== END ==
PROVIDERS: PCP Internal Medicine; Referring Provider Urology; Visit Provider Dermatology
DX: L40.0 Psoriasis vulgaris (principal); Z92.25 Personal history of immunosuppression therapy; Z79.899 Other long term (current) drug therapy
CPT/HCPCS: 36415; 80053; 85025

== ENCOUNTER → 2022-02-09 09:43 | Outpatient (CLI) | payer MEDICARE, BC, SELFPAY ==
--- NOTE | 2022-02-09 09:43 | CT_ITS ---
FINAL REPORT TECHNIQUE: Axial CT images of the abdomen and pelvis were obtained before and after the administration of IV contrast. Oral contrast was administered.This study was performed with techniques to keep radiation doses as low as reasonably achievable (ALARA). Individualized dose reduction techniques using automated exposure control or adjustment of mA and/or kV according to the patient''s size were employed. CLINICAL HISTORY: RENAL MASS without/with and 10 min delay FINDINGS: Abdomen: The lung bases are clear. The heart is normal in size. The liver has an unremarkable appearance, without evidence of mass or biliary duct dilatation. The spleen is unremarkable. There is a mass in the anterior aspect of the right kidney measuring 16 mm does not appear to be a simple cyst but does not show evidence of significant contrast enhancement and favors a mildly complicated cyst (Bosniak category 2). There is a 19 mm cyst in the left kidney and also a less than 1 cm cyst in the posterior left kidney. The pancreas has an unremarkable appearance. The kidneys enhance normally. The aorta is normal in caliber. There is no free fluid or adenopathy. Precontrast images demonstrate multiple gallstones within the gallbladder. There also multiple left renal stones measuring up to 10 mm. Pelvis: There has been prior right hemicolectomy. There is urinary bladder wall thickening which is likely inflammatory. There are small inguinal hernias containing fat. There is no evidence of adenopathy. There is no evidence of bowel obstruction. IMPRESSION: 16 mm right renal mass favors a mildly complicated cyst (Bosniak category 2). Left renal cysts. Left nephrolithiasis. Cholelithiasis. Reviewed, Interpreted and Dictated by Denzel Mcqueen III, MD Transcribed by Virginia Mcnair Authenticated by Denzel Mcqueen III, MD on 02/09/2022 02:13:[address] [facility]
== END ==
PROVIDERS: PCP Internal Medicine; Visit Provider Urology
DX: N28.89 Other specified disorders of kidney and ureter (principal)
CPT/HCPCS: 74178; Q9967

== ENCOUNTER → 2022-04-09 08:43 | Outpatient (CLI) | payer MEDICARE, BC, SELFPAY ==
[2022-04-09 10:05] LABS: Basophils # 0.1 K/mm3 (0-0.2); Basophils % 0.7 % (0.1-2.0); Eosinophils # 0.2 K/mm3 (0.0-0.4); Eosinophils % 2.4 % (0.1-12.0); Hematocrit 37.6 % (42.0-52.0); Hemoglobin 11.7 g/dL (14.1-18.0); Lymphocytes # 1.5 K/mm3 (0.7-4.5); Lymphocytes % 18.1 % (10-50); Mean Corpuscular HGB Conc 31.1 g/dL (31.8-35.4); Mean Corpuscular Hemoglobin 26.8 pg (27.0-31.2); Mean Corpuscular Volume 86.1 fl (80-94); Mean Platelet Volume 8.6 fl (7.4-10.4); Monocytes # 0.4 K/mm3 (0.1-1.0); Monocytes % 4.4 % (1.7-9.3); Neutrophils # 6.1 K/mm3 (1.8-7.8); Neutrophils % 74.4 % (37.0-80.0); Platelet Count 232 K/mm3 (142-424); Red Blood Count 4.37 M/mm3 (4.60-6.20); Red Cell Distribution Width 19.4 % (11.5-17.5); White Blood Count 8.3 K/mm3 (4.8-10.8)
[2022-04-09 10:33] LABS: Alanine Aminotransferase 23 U/L (12-78); Albumin Level 3.6 g/dl (3.5-5.0); Albumin/Globulin Ratio 1.4 (1.1-1.8); Alkaline Phosphatase 168 U/L (38-126); Aspartate Amino Transferase 33 U/L (17-59); Bilirubin,Total 0.5 mg/dl (0.2-1.3); Blood Urea Nitrogen 10 mg/dl (9-20); Calcium 8.9 mg/dl (8.4-10.2); Carbon Dioxide 25 mmol/L (22.0-30.0); Chloride 102 mmol/L (98-107); Estimated Glomerular Filt Rate 109 ml/min (>60); GFR (African American) 131 ML/MIN (>60); Globulin 2.6 g/dL (1.3-3.2); Glucose 198 mg/dl (74-100); Sodium 134 mmol/L (136-145); Total Protein,Serum 6.2 g/dl (6.3-8.2)
== END ==
PROVIDERS: PCP Internal Medicine; Visit Provider Dermatology
DX: L40.0 Psoriasis vulgaris (principal); Z92.25 Personal history of immunosuppression therapy; Z79.899 Other long term (current) drug therapy
CPT/HCPCS: 36415; 80053; 85025

== ENCOUNTER → 2022-06-02 08:39 | Outpatient (CLI) | payer MEDICARE, BC, SELFPAY ==
[2022-06-02 10:29] LABS: Basophils # 0.1 K/mm3 (0-0.2); Basophils % 0.9 % (0.1-2.0); Eosinophils # 0.2 K/mm3 (0.0-0.4); Eosinophils % 1.7 % (0.1-12.0); Hematocrit 38.4 % (42.0-52.0); Hemoglobin 11.9 g/dL (14.1-18.0); Lymphocytes # 1.7 K/mm3 (0.7-4.5); Lymphocytes % 17.1 % (10-50); Mean Corpuscular HGB Conc 31.1 g/dL (31.8-35.4); Mean Corpuscular Hemoglobin 26.7 pg (27.0-31.2); Mean Platelet Volume 9.2 fl (7.4-10.4); Monocytes # 0.5 K/mm3 (0.1-1.0); Monocytes % 4.8 % (1.7-9.3); Neutrophils # 7.3 K/mm3 (1.8-7.8); Neutrophils % 75.5 % (37.0-80.0); Platelet Count 307 K/mm3 (142-424); Red Blood Count 4.47 M/mm3 (4.60-6.20); Red Cell Distribution Width 19.2 % (11.5-17.5); White Blood Count 9.7 K/mm3 (4.8-10.8)
[2022-06-02 10:47] LABS: Chloride 99 mmol/L (98-107); Potassium 4.6 mmoL/L (3.5-5.1); Sodium 136 mmol/L (136-145)
[2022-06-02 10:50] LABS: Alanine Aminotransferase 24 U/L (12-78); Albumin/Globulin Ratio 1.5 (1.1-1.8); Alkaline Phosphatase 161 U/L (38-126); Anion Gap 14.6 mEq/L (5-15); Aspartate Amino Transferase 40 U/L (17-59); Bilirubin,Total 0.7 mg/dl (0.2-1.3); Blood Urea Nitrogen 9 mg/dl (9-20); Carbon Dioxide 27 mmol/L (22.0-30.0); Estimated Glomerular Filt Rate 108 ml/min (>60); GFR (African American) 131 ML/MIN (>60); Globulin 2.6 g/dL (1.3-3.2); Total Protein,Serum 6.6 g/dl (6.3-8.2)
[2022-06-02 10:51] LABS: Calcium 8.9 mg/dl (8.4-10.2); Glucose 161 mg/dl (74-100)
== END ==
PROVIDERS: Dermatology; PCP Internal Medicine
DX: L40.0 Psoriasis vulgaris (principal); Z92.25 Personal history of immunosuppression therapy; Z79.899 Other long term (current) drug therapy
CPT/HCPCS: 36415; 80053; 85025

== ENCOUNTER → 2022-07-21 08:36 | Outpatient (CLI) | payer MEDICARE, BC, SELFPAY ==
[2022-07-21 09:51] LABS: Basophils # 0.1 K/mm3 (0-0.2); Basophils % 0.9 % (0.1-2.0); Eosinophils # 0.2 K/mm3 (0.0-0.4); Eosinophils % 2.4 % (0.1-12.0); Hematocrit 35.3 % (42.0-52.0); Hemoglobin 10.9 g/dL (14.1-18.0); Lymphocytes # 1.1 K/mm3 (0.7-4.5); Lymphocytes % 17.4 % (10-50); Mean Corpuscular Hemoglobin 25.4 pg (27.0-31.2); Mean Corpuscular Volume 82.1 fl (80-94); Mean Platelet Volume 8.6 fl (7.4-10.4); Monocytes # 0.3 K/mm3 (0.1-1.0); Monocytes % 5.5 % (1.7-9.3); Neutrophils # 4.6 K/mm3 (1.8-7.8); Neutrophils % 73.9 % (37.0-80.0); Platelet Count 244 K/mm3 (142-424); White Blood Count 6.3 K/mm3 (4.8-10.8)
[2022-07-21 10:31] LABS: Alanine Aminotransferase 20 U/L (12-78); Albumin/Globulin Ratio 1.4 (1.1-1.8); Alkaline Phosphatase 177 U/L (38-126); Anion Gap 17.1 mEq/L (5-15); Aspartate Amino Transferase 43 U/L (17-59); Bilirubin,Total 0.7 mg/dl (0.2-1.3); Blood Urea Nitrogen 11 mg/dl (9-20); Calcium 9.2 mg/dl (8.4-10.2); Carbon Dioxide 28 mmol/L (22.0-30.0); Chloride 99 mmol/L (98-107); Estimated Glomerular Filt Rate 108 ml/min (>60); GFR (African American) 131 ML/MIN (>60); Globulin 2.9 g/dL (1.3-3.2); Glucose 177 mg/dl (74-100); Potassium 5.1 mmoL/L (3.5-5.1); Sodium 139 mmol/L (136-145); Total Protein,Serum 6.9 g/dl (6.3-8.2)
== END ==
PROVIDERS: PCP Internal Medicine; Visit Provider Dermatology
DX: L40.0 Psoriasis vulgaris (principal); Z92.25 Personal history of immunosuppression therapy; Z79.899 Other long term (current) drug therapy
CPT/HCPCS: 36415; 80053; 85025

== ENCOUNTER → 2022-09-14 08:13 | Outpatient (CLI) | payer MEDICARE, BC, SELFPAY ==
[2022-09-14 08:47] LABS: Basophils # 0.1 K/mm3 (0-0.2); Basophils % 0.8 % (0.1-2.0); Eosinophils # 0.2 K/mm3 (0.0-0.4); Hematocrit 33.5 % (42.0-52.0); Hemoglobin 10.8 g/dL (14.1-18.0); Lymphocytes # 1.8 K/mm3 (0.7-4.5); Lymphocytes % 22.3 % (10-50); Mean Corpuscular HGB Conc 32.2 g/dL (31.8-35.4); Mean Corpuscular Hemoglobin 25.2 pg (27.0-31.2); Mean Corpuscular Volume 78.3 fl (80-94); Mean Platelet Volume 8.5 fl (7.4-10.4); Monocytes # 0.6 K/mm3 (0.1-1.0); Neutrophils # 5.2 K/mm3 (1.8-7.8); Neutrophils % 65.9 % (37.0-80.0); Platelet Count 214 K/mm3 (142-424); Red Blood Count 4.28 M/mm3 (4.60-6.20); Red Cell Distribution Width 21.4 % (11.5-17.5); White Blood Count 7.9 K/mm3 (4.8-10.8)
[2022-09-14 09:20] LABS: Alanine Aminotransferase 20 U/L (12-78); Albumin Level 3.8 g/dl (3.5-5.0); Albumin/Globulin Ratio 1.4 (1.1-1.8); Alkaline Phosphatase 153 U/L (38-126); Anion Gap 14.2 mEq/L (5-15); Aspartate Amino Transferase 33 U/L (17-59); Bilirubin,Total 0.7 mg/dl (0.2-1.3); Blood Urea Nitrogen 11 mg/dl (9-20); Calcium 8.8 mg/dl (8.4-10.2); Carbon Dioxide 23 mmol/L (22.0-30.0); Chloride 102 mmol/L (98-107); Estimated Glomerular Filt Rate 93 ml/min (>60); GFR (African American) 112 ML/MIN (>60); Globulin 2.7 g/dL (1.3-3.2); Glucose 173 mg/dl (74-100); Potassium 4.2 mmoL/L (3.5-5.1); Sodium 135 mmol/L (136-145); Total Protein,Serum 6.5 g/dl (6.3-8.2)
== END ==
PROVIDERS: PCP Internal Medicine; Visit Provider Dermatology
DX: L40.0 Psoriasis vulgaris (principal); Z92.25 Personal history of immunosuppression therapy; Z79.899 Other long term (current) drug therapy
CPT/HCPCS: 36415; 80053; 85025

== ENCOUNTER → 2022-09-30 08:31 | Outpatient (CLI) | payer MEDICARE, BC, SELFPAY ==
--- NOTE | 2022-09-30 | MR_ITS ---
FINAL REPORT TECHNIQUE: Dedicated imaging through the orbits was obtained before and after contrast. CLINICAL HISTORY: double vision left eye x2 weeks ago FINDINGS: The globes are intact. There is no retro bulbar mass. The extra ocular muscles are within normal limits and symmetric right to left. The optic nerves are not enlarged. There is no abnormal signal intensity. The optic chiasm is normal in size. No pituitary mass. Remaining soft tissues are without acute abnormality. No pathologic enhancement. IMPRESSION: No acute abnormality of the orbits and associated soft tissues. No pathologic enhancing Reviewed, Interpreted and Dictated by Cheli Berkowitz MD Transcribed by Swati Logan Authenticated and [facility]
--- NOTE | 2022-09-30 | MR_ITS ---
FINAL REPORT TECHNIQUE: Multiplanar and multisequence imaging of the brain was obtained before and after contrast administration. CLINICAL HISTORY: DOUBLE VISION in left eye x 2 weeks COMPARISON: none FINDINGS: There is no mass effect or midline shift. There is global atrophy with moderate periventricular and subcortical white matter changes. No hydrocephalus. The posterior fossa is without acute abnormality. No restricted diffusion to suggest acute ischemia. The flow voids are preserved. There is no acute soft tissue abnormality. No pathologic contrast enhancement is identified. IMPRESSION: No acute intracranial abnormality. Atrophy and moderate white matter changes, likely related to chronic small vessel ischemia. Reviewed, Interpreted and Dictated by Cheli Berkowitz MD Transcribed by Swati Logan Authenticated and [facility]
== END ==
PROVIDERS: PCP Internal Medicine; Visit Provider Internal Medicine
DX: H53.2 Diplopia (principal); H49.22 Sixth [abducent] nerve palsy, left eye
CPT/HCPCS: 70543; 70553; A9576

== ENCOUNTER → 2022-11-02 08:06 | Outpatient (CLI) | payer MEDICARE, BC, SELFPAY ==
[2022-11-02 08:41] LABS: Basophils # 0.1 K/mm3 (0-0.2); Basophils % 0.6 % (0.1-2.0); Eosinophils # 0.3 K/mm3 (0.0-0.4); Eosinophils % 3.6 % (0.1-12.0); Hematocrit 32.8 % (42.0-52.0); Hemoglobin 10.1 g/dL (14.1-18.0); Lymphocytes # 1.5 K/mm3 (0.7-4.5); Lymphocytes % 18.9 % (10-50); Mean Corpuscular HGB Conc 30.8 g/dL (31.8-35.4); Mean Corpuscular Hemoglobin 24.6 pg (27.0-31.2); Mean Corpuscular Volume 79.8 fl (80-94); Mean Platelet Volume 7.7 fl (7.4-10.4); Monocytes # 0.7 K/mm3 (0.1-1.0); Monocytes % 8.6 % (1.7-9.3); Neutrophils # 5.5 K/mm3 (1.8-7.8); Neutrophils % 68.2 % (37.0-80.0); Platelet Count 206 K/mm3 (142-424); Red Blood Count 4.11 M/mm3 (4.60-6.20); Red Cell Distribution Width 21.8 % (11.5-17.5); White Blood Count 8.1 K/mm3 (4.8-10.8)
[2022-11-02 09:14] LABS: Blood Urea Nitrogen 10 mg/dl (9-20); Calcium 8.9 mg/dl (8.4-10.2); Carbon Dioxide 25 mmol/L (22.0-30.0); Chloride 103 mmol/L (98-107); Estimated Glomerular Filt Rate 93 ml/min (>60); GFR (African American) 112 ML/MIN (>60); Glucose 195 mg/dl (74-100); Sodium 131 mmol/L (136-145)
[2022-11-02 09:15] LABS: Alanine Aminotransferase 19 U/L (12-78); Albumin Level 3.9 g/dl (3.5-5.0); Alkaline Phosphatase 165 U/L (38-126); Aspartate Amino Transferase 29 U/L (17-59); Bilirubin, Conjugated 0.3 mg/dL (0.0-0.3); Bilirubin,Direct 0.6 mg/dl (0.0-0.4); Bilirubin,Total 0.6 mg/dl (0.2-1.3); Chol/HDL Ratio 1.8 (1-3.5); Cholesterol 110 mg/dl (140-200); HDL Cholesterol 60 mg/dl (40-60); Magnesium 1.8 mg/dl (1.6-2.3); Total Protein,Serum 6.7 g/dl (6.3-8.2); Triglycerides 101 mg/dl (30-150); VLDL Cholesterol 20 mg/dL (0-40)
[2022-11-02 09:26] LABS: Direct LDL Cholesterol 38.94 mg/dL (100-129)
[2022-11-02 09:31] LABS: Free T4 (Free Thyroxine) 1.39 ng/dl (0.78-2.19)
[2022-11-02 09:45] LABS: Thyroid Stimulating Hormone 5.02 uIU/mL (0.465-4.68)
== END ==
PROVIDERS: Nurse Practitioner; PCP Internal Medicine; Visit Provider Dermatology
DX: E78.2 Mixed hyperlipidemia (principal); I10 Essential (primary) hypertension; Z79.899 Other long term (current) drug therapy
CPT/HCPCS: 36415; 80048; 80053; 80061; 80076; 83735; 84439; 84443; 85025

== ENCOUNTER → 2022-12-06 08:40 | Outpatient (CLI) | payer MEDICARE, BC, SELFPAY ==
[2022-12-06 09:15] LABS: Basophils # 0.1 K/mm3 (0-0.2); Basophils % 0.6 % (0.1-2.0); Eosinophils # 0.3 K/mm3 (0.0-0.4); Eosinophils % 3.7 % (0.1-12.0); Hematocrit 31.3 % (42.0-52.0); Lymphocytes % 23.7 % (10-50); Mean Corpuscular HGB Conc 31.8 g/dL (31.8-35.4); Mean Corpuscular Hemoglobin 24.4 pg (27.0-31.2); Mean Corpuscular Volume 76.8 fl (80-94); Mean Platelet Volume 7.7 fl (7.4-10.4); Monocytes # 0.7 K/mm3 (0.1-1.0); Monocytes % 8.8 % (1.7-9.3); Neutrophils # 5.2 K/mm3 (1.8-7.8); Neutrophils % 63.2 % (37.0-80.0); Platelet Count 229 K/mm3 (142-424); Red Blood Count 4.08 M/mm3 (4.60-6.20); Red Cell Distribution Width 21.9 % (11.5-17.5); White Blood Count 8.2 K/mm3 (4.8-10.8)
[2022-12-06 10:09] LABS: Alanine Aminotransferase 19 U/L (12-78); Albumin Level 3.7 g/dl (3.5-5.0); Albumin/Globulin Ratio 1.4 (1.1-1.8); Alkaline Phosphatase 155 U/L (38-126); Anion Gap 13.4 mEq/L (5-15); Aspartate Amino Transferase 30 U/L (17-59); Bilirubin,Total 0.6 mg/dl (0.2-1.3); Blood Urea Nitrogen 12 mg/dl (9-20); Calcium 8.5 mg/dl (8.4-10.2); Carbon Dioxide 27 mmol/L (22.0-30.0); Chloride 99 mmol/L (98-107); Estimated Glomerular Filt Rate 93 ml/min (>60); GFR (African American) 112 ML/MIN (>60); Globulin 2.7 g/dL (1.3-3.2); Glucose 180 mg/dl (74-100); Potassium 4.4 mmoL/L (3.5-5.1); Sodium 135 mmol/L (136-145); Total Protein,Serum 6.4 g/dl (6.3-8.2)
== END ==
PROVIDERS: PCP Internal Medicine; Visit Provider Dermatology
DX: L40.0 Psoriasis vulgaris (principal); Z92.25 Personal history of immunosuppression therapy; Z79.899 Other long term (current) drug therapy
CPT/HCPCS: 36415; 80053; 85025

== ENCOUNTER → 2023-01-12 08:06 | Outpatient (CLI) | payer MEDICARE, BC, SELFPAY ==
[2023-01-12 08:59] LABS: Basophils # 0.1 K/mm3 (0-0.2); Basophils % 0.5 % (0.1-2.0); Eosinophils # 0.4 K/mm3 (0.0-0.4); Eosinophils % 3.5 % (0.1-12.0); Hematocrit 34.7 % (42.0-52.0); Hemoglobin 10.6 g/dL (14.1-18.0); Lymphocytes % 19.4 % (10-50); Mean Corpuscular HGB Conc 30.6 g/dL (31.8-35.4); Mean Corpuscular Hemoglobin 23.8 pg (27.0-31.2); Mean Corpuscular Volume 77.6 fl (80-94); Mean Platelet Volume 7.7 fl (7.4-10.4); Monocytes # 0.6 K/mm3 (0.1-1.0); Monocytes % 5.7 % (1.7-9.3); Neutrophils # 7.1 K/mm3 (1.8-7.8); Neutrophils % 70.8 % (37.0-80.0); Platelet Count 317 K/mm3 (142-424); Red Blood Count 4.47 M/mm3 (4.60-6.20); Red Cell Distribution Width 21.8 % (11.5-17.5); White Blood Count 10.1 K/mm3 (4.8-10.8)
[2023-01-12 09:25] LABS: Chloride 92 mmol/L (98-107); Potassium 3.9 mmoL/L (3.5-5.1); Sodium 134 mmol/L (136-145)
[2023-01-12 09:27] LABS: Blood Urea Nitrogen 13 mg/dl (9-20); Estimated Glomerular Filt Rate 81 ml/min (>60); GFR (African American) 98 ML/MIN (>60)
[2023-01-12 09:28] LABS: Alanine Aminotransferase 27 U/L (12-78); Albumin Level 3.9 g/dl (3.5-5.0); Albumin/Globulin Ratio 1.4 (1.1-1.8); Alkaline Phosphatase 153 U/L (38-126); Anion Gap 18.9 mEq/L (5-15); Aspartate Amino Transferase 46 U/L (17-59); Bilirubin,Total 0.7 mg/dl (0.2-1.3); Calcium 8.9 mg/dl (8.4-10.2); Carbon Dioxide 27 mmol/L (22.0-30.0); Globulin 2.7 g/dL (1.3-3.2); Glucose 215 mg/dl (74-100); Total Protein,Serum 6.6 g/dl (6.3-8.2)
== END ==
PROVIDERS: PCP Internal Medicine; Visit Provider Dermatology
DX: L40.0 Psoriasis vulgaris (principal); Z92.25 Personal history of immunosuppression therapy; Z79.899 Other long term (current) drug therapy
CPT/HCPCS: 36415; 80053; 85025

== ENCOUNTER → 2023-03-02 08:28 | Outpatient (CLI) | payer MEDICARE, BC, SELFPAY ==
[2023-03-02 09:27] LABS: Basophils % 0.3 % (0.1-2.0); Eosinophils # 0.2 K/mm3 (0.0-0.4); Eosinophils % 2.3 % (0.1-12.0); Hematocrit 27.6 % (42.0-52.0); Hemoglobin 8.4 g/dL (14.1-18.0); Lymphocytes # 1.2 K/mm3 (0.7-4.5); Lymphocytes % 14.7 % (10-50); Mean Corpuscular HGB Conc 30.6 g/dL (31.8-35.4); Mean Corpuscular Hemoglobin 22.1 pg (27.0-31.2); Mean Corpuscular Volume 72.3 fl (80-94); Mean Platelet Volume 8.4 fl (7.4-10.4); Monocytes # 0.3 K/mm3 (0.1-1.0); Monocytes % 3.4 % (1.7-9.3); Neutrophils # 6.2 K/mm3 (1.8-7.8); Neutrophils % 79.4 % (37.0-80.0); Platelet Count 180 K/mm3 (142-424); Red Blood Count 3.82 M/mm3 (4.60-6.20); Red Cell Distribution Width 21.4 % (11.5-17.5); White Blood Count 7.8 K/mm3 (4.8-10.8)
[2023-03-02 09:59] LABS: Alanine Aminotransferase 25 U/L (12-78); Albumin Level 3.5 g/dl (3.5-5.0); Albumin/Globulin Ratio 1.3 (1.1-1.8); Alkaline Phosphatase 181 U/L (38-126); Aspartate Amino Transferase 40 U/L (17-59); Bilirubin,Total 0.5 mg/dl (0.2-1.3); Blood Urea Nitrogen 12 mg/dl (9-20); Calcium 8.4 mg/dl (8.4-10.2); Carbon Dioxide 25 mmol/L (22.0-30.0); Chloride 99 mmol/L (98-107); Estimated Glomerular Filt Rate 108 ml/min (>60); GFR (African American) 131 ML/MIN (>60); Globulin 2.6 g/dL (1.3-3.2); Glucose 219 mg/dl (74-100); Sodium 136 mmol/L (136-145); Total Protein,Serum 6.1 g/dl (6.3-8.2)
[2023-03-04 15:07] LABS: Vitamin B12 273 pg/mL (239-931)
[2023-03-04 15:19] LABS: Iron 30 ug/dL (49-181)
[2023-03-04 15:29] LABS: Total Iron Binding Capacity 390 ug/dL (261-462)
== END ==
PROVIDERS: PCP Internal Medicine; Visit Provider Dermatology
DX: D50.8 Other iron deficiency anemias (principal); L40.0 Psoriasis vulgaris; Z92.25 Personal history of immunosuppression therapy; Z79.899 Other long term (current) drug therapy
CPT/HCPCS: 36415; 80053; 82607; 83540; 83550; 85025

== ENCOUNTER → 2023-03-30 07:53 | Outpatient (CLI) | payer MEDICARE, BC, SELFPAY ==
[2023-03-30 08:20] LABS: Basophils # 0.1 K/mm3 (0-0.2); Basophils % 0.6 % (0.1-2.0); Eosinophils # 0.2 K/mm3 (0.0-0.4); Eosinophils % 3.1 % (0.1-12.0); Hematocrit 31.9 % (42.0-52.0); Hemoglobin 9.6 g/dL (14.1-18.0); Lymphocytes # 1.6 K/mm3 (0.7-4.5); Lymphocytes % 21.1 % (10-50); Mean Corpuscular Hemoglobin 22.7 pg (27.0-31.2); Mean Corpuscular Volume 75.4 fl (80-94); Mean Platelet Volume 6.9 fl (7.4-10.4); Monocytes # 0.4 K/mm3 (0.1-1.0); Monocytes % 4.6 % (1.7-9.3); Neutrophils # 5.4 K/mm3 (1.8-7.8); Neutrophils % 70.5 % (37.0-80.0); Platelet Count 201 K/mm3 (142-424); Red Blood Count 4.24 M/mm3 (4.60-6.20); White Blood Count 7.7 K/mm3 (4.8-10.8)
[2023-03-30 08:21] LABS: Red Cell Distribution Width 25.5 % (11.5-17.5)
[2023-03-30 09:12] LABS: Alanine Aminotransferase 22 U/L (12-78); Albumin Level 3.8 g/dl (3.5-5.0); Albumin/Globulin Ratio 1.4 (1.1-1.8); Alkaline Phosphatase 171 U/L (38-126); Anion Gap 13.1 mEq/L (5-15); Aspartate Amino Transferase 37 U/L (17-59); Bilirubin,Total 0.6 mg/dl (0.2-1.3); Blood Urea Nitrogen 11 mg/dl (9-20); Calcium 8.9 mg/dl (8.4-10.2); Carbon Dioxide 24 mmol/L (22.0-30.0); Chloride 101 mmol/L (98-107); Chol/HDL Ratio 1.9 (1-3.5); Cholesterol 105 mg/dl (140-200); Estimated Glomerular Filt Rate 93 ml/min (>60); GFR (African American) 112 ML/MIN (>60); Globulin 2.7 g/dL (1.3-3.2); Glucose 172 mg/dl (74-100); HDL Cholesterol 56 mg/dl (40-60); Potassium 4.1 mmoL/L (3.5-5.1); Sodium 134 mmol/L (136-145); Total Protein,Serum 6.5 g/dl (6.3-8.2); Triglycerides 140 mg/dl (30-150); VLDL Cholesterol 28 mg/dL (0-40)
[2023-03-30 10:03] LABS: Hemoglobin A1C 8.3 % (4.0-6.0)
== END ==
PROVIDERS: PCP Internal Medicine; Visit Provider Dermatology
DX: D50.9 Iron deficiency anemia, unspecified (principal); E11.42 Type 2 diabetes mellitus with diabetic polyneuropathy; I10 Essential (primary) hypertension; Z12.5 Encounter for screening for malignant neoplasm of prostate; Z79.84 Long term (current) use of oral hypoglycemic drugs
CPT/HCPCS: 36415; 80053; 80061; 83036; 85025; G0103

== ENCOUNTER → 2023-05-12 08:41 | Outpatient (CLI) | payer MEDICARE, BC, SELFPAY ==
[2023-05-12 09:32] LABS: Basophils % 0.5 % (0.1-2.0); Eosinophils # 0.2 K/mm3 (0.0-0.4); Eosinophils % 2.8 % (0.1-12.0); Hematocrit 37.6 % (42.0-52.0); Hemoglobin 11.8 g/dL (14.1-18.0); Lymphocytes # 1.4 K/mm3 (0.7-4.5); Mean Corpuscular HGB Conc 31.4 g/dL (31.8-35.4); Mean Corpuscular Hemoglobin 26.4 pg (27.0-31.2); Mean Platelet Volume 7.9 fl (7.4-10.4); Monocytes # 0.2 K/mm3 (0.1-1.0); Monocytes % 2.5 % (1.7-9.3); Neutrophils # 6.1 K/mm3 (1.8-7.8); Neutrophils % 76.2 % (37.0-80.0); Platelet Count 214 K/mm3 (142-424); Red Blood Count 4.48 M/mm3 (4.60-6.20); Red Cell Distribution Width 24.3 % (11.5-17.5)
[2023-05-12 10:57] LABS: Alanine Aminotransferase 28 U/L (12-78); Albumin Level 3.8 g/dl (3.5-5.0); Albumin/Globulin Ratio 1.4 (1.1-1.8); Alkaline Phosphatase 185 U/L (38-126); Anion Gap 15.1 mEq/L (5-15); Aspartate Amino Transferase 35 U/L (17-59); Bilirubin,Total 0.6 mg/dl (0.2-1.3); Blood Urea Nitrogen 11 mg/dl (9-20); Calcium 9.1 mg/dl (8.4-10.2); Carbon Dioxide 25 mmol/L (22.0-30.0); Chloride 100 mmol/L (98-107); Estimated Glomerular Filt Rate 93 ml/min (>60); GFR (African American) 112 ML/MIN (>60); Globulin 2.8 g/dL (1.3-3.2); Glucose 206 mg/dl (74-100); Potassium 4.1 mmoL/L (3.5-5.1); Sodium 136 mmol/L (136-145); Total Protein,Serum 6.6 g/dl (6.3-8.2)
== END ==
PROVIDERS: Dermatology; PCP Internal Medicine; Visit Provider Nurse Practitioner
DX: L40.0 Psoriasis vulgaris; Z92.25 Personal history of immunosuppression therapy; Z79.899 Other long term (current) drug therapy
CPT/HCPCS: 36415; 80053; 85025

== ENCOUNTER → 2023-07-18 08:34 | Outpatient (CLI) | payer MEDICARE, BC, SELFPAY ==
[2023-07-18 09:18] LABS: Basophils % 0.3 % (0.1-2.0); Eosinophils # 0.2 K/mm3 (0.0-0.4); Eosinophils % 2.9 % (0.1-12.0); Hematocrit 37.9 % (42.0-52.0); Hemoglobin 12.7 g/dL (14.1-18.0); Lymphocytes # 1.5 K/mm3 (0.7-4.5); Lymphocytes % 21.5 % (10-50); Mean Corpuscular HGB Conc 33.5 g/dL (31.8-35.4); Mean Corpuscular Volume 89.8 fl (80-94); Mean Platelet Volume 8.4 fl (7.4-10.4); Monocytes # 0.5 K/mm3 (0.1-1.0); Monocytes % 7.6 % (1.7-9.3); Neutrophils # 4.6 K/mm3 (1.8-7.8); Neutrophils % 67.7 % (37.0-80.0); Platelet Count 180 K/mm3 (142-424); Red Blood Count 4.22 M/mm3 (4.60-6.20); Red Cell Distribution Width 18.7 % (11.5-17.5); White Blood Count 6.9 K/mm3 (4.8-10.8)
[2023-07-18 09:47] LABS: Alanine Aminotransferase 23 U/L (12-78); Albumin Level 4.1 g/dl (3.5-5.0); Aspartate Amino Transferase 31 U/L (17-59); Bilirubin,Total 0.7 mg/dl (0.2-1.3); Blood Urea Nitrogen 13 mg/dl (9-20); Calcium 9.3 mg/dl (8.4-10.2); Carbon Dioxide 24 mmol/L (22.0-30.0); Chloride 100 mmol/L (98-107); Estimated Glomerular Filt Rate 93 ml/min (>60); GFR (African American) 112 ML/MIN (>60); Globulin 2.8 g/dL (1.3-3.2); Glucose 159 mg/dl (74-100); Sodium 136 mmol/L (136-145); Total Protein,Serum 6.9 g/dl (6.3-8.2)
[2023-07-18 09:48] LABS: Albumin/Globulin Ratio 1.5 (1.1-1.8); Alkaline Phosphatase 141 U/L (38-126)
== END ==
PROVIDERS: PCP Internal Medicine; Visit Provider Dermatology
DX: L40.0 Psoriasis vulgaris (principal); Z92.25 Personal history of immunosuppression therapy; Z79.899 Other long term (current) drug therapy
CPT/HCPCS: 36415; 80053; 85025

== ENCOUNTER → 2023-08-25 08:45 | Outpatient (CLI) | payer MEDICARE, BC, SELFPAY ==
[2023-08-25 09:05] LABS: Basophils % 0.6 % (0.1-2.0); Eosinophils # 0.2 K/mm3 (0.0-0.4); Eosinophils % 3.2 % (0.1-12.0); Hematocrit 40.2 % (42.0-52.0); Hemoglobin 12.8 g/dL (14.1-18.0); Lymphocytes # 1.7 K/mm3 (0.7-4.5); Lymphocytes % 24.5 % (10-50); Mean Corpuscular HGB Conc 31.9 g/dL (31.8-35.4); Mean Corpuscular Hemoglobin 29.4 pg (27.0-31.2); Mean Corpuscular Volume 92.2 fl (80-94); Mean Platelet Volume 7.9 fl (7.4-10.4); Monocytes # 0.3 K/mm3 (0.1-1.0); Monocytes % 4.7 % (1.7-9.3); Neutrophils # 4.7 K/mm3 (1.8-7.8); Neutrophils % 67.1 % (37.0-80.0); Platelet Count 200 K/mm3 (142-424); Red Blood Count 4.36 M/mm3 (4.60-6.20); Red Cell Distribution Width 18.1 % (11.5-17.5)
[2023-08-25 09:34] LABS: Chloride 101 mmol/L (98-107); Sodium 135 mmol/L (136-145)
[2023-08-25 09:35] LABS: Potassium 4.2 mmoL/L (3.5-5.1)
[2023-08-25 09:37] LABS: Alanine Aminotransferase 23 U/L (12-78); Albumin Level 4.2 g/dl (3.5-5.0); Albumin/Globulin Ratio 1.5 (1.1-1.8); Alkaline Phosphatase 159 U/L (38-126); Aspartate Amino Transferase 37 U/L (17-59); Bilirubin,Total 0.7 mg/dl (0.2-1.3); Blood Urea Nitrogen 13 mg/dl (9-20); Estimated Glomerular Filt Rate 93 ml/min (>60); GFR (African American) 112 ML/MIN (>60); Globulin 2.8 g/dL (1.3-3.2)
[2023-08-25 09:38] LABS: Anion Gap 11.2 mEq/L (5-15); Calcium 8.9 mg/dl (8.4-10.2); Carbon Dioxide 27 mmol/L (22.0-30.0); Glucose 149 mg/dl (74-100)
== END ==
PROVIDERS: PCP Internal Medicine; Visit Provider Dermatology
DX: Z79.899 Other long term (current) drug therapy (principal); L40.0 Psoriasis vulgaris
CPT/HCPCS: 36415; 80053; 85025

== ENCOUNTER 2023-10-03 11:17 | Outpatient (CLI) | payer MEDICARE, BC, SELFPAY ==
[2023-10-03 11:25] LABS: Microscopic, Urine URINE MICROSCOPIC (MICROSCOPIC)
[2023-10-03 11:50] LABS: Appearance,Urine CLEAR (Clear); Bilirubin,Urine Negative (Negative); Blood, Urine 3+ (Negative); Color,Urine YELLOW (Yellow); Glucose,Urine (UA) 2+ (Negative); Ketones,Urine Negative (Negative); Leukocyte Esterase,Urine Negative (Negative); Nitrate,Urine Negative (Negative); Protein,Urine 1+ (Negative); Urobilinogen,Urine 0.2 EU/dl (0.2)
[2023-10-03 11:53] LABS: Basophils % 0.5 % (0.1-2.0); Eosinophils # 0.2 K/mm3 (0.0-0.4); Eosinophils % 1.9 % (0.1-12.0); Hematocrit 40.7 % (42.0-52.0); Hemoglobin 12.9 g/dL (14.1-18.0); Lymphocytes # 1.2 K/mm3 (0.7-4.5); Lymphocytes % 15.5 % (10-50); Mean Corpuscular HGB Conc 31.7 g/dL (31.8-35.4); Mean Corpuscular Hemoglobin 29.1 pg (27.0-31.2); Mean Corpuscular Volume 91.7 fl (80-94); Mean Platelet Volume 8.4 fl (7.4-10.4); Monocytes # 0.5 K/mm3 (0.1-1.0); Monocytes % 6.4 % (1.7-9.3); Neutrophils # 6.1 K/mm3 (1.8-7.8); Neutrophils % 75.8 % (37.0-80.0); Platelet Count 152 K/mm3 (142-424); Red Blood Count 4.44 M/mm3 (4.60-6.20)
[2023-10-03 12:17] LABS: Bacteria,Urine Trace /lpf; RBC,Urine 50-100 #/hpf (0-3)
[2023-10-03 12:20] LABS: Chloride 98 mmol/L (98-107)
[2023-10-03 12:21] LABS: Potassium 3.9 mmoL/L (3.5-5.1); Sodium 135 mmol/L (136-145)
[2023-10-03 12:24] LABS: Alanine Aminotransferase 21 U/L (12-78); Albumin Level 4.3 g/dl (3.5-5.0); Albumin/Globulin Ratio 1.7 (1.1-1.8); Alkaline Phosphatase 145 U/L (38-126); Anion Gap 12.9 mEq/L (5-15); Aspartate Amino Transferase 30 U/L (17-59); Blood Urea Nitrogen 10 mg/dl (9-20); Calcium 8.9 mg/dl (8.4-10.2); Carbon Dioxide 28 mmol/L (22.0-30.0); Estimated Glomerular Filt Rate 93 ml/min (>60); GFR (African American) 112 ML/MIN (>60); Globulin 2.6 g/dL (1.3-3.2); Glucose 227 mg/dl (74-100); Total Protein,Serum 6.9 g/dl (6.3-8.2)
== END 2023-10-03 23:59 ==
LOC: LAB 11:19
PROVIDERS: PCP Internal Medicine; Visit Provider Urology
DX: N28.9 Disorder of kidney and ureter, unspecified (principal); Z79.899 Other long term (current) drug therapy
CPT/HCPCS: 36415; 80053; 81001; 85025

== ENCOUNTER 2023-10-12 09:00 | Outpatient (RCR) | payer MEDICARE, BC, SELFPAY | END 2023-10-12 10:00 | disposition home or self-care (01) | LOC: PT 09:00 | PROVIDERS: PCP Internal Medicine; Visit Provider Internal Medicine | DX: G62.9 Polyneuropathy, unspecified (principal); R26.89 Other abnormalities of gait and mobility; R29.6 Repeated falls | CPT/HCPCS: 97110; 97163; 97164; 97530 ==

== ENCOUNTER 2023-10-17 09:46 | Outpatient (CLI) | payer MEDICARE, BC, SELFPAY ==
--- NOTE | 2023-10-17 09:47 | CT_ITS ---
FINAL REPORT TECHNIQUE: Axial CT images of the abdomen and pelvis were obtained before and after the administration of IV contrast. Oral contrast was administered.This study was performed with techniques to keep radiation doses as low as reasonably achievable (ALARA). Individualized dose reduction techniques using automated exposure control or adjustment of mA and/or kV according to the patient''s size were employed. CLINICAL HISTORY: Renal mass COMPARISON: 02/09/2022 FINDINGS: Abdomen: There are small pleural effusions with mild bibasilar atelectasis. The heart is normal in size. The liver has an unremarkable appearance, without evidence of mass or biliary duct dilatation. . The spleen is unremarkable. No adrenal masses present. The pancreas has an unremarkable appearance. There is a high attenuation mass in the anterior right kidney measuring 16 mm. There is no evidence of contrast-enhancement. Mass is stable from prior exam and consistent with a hyperdense cyst, Bosniak category 2. A mass seen in the anterior left kidney measuring 18 mm also consistent with a cyst. The aorta is normal in caliber. There is no free fluid or adenopathy. There is a new, small amount of fluid lateral to the stomach of uncertain etiology. Precontrast images demonstrate multiple gallstones and multiple nonobstructing left renal stones measuring up to 17 mm in the upper pole of the left kidney, previously measured 9 mm. Pelvis: The appendix is not well visualized. There is urinary bladder wall thickening which is likely inflammatory. Postoperative changes are seen of partial colectomy. There is stable, wall thickening of the distal ileum. There is a small amount of free fluid in the pelvis. There is no evidence of mass or adenopathy. There is no evidence of bowel obstruction. IMPRESSION: Small pleural effusions, new from prior exam. Free fluid in the pelvis. Small amount of fluid lateral to the stomach, new from prior exam. Stable right renal mass consistent with hyperdense cyst, Bosniak category 2. Reviewed, Interpreted and Dictated by Denzel Mcqueen III, MD Transcribed by Lizzie Arechiga Authenticated and [facility]
[2023-10-17] MEDS: SODIUM CHLORIDE 0.9% 10ML SYR (RAD ONLY) 10 ML IV (10:20)
[2023-10-17] MEDS: IOPAMIDOL-370 (76%);100ML BOTTLE 75 ML IV (10:21)
== END 2023-10-17 23:59 ==
LOC: RAD 09:47
PROVIDERS: PCP Internal Medicine; Visit Provider Urology
DX: N28.89 Other specified disorders of kidney and ureter (principal)
CPT/HCPCS: 74178; Q9967

== ENCOUNTER 2023-10-24 14:23 | Outpatient (CLI) | payer MEDICARE, BC, SELFPAY ==
[2023-10-24 14:26] LABS: Microscopic, Urine URINE MICROSCOPIC (MICROSCOPIC)
[2023-10-24 16:03] LABS: Appearance,Urine CLEAR (Clear); Blood, Urine Negative (Negative); Color,Urine YELLOW (Yellow); Glucose,Urine (UA) 1+ (Negative); Ketones,Urine TRACE (Negative); Leukocyte Esterase,Urine Negative (Negative); Nitrate,Urine Negative (Negative); PH,Urine 5.5 (5.0-8.5); Protein,Urine 1+ (Negative); Specific Gravity, Urine >= 1.030 (1.005-1.030); Urobilinogen,Urine 0.2 EU/dl (0.2)
[2023-10-24 16:33] LABS: Bilirubin,Urine 1+ (Negative)
[2023-10-24 16:44] LABS: Squamous Epithelial Cell,Urine Occasional #/hpf (0-5); WBC,Urine Occasional #/hpf (0-3)
== END 2023-10-24 23:59 ==
LOC: LAB.DROPOF 14:23
PROVIDERS: PCP Urology; Visit Provider Urology
DX: R33.9 Retention of urine, unspecified (principal); N40.0 Benign prostatic hyperplasia without lower urinary tract symptoms
CPT/HCPCS: 81001

== ENCOUNTER 2023-10-27 09:47 | Outpatient (CLI) | payer MEDICARE, BC, SELFPAY ==
--- NOTE | 2023-10-27 09:47 | US_ITS ---
FINAL REPORT CLINICAL HISTORY: Retention COMPARISON: None FINDINGS: ULTRASOUND BLADDER WITH POST VOID RESIDUAL Bladder volumes were estimated based on 3 dimensional measurements, pre- and postvoid. Prevoid bladder measures 11.9 x 5.9 x 8.4 cm. Prevoid bladder volume: 309 mls Post void bladder measures 10.3 x 4.2 x 7.0 cm Postvoid bladder volume: 160 mls IMPRESSION: Significant postvoid residual. Reviewed, Interpreted and Dictated by Denzel Mcqueen III, MD Transcribed by Swati Logan Authenticated and . [facility]
== END 2023-10-27 23:59 ==
PROVIDERS: PCP Urology; Visit Provider Urology
DX: R33.9 Retention of urine, unspecified (principal)
CPT/HCPCS: 76857

== ENCOUNTER 2023-10-31 10:46 | Day surgery (SDC) | payer MEDICARE, BC, SELFPAY ==
--- NOTE | 2023-10-28 11:27 | SUR.PREOP ---
Per BJ in surgical suite, pt is okay to continue eliquis prior to procedure and will not need to stop it. Pt called and made aware.
[2023-10-28 11:31] VITALS: BMI 34.4
[2023-10-31 11:02] VITALS: BP 202/115; PULSE 75; RESP 16; TEMP 36.1; O2SAT 96
[2023-10-31] MEDS: LACTATED RINGERS 1000ML 1,000 ML 25 ML IV (11:02)
--- NOTE | 2023-10-31 11:41 | P.PNANES_ITS ---
[facility] Disclaimer: The information contained in this section may have been updated after the patient was seen, as this information can be updated by other users. Medical History Atrial fibrillation Diabetes Dyspnea Edema GERD (gastroesophageal reflux disease) History of Guillain-[place] syndrome HLD (hyperlipidemia) HTN (hypertension) Right bundle branch block Surgical History History of bowel resection History of cardiac cath History of colonoscopy History of extraction of renal calculus Family History (Updated 10/28/23 @ 11:24 by Lakeshia Wilson RN) Other No significant family history Social History Smoking Status: Never smoker second hand exposure: No alcohol intake: never substance use type: denies use current occupational status: retired Travel in the last 8 weeks: Inside the [place] household members: spouse housing: house current occupational exposures/hazards: No caffeine: Yes [facility] Anesthesia Checklist Patient Identification Patient Identification: Arm Band Structural Data Admitted From: Home Planned Operative Procedure/s: Cystoscopy Consent for Planned Operative Procedure(s) Verified: Yes Verified Documents: Surgical Consent and History and Physical NPO Status Verified Time NPO: 00:00 Additional verifications Anesthesia Reactions: No Hx Blood Transfusions: No Blood Transfusion Reaction: No Airway Assessment Mallampati Score:: Class II C-Spine Mobility Assessed: Yes TMJ Mobility Assessed: Yes Dentition: Good Dentition Neurological Assessment Level of Consciousness: Awake and Alert Anesthesia Plan Anesthesia Risk discussed: Yes Anesthesia Plan: Verified ASA Class: III Anesthesia Type: MAC
[2023-10-31] MEDS: LIDOCAINE 2% UROJET 10ML 10 ML (12:24)
[2023-10-31 12:34] VITALS: BP 143/76; PULSE 78; RESP 18; TEMP 36.3; O2SAT 92
--- NOTE | 2023-10-31 12:38 | HMH.PROCNOTE ---
[facility] Procedure Note Procedure Note:: Cystoscopy/urethral dilatation: Patient was brought to the cystoscopy room. He was prepped and draped using a sterile technique. 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 The fossa navicularis was dilated from 12 Barbadian through 22 Barbadian. He then underwent flexible cystoscopy. The anterior urethra otherwise is unremarkable. The posterior urethra, the prostatic urethra, is friable. The tissue is hemorrhagic and bleeds easily. This very well may be the source of the hematuria. The patient has had a prior TUR prostate. At first it seemed that his bladder neck had some contracture but passing the scope seem to dilate the bladder neck some. After that from the level of the verumontanum the patient's posterior urethra seemingly is open. The bladder itself is smooth and on trabeculated. The ureteral orifice ease are normal bilaterally with clear reflux of urine. There is no bladder stone tumor hemorrhage or infection. The cystoscope was removed. The patient will continue the same home medications. I will schedule him for a postvoid residual ultrasound. Then I will see him in follow-up visit.
[2023-10-31 12:43] VITALS: BP 136/72; PULSE 71; RESP 18; O2SAT 94
[2023-10-31 12:54] VITALS: BP 157/78; PULSE 74; RESP 18; O2SAT 97
== END 2023-10-31 13:05 | disposition home or self-care (01) ==
PROVIDERS: Visit Provider Urology
PROC: 0TJB8ZZ Inspection of Bladder, Via Natural or Artificial Opening Endoscopic (ICD-10-PCS; CPT 52000; principal; 2023-10-31 12:00)
DX: N35.919 Unspecified urethral stricture, male, unspecified site (principal); R31.9 Hematuria, unspecified; R33.9 Retention of urine, unspecified
CPT/HCPCS: 52281

== ENCOUNTER 2023-11-14 13:57 | Outpatient (CLI) | payer MEDICARE, BC, SELFPAY ==
--- NOTE | 2023-11-14 13:58 | US_ITS ---
FINAL REPORT CLINICAL HISTORY: Urinary retention COMPARISON: 10/27/2023 FINDINGS: ULTRASOUND BLADDER WITH POST VOID RESIDUAL Bladder volumes were estimated based on 3 dimensional measurements, pre- and postvoid. Prevoid bladder volume: 267 mls Postvoid bladder volume: 108 mls IMPRESSION: Estimated bladder volumes as above with significant postvoid residual . Reviewed, Interpreted and Dictated by Denzel Mcqueen III, MD Transcribed by Swati Logan Authenticated and [facility]
== END 2023-11-14 23:59 ==
LOC: RAD 13:58
PROVIDERS: PCP Internal Medicine; Visit Provider Urology
DX: R33.9 Retention of urine, unspecified (principal)
CPT/HCPCS: 76857

== ENCOUNTER 2023-11-21 10:36 | Outpatient (CLI) | payer MEDICARE, BC, SELFPAY ==
[2023-11-21 10:53] LABS: Microscopic, Urine URINE MICROSCOPIC (MICROSCOPIC)
[2023-11-21 11:31] LABS: Basophils # 0.1 K/mm3 (0-0.2); Basophils % 0.9 % (0.1-2.0); Eosinophils # 0.2 K/mm3 (0.0-0.4); Eosinophils % 3.6 % (0.1-12.0); Hematocrit 36.5 % (42.0-52.0); Hemoglobin 11.9 g/dL (14.1-18.0); Lymphocytes # 1.1 K/mm3 (0.7-4.5); Lymphocytes % 19.7 % (10-50); Mean Corpuscular HGB Conc 32.6 g/dL (31.8-35.4); Mean Corpuscular Hemoglobin 29.5 pg (27.0-31.2); Mean Corpuscular Volume 90.6 fl (80-94); Mean Platelet Volume 8.5 fl (7.4-10.4); Monocytes # 0.4 K/mm3 (0.1-1.0); Neutrophils % 68.7 % (37.0-80.0); Platelet Count 146 K/mm3 (142-424); Red Blood Count 4.03 M/mm3 (4.60-6.20); Red Cell Distribution Width 18.1 % (11.5-17.5); White Blood Count 5.8 K/mm3 (4.8-10.8)
[2023-11-21 11:41] LABS: Alanine Aminotransferase 18 U/L (12-78); Albumin/Globulin Ratio 1.5 (1.1-1.8); Alkaline Phosphatase 160 U/L (38-126); Aspartate Amino Transferase 26 U/L (17-59); Bilirubin,Total 0.7 mg/dl (0.2-1.3); Blood Urea Nitrogen 14 mg/dl (9-20); Calcium 9.1 mg/dl (8.4-10.2); Carbon Dioxide 25 mmol/L (22.0-30.0); Chloride 101 mmol/L (98-107); Estimated Glomerular Filt Rate 81 ml/min (>60); GFR (African American) 98 ML/MIN (>60); Globulin 2.6 g/dL (1.3-3.2); Glucose 195 mg/dl (74-100); Sodium 135 mmol/L (136-145); Total Protein,Serum 6.6 g/dl (6.3-8.2)
[2023-11-21 12:39] LABS: Appearance,Urine CLEAR (Clear); Bilirubin,Urine Negative (Negative); Blood, Urine 3+ (Negative); Color,Urine YELLOW (Yellow); Glucose,Urine (UA) Negative (Negative); Ketones,Urine Negative (Negative); Leukocyte Esterase,Urine TRACE (Negative); Nitrate,Urine Negative (Negative); PH,Urine 5.5 (5.0-8.5); Protein,Urine 1+ (Negative); Specific Gravity, Urine >= 1.030 (1.005-1.030); Urobilinogen,Urine 0.2 EU/dl (0.2)
[2023-11-21 13:13] LABS: Bacteria,Urine 1+ /lpf; Squamous Epithelial Cell,Urine Occasional #/hpf (0-5); WBC,Urine Occasional #/hpf (0-3)
== END 2023-11-21 23:59 ==
LOC: LAB 10:37
PROVIDERS: Dermatology; PCP Internal Medicine; Visit Provider Urology
DX: Z12.5 Encounter for screening for malignant neoplasm of prostate (principal); R33.9 Retention of urine, unspecified
CPT/HCPCS: 36415; 80053; 81001; 85025; G0103

== ENCOUNTER 2024-01-16 09:04 | Outpatient (CLI) | payer MEDICARE, BC, SELFPAY ==
[2024-01-16 09:46] LABS: Basophils # 0.1 K/mm3 (0-0.2); Basophils % 1.1 % (0.1-2.0); Eosinophils # 0.2 K/mm3 (0.0-0.4); Eosinophils % 3.2 % (0.1-12.0); Hematocrit 40.4 % (42.0-52.0); Hemoglobin 12.6 g/dL (14.1-18.0); Lymphocytes # 1.6 K/mm3 (0.7-4.5); Lymphocytes % 23.4 % (10-50); Mean Corpuscular HGB Conc 31.2 g/dL (31.8-35.4); Mean Corpuscular Hemoglobin 28.4 pg (27.0-31.2); Mean Platelet Volume 7.7 fl (7.4-10.4); Monocytes # 0.6 K/mm3 (0.1-1.0); Neutrophils # 4.3 K/mm3 (1.8-7.8); Neutrophils % 63.3 % (37.0-80.0); Platelet Count 156 K/mm3 (142-424); Red Blood Count 4.44 M/mm3 (4.60-6.20); Red Cell Distribution Width 19.3 % (11.5-17.5); White Blood Count 6.8 K/mm3 (4.8-10.8)
[2024-01-16 10:20] LABS: Alanine Aminotransferase 19 U/L (12-78); Albumin Level 4.2 g/dl (3.5-5.0); Albumin/Globulin Ratio 1.5 (1.1-1.8); Alkaline Phosphatase 195 U/L (38-126); Anion Gap 8.9 mEq/L (5-15); Aspartate Amino Transferase 33 U/L (17-59); Bilirubin,Total 1.2 mg/dl (0.2-1.3); Blood Urea Nitrogen 9 mg/dl (9-20); Calcium 9.5 mg/dl (8.4-10.2); Carbon Dioxide 31 mmol/L (22.0-30.0); Chloride 99 mmol/L (98-107); Estimated Glomerular Filt Rate 93 ml/min (>60); GFR (African American) 112 ML/MIN (>60); Globulin 2.8 g/dL (1.3-3.2); Glucose 129 mg/dl (74-100); Potassium 3.9 mmoL/L (3.5-5.1); Sodium 135 mmol/L (136-145)
== END 2024-01-16 23:59 | disposition home or self-care (01) ==
PROVIDERS: PCP Internal Medicine; Visit Provider Dermatology
DX: L40.0 Psoriasis vulgaris (principal); Z92.25 Personal history of immunosuppression therapy; Z79.899 Other long term (current) drug therapy
CPT/HCPCS: 36415; 80053; 85025

== ENCOUNTER 2024-02-20 09:30 | Outpatient (CLI) | payer MEDICARE, BC, SELFPAY ==
[2024-02-20 10:19] LABS: Basophils # 0.1 K/mm3 (0-0.2); Eosinophils # 0.3 K/mm3 (0.0-0.4); Eosinophils % 4.2 % (0.1-12.0); Hematocrit 36.9 % (42.0-52.0); Hemoglobin 11.9 g/dL (14.1-18.0); Lymphocytes # 1.5 K/mm3 (0.7-4.5); Lymphocytes % 24.3 % (10-50); Mean Corpuscular HGB Conc 32.1 g/dL (31.8-35.4); Mean Corpuscular Hemoglobin 29.2 pg (27.0-31.2); Mean Platelet Volume 8.5 fl (7.4-10.4); Monocytes # 0.4 K/mm3 (0.1-1.0); Monocytes % 5.8 % (1.7-9.3); Neutrophils # 4.1 K/mm3 (1.8-7.8); Neutrophils % 64.8 % (37.0-80.0); Platelet Count 137 K/mm3 (142-424); Red Blood Count 4.06 M/mm3 (4.60-6.20); Red Cell Distribution Width 19.1 % (11.5-17.5); White Blood Count 6.4 K/mm3 (4.8-10.8)
[2024-02-20 11:26] LABS: Alanine Aminotransferase 22 U/L (12-78); Albumin Level 3.9 g/dl (3.5-5.0); Albumin/Globulin Ratio 1.3 (1.1-1.8); Alkaline Phosphatase 176 U/L (38-126); Anion Gap 15.3 mEq/L (5-15); Aspartate Amino Transferase 36 U/L (17-59); Bilirubin,Total 0.9 mg/dl (0.2-1.3); Blood Urea Nitrogen 12 mg/dl (9-20); Calcium 9.5 mg/dl (8.4-10.2); Carbon Dioxide 27 mmol/L (22.0-30.0); Chloride 98 mmol/L (98-107); Estimated Glomerular Filt Rate 81 ml/min (>60); GFR (African American) 98 ML/MIN (>60); Globulin 3.1 g/dL (1.3-3.2); Glucose 149 mg/dl (74-100); Potassium 4.3 mmoL/L (3.5-5.1); Sodium 136 mmol/L (136-145)
== END 2024-02-20 23:59 | disposition home or self-care (01) ==
LOC: LAB 09:31
PROVIDERS: PCP Internal Medicine; Visit Provider Dermatology
DX: Z79.899 Other long term (current) drug therapy (principal); L40.0 Psoriasis vulgaris
CPT/HCPCS: 36415; 80053; 85025

== ENCOUNTER 2024-04-10 07:51 | Outpatient (CLI) | payer MEDICARE, BC, SELFPAY ==
[2024-04-10 08:25] LABS: Basophils # 0.1 K/mm3 (0-0.2); Basophils % 0.7 % (0.1-2.0); Eosinophils # 0.3 K/mm3 (0.0-0.4); Eosinophils % 4.2 % (0.1-12.0); Hematocrit 33.8 % (42.0-52.0); Hemoglobin 11.2 g/dL (14.1-18.0); Lymphocytes # 1.6 K/mm3 (0.7-4.5); Lymphocytes % 20.9 % (10-50); Mean Corpuscular HGB Conc 33.1 g/dL (31.8-35.4); Mean Corpuscular Hemoglobin 29.8 pg (27.0-31.2); Mean Corpuscular Volume 89.8 fl (80-94); Mean Platelet Volume 8.1 fl (7.4-10.4); Monocytes # 0.6 K/mm3 (0.1-1.0); Neutrophils # 4.9 K/mm3 (1.8-7.8); Neutrophils % 66.2 % (37.0-80.0); Platelet Count 158 K/mm3 (142-424); Red Blood Count 3.77 M/mm3 (4.60-6.20); Red Cell Distribution Width 20.1 % (11.5-17.5); White Blood Count 7.4 K/mm3 (4.8-10.8)
[2024-04-10 08:51] LABS: Alanine Aminotransferase 20 U/L (12-78); Albumin Level 3.8 g/dl (3.5-5.0); Albumin/Globulin Ratio 1.2 (1.1-1.8); Alkaline Phosphatase 181 U/L (38-126); Anion Gap 10.9 mEq/L (5-15); Aspartate Amino Transferase 26 U/L (17-59); Bilirubin,Total 0.8 mg/dl (0.2-1.3); Blood Urea Nitrogen 14 mg/dl (9-20); Calcium 9.2 mg/dl (8.4-10.2); Carbon Dioxide 25 mmol/L (22.0-30.0); Chloride 102 mmol/L (98-107); Estimated Glomerular Filt Rate 81 ml/min (>60); GFR (African American) 98 ML/MIN (>60); Globulin 3.1 g/dL (1.3-3.2); Glucose 148 mg/dl (74-100); Potassium 3.9 mmoL/L (3.5-5.1); Sodium 134 mmol/L (136-145); Total Protein,Serum 6.9 g/dl (6.3-8.2)
== END 2024-04-10 23:59 | disposition home or self-care (01) ==
PROVIDERS: PCP Internal Medicine; Visit Provider Dermatology
DX: Z79.899 Other long term (current) drug therapy (principal); L40.0 Psoriasis vulgaris; Z92.25 Personal history of immunosuppression therapy
CPT/HCPCS: 36415; 80053; 85025

== ENCOUNTER 2024-06-06 08:08 | Outpatient (CLI) | payer MEDICARE, BC, SELFPAY ==
[2024-06-06 08:43] LABS: Basophils # 0.1 K/mm3 (0-0.2); Basophils % 0.7 % (0.1-2.0); Eosinophils # 0.2 K/mm3 (0.0-0.4); Eosinophils % 2.4 % (0.1-12.0); Hematocrit 37.6 % (42.0-52.0); Hemoglobin 11.8 g/dL (14.1-18.0); Lymphocytes # 1.3 K/mm3 (0.7-4.5); Lymphocytes % 19.6 % (10-50); Mean Corpuscular HGB Conc 31.3 g/dL (31.8-35.4); Mean Corpuscular Hemoglobin 29.4 pg (27.0-31.2); Mean Platelet Volume 7.3 fl (7.4-10.4); Monocytes # 0.3 K/mm3 (0.1-1.0); Monocytes % 4.6 % (1.7-9.3); Neutrophils # 4.9 K/mm3 (1.8-7.8); Neutrophils % 72.6 % (37.0-80.0); Platelet Count 184 K/mm3 (142-424); Red Cell Distribution Width 16.9 % (11.5-17.5); White Blood Count 6.7 K/mm3 (4.8-10.8)
[2024-06-06 09:34] LABS: Alanine Aminotransferase 21 U/L (12-78); Albumin/Globulin Ratio 1.4 (1.1-1.8); Alkaline Phosphatase 141 U/L (38-126); Anion Gap 10.7 mEq/L (5-15); Aspartate Amino Transferase 32 U/L (17-59); Blood Urea Nitrogen 13 mg/dl (9-20); Calcium 9.2 mg/dl (8.4-10.2); Carbon Dioxide 25 mmol/L (22.0-30.0); Chloride 103 mmol/L (98-107); Estimated Glomerular Filt Rate 92 ml/min (>60); GFR (African American) 112 ML/MIN (>60); Globulin 2.9 g/dL (1.3-3.2); Glucose 130 mg/dl (74-100); Potassium 3.7 mmoL/L (3.5-5.1); Sodium 135 mmol/L (136-145); Total Protein,Serum 6.9 g/dl (6.3-8.2)
== END 2024-06-06 23:59 | disposition home or self-care (01) ==
PROVIDERS: PCP Internal Medicine; Visit Provider Dermatology
DX: Z79.899 Other long term (current) drug therapy (principal)
CPT/HCPCS: 36415; 80053; 85025

== ENCOUNTER 2024-07-10 08:10 | Outpatient (CLI) | payer MEDICARE, BC, SELFPAY ==
[2024-07-10 08:48] LABS: Basophils # 0.1 K/mm3 (0-0.2); Basophils % 0.8 % (0.1-2.0); Eosinophils # 0.2 K/mm3 (0.0-0.4); Eosinophils % 2.7 % (0.1-12.0); Hematocrit 36.7 % (42.0-52.0); Hemoglobin 11.9 g/dL (14.1-18.0); Lymphocytes # 1.3 K/mm3 (0.7-4.5); Lymphocytes % 16.7 % (10-50); Mean Corpuscular HGB Conc 32.3 g/dL (31.8-35.4); Mean Corpuscular Hemoglobin 28.3 pg (27.0-31.2); Mean Corpuscular Volume 87.6 fl (80-94); Mean Platelet Volume 7.7 fl (7.4-10.4); Monocytes # 0.6 K/mm3 (0.1-1.0); Monocytes % 7.9 % (1.7-9.3); Neutrophils # 5.5 K/mm3 (1.8-7.8); Platelet Count 206 K/mm3 (142-424); Red Blood Count 4.19 M/mm3 (4.60-6.20); Red Cell Distribution Width 18.7 % (11.5-17.5); White Blood Count 7.7 K/mm3 (4.8-10.8)
[2024-07-10 09:07] LABS: Iron 52 ug/dL (49-181)
[2024-07-10 09:08] LABS: Chol/HDL Ratio 1.8 (1-3.5); Cholesterol 123 mg/dl (140-200); HDL Cholesterol 67 mg/dl (40-60); Triglycerides 96 mg/dl (30-150); VLDL Cholesterol 19 mg/dL (0-40)
[2024-07-10 09:17] LABS: Total Iron Binding Capacity 370 ug/dL (261-462)
[2024-07-10 09:19] LABS: Direct LDL Cholesterol 39.13 mg/dL (100-129)
[2024-07-10 09:24] LABS: Hemoglobin A1C 6.8 % (4.0-6.0)
[2024-07-10 10:29] LABS: Albumin Level 4.1 g/dl (3.5-5.0); Chloride 100 mmol/L (98-107); Sodium 136 mmol/L (136-145)
[2024-07-10 10:31] LABS: Blood Urea Nitrogen 9 mg/dl (9-20); Estimated Glomerular Filt Rate 92 ml/min (>60); GFR (African American) 112 ML/MIN (>60)
[2024-07-10 10:32] LABS: Alanine Aminotransferase 16 U/L (12-78); Albumin/Globulin Ratio 1.4 (1.1-1.8); Alkaline Phosphatase 209 U/L (38-126); Aspartate Amino Transferase 28 U/L (17-59); Calcium 9.1 mg/dl (8.4-10.2); Carbon Dioxide 22 mmol/L (22.0-30.0); Glucose 154 mg/dl (74-100); Total Protein,Serum 7.1 g/dl (6.3-8.2)
[2024-07-10 11:21] LABS: Vitamin B12 332 pg/mL (239-931)
[2024-07-10 16:56] LABS: Microscopic, Urine URINE MICROSCOPIC (MICROSCOPIC)
[2024-07-10 18:55] LABS: Appearance,Urine CLEAR (Clear); Blood, Urine 3+ (Negative); Color,Urine YELLOW (Yellow); Glucose,Urine (UA) 1+ (Negative); Ketones,Urine Negative (Negative); Leukocyte Esterase,Urine TRACE (Negative); Nitrate,Urine POSITIVE (Negative); Protein,Urine 2+ (Negative); Specific Gravity, Urine 1.025 (1.005-1.030)
[2024-07-10 19:06] LABS: Bilirubin,Urine Negative (Negative)
[2024-07-10 20:45] LABS: Bacteria,Urine 2+ /lpf; RBC,Urine TNTC #/hpf (0-3); WBC,Urine TNTC #/hpf (0-3)
== END 2024-07-10 23:59 | disposition home or self-care (01) ==
PROVIDERS: Dermatology; Internal Medicine Gastroenterology; PCP Internal Medicine; Visit Provider Internal Medicine
DX: E11.59 Type 2 diabetes mellitus with other circulatory complications (principal); E78.5 Hyperlipidemia, unspecified; Z79.899 Other long term (current) drug therapy; N39.0 Urinary tract infection, site not specified; D50.9 Iron deficiency anemia, unspecified
CPT/HCPCS: 36415; 80053; 80061; 81001; 82607; 82728; 83036; 83540; 83550; 85025; 87086

== ENCOUNTER 2024-07-23 11:04 | Outpatient (CLI) | payer MEDICARE, BC, SELFPAY ==
[2024-07-23 11:14] LABS: Microscopic, Urine URINE MICROSCOPIC (MICROSCOPIC)
[2024-07-23 12:24] LABS: Appearance,Urine CLEAR (Clear); Blood, Urine 3+ (Negative); Color,Urine YELLOW (Yellow); Glucose,Urine (UA) 1+ (Negative); Ketones,Urine Negative (Negative); Leukocyte Esterase,Urine 1+ (Negative); Nitrate,Urine Negative (Negative); Protein,Urine 2+ (Negative); Specific Gravity, Urine >= 1.030 (1.005-1.030); Urobilinogen,Urine 0.2 EU/dl (0.2)
[2024-07-23 12:51] LABS: Bilirubin,Urine 1+ (Negative)
[2024-07-23 14:04] LABS: Squamous Epithelial Cell,Urine Occasional #/hpf (0-5)
== END 2024-07-23 23:59 | disposition home or self-care (01) ==
LOC: LAB 11:06
PROVIDERS: PCP Internal Medicine; Visit Provider Urology
DX: N39.0 Urinary tract infection, site not specified (principal); R32 Unspecified urinary incontinence
CPT/HCPCS: 81001; 87086

== ENCOUNTER 2024-07-25 13:42 | Outpatient (CLI) | payer MEDICARE, BC, SELFPAY ==
--- NOTE | 2024-07-25 13:46 | US_ITS ---
FINAL REPORT CLINICAL HISTORY: UTI COMPARISON: None FINDINGS: RENAL ULTRASOUND Ultrasound images of the kidneys were obtained. The right kidney measures 9.6 cm in length. There is an 18 mm cyst. Questionable stone is noted. There is no hydronephrosis The left kidney measures 12.3 cm in length. There is a 31 mm cyst. Questionable stone is noted. There is no hydronephrosis. IMPRESSION: Bilateral renal cysts and possible stones. No hydronephrosis. Reviewed, Interpreted and Dictated by Denzel Mcqueen III, MD Transcribed by Swati Logan Authenticated and [facility]
--- NOTE | 2024-07-25 13:46 | US_ITS ---
FINAL REPORT CLINICAL HISTORY: UTI COMPARISON: None FINDINGS: ULTRASOUND BLADDER WITH POST VOID RESIDUAL Bladder volumes were estimated based on 3 dimensional measurements, pre- and postvoid. Prevoid bladder volume: 251 mls Postvoid bladder volume: 142 mls Bilateral ureteral jets are identified. IMPRESSION: Moderate postvoid residual. Reviewed, Interpreted and Dictated by Denzel Mcqueen III, MD Transcribed by Swati Logan Authenticated and . [facility]
== END 2024-07-25 23:59 | disposition home or self-care (01) ==
LOC: RAD 13:43
PROVIDERS: PCP Internal Medicine; Visit Provider Urology
DX: N39.0 Urinary tract infection, site not specified (principal)
CPT/HCPCS: 76770; 76857

== ENCOUNTER 2024-08-13 16:18 | Outpatient (CLI) | payer MEDICARE, BC, SELFPAY ==
[2024-08-13 16:02] LABS: Microscopic, Urine URINE MICROSCOPIC (MICROSCOPIC)
[2024-08-13 16:47] LABS: Appearance,Urine CLEAR (Clear); Bilirubin,Urine Negative (Negative); Blood, Urine Negative (Negative); Color,Urine YELLOW (Yellow); Glucose,Urine (UA) Negative (Negative); Ketones,Urine Negative (Negative); Leukocyte Esterase,Urine Negative (Negative); Nitrate,Urine Negative (Negative); Protein,Urine Negative (Negative); Urobilinogen,Urine 0.2 EU/dl (0.2)
[2024-08-13 18:11] LABS: WBC,Urine Occasional #/hpf (0-3)
== END 2024-08-13 23:59 | disposition home or self-care (01) ==
LOC: LAB.DROPOF 16:18
PROVIDERS: PCP Urology; Visit Provider Urology
DX: N39.0 Urinary tract infection, site not specified (principal)
CPT/HCPCS: 81001

== ENCOUNTER 2024-08-23 08:30 | Day surgery (SDC) | payer MEDICARE, BC, SELFPAY ==
[2024-08-21 14:01] VITALS: BMI 33.6
[2024-08-23] VITALS (7 sets, daily range): BP systolic 112–173; BP diastolic 63–86; PULSE 61–88; RESP 16–20; TEMP 36.4–36.6; O2SAT 95–100; BMI 33.7
[2024-08-23] MEDS: LACTATED RINGERS 1000ML 1,000 ML 25 ML IV (08:41)
--- NOTE | 2024-08-23 08:50 | P.PNANES_ITS ---
[facility] Disclaimer: The information contained in this section may have been updated after the patient was seen, as this information can be updated by other users. Medical History History of Guillain-[place] syndrome HLD (hyperlipidemia) HTN (hypertension) GERD (gastroesophageal reflux disease) Atrial fibrillation Diabetes Right bundle branch block Edema Dyspnea Surgical History History of extraction of renal calculus History of colonoscopy History of bowel resection History of cardiac cath Family History Other No significant family history Social History (Updated 08/21/24 @ 14:00 by Hamida Pereyra RN) Smoking Status: Never smoker second hand exposure: No alcohol intake: never substance use type: denies use current occupational status: retired Travel in the last 8 weeks: None household members: spouse housing: house current occupational exposures/hazards: No caffeine: Yes [facility] Anesthesia Checklist Patient Identification Patient Identification: Arm Band and Verbal (Name & ) Structural Data Admitted From: Home Planned Operative Procedure/s: colonoscopy Consent for Planned Operative Procedure(s) Verified: Yes Verified Documents: Surgical Consent and History and Physical NPO Status Verified Time NPO: 06:00 Chart Verification Results Verified: CBC, BMP, ECG and Chest Xray Additional verifications Fingerstick Blood Glucose: 173 Patient : No Anesthesia Reactions: No Hx Blood Transfusions: No Blood Transfusion Reaction: No Previous Colonoscopy: Yes Cardiovascular Assessment Pulse Rhythm: Irregular Peripheral Edema: No Airway Assessment Mallampati Score:: Class II C-Spine Mobility Assessed: Yes TMJ Mobility Assessed: Yes Dentition: Good Dentition (Nothing loose per pt.) Neurological Assessment Level of Consciousness: Awake, Alert, Appropriate and Follows Commands Hx Seizures: No Numbness or tingling in extremities: No Anesthesia Plan Anesthesia Risk discussed: Yes Anesthesia Plan: Verified ASA Class: III Anesthesia Type: MAC
[2024-08-23 09:07] LABS: POC Glucose,Bedside 173 (70-110)
--- NOTE | 2024-08-23 10:07 | EXP.HP ---
History of Present Illness *Admission Date: 08/23/24 *Reason for visit:: Iron deficiency anemia/Crohn's ileitis *History of present illness: Mr. Mendieta is an 84-year-old gentleman who is here for diagnostic colonoscopy secondary to iron deficiency and history of Crohn's disease. The examination is deemed medically necessary for diagnostic colonoscopy. The patient has been seen, interviewed and examined prior to the procedure by both myself and the anesthesia provider. [facility] Disclaimer: The information contained in this section may have been updated after the patient was seen, as this information can be updated by other users. Medical History History of Guillain-[place] syndrome HLD (hyperlipidemia) HTN (hypertension) GERD (gastroesophageal reflux disease) Atrial fibrillation Diabetes Right bundle branch block Edema Dyspnea Surgical History History of extraction of renal calculus History of colonoscopy History of bowel resection History of cardiac cath Family History Other No significant family history Social History Smoking Status: Never smoker second hand exposure: No alcohol intake: never substance use type: denies use current occupational status: retired Travel in the last 8 weeks: None household members: spouse housing: house current occupational exposures/hazards: No caffeine: Yes Other Medical History Have you received the Flu Vaccine for this season: No Have you received the Pneumonia Vaccine: Yes Review of Systems Review of Systems Review of systems (narrative): Negative *Cardiovascular Comments: Negative *Gastrointestinal Comments: Negative *Genitourinary Comments: Negative *Musculoskeletal Comments: Negative *Neurologic Comments: Negative Meds Home Medications and Allergies Home Medications ?Medication ?Instructions ?Recorded ?Confirmed ?Type folic acid 1 mg tablet 1 mg PO WEEKLY with methotrexate 04/25/18 08/21/24 History aspirin 81 mg tablet,delayed 81 mg PO DAILY heart health 07/10/19 08/23/24 History release (Adult Low Dose Aspirin) digoxin 125 mcg (0.125 mg) tablet 125 mcg PO DAILY Atrial Fib 07/10/19 08/21/24 History methotrexate sodium 2.5 mg tablet 10 mg PO WEEKLY PSORIASIS 04/01/21 08/23/24 History ferrous sulfate 325 mg (65 mg 325 mg PO DAILY iron supplement 04/06/21 08/21/24 History iron) tablet furosemide 40 mg tablet 40 mg PO DAILY PRN Diuretic 10/07/21 08/21/24 History spironolactone 25 mg tablet 25 mg PO DAILY #30 tabs 02/23/24 08/21/24 Rx potassium chloride 10 mEq 10 meq PO DAILY #90 caps 02/27/24 08/21/24 Rx capsule,extended release omeprazole 20 mg capsule,delayed 20 mg PO DAILY #90 caps 03/13/24 08/21/24 Rx release pioglitazone 15 mg tablet 15 mg PO DAILY #90 tabs 03/23/24 08/21/24 Rx latanoprost 0.005 % eye drops 1 drp ophthalmic (eye) DAILY #2.5 04/23/24 08/21/24 Rx mL apixaban 5 mg tablet 5 mg PO BID Atrial fib #180 tabs 05/21/24 08/23/24 Rx sitagliptin phosphate 50 1 tab PO BID 06/26/24 08/21/24 History mg-metformin 500 mg tablet (Janumet) atorvastatin 40 mg tablet 40 mg PO HS CHOLESTEROL #90 tabs 07/02/24 08/21/24 Rx sulfasalazine 500 mg tablet 1,500 mg (3 x 500 mg) PO DAILY 07/02/24 08/21/24 Rx CROHN'S DISEASE #90 tabs losartan 100 mg tablet 100 mg PO DAILY #90 tabs 07/24/24 08/23/24 Rx diltiazem HCl 120 mg See Rx Instructions .Route 08/08/24 08/21/24 Rx capsule,extended release 24 hr .COMPLEX #90 caps finasteride 5 mg tablet 5 mg PO DAILY #90 tabs 08/13/24 08/21/24 Rx glipizide 5 mg tablet 5 mg PO HS 08/21/24 08/23/24 History tamsulosin 0.4 mg capsule 0.4 mg PO BID urinary retention 08/21/24 08/21/24 History glipizide 10 mg tablet 10 mg PO DAILY 08/23/24 08/23/24 History New Prescriptions to Start Prescriptions: Allergies Allergy/AdvReac Type Severity Reaction Status Date / Time infliximab (From Remicade) Allergy Severe S-ANAPHYLAX Verified 08/21/24 13:48 IS Influenza Virus Vaccines Allergy Unknown HX OF Verified 08/21/24 13:48 GUILLAN BARRE ustekinumab (From Stelara) Allergy Unknown SUPPRESS Verified 08/21/24 13:48 IMMUNE SYSTEM empagliflozin (From Allergy Other Verified 08/21/24 13:48 Jardiance) Exam Data for Last 24 hours Vital signs and Labs for Last 24 Hours: Temp Pulse Resp BP Pulse Ox O2 Del Method 97.6 F 88 20 173/75 H 96 Room Air 08/23/24 08:54 08/23/24 08:54 08/23/24 08:54 08/23/24 08:54 08/23/24 08:54 08/23/24 08:54 Laboratory Results - last 24 hr 08/23/24 08:58: POC Glucose 173 H I & O for Last 24 hours: Intake & Output 08/20/24 08/21/24 08/22/24 08/23/24 23:59 23:59 23:59 23:59 Weight 234 lb 15.992 oz 235 lb *Routine HEENT Exam Head: Present normocephalic Eye: Present EOMI and PERRL ENT: Present mucous membranes moist *Routine Neck Exam Neck: Present supple *Routine Respiratory Exam Respiratory: Present CTA bilaterally *Routine Cardiovascular Exam Cardiovascular: Present RRR *Routine Abdominal Exam Abdominal: Present soft and normoactive bowel sounds; Absent tenderness *Routine Rectal Exam Rectal:: deferred *Routine Genitalia Exam Genitalia:: deferred *Routine Extremities Exam Extremities: Absent cyanosis, clubbing or edema *Routine Skin Exam Skin: Present warm; Absent rash *Routine Neurological Exam Neurological: Present alert and oriented X3 Assessment and Plan *Assessment and plan (1) Iron deficiency anemia: Status: Chronic Category: Medical Code(s): D50.9 - Iron deficiency anemia, unspecified (2) Crohn's disease of small intestine without complication: Status: Chronic Category: Medical Code(s): K50.00 - Crohn's disease of small intestine without complications Plan A/P: 1. Crohn's disease and iron deficiency is the preprocedural diagnosis. The patient will be anesthetized/sedated using MAC sedation. The patient has been seen and examined. Cardiac and lung assessment prior to the examination is stable. Proceed with planned diagnostic colonoscopy
--- NOTE | 2024-08-23 10:17 | HMH.PROCNOTE ---
[facility] Procedure Note Date: 08/23/24 Time: 10:35 Procedure Note:: Colonoscopy Procedure Report: Colonoscopy with cold biopsies and ablation Endoscopist: Michael Catherine II, MD Referring physician: Salas Mesa MD Date of Procedure: August 23, 2024 Equipment: Olympus 190 variable stiffness pediatric colonoscope Sedation: MAC sedation Indication: Mr. Mendieta is an 84-year-old gentleman who is here for diagnostic colonoscopy. The patient does have a very long history of Crohn's disease diagnosed more than 35 years ago. He did have prior right hemicolectomy with ileocolonic anastomosis in April 1998 (Dr. Rupesh Greenwood). He has been on methotrexate and sulfasalazine as maintenance of remission therapy. His colonoscopy in July 2020 showed moderately active Crohn's disease of the terminal ileum/moderate Crohn's ileitis without stenosis or fistulous disease. The patient had previously been treated with Remicade but had an anaphylactic reaction. He later took Stelara which exacerbated his Guillain-[place]? syndrome. 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 He had a reaction to Jardiance and developed sepsis and severe fungal infection which was aggressive. The patient does have a history of iron deficiency anemia and is on ferrous sulfate. He also is on Eliquis for his atrial fibrillation. His last labs on June 06, 2024 showed hemoglobin 11.8 and hematocrit 37.6. He does have a slightly elevated alkaline phosphatase at 141. I do not have any recent iron testing. The patient did have a CT scan of the abdomen and pelvis in October 2023 that showed some free fluid in the pelvis. There was a hypodense cyst in the right kidney. There were no other inflammatory changes. The patient reports no abdominal pain, rectal bleeding or hematochezia. He has soft formed stools without diarrhea. Occasionally he will get loose stools and urgency when he takes ferrous sulfate. His most recent labs showed hemoglobin 11.9 and hematocrit 36.7. His serum alkaline phosphatase has increased and was most recently 209 with normal transaminases. Procedure: Prior to the procedure, a history and physical exam was performed, and patient's medications and allergies were reviewed. The risks, benefits and alternatives of the sedation and procedure were discussed with the patient. All questions were answered and informed consent was obtained. The patient was brought to the procedure room. Patient identification and proposed procedure were verified by the physician and the nurse. The patient was placed in a left lateral decubitus position and the scope was passed under direct vision. Throughout the procedure, the patient's blood pressure, pulse, and oxygen saturations were monitored continuously. The colonoscopy was accomplished without difficulty. The patient tolerated the procedure well. Findings: On digital rectal examination there was some external tags, there were no perianal fistulas. The scope was then inserted through the anal canal into the rectum and advanced to the ileocolonic anastomosis. This was an end-to-side anastomosis and the scope was advanced a short distance into the terminal ileum. There were aphthous ulcerations and erosions with mild ileal stenosis. Biopsies were obtained. This was consistent with moderately active Crohn's ileitis. There was some minor heme adjacent to the anastomosis from anastomotic ulceration/erosion that was superficial. Upon withdrawal, the remaining ascending, transverse, descending colon were normal. There are a few diverticuli in the sigmoid colon. Upon retroflexion within the rectum there were grade 2 internal hemorrhoids with an adjacent polypoid lesion. This was biopsied and there was some heme so that the hot biopsy forceps was utilized to remove and provide coagulation with complete hemostasis. Impression: 1. Moderately active Crohn's ileitis with end-to-side anastomosis and some anastomotic superficial ulceration 2. Diminutive 5 mm polyp at anorectal junction Plan: I will follow-up the biopsies. I do feel that his iron deficiency is related to the active Crohn's disease and anticoagulation. I will discuss this with the patient. I would consider the Watchman procedure which may allow him to come off of anticoagulation. He has had reactions to several therapies for his Crohn's disease. We will need to determine whether consideration be given to one of the newer Biologics (i.e. Skyrizi).
== END 2024-08-23 11:37 | disposition home or self-care (01) ==
PROVIDERS: PCP Internal Medicine; Visit Provider Internal Medicine Gastroenterology
PROC: (CPT 45380; principal; 2024-08-23 10:00)
DX: D50.9 Iron deficiency anemia, unspecified (principal); K50.00 Crohn's disease of small intestine without complications; K57.30 Diverticulosis of large intestine without perforation or abscess without bleeding; K64.1 Second degree hemorrhoids; K63.5 Polyp of colon; E11.8 Type 2 diabetes mellitus with unspecified complications; Z79.84 Long term (current) use of oral hypoglycemic drugs
CPT/HCPCS: 45380; 45382; 82962; 88305; J7120

== ENCOUNTER 2024-09-14 08:09 | Outpatient (CLI) | payer MEDICARE, BC, SELFPAY ==
--- NOTE | 2024-09-14 08:09 | US_ITS ---
FINAL REPORT TECHNIQUE: Sonographic images of the right upper quadrant were obtained. CLINICAL HISTORY: Elevated alkaline phosphatase FINDINGS: PANCREAS: Not well-visualized. LIVER: Homogeneous. No focal hepatic lesion. No intrahepatic biliary ductal dilatation. The portal vein is patent. GALLBLADDER: Gallstones and sludge are noted in the gallbladder. There is mild gallbladder wall thickening. COMMON DUCT: 5 mm. Normal for age. RIGHT KIDNEY: The right kidney measures 12.7 cm. There is no hydronephrosis, mass, or stone. FREE FLUID: None. IMPRESSION: Sludge and stones in the gallbladder with gallbladder wall thickening, cholecystitis not excluded. Reviewed, Interpreted and Dictated by Cheli Berkowitz MD Transcribed by Susannah Hardy Authenticated and . [facility]
== END 2024-09-14 23:59 | disposition home or self-care (01) ==
LOC: RAD 08:09
PROVIDERS: PCP Internal Medicine; Visit Provider Internal Medicine Gastroenterology
DX: R74.8 Abnormal levels of other serum enzymes (principal)
CPT/HCPCS: 76705

== ENCOUNTER 2024-09-27 11:17 | Outpatient (CLI) | payer MEDICARE, BC, SELFPAY ==
[2024-09-27 12:07] LABS: Alanine Aminotransferase 19 U/L (12-78); Albumin/Globulin Ratio 1.5 (1.1-1.8); Alkaline Phosphatase 154 U/L (38-126); Aspartate Amino Transferase 31 U/L (17-59); Bilirubin,Total 1.2 mg/dl (0.2-1.3); Blood Urea Nitrogen 13 mg/dl (9-20); Calcium 9.5 mg/dl (8.4-10.2); Carbon Dioxide 26 mmol/L (22.0-30.0); Chloride 100 mmol/L (98-107); Estimated Glomerular Filt Rate 81 ml/min (>60); GFR (African American) 98 ML/MIN (>60); Globulin 2.7 g/dL (1.3-3.2); Glucose 171 mg/dl (74-100); Sodium 135 mmol/L (136-145); Total Protein,Serum 6.7 g/dl (6.3-8.2)
[2024-09-27 12:25] LABS: Basophils % 0.5 % (0.1-2.0); Eosinophils # 0.1 K/mm3 (0.0-0.4); Eosinophils % 1.9 % (0.1-12.0); Hematocrit 31.8 % (42.0-52.0); Hemoglobin 9.8 g/dL (14.1-18.0); Lymphocytes # 0.9 K/mm3 (0.7-4.5); Lymphocytes % 14.5 % (10-50); Mean Corpuscular HGB Conc 30.8 g/dL (31.8-35.4); Mean Corpuscular Hemoglobin 27.1 pg (27.0-31.2); Mean Corpuscular Volume 88.1 fl (80-94); Mean Platelet Volume 10.5 fl (7.4-10.4); Monocytes # 0.1 K/mm3 (0.1-1.0); Neutrophils # 5.2 K/mm3 (1.8-7.8); Neutrophils % 80.8 % (37.0-80.0); Platelet Count 168 K/mm3 (142-424); Red Blood Count 3.61 M/mm3 (4.60-6.20); Red Cell Distribution Width 19.9 % (11.5-17.5); White Blood Count 6.5 K/mm3 (4.8-10.8)
== END 2024-09-27 23:59 | disposition home or self-care (01) ==
LOC: LAB 11:19
PROVIDERS: Dermatology; PCP Internal Medicine; Visit Provider Internal Medicine Gastroenterology
DX: L40.0 Psoriasis vulgaris (principal)
CPT/HCPCS: 36415; 80053; 85025

== ENCOUNTER 2024-10-08 11:00 | Outpatient (CLI) | payer MEDICARE, BC, SELFPAY ==
--- NOTE | 2024-10-08 11:02 | CA_ITS ---
APPROVED REPORT EXAM: Comprehensive 2D, Doppler, and color-flow Echocardiogram Magnetic Tape Typewriter Operator: Tammie Bajwa RDCS Ht: 5 ft 10 in Wt: 240lbs BSA: 2.26 BP: 140/60 mmHg Indications: DIASTOLIC DYSFXN,AF,HTN,HLP M-Mode Dimensions RVDd 2.04 cm (0.9-2.6) LA Diam 5.11 cm (1.9-4.0) LVDd 5.31 cm (3.5-5.7) LVDs 3.82 cm (3.5-5.7) IVSd 1.15 cm (0.6-1.1) PWd 1.02 cm (0.6-1.1) EF (Teich) 53.90% FS 28.10% EDV (Teich) 135.90 mL ESV (Teich) 62.70 mL LV Diastology E Decel Time 130 (160-240 msec) E/A Ratio 2.4 Mitral Valve MV E Max Carroll. 110.0 (40-130 cm/s) MV A Velocity 45.0 (40-130 cm/s) E/A Ratio 2.46 MV PHT 38.0 ms Left Ventricle The left ventricle is normal size. The left ventricular systolic function is normal. The left ventricular ejection fraction is within the normal range. There is increased LV wall thickness. There is normal LV segmental wall motion. Diastolic function is indeterminate due to atrial fibrillation. LVEF is 55%. Right Ventricle Right ventricle is mildly dilated. The right ventricular systolic function is normal. Atria Left atrium is moderately dilated. Right atrium is moderately dilated. There is no Doppler evidence of interatrial shunt. Aortic Valve The aortic valve is mildly thickened. There is no aortic valvular stenosis. Trace aortic regurgitation. Mitral Valve The mitral valve is normal in structure. No evidence of mitral valve stenosis. Trace mitral regurgitation. Tricuspid Valve The tricuspid valve leaflets are thin and pliable. Trace tricuspid regurgitation. There is insufficient TR jet to estimate RVSP. Pulmonic Valve The pulmonary valve is normal in structure. Trace pulmonic regurgitation. Great Vessels The aortic root is normal in size. The ascending aorta is not well-visualized. IVC is normal in size and collapses >50% with inspiration. Pericardium There is no pericardial effusion. Other Information Study Quality: Fair Conclusion Normal biventricular systolic function. Mild RV dilation. Biatrial dilation. No significant valvular stenosis or regurgitation. Electronically signed by : Sandra Proctor MD 10/14/2024 02:53:21
== END 2024-10-08 23:59 | disposition home or self-care (01) ==
LOC: RT 11:00
PROVIDERS: PCP Internal Medicine; Visit Provider Nurse Practitioner
DX: Z01.810 Encounter for preprocedural cardiovascular examination (principal); I51.89 Other ill-defined heart diseases
CPT/HCPCS: 93306

== ENCOUNTER 2024-11-14 08:12 | Outpatient (CLI) | payer MEDICARE, BC, SELFPAY ==
[2024-11-14 09:49] LABS: Alanine Aminotransferase 18 U/L (12-78); Albumin Level 4.4 g/dl (3.5-5.0); Albumin/Globulin Ratio 1.8 (1.1-1.8); Alkaline Phosphatase 204 U/L (38-126); Aspartate Amino Transferase 28 U/L (17-59); Bilirubin,Total 0.8 mg/dl (0.2-1.3); Blood Urea Nitrogen 14 mg/dl (9-20); Calcium 9.1 mg/dl (8.4-10.2); Carbon Dioxide 26 mmol/L (22.0-30.0); Chloride 102 mmol/L (98-107); Estimated Glomerular Filt Rate 92 ml/min (>60); GFR (African American) 112 ML/MIN (>60); Globulin 2.5 g/dL (1.3-3.2); Glucose 127 mg/dl (74-100); Sodium 136 mmol/L (136-145); Total Protein,Serum 6.9 g/dl (6.3-8.2)
== END 2024-11-14 23:59 | disposition home or self-care (01) ==
LOC: LAB 08:13
PROVIDERS: PCP Internal Medicine; Visit Provider Dermatology
DX: L40.0 Psoriasis vulgaris (principal)
CPT/HCPCS: 36415; 80053

== ENCOUNTER 2024-11-19 15:53 | Outpatient (CLI) | payer MEDICARE, BC, SELFPAY ==
[2024-11-19 15:50] LABS: Microscopic, Urine URINE MICROSCOPIC (MICROSCOPIC)
[2024-11-19 21:09] LABS: Appearance,Urine Clear (Clear); Bilirubin,Urine Negative (Negative); Color,Urine Yellow (Yellow); Glucose,Urine (UA) Negative (Negative); Ketones,Urine Negative (Negative); Leukocyte Esterase,Urine Negative (Negative); Nitrate,Urine Negative (Negative); Protein,Urine Negative (Negative); Urobilinogen,Urine 0.2 EU/dl (0.2)
[2024-11-19 21:10] LABS: Bacteria,Urine Trace /lpf; Blood, Urine 2+ (Negative); Squamous Epithelial Cell,Urine Occasional #/hpf (0-5)
== END 2024-11-19 23:59 | disposition home or self-care (01) ==
LOC: LAB.DROPOF 15:53
PROVIDERS: PCP Urology; Visit Provider Urology
DX: N20.0 Calculus of kidney (principal)
CPT/HCPCS: 81001

== ENCOUNTER 2024-11-21 10:21 | Outpatient (CLI) | payer MEDICARE, BC, SELFPAY ==
--- NOTE | 2024-11-21 10:22 | US_ITS ---
FINAL REPORT TECHNIQUE: Ultrasound images of the kidneys and bladder were obtained. CLINICAL HISTORY: .stones COMPARISON: 07/25/2024 FINDINGS: The right kidney measures 9.6 cm in length. It is normal in echogenicity. There is no hydronephrosis. The left kidney measures 9 cm in length. It is normal in echogenicity. There is no hydronephrosis. There are a few minimal shadowing foci in the left kidney, possibly related to tiny stones. IMPRESSION: Possible tiny left renal stones. Reviewed, Interpreted and Dictated by Roc Kirby MD Transcribed by Jillian Cardenas Authenticated and . [facility]
== END 2024-11-21 23:59 | disposition home or self-care (01) ==
LOC: RAD 10:22
PROVIDERS: PCP Internal Medicine; Visit Provider Urology
DX: N20.0 Calculus of kidney (principal)
CPT/HCPCS: 76770

== ENCOUNTER 2025-01-02 08:02 | Outpatient (CLI) | payer MEDICARE, BC, SELFPAY ==
[2025-01-02 08:38] LABS: Basophils # 0.1 K/mm3 (0-0.2); Basophils % 1.2 % (0.1-2.0); Eosinophils # 0.3 Kmm3 (0.0-0.4); Hematocrit 30.7 % (42.0-52.0); Hemoglobin 9.7 g/dL (14.1-18.0); Lymphocytes # 1.4 K/mm3 (0.7-4.5); Lymphocytes % 16.7 % (10-50); Mean Corpuscular HGB Conc 31.6 g/dL (31.8-35.4); Mean Corpuscular Hemoglobin 25.8 pg (27.0-31.2); Mean Corpuscular Volume 81.6 fl (80-94); Mean Platelet Volume 9.9 fl (7.4-10.4); Monocytes # 0.9 K/mm3 (0.1-1.0); Monocytes % 10.4 % (1.7-9.3); Neutrophils # 5.6 K/mm3 (1.8-7.8); Neutrophils % 68.3 % (37.0-80.0); Nucleated Red Blood Cells # 0 10^3/uL; Nucleated Red Blood Cells % 0 %; Platelet Count 247 K/mm3 (142-424); Red Blood Count 3.76 M/mm3 (4.60-6.20); Red Cell Distribution Width-SD 59.1 fL; White Blood Count 8.2 K/mm3 (4.8-10.8)
[2025-01-02 08:53] LABS: Albumin Level 3.8 g/dl (3.5-5.0); Chloride 101 mmol/L (98-107); Sodium 135 mmol/L (136-145)
[2025-01-02 08:56] LABS: Alanine Aminotransferase 14 U/L (12-78); Albumin/Globulin Ratio 1.1 (1.1-1.8); Alkaline Phosphatase 223 U/L (38-126); Aspartate Amino Transferase 31 U/L (17-59); Blood Urea Nitrogen 12 mg/dl (9-20); Calcium 9.2 mg/dl (8.4-10.2); Carbon Dioxide 25 mmol/L (22.0-30.0); Estimated Glomerular Filt Rate 92 ml/min (>60); GFR (African American) 112 ML/MIN (>60); Globulin 3.4 g/dL (1.3-3.2); Glucose 119 mg/dl (74-100); Total Protein,Serum 7.2 g/dl (6.3-8.2)
[2025-01-02 09:42] LABS: Chol/HDL Ratio 1.8 (1-3.5); Cholesterol 125 mg/dl (140-200); HDL Cholesterol 71 mg/dl (40-60); Triglycerides 102 mg/dl (30-150); VLDL Cholesterol 20 mg/dL (0-40)
[2025-01-02 09:52] LABS: Direct LDL Cholesterol 30.78 mg/dL (100-129)
== END 2025-01-02 23:59 | disposition home or self-care (01) ==
LOC: LAB 08:04
PROVIDERS: Dermatology; PCP Internal Medicine; Visit Provider Internal Medicine
DX: E78.5 Hyperlipidemia, unspecified (principal); L40.0 Psoriasis vulgaris
CPT/HCPCS: 36415; 80053; 80061; 85025

== ENCOUNTER 2025-02-08 11:40 | Outpatient (CLI) | payer MEDICARE, BC, SELFPAY ==
--- OUTSIDE RECORDS SUMMARY | 2025-02-08 11:44 | XMS_ITS | Data Portability ---
Author Organization [facility] [place] [facility] Address [address] [place] [address] Care Team Providers Care Labor Relations Representative Name Role Phone HOSSEIN VALVERDE Barrel Raiser SILVIA UNDERWOOD Primary Care Provider VIVIAN HAMILTON Telemarketer [phone] Assessment Encounter Date Assessment Date Assessment LastModified by Organization Details LastModified Time 07/26/2023 07/26/2023 clear. doing well with MTX 10mg per week. [email or web address] Not available 07/26/2023 14:31:13 Plan of Treatment Reminders Order Date Submit Date Provider Last Modified By Organization Details Last Modified Time Details Appointments FOLLOW UP [facility] 2024 02:00P M DR. DIAZ Not available Not available Not available FOLLOW UP [facility] 2024 03:00P M DR. DIAZ Not available Not available Not available Lab CBC w/ auto diff 2024 025 [email or web address] 3 [facility] (Lab), [address], [place], [address], 02/05/2025 09:50:47 CMP, serum or plasma 2024 025 3 [facility] (Lab), [address], [place], [address], 02/05/2025 09:50:47 Referral None recorded. Procedures None recorded. Surgeries None recorded. Imaging None recorded. Medication Orders methotrex ate sodium 2.5 mg tablet 2024 025 [facility][id number], [address], [place], [id number], 01/29/2025 13:35:27 methotrex ate sodium 2.5 mg tablet 2024 025 [facility] #[id number], [address], [place], [id number], 10/17/2024 14:31:53 methotrex ate sodium 2.5 mg tablet 2023 024 [facility] #[id number], [address], [place], [place], [id number], 06/06/2024 15:01:52 methotrex ate sodium 2.5 mg tablet 2023 024 [facility] #87390, [address], [place], [id number], 02/08/2024 17:37:24 methotrex ate sodium 2.5 mg tablet 2022 023 [facility], [address], [place], [address], 07/26/2023 17:30:02 Patient TargetsNo targets recorded. Patient InstructionsNo instructions recorded. Reason for Referral None Reported. Results Created Date Observation Date Name Description Value Unit Range Abnormal Flag Note LastModifiedBy Organization Detail LastModifiedTime Result Notes None recorded. Medical Equipment None Reported. Allergies Allergen ID Allergen Name Allergen Category Reaction Reaction Severity Criticality Documentation Date Start Date Code Code System Note Provider Name and Address Organization Details Recorded Time 485897 Stelara medicatio n Not available Not available Not available 07/26/2023 03283 1 [facility] 12:21:38 [id number] Remicade medicatio n Not available Not available Not available 07/26/2023 81476 0 RxNorm Nik Casanova [facility] 12:21:42 [id number] Jardiance medicatio n Not available Not available Not available 07/26/2023 15097 59 RxNorm Nik Casanova [facility] 12:21:49 Medications Name Sig Start Date Stop Date Status Note LastModified by Organization Details LastModified Time triamcinolo ne acetonide 0.1 % topical cream APPLY A THIN LAYER TO THE AFFECTED AREA(S) BY TOPICAL ROUTE 2 TIMES PER DAY x 2 weeks and then as needed for flares 2023 active Not Available Not Available Not Avai lable methotrexat e sodium 2.5 mg tablet TAKE 4 TABLETS BY MOUTH ONCE WEEKLY 2024 active Not Available Not Available Not Avai lable tamsulosin 0.4 mg capsule Daily 07/26 completed Not Available Not Available Not Available aspirin active Not Available Not Avail able Not Available Lipitor active Not Available Not Avail able Not Available omeprazole active Not Available Not Av ailable Not Available Flomax active Not Available Not Availa ble Not Available losartan active Not Available Not Avai lable Not Available glipizide active Not Available Not Amy ilable Not Available metformin active Not Available Not Amy ilable Not Available lovastatin 07/26 completed Not Available Not Available Not Available Actos active Not Available Not Availa ble Not Available Januvia active Not Available Not Avail able Not Available Eliquis active Not Available Not Avail able Not Available sulfacetami de active Not Available Not Available Not Available Vitals None Recorded Social History Question Answer Notes LastModified by Organizat ion Details LastModified Time Tobacco Smoking Status Never Smoker Nik Casanova [facility] 07/26/2023 12:25:19 Sunscreen Use? No Informatio n not available 02/08/2024 Tanning Bed Use No Informati on not available 02/08/2024 What Was The Date Of Your Most Recent Tobacco Screening? 01/29/2025 [email or web address] Information not available 01/29/2025 Sex: Unknown Functional Status Question Answer Note LastModified by Organizat ion Details LastModified Time What is your level of alcohol consumption? Occasional Information not available 07/26/2023 Mental Status None recorded. Family History Nothing Reported. Medical History No medical history recorded. Past Encounters Encounter ID Performer Location Encounter Start Date Encounter Closed Date Diagnosis/Indication Diagnosis SNOMED-CT Code Diagnosis ICD10 Code Diagnosis Note [id number] HOSSEIN DIAZ MD [address] [address] 07/26/2023 12:14:06 07/26/2023 12:44:13 Psoriasis vulgaris 892084660 L40.0 Controlled on medication s.Continue methotrexa te and folic acid.Rx prescribed for MTX 2.5mg weekly by mouth. SE reviewed.P t to call if flares. Plaque psoriasis 5493101 09 L40.0 Psoriasis 1442790 L40.9 [id number] HOSSEIN DIAZ MD [address] [address] 02/08/2024 15:32:13 02/08/2024 16:02:43 Psoriasis vulgaris 166192829 L40.0 Z79.899 Controlled on medication s.Pt has not been holding MTX for approx 1 week due to ill .Rx refilled for MTX 2.5mg 4 tabs weekly by mouth. SE reviewed.P t to call if flares/ worsens [id number] HOSSEIN DIAZ MD [address] [address] 06/06/2024 12:04:05 06/06/2024 13:06:06 Psoriasis vulgaris 014623096 L40.0 Z79.899 Flared after taking 3 week break off from MTX while he had covid.Pt took 2-3 weeks off from MTX due to pt being sick with Covid about 3 wks ago.Rx refilled for MTX 2.5mg 4 tabs weekly by mouth. SE reviewed.P t to call if flares/ worsens [id number] HOSSEIN DIAZ MD [address] [address] 10/17/2024 11:43:43 10/17/2024 12:07:57 Psoriasis vulgaris 764273159 L40.0 Z79.899 The nature of the diagnosis was explained. controlled on MTX 10mg per week. He wants to try to lower dosePt can try going down to 7.5mg MTX per week.Rx refilled for MTX. SE reviewed.p t to call if flares/ worsens. [id number] HOSSEIN DIAZ MD [facility] [address] [place] [address] 01/29/2025 12:42:36 01/29/2025 13:18:26 Psoriasis vulgaris 850234471 L40.0 The nature of the diagnosis was explained. worsening since he came off MTXPt has been off of MTX for about 1-1.5 months due to having a watchman procedure done.Rx prescribed for Methotrexa te 2.5mg, take 4 tabs po qweekly. SE reviewed.P t has Rx TAC at home.pt to call if flares/ worsens. Hematoma 085524794 T14.8 XXA The nature of the diagnosis was explained. needs to see cardiologi st [facility] Concerns Section Related Observation LastModified by Organization Detai ls LastModified Time None Recorded Concern Status LastModified by Organization Details LastModified Time None Recorded Advance Directives Directive None Recorded Payers Insurance Date Sequence Insurance Name Policy Number Policy Cervantes Covered Member ID Cervantes Member ID Guarantor Name 01/29/2025 1 [place] Ned Melendez [id number] Ned Melendez 01/29/2025 2 [place] [id number] Ned Melendez [id number] Ned Melendez Notes Date Note Type Note Provider Name and Address Organization Details Recorded Time 07/26/2023 text/html 1. Follow up: psoriasislocation: widespreadduration: 2 month f/uprior tx: MTX, OTC folic acid, TACreports: everything is good. no current flares HOSSEIN DIAZ MD [address] [place], [address], [facility] 07/26/2023 14:32:01 02/08/2024 text/html psoriasis6 month f/utx: MTX, OTC folic acidreports:I have not take been taking the MTX for 1 week due to my being sick . HOSSEIN DIAZ MD [facility] [place], [address], [facility] 02/08/2024 17:37:34 06/06/2024 text/html psoriasis on MTX 10mg per weekhx of [place] from [facility] psoriasis4 month f/utx: methotrexate, triamcinolonereports : Pt has not been taking methotrexate due to him having covid and the Rx lowering his immune system. The psoriasis is pretty much localized in one area. Pt would like his labs done. HOSSEIN DIAZ MD [facility] [place], [address], [facility] 06/06/2024 17:45:33 10/17/2024 text/html psoriasis on mtx 10mg per week---------I am here to follow up on my Psoriasis, everything is going well. tx: MTX, TAC-prn. I am trying to cut down on my MTX. HOSSEIN DIAZ MD [facility] [place], [address], [facility] 10/17/2024 14:31:59 01/29/2025 text/html psoriasismtxhx o f [place] I am here for my psoriasis. Went off methotrexate due to other procedures and is having a flare up of psoriasis right now. Pt states he had a heart cath put in recently and he wants his groin area checked out as well. HOSSEIN DIAZ MD [facility] [place], [address], [facility] 01/29/2025 13:31:26
--- OUTSIDE RECORDS SUMMARY | 2025-02-08 11:44 | XMS_ITS | Continuity of Care Document ---
Author Organization [facility] LISA [place] Address [address] [place] [address] Care Team Providers Care Cigar Inspector Name Role Phone HOSSEIN VALVERDE Talent Acquisition Associate SILVIA UNDERWOOD Primary Care Provider [phone] VIVIAN HAMILTON Clinical Lab Clerk [phone] Assessment No assessment recorded. Plan of Treatment Reminders Order Date Submit Date Provider Last Modified By Organization Details Last Modified Time Details Appointments FOLLOW UP [facility] 2024 02:00P M DR. DIAZ Not available Not available Not available FOLLOW UP [facility] [address] DIAZ Not available Not available Not available Lab CBC w/ auto diff 2024 025 [email or web address] 3 [facility] (Lab), [address] [place], [place] [address] [address], [place], [address], 02/05/2025 09:50:47 CMP, serum or plasma 2024 025 [email or web address] 3 [facility] ([facility] [address], [place], [address], 02/05/2025 09:50:47 Referral None recorded. Procedures None recorded. Surgeries None recorded. Imaging None recorded. Medication Orders methotrex ate sodium 2.5 mg tablet 2024 025 [facility] #[id number], [address] [address] [place], [id number], 01/29/2025 13:35:27 Patient TargetsNo targets recorded. Patient InstructionsNo instructions recorded. Reason for Referral None Reported. Medical Equipment None Reported. Allergies Allergen ID Allergen Name Allergen Category Reaction Reaction Severity Criticality Documentation Date Start Date Code Code System Note Provider Name and Address Organization Details Recorded Time 353880 Stelara medicatio n Not available Not available Not available 07/26/2023 53159 1 [facility] 12:21:38 039111 Remicade medicatio n Not available Not available Not available 07/26/2023 11430 0 [facility] 12:21:42 382452 Jardiance medicatio n Not available Not available Not available 07/26/2023 03662 59 RxNorm [facility] 12:21:49 Medications Name Sig Start [...] Time Tobacco Smoking Status Never Smoker Nik Chandlerchino [facility] 07/26/2023 12:25:19 Sunscreen Use? No Informatio n [...] SNOMED-CT Code Diagnosis ICD10 Code Diagnosis Note [id number] HOSSEIN DIAZ MD [address] [place] [address] 01/29/2025 12:42:36 01/29/2025 13:18:26 Psoriasis vulgaris 551245184 L40.0 The nature of the diagnosis was explained. worsening since he came off MTXPt has been off of MTX for about 1-1.5 months due to having a watchman procedure done.Rx prescribed for Methotrexa te 2.5mg, take 4 tabs po qweekly. SE reviewed.P t has Rx TAC at home.pt to call if flares/ worsens. Hematoma 200717126 T14.8 XXA The nature of the diagnosis was explained. needs to see cardiologi [facility] Concerns Section Related Observation LastModified by Organization Detai ls LastModified Time None Recorded Concern Status LastModified by Organization Details LastModified Time None Recorded Payers Encounter Date Sequence Insurance Name Policy Number Policy Cervantes Covered Member ID Cervantes Member ID Guarantor Name 01/29/2025 1 [place] Ned Melendez [id number] Ned Melendez 01/29/2025 2 [place]IC[place] [id number] Ned Melendez [id number] Ned Melendez Notes Date Note Type Note Provider Name and Address Organization Details Recorded Time 01/29/2025 text/html psoriasismtxhx o souleymane [place] I am here for my psoriasis. Went off methotrexate due to other procedures and is having a flare up of psoriasis right now. Pt states he had a heart cath put in recently and he wants his groin area checked out as well. HOSSEIN DIAZ MD [address] [place], [address], [facility] 01/29/2025 13:31:26
--- NOTE | 2025-02-08 12:00 | CT_ITS ---
FINAL REPORT TECHNIQUE: Axial images through the pelvis were performed by computed tomography without contrast. Sagittal and coronal reconstruction images were performed. This study was performed with techniques to keep radiation doses as low as reasonably achievable (ALARA). Individualized dose reduction techniques using automated exposure control or adjustment of mA and/or kV according to the patient's size were employed. CLINICAL HISTORY: Right groin mass, along inguinal canal COMPARISON: 10/17/2023 FINDINGS: There are partially visible and calcified stones in the left collecting system. These measure up to 1 cm. There is a complex cystic structure in the anterior right kidney measuring 1.5 cm probably due to a complex benign cyst. The urinary bladder is decompressed. There is moderate ascites present. There are postsurgical changes within the proximal sigmoid colon. There is a skin marker in the right inguinal region corresponding to a 2.2 cm lymph node. There is a similar-appearing left inguinal node measuring 2.2 cm. There is a mild fat-containing right inguinal hernia. Multiple small nodes are seen in both inguinal regions. IMPRESSION: Nonobstructing left kidney stones measuring up to 10 mm. Moderate ascites. Bilateral inguinal lymph nodes measuring up to 2.2 cm. Small fat-containing right inguinal hernia. Reviewed, Interpreted and Dictated by Roc Kirby MD Transcribed by Susannha Hardy Authenticated and [facility]
== END 2025-02-08 23:59 | disposition home or self-care (01) ==
LOC: RAD 11:42
PROVIDERS: PCP Internal Medicine; Visit Provider Internal Medicine
DX: K40.90 Unilateral inguinal hernia, without obstruction or gangrene, not specified as recurrent (principal); N20.0 Calculus of kidney; R18.8 Other ascites; R59.0 Localized enlarged lymph nodes
CPT/HCPCS: 72192

== ENCOUNTER 2025-03-19 15:32 | Outpatient (CLI) | payer MEDICARE, BC, SELFPAY ==
--- OUTSIDE RECORDS SUMMARY | 2025-03-19 15:36 | XMS_ITS | Data Portability ---
Author Organization [facility] Angela ace, [place] [facility] Address [address] [address] [facility] [place] [address] Care Team Providers Care Vrt Mechanic Name Role Phone HOSSEIN VALVERDE Filter Press Operator SILVIA UNDERWOOD Primary Care Provider [phone] VIVIAN HAMILTON Data Typist [phone] Assessment Encounter Date Assessment Date Assessment LastModified by Organization Details LastModified Time 07/26/2023 07/26/2023 clear. doing well with MTX 10mg per week. [email or web address] Not available 07/26/2023 14:31:13 Plan of Treatment Reminders Order Date Submit Date Provider Last Modified By Organization Details Last Modified Time Details Appointments FOLLOW UP [facility] 2024 02:00P M DR. DIAZ Not available Not available Not available FOLLOW UP [facility] 2024 03:00P M DR. DIAZ Not available Not available Not available Lab CBC w/ auto diff 2024 025 [facility] (Lab), [address], [place], [address], 02/28/2025 04:06:59 CMP, serum or plasma 2024 025 [facility] (Lab), [address], [place], [address], 02/28/2025 04:06:59 Referral None recorded. Procedures None recorded. Surgeries None recorded. Imaging None recorded. Medication Orders methotrex ate sodium 2.5 mg tablet 2024 025 [facility] #10884, [address], [place], [id number], 01/29/2025 13:35:27 methotrex ate sodium 2.5 mg tablet 2024 025 [facility] #85080, [address], [place], [id number], 10/17/2024 14:31:53 methotrex ate sodium 2.5 mg tablet 2023 024 [facility] #65325, [address], [place], [place], [id number], 06/06/2024 15:01:52 methotrex ate sodium 2.5 mg tablet 2023 024 [facility] #54894, [address], [place], [place], [id number], 02/08/2024 17:37:24 methotrex ate sodium 2.5 mg tablet 2022 023 [facility], [address], [place], [address], 07/26/2023 17:30:02 Patient TargetsNo targets recorded. Patient [...] Name and Address Organization Details Recorded Time 068094 Stelara medicatio n Not available Not available Not available 07/26/2023 18929 1 RxNorm [place] [facility] 12:21:38 269673 Remicade medicatio n Not available Not available Not available 07/26/2023 38815 0 RxNorm Nik Casanova [facility] 12:21:42 275651 Jardiance medicatio n Not available Not available Not available 07/26/2023 98534 59 RxNorm Nik Casanova [facility] 12:21:49 Medications Name Sig Start [...] Tobacco Smoking Status Never Smoker Nik Casanova [facility] 07/26/2023 12:25:19 Sunscreen Use? No [...] SNOMED-CT Code Diagnosis ICD10 Code Diagnosis Note [id number] HOSSEIN DIAZ MD [address] [address] 07/26/2023 12:14:06 07/26/2023 12:44:13 Psoriasis vulgaris [id number] L40.0 Controlled on medication s.Continue methotrexa te and folic acid.Rx prescribed for MTX 2.5mg weekly by mouth. SE reviewed.P t to call if flares. 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 SE reviewed.P t to call if flares/ worsens [id number] HOSSEIN DIAZ MD [address] [address] 06/06/2024 12:04:05 06/06/2024 13:06:06 Psoriasis vulgaris [id number] L40.0 Z79.899 Flared after taking 3 week break off from MTX while he had covid.Pt took 2-3 weeks off from MTX due to pt being sick with Covid about 3 wks ago.Rx refilled for MTX 2.5mg 4 tabs weekly by mouth. SE reviewed.P t to call if flares/ worsens [id number] HOSSEIN DIAZ MD [address] [address] 10/17/2024 11:43:43 10/17/2024 12:07:57 Psoriasis vulgaris [id number] L40.0 Z79.899 The nature of the diagnosis was explained. controlled on MTX 10mg per week. He wants to try to lower dosePt can try going down to 7.5mg MTX per week.Rx refilled for MTX. SE reviewed.p t to call if flares/ worsens. [id number] HOSSEIN DIAZ MD [facility] [address] [place] [address] 01/29/2025 12:42:36 01/29/2025 13:18:26 Psoriasis vulgaris [id number] L40.0 The nature of the diagnosis was explained. worsening since he came off MTXPt has been off of MTX for about 1-1.5 months due to having a watchman procedure done.Rx prescribed for Methotrexa te 2.5mg, take 4 tabs po qweekly. SE reviewed.P t has Rx TAC at home.pt to call if flares/ worsens. Hematoma [id number] T14.8 XXA The nature of the diagnosis [...] Name 01/29/2025 1 [place] Ned Melendez [id number] Ned Melendez 01/29/2025 2 [place] [id number] Ned Melendez [id number] Ned Melendez Notes Date Note Type Note Provider Name and Address Organization Details Recorded Time 07/26/2023 text/html 1. Follow up: psoriasislocation: widespreadduration: 2 month f/uprior tx: MTX, OTC folic acid, TACreports: everything is good. no current flares HOSSEIN DIAZ MD [address] [place], [address], [facility] 07/26/2023 14:32:01 02/08/2024 text/html psoriasis6 month f/utx: MTX, OTC folic acidreports:I have not take been taking the MTX for 1 week due to my being sick . HOSSEIN DIAZ MD [facility] [place], [address], [facility] 02/08/2024 17:37:34 06/06/2024 text/html psoriasis on MTX 10mg per weekhx of [place] from [facility] psoriasis4 month f/utx: methotrexate, triamcinolonereports : Pt has not been taking methotrexate due to him having covid and the Rx lowering his immune system. The psoriasis is pretty much localized in one area. Pt would like his labs done. HOSSEIN DIAZ MD [facility] [place], [address], [facility] 06/06/2024 17:45:33 10/17/2024 text/html psoriasis on mtx 10mg per week---------I am here to follow up on my Psoriasis, everything is going well. tx: MTX, TAC-prn. I am trying to cut down on my MTX. HOSSEIN DIAZ MD [facility] [place], [address], [facility] 10/17/2024 14:31:59 01/29/2025 text/html psoriasismtxhx o f [place] I am here for my psoriasis. Went off methotrexate due to other procedures and is having a flare up of psoriasis right now. Pt states he had a heart cath put in recently and he wants his groin area checked out as well. HOSSEIN DIAZ MD [facility] [place], [address], [facility] 01/29/2025 13:31:26
[2025-03-19 16:29] LABS: Hemoglobin 9.2 g/dL (14.1-18.0); Immature Granulocytes % 0.4 %; Mean Corpuscular HGB Conc 31.4 g/dL (31.8-35.4); Mean Corpuscular Hemoglobin 23.7 pg (27.0-31.2); Mean Corpuscular Volume 75.5 fl (80-94); Nucleated Red Blood Cells % 0 %; Platelet Count 297 K/mm3 (142-424); Red Blood Count 3.88 M/mm3 (4.60-6.20); Red Cell Distribution Width-SD 54.3 fL; White Blood Count 7.9 K/mm3 (4.8-10.8)
[2025-03-19 16:30] LABS: Hematocrit 29.3 % (42.0-52.0)
[2025-03-19 16:32] LABS: INR 1.13 (0.9-1.1); Prothrombin Time 12.4 seconds (10.1-12.5)
[2025-03-19 16:38] LABS: Ammonia < 9 umol/L (9-30)
[2025-03-19 16:57] LABS: Albumin Level 4.2 g/dl (3.5-5.0); Chloride 96 mmol/L (98-107); Potassium 4.3 mmoL/L (3.5-5.1); Sodium 136 mmol/L (136-145)
[2025-03-19 17:00] LABS: Alanine Aminotransferase 12 U/L (12-78); Albumin/Globulin Ratio 1.2 (1.1-1.8); Alkaline Phosphatase 270 U/L (38-126); Anion Gap 16.3 mEq/L (5-15); Aspartate Amino Transferase 28 U/L (17-59); Bilirubin,Total 0.9 mg/dl (0.2-1.3); Blood Urea Nitrogen 14 mg/dl (9-20); Carbon Dioxide 28 mmol/L (22.0-30.0); Creatinine,Serum 0.80 mg/dl (0.66-1.25); Estimated Glomerular Filt Rate 92 ml/min (>60); GFR (African American) 112 ML/MIN (>60); Globulin 3.6 g/dL (1.3-3.2); Total Protein,Serum 7.8 g/dl (6.3-8.2)
[2025-03-19 17:01] LABS: Calcium 9.5 mg/dl (8.4-10.2); Glucose 106 mg/dl (74-100)
[2025-03-20 05:09] LABS: Immunoglobulin G, Qn 1441 mg/dL (603-1613); Immunoglobulin M, Qn 33 mg/dL (15-143)
[2025-03-20 08:23] LABS: Immunoglobulin A, Qn 583 mg/dL (61-437)
[2025-03-23 03:47] LABS: ALT (SGPT) P5P 10 IU/L (0-55); AST (SGOT) P5P 23 IU/L (0-40); Alpha 2-Macroglobulins, Qn 241 mg/dL (110-276); Bilirubin, Total 0.4 mg/dL (0.0-1.2); Cholesterol, Total 119 mg/dL (100-199); GGT 76 IU/L (0-65); Glucose 103 mg/dL (70-99); Triglycerides 101 mg/dL (0-149)
== END 2025-03-19 23:59 | disposition home or self-care (01) ==
LOC: LAB 15:42
PROVIDERS: Dermatology; PCP Internal Medicine; Visit Provider Internal Medicine Gastroenterology
DX: K74.60 Unspecified cirrhosis of liver (principal); R18.8 Other ascites; R74.8 Abnormal levels of other serum enzymes
CPT/HCPCS: 36415; 80053; 81596; 82103; 82104; 82105; 82140; 82164; 82247; 82465; 82784; 82947; 82977; 83521; 84450; 84460; 84478; 85025; 85610; 86015; 86376; 86381

== ENCOUNTER 2025-03-26 08:25 | Outpatient (CLI) | payer MEDICARE, BC, SELFPAY ==
--- OUTSIDE RECORDS SUMMARY | 2025-03-26 08:29 | XMS_ITS | Data Portability ---
Author Organization [place] [facility] Address [address] [facility] [place] [address] Care Team Providers Care Nipping Machine Operator Name Role Phone HOSSEIN VALVERDE Wood Lathe Operator [phone] SILVIA UNDERWOOD Primary Care Provider VIVIAN HAMILTON Sales Clerk Assessment Encounter Date Assessment Date Assessment LastModified by Organization Details LastModified Time 07/26/2023 07/26/2023 clear. doing well with MTX 10mg per week. [email or web address] Not available 07/26/2023 14:31:13 Plan of Treatment Reminders Order Date Submit Date Provider Last Modified By Organization Details Last Modified Time Details Appointments FOLLOW UP [facility] 2024 02:00P M DR. DIAZ Not available Not available Not available FOLLOW UP [facility] [address] DIAZ Not available Not available Not available Lab CBC w/ auto diff 2024 025 [facility] ([facility]), [address], [place], [address], 03/22/2025 14:56:04 CMP, serum or plasma 2024 025 VALARIE [facility] ([facility]), [address], [place], [address], 03/20/2025 11:32:50 CMP, serum or plasma 2024 025 [email or web address] [facility] ([facility]), [address], [place], [address], 03/20/2025 11:32:50 CBC w/ auto diff 2024 025 [facility] ([facility]), [address], [place], [address], 03/22/2025 14:56:04 Referral None recorded. Procedures None recorded. Surgeries None recorded. Imaging None recorded. Medication Orders methotrex ate sodium 2.5 mg tablet 2024 025 [facility] #42846, [address] [address] [address], [place], [id number], 01/29/2025 13:35:27 methotrex ate sodium 2.5 mg tablet 2024 025 [facility] #59934, [address] [address] [address], [place], [id number], 10/17/2024 14:31:53 methotrex ate sodium 2.5 mg tablet 2023 024 [facility] #65836, [address] [address] [address], [place], [id number], 06/06/2024 15:01:52 methotrex ate sodium 2.5 mg tablet 2023 024 [facility] #15861, [address] [address] [address], [place], [id number], 02/08/2024 17:37:24 methotrex ate sodium 2.5 mg tablet 2022 023 [facility] 591, [address], [place], [address], 07/26/2023 17:30:02 Patient TargetsNo targets recorded. Patient [...] Name and Address Organization Details Recorded Time 707255 Stelara medicatio n Not available Not available Not available 07/26/2023 04255 1 RxNorm Nik Casanova [facility] 3 12:21:38 729280 Remicade medicatio n Not available Not available Not available 07/26/2023 03098 0 RxNorm Nik Casanova [facility] 12:21:42 601366 Jardiance medicatio n Not available Not available Not available 07/26/2023 37824 59 [facility] 12:21:49 Medications Name Sig Start Date Stop [...] Time Tobacco Smoking Status Never Smoker Nik Edilberto [facility] 07/26/2023 12:25:19 Sunscreen Use? No Informatio [...] SNOMED-CT Code Diagnosis ICD10 Code Diagnosis Note [id number] HOSSEIN DIAZ MD [address] [address] 07/26/2023 12:14:06 07/26/2023 12:44:13 Psoriasis vulgaris 000427264 L40.0 Controlled on medication s.Continue methotrexa te and folic acid.Rx prescribed for MTX 2.5mg weekly by mouth. SE reviewed.P t to call if flares. Plaque psoriasis 5545625 09 L40.0 Psoriasis 1493734 L40.9 [id number] HOSSEIN DIAZ MD [address] [address] 02/08/2024 15:32:13 02/08/2024 16:02:43 Psoriasis vulgaris 516546803 L40.0 Z79.899 Controlled on medication s.Pt has not been holding MTX for approx 1 week due to ill .Rx refilled for MTX 2.5mg 4 tabs weekly by mouth. SE reviewed.P t to call if flares/ worsens [id number] HOSSEIN DIAZ MD [address] [address] 06/06/2024 12:04:05 06/06/2024 13:06:06 Psoriasis vulgaris 073624569 L40.0 Z79.899 Flared after taking 3 week break off from MTX while he had covid.Pt took 2-3 weeks off from MTX due to pt being sick with Covid about 3 wks ago.Rx refilled for MTX 2.5mg 4 tabs weekly by mouth. SE reviewed.P t to call if flares/ worsens [id number] HOSSEIN DIAZ MD [facility] [address] [place] [address] 10/17/2024 11:43:43 10/17/2024 12:07:57 Psoriasis vulgaris 294740748 L40.0 Z79.899 The nature of the diagnosis was explained. controlled on MTX 10mg per week. He wants to try to lower dosePt can try going down to 7.5mg MTX per week.Rx refilled for MTX. SE reviewed.p t to call if flares/ worsens. [id number] HOSSEIN DAIZ MD [facility] [address] [place] [address] 01/29/2025 12:42:36 01/29/2025 13:18:26 Psoriasis vulgaris 259183772 L40.0 The nature of the diagnosis was explained. worsening since he came off MTXPt has been off of MTX for about 1-1.5 months due to having a watchman procedure done.Rx prescribed for Methotrexa te 2.5mg, take 4 tabs po qweekly. SE reviewed.P t has Rx TAC at home.pt to call if flares/ worsens. Hematoma 411819460 T14.8 XXA The nature of the diagnosis was explained. needs to see cardiologi [facility] Concerns Section Related Observation LastModified by Organization Detai ls LastModified Time None Recorded Concern Status LastModified by Organization Details LastModified Time None Recorded Advance Directives Directive None Recorded Payers Insurance Date Sequence Insurance Name Policy Number Policy Cervantes Covered Member ID Cervantes Member ID Guarantor Name 01/29/2025 1 [place] Ned Melendez [id number] Ned Melendez 01/29/2025 2 [place] [id number] Ned Melendez [id number] Ned G Nora Notes Date Note Type Note Provider Name and Address Organization Details Recorded Time 07/26/2023 text/html 1. Follow up: psoriasislocation: widespreadduration: 2 month f/uprior tx: MTX, OTC folic acid, TACreports: everything is good. no current flares HOSSEIN DIAZ MD [address] [place] [address], [address], [facility] 07/26/2023 14:32:01 02/08/2024 text/html psoriasis6 month f/utx: MTX, OTC folic acidreports:I have not take been taking the MTX for 1 week due to my being sick . HOSSEIN DIAZ MD [address] [place] [address], [address], [facility] 02/08/2024 17:37:34 06/06/2024 text/html psoriasis on MTX 10mg per weekhx of [place] from [facility] psoriasis4 month f/utx: methotrexate, triamcinolonereports : Pt has not been taking methotrexate due to him having covid and the Rx lowering his immune system. The psoriasis is pretty much localized in one area. Pt would like his labs done. HOSSEIN DIAZ MD [address] [place] [address], [address], [facility] 06/06/2024 17:45:33 10/17/2024 text/html psoriasis on mtx 10mg per week---------I am here to follow up on my Psoriasis, everything is going well. tx: MTX, TAC-prn. I am trying to cut down on my MTX. HOSSEIN DIAZ MD [address] [place] [address], [address], [facility] 10/17/2024 14:31:59 01/29/2025 text/html psoriasismtxhx o f [place] I am here for my psoriasis. Went off methotrexate due to other procedures and is having a flare up of psoriasis right now. Pt states he had a heart cath put in recently and he wants his groin area checked out as well. HOSSEIN DIAZ MD [address] [place], [address], [facility] 01/29/2025 13:31:26
--- OUTSIDE RECORDS SUMMARY | 2025-03-26 08:29 | XMS_ITS | Continuity of Care Document ---
Author Organization [facility] [place] Address [address] [place] [address] Care Team Providers Care Wire Taper Name Role Phone HOSSEIN VALVERDE Ekg Manager SILVIA UNDERWOOD Primary Care Provider [phone] VIVIAN HAMILTON Intraoperative Neuro Tech Assessment No assessment recorded. Plan of Treatment Reminders Order Date Submit Date Provider Last Modified By Organization Details Last Modified Time Details Appointments FOLLOW UP [facility] 2024 02:00P M DR. DIAZ Not available Not available Not available FOLLOW UP [facility] [address] DIAZ Not available Not available Not available Lab CBC w/ auto diff 2024 025 [facility] (Lab), [address] [place] [address] [address], [place], [address], 03/22/2025 14:56:04 CMP, serum or plasma 2024 025 VALRAIE [facility] (Lab), [address], [place], [address], 03/20/2025 11:32:50 CMP, serum or plasma 2024 025 [email or web address] [facility] (Lab), [address] [place] [address] [address], [place], [address], 03/20/2025 11:32:50 CBC w/ auto diff 2024 025 [facility] (Lab), [address] [place] [address] [address] [place], [address], 03/22/2025 14:56:04 Referral None recorded. Procedures None recorded. Surgeries None recorded. Imaging None recorded. Medication Orders methotrex ate sodium 2.5 mg tablet 2024 025 [facility] #44628, [address] [address] [place], [id number], 01/29/2025 13:35:27 Patient TargetsNo targets recorded. Patient InstructionsNo instructions recorded. Reason for Referral None Reported. Medical Equipment None Reported. Allergies Allergen ID Allergen Name Allergen Category Reaction Reaction Severity Criticality Documentation Date Start Date Code Code System Note Provider Name and Address Organization Details Recorded Time 933616 Stelara medicatio n Not available Not available Not available 07/26/2023 10693 1 RxNorm [facility] 3 12:21:38 140292 Remicade medicatio n Not available Not available Not available 07/26/2023 34179 0 RxNorm [facility] 3 12:21:42 223931 Jardiance medicatio n Not available Not available Not available 07/26/2023 59373 59 RxNorm [facility] 3 12:21:49 Medications Name Sig Start Date [...] Avai lable tamsulosin 0.4 mg capsule Daily 09/09/ 2019 11/14 /2023 completed Not Available Not Available Not Available [...] Time Tobacco Smoking Status Never Smoker Nik [facility] 07/26/2023 12:25:19 Sunscreen Use? No Informatio [...] SNOMED-CT Code Diagnosis ICD10 Code Diagnosis Note [id number] HOSSEIN DIAZ MD [address] [address] 01/29/2025 12:42:36 01/29/2025 13:18:26 Psoriasis vulgaris 275661529 L40.0 The nature of the diagnosis was explained. worsening since he came off MTXPt has been off of MTX for about 1-1.5 months due to having a watchman procedure done.Rx prescribed for Methotrexa te 2.5mg, take 4 tabs po qweekly. SE reviewed.P t has Rx TAC at home.pt to call if flares/ worsens. Hematoma [id number] T14.8 XXA The nature of the diagnosis was explained. needs to see cardiologi Health Concerns Section Related Observation LastModified by Organization Detai ls LastModified Time None Recorded Concern Status LastModified by Organization Details LastModified Time None Recorded Payers Encounter Date Sequence Insurance Name Policy Number Policy Cervantes Covered Member ID Cervantes Member ID Guarantor Name 01/29/2025 1 [place] Ned Melendez [id number] Ned Melendez 01/29/2025 2 [place] [id number] Ned Melendez [id number] Ned Melendez Notes Date Note Type Note Provider Name and Address Organization Details Recorded Time 01/29/2025 text/html psoriasismtxhx o f [place] I am here for my psoriasis. Went off methotrexate due to other procedures and is having a flare up of psoriasis right now. Pt states he had a heart cath put in recently and he wants his groin area checked out as well. HOSSEIN DIAZ MD [address] [facility] [place], [address], [facility] 01/29/2025 13:31:26
--- NOTE | 2025-03-26 09:00 | US_ITS ---
FINAL REPORT CLINICAL HISTORY: ASCITES -- PARACENTESIS -- ACE HAMILTON -- 1550ML FINDINGS: ULTRASOUND-GUIDED PARACENTESIS HISTORY: Ascites ATTENDING PHYSICIAN: Dr. Florez PHYSICIAN CENTERLESS GRINDING MACHINE ADJUSTER: Ace Schmitz PA-C FINDINGS: After informed consent was obtained and timeout procedure performed, fluid was localized in the right lower quadrant under ultrasound guidance and marked on the skin appropriately. The patient was then prepped and draped in the usual sterile fashion and the skin was anesthetized with 1% lidocaine. An ultrasound guided paracentesis was then performed using a Turkel needle. Approximately 1.5 liters of fluid was removed. Sample of the fluid was sent to lab. The patient tolerated the procedure well and there were no immediate complications. IMPRESSION: Ultrasound guided right lower quadrant paracentesis as discussed above. Reviewed, Interpreted and Dictated by Carmita Florez MD Transcribed by ALFONSO Ward Authenticated and [facility]
[2025-03-26 09:52] LABS: Appearance,Body Fld. Cloudy; Volume,Body Fld. 1550 mL
[2025-03-26 10:12] LABS: TNC,Body Fluid 1304 cells/uL (< 1000)
[2025-03-26 10:13] LABS: RBC,Body Fluid 18000 cells/uL (< 10 X 10^3)
[2025-03-26 11:50] LABS: Source, Body Fld. Paracentesis Fluid
[2025-03-26 11:55] LABS: Mononuclear WBCs,Body Fluid 98 %; Polynuclear WBC,Body Fluid 2 %
[2025-03-27 14:53] LABS: Albumin, Body Fluid 2.5 g/dL (Not Estab.); LD, Body Fluid 194 IU/L (.)
== END 2025-03-26 23:59 | disposition home or self-care (01) ==
LOC: RAD 08:27
PROVIDERS: PCP Internal Medicine; Visit Provider Internal Medicine Gastroenterology
DX: R18.8 Other ascites (principal)
CPT/HCPCS: 49083; 82042; 82150; 83615; 84157; 87070; 87205; 89051

== ENCOUNTER 2025-05-14 10:10 | Outpatient (CLI) | payer MEDICARE, BC, SELFPAY ==
--- OUTSIDE RECORDS SUMMARY | 2025-04-22 11:15 | XMS_ITS | Encounter Summary ---
Author Organization [facility] Address [address] [place] [address] Care Team Providers Care Fourth Officer Name Role Phone Salas Mesa MD Primary Care Provider [phone] Reason for Visit * Reason Comments Persistent atrial fibrillation Encounter Details Date Type Department Care Team (Late st Contact Info) Description 04/22/2025 11:15 AM EDT Office Visit [facility]IOLOGY [address] [place] [address] Darren De La Fuente PA [address] [facility] [address] [place] [address] Paroxysmal atrial fibrillation (Primary Dx) [...] or training? Not on file Preferred Language [place] Citizen 01/09/2025 Sex and Gender Information Value Date [...] included. Cardiac Electrophysiology Outpatient Follow Up Note [place] [facility] Follow Up Office Visit Ned Melendez [id number] 04/22/2025 Primary Care Physician: Salas Mesa MD Microbiology Analyst: Dr. Bush. Subjective Chief Complaint: Diagnoses and [...] pericardal effusion. Atypical chest pain No signiciant [facility] Dr. [facility] No significant CAD [facility]. 2019 HTN DM Type II GERD Crohn's disease Psoriatic arthritis SUMAN, CPAP Past Medical History: Past Medical History: Diagnosis Date Crohn's disease Diabetes mellitus, type 2 Gall stones GERD (gastroesophageal reflux disease) Glaucoma History of Guillain-[place] syndrome History of shingles 12/16/2024 Hyperlipidemia Hypertension Kidney stones Neuropathy bilateral legs Psoriasis Psoriatic arthritis Sepsis caused by Jardiance Sleep apnea Past Surgical History: Past Surgical History: Procedure Laterality Date ATRIAL APPENDAGE EXCLUSION LEFT WITH TRANSESOPHAGEAL ECHOCARDIOGRAM N/A 01/16/2025 Procedure: Atrial Appendage Occlusion; Surgeon: Anmol Omalley DO; Location: [facility] INVASIVE LOCATION; Service: Cardiology; Laterality: N/A; CATARACT [...] Info) Description 07/19/2025 10:30 AM EST Telemedicine [facility] [address] [facility] [address] [place] [phone] Aiden Vasquez APRN [address] [facility] [address] [place] [address] 05/05/2026 10:30 AM EDT Office Visit [facility] [address] [facility] [address] [place] [address] Anmol Omalley, DO [address] [facility] [address] [place] [address] documented as of this encounter Visit Diagnoses Diagnosis Paroxysmal atrial fibrillation- Primary Atrial fibrillation documented in this encounter Care Teams Fourth Officer Relationship Specialty Start Date End Date Salas Mesa MD [address] [facility] [address] [place] [address] PCP - General Internal Medicine 12/10/24 documented as of this encounter
--- NOTE | 2025-05-14 10:30 | US_ITS ---
FINAL REPORT TECHNIQUE: Ultrasound images of the kidneys and bladder were obtained. CLINICAL HISTORY: renal cyst COMPARISON: 07/25/2024 FINDINGS: The right kidney measures 11.2 cm in length. It is normal in echogenicity. There is no hydronephrosis. The left kidney measures 12 cm in length. It is normal in echogenicity. There is no hydronephrosis. There is a hypoechoic focus in the left kidney, measuring 3 x 1.9 cm in size, not significantly different in size or appearance when compared to the prior exam. The urinary bladder is unremarkable. IMPRESSION: Hypoechoic focus in the left kidney, similar in appearance to the prior exam from 2023, likely a renal cyst. Reviewed, Interpreted and Dictated by Roc Kirby MD Transcribed by Lo Teresa Authenticated and [facility]
--- OUTSIDE RECORDS SUMMARY | 2025-05-14 10:51 | XMS_ITS ---
Author Organization [facility] Address [address] [place] [address] Care Team Providers Care Cone Chocolate Dipper Name Role Phone Salas Mesa MD Primary Care Provider [phone] Dermatology Status:Enrolled (Active) Start date:04/23/2025 Enrollment date:04/23/2025 Enrollment reason:New start at Current support & services provided:Clinical Assessment, Refill Coordination , Benefits Investigation, [facility] [place], Operated By [facility] Dispensing Linked medications:Apremilast (Active) Linked problems:Psoriasis vulgaris (Active) Case Team Name Relationship Phone Dave Drake Public Aid Eligibility Assistant Food Service Specialist Continued Care and Services Coordination
--- OUTSIDE RECORDS SUMMARY | 2025-05-14 10:51 | XMS_ITS | Encounter Summary ---
Author Organization [facility] Address [address] [place] [address] Care Team Providers Care Tire Groover Name Role Phone Salas Mesa MD Primary Care Provider [phone] Encounter Details Date Type Department Care Team (Late st Contact Info) Description 12/19/2024 Patient rounding ([facility] only) [facility] C[facility]IOLOG[facility] [address] [place] [address] [address] [place] [address] Janice Olmstead MA Social History Tobacco Use Types Packs/Day Years Used Date Smoking Tobacco: Never Smokeless Tobacco: Never Alcohol Use Standard Drinks/Week Comments Yes 0 (1 standard drink = 0.6 oz [...] or training? Not on file Preferred Language Zambian 01/09/2025 Sex and Gender Information Value Date Recorded Sex Assigned at Male 10/18/2024 12:38 PM EST Legal Sex Male 12:38 PM EDT Gender Identity Not on file Sexual Orientation Not on file documented as of this encounter Functional Status * Question Answer Date of Assessment Author 1. Wish to be (Past 1 Month) No 01/16/2025 6:49 AM EDT Suleiman Burrell RN 2. Non-Specific Active Suicidal Thoughts (Past 1 Month) No 01/16/2025 6:49 AM EDT Suleiman Burrell RN * Calculated C-SSRS Risk Score (Lifetime/Recent) Answer Date of Assessment Author No Risk Indicated 01/16/2025 6:54 AM EDT Yajaira Singh RN * [place] Suicide Severity Rating Scale (Screener/Recent Self-Report) Question Answer Date of Assessment Author 6. Suicidal Behavior (Lifetime) No 01/16/2025 6:54 AM EDT Suleiman Burrell RN documented as of this encounter Progress Notes * Janice Olmstead - 12/19/2024 12:33 PM EDT December 19, 2024, january I speak with Ned Melendez? My name is Janice Guzman. I am with [facility] C[facility] [address] [place] [phone] . Before we get started january I verify your date of ? 1940 I am calling to officially welcome you to our practice and ask about your recent visit. Is this a good time to talk? yes Tell me about your visit with us. What things went well? Everything. Very efficient; quick, registered quickly and [facility]ambo We're always looking for ways to make our patients' experiences even better. Do you have recommendations on ways we may improve? no Overall were you satisfied with your first visit to our practice? yes I appreciate you taking the time to speak with me today. Is there anything else I can do for you? no Thank you, and have a great day. documented in this encounter Plan of Treatment Upcoming Encounters Date Type Department Care Team (Late st Contact Info) Description 07/19/2025 10:30 AM EST Telemedicine [facility] CARDIOLOGY [address] [facility] [address] [place] [phone] Aiden Vasquez APRN [address] [facility] [address] [place] [address] 05/05/2026 10:30 AM EDT Office Visit [facility] C[facility] [address] [facility] [address] [place] [phone] Anmol Omalley, DO [address] [facility] [address] [place], [place] [id number] documented as of this encounter Visit Diagnoses Not on filedocumented in this encounter Care Teams Tire Groover Relationship Specialty Start Date End Date Salas Mesa MD [address] [facility] [address] [place] [address] PCP - General Internal Medicine 12/10/24 documented as of this encounter
--- OUTSIDE RECORDS SUMMARY | 2025-05-14 10:51 | XMS_ITS | Clinical Summary ---
Author Organization [facility] Address [address] [place] [address] Care Team Providers Care Service Desk Lead Name Role Phone Salas Mesa MD Primary Care Provider [phone] Allergies Active Allergy Reactions Criticality Noted Date Comments Empagliflozin Other (See Comments) Medium 12/10/2024 UTI, YEAST INFECTION, PERINEAL INFECTION Infliximab Anaphylaxis,Hives High 12/10/2024 Stellaria Other (See Comments) High 12/10/2024 Auto Immune triggered Guillain-Bingham Syndrome Medications digoxin (LANOXIN) 125 MCG tablet Take 1 tablet by mouth Daily. 5 Active atorvastatin (LIPITOR) 40 MG tablet Take 1 tablet by mouth every night at bedtime. 5 Active dilTIAZem CD (CARDIZEM CD) 120 MG 24 hr capsule Take 1 capsule by mouth Daily. 5 Active finasteride (PROSCAR) 5 MG tablet Take 1 tablet by mouth Daily. 5 Active glipizide (GLUCOTROL) 5 MG tablet TAKE 2 TABLETS BY MOUTH ONCE DAILY IN THE MORNING AND 1 TABLET IN THE EVENING 4 Active latanoprost (XALATAN) 0.005 % ophthalmic solution Administer 1 drop to both eyes Daily. 5 Active losartan (COZAAR) 100 MG tablet Take 1 tablet by mouth Daily. 5 Active methotrexate 2.5 MG tablet TAKE 4 TABLETS BY MOUTH ONCE WEEKLY 5 Active omeprazole (priLOSEC) 20 MG capsule Take 1 capsule by mouth Daily. 5 Active pioglitazone (ACTOS) 15 MG tablet Take 1 tablet by mouth Daily. 5 Active potassium chloride (MICRO-K) 10 MEQ CR capsule Take 1 capsule by mouth Daily. 4 Active Janumet 50-500 MG per tablet Take 1 tablet by mouth 2 (Two) Times a Day With Meals. 5 Active spironolactone (ALDACTONE) 25 MG tablet Take 3 tablets by mouth Daily. 4 Active sulfaSALAzine (AZULFIDINE) 500 MG tablet Take 3 tablets by mouth Daily. 5 Active tamsulosin (FLOMAX) 0.4 MG capsule 24 hr capsule Take 1 capsule by mouth 2 (Two) Times a Day. 5 Active aspirin 81 MG EC tablet Take 1 tablet by mouth Daily. Active ferrous sulfate 325 (65 FE) MG tablet Take 1 tablet by mouth Daily With Breakfast. Active folic acid (FOLVITE) 1 MG tablet Take 1 tablet by mouth Daily. Active furosemide (LASIX) 40 MG tablet Take 1 tablet by mouth As Needed. Active NON FORMULARY Every Night. C PAP MACHINE Active clopidogrel (PLAVIX) 75 MG tablet Take 1 tablet by mouth Daily. 90 tablet 3 5 Active Apremilast (Otezla) 30 MG tablet Take 1 tablet twice a day by oral route. 60 tablet 5 05/07/2025 3:03 PM EDT Active Active Problems Problem Noted Date Diagnosed Date Psoriasis vulgaris 04/23/2025 Persistent atrial fibrillation 01/16/2025 Paroxysmal atrial fibrillation 12/10/2024 Falls 12/10/2024 Acute blood loss anemia 12/10/2024 Encounters Date Type Department Care Team Description 04/22/2025 11:15 AM EDT Office Visit [facility] [address] [place] [address] Darren De La Fuente PA Paroxysmal atrial fibrillation (Primary Dx) 04/22/2025 Travel 02/19/2025 10:05 AM EDT - 02/19/2025 11:59 PM EDT Hospital Encounter [facility] [address] [place] [address] Rupesh Forbes MD Paroxysmal atrial fibrillation; Presence of Watchman left atrial appendage closure device Discharge Disposition: Home or Self Care 02/19/2025 Travel from Last 3 Months Family History Medical History Relation Name Comments Lung cancer Father Brain cancer Mother No Known Problems Sister 1 JOCELYN Relation Name Status Comments Brother ED Alive Father heavy smoker Mother heavy smoker Sister 1 JOCELYN Alive Sister 2 KELSIE Alive auto immune pro blems Sister 3 [place] Alive bone problems, disabled Social History Tobacco Use Types Packs/Day Years [...] or training? Not on file Preferred Language Kuwaiti 01/09/2025 Sex and Gender Information Value Date Recorded Sex Assigned at Male 10/18/2024 12:38 PM EST Legal Sex Male 12:38 PM EDT Gender Identity Not on file Sexual Orientation Not on file Last Filed Vital Signs Vital Sign Reading Time Taken Comments Blood Pressure 158/64 04/22/2025 11:03 AM EDT Pulse 76 04/22/2025 11:03 AM EDT Temperature 36.2 C (97.1 F) 01/16/2025 6:35 AM EDT Respiratory Rate 17 02/19/2025 11:41 AM EDT Oxygen Saturation 99% 04/22/2025 11:03 AM EDT Inhaled Oxygen Concentration - - Weight 93.3 kg (205 lb 9.6 oz) 04/22/2025 11:03 AM EDT Height 177.8 cm (5' 10 ) 04/22/2025 11:03 AM EDT Body Mass Index 29.5 04/22/2025 11:03 AM EDT Plan of Treatment Upcoming Encounters Date Type Department Care Team (Late st Contact Info) Description 07/19/2025 10:30 AM EST Telemedicine [facility] [address] [facility] [address] [place] [address] Aiden Vasquez APRN [address] [place] [address] 05/05/2026 10:30 AM EDT Office Visit [facility] [address] [facility] [address] [place] [address] Anmol Omalley, DO [address] [facility] [address] [place], [place] [id number] Health Maintenance Due Date Last Done Comments TDAP/TD VACCINES (1 - Tdap) 1960 Pneumococcal Vaccine 50+ (1 of 1 - PCV) 1991 ZOSTER VACCINE (1 of 2) 1991 RSV Vaccine - Adults (1 - 1- dose 75+ series) 2016 COVID-19 Vaccine (2023-2 5 season) 2024 06/23/2022, 03/24/2022, 05/20/2021, Additional history exists ANNUAL WELLNESS VISIT 12/10/2024 INFLUENZA VACCINE 06/12/2025 Goals Goal Patient Goal Type Associated Problems Recent Progress Patient-Stated? Author Specialty Pharmacy General Goal General No Hafsa Yee RPH Note: A reduction in BSA of skin lesions on the body. Medical Devices Implanted Type Area Environmental Law Professor Device Identifier Shelf Expiration Date Model / Serial / Lot Dev Cls Ashely Watchman/Flx /Pro 20mm - [id number] Implanted:Qt y: 1 on 01/16/2025 by Anmol Omalley DO at [facility] Implant [employer] 05/01/2027 [id number] / / [id number] Cp Watchman Flx Pro Proc - [id number] Implanted:Qt y: 1 on 01/16/2025 by Anmol Omalley DO at [facility] Implant [employer] WMFLXPROPERPROC / / Cp Sys Watchman Trusteer Access - [id number] Implanted:Qt y: 1 on 01/16/2025 by Anmol Omalley DO at [facility] Implant [employer] WMFLXPROACCPERPROC / / Procedures Procedure Name Priority Date/Time Associated Diagnosis Comments BRYCE W/ COMPLETE DOPPLER, COLOR AND 3D Routine 02/19/2025 12:14 PM EDT Paroxysmal atrial fibrillation Presence of Watchman left atrial appendage closure device from Last 3 Months Results * BRYCE W/ COMPLETE DOPPLER, COLOR AND 3D (02/19/2025 12:14 PM EDT) TR max sam 260.5 cm/sec TR max PG 27.2 mmHg Echo EF Estimated 55.0 % RVSP(TR) 42 mmHg RAP systole 15 mmHg Anatomical Region Laterality Modality Other Narrative 02/19/2025 3:46 PM EDT There is a 20mm Watchman FLX Pro device in place. It appears well seated and well compressed with no rachael-prosthetic flow or device related thrombus seen. Left ventricular systolic function is normal. Estimated left ventricular EF = 55% Normal left ventricular cavity size noted. Left ventricular wall thickness is consistent with mild concentric hypertrophy. All left ventricular wall segments contract normally. The aortic valve is structurally normal with no regurgitation or stenosis present. The aortic valve appears trileaflet. The mitral valve is structurally normal with no significant stenosis present. Mild mitral valve regurgitation is present with a centrally-directed jet noted. The tricuspid valve annulus appears mildly dilated. Moderate tricuspid valve regurgitation is present. Estimated right ventricular systolic pressure from tricuspid regurgitation is mildly elevated (35-45 mmHg). There is a small (<1cm) pericardial effusion. There is a moderate sized left pleural effusion. Normally functioning LAAO device. Medication transition at 45 days as per implanting physician. Left Ventricle Left ventricular systolic function is normal. Estimated left ventricular EF = 55% Normal left ventricular cavity size noted. Left ventricular wall thickness is consistent with mild concentric hypertrophy. All left ventricular wall segments contract normally. Right Ventricle The right ventricular cavity is mildly dilated. Normal right ventricular systolic function noted. Left Atrium The left atrial cavity is severely dilated. There is a 20mm Watchman FLX Pro device in place. It appears well seated and well compressed with no rachael-prosthetic flow or device related thrombus seen. Small interatrial septal defect present with left to right shunting indicated by color flow Doppler. There were 1 pulmonary veins interrogated. Systolic blunting of pulmonary venous inflow. Right Atrium The right atrial cavity is severely dilated. Mitral Valve The mitral valve is structurally normal with no significant stenosis present. Mild mitral valve regurgitation is present with a centrally-directed jet noted. Tricuspid Valve The tricuspid valve is abnormal in structure. The tricuspid valve annulus appears mildly dilated. Moderate tricuspid valve regurgitation is present. Estimated right ventricular systolic pressure from tricuspid regurgitation is mildly elevated (35-45 mmHg). Calculated right ventricular systolic pressure from tricuspid regurgitation is 42 mmHg. Aortic Valve The aortic valve is structurally normal with no regurgitation or stenosis present. The aortic valve appears trileaflet. Pulmonic Valve The pulmonic valve is grossly normal in structure. There is trace pulmonic valve regurgitation present. Pericardium There is a small (<1cm) pericardial effusion. There is a moderate sized left pleural effusion. Greater Vessels No dilation of the aortic root is present. No dilation of the proximal aorta is present. No dilation of the descending aorta present. There is moderate plaque in the descending aorta present. Study Quality The study is technically good for diagnosis. Atrial fibrillation was the predominant rhythm observed during the procedure. BRYCE Procedure Details Informed consent for Transesophageal Echocardiogram, and use of contrast as needed, was obtained prior to the procedure. The procedure was performed in the echocardiography lab. Patient was noted to be in a fasting state, with a peripheral IV in place. A bite block was placed for probe protection. Cetacaine spray was used as an oropharyngeal topical anesthetic. Moderate sedation was utilized. An immediate assessment was done prior to the administration of moderate sedation. Under my direct supervision, intravenous moderate sedation was administered during the course of this procedure with continuous monitoring of hemodynamic parameters and level of consciousness by an independent, trained observer. The independent trained observer was Anam Brenner. Physician in room time: 11:06 EDT Physician out of room time: 11:32 EDT Total intraservice time was: 26 minutes The following medication(s) were administered during the procedure: 100 mcg of Fentanyl 4 mg of Versed An adult multi-frequency, multiplane transesophageal echocardiographic endoscope was inserted and manipulated in the standard fashion to achieve multiplane views. Transesophageal probe was able to be passed without difficulty. Usual basal, mid-esophageal, transgastric, and aortic views were obtained. The patient's vital signs, including blood pressure, heart rate, pulse oximetry, and cardiac rhythm were monitored throughout the procedure. Vitals signs remained stable throughout the study. Post-procedural recovery was completed in the Echocardiography lab, The patient tolerated the procedure without evidence of oropharyngeal or esophageal trauma. Anmol Omalley DO ECHO ORDERABLES Final Result from Last 3 Months Insurance MEDICARE A & B [facility] Advance Directives Documents on File Type Date Recorded Patient Janitor Helper Expl anation LIVING WILL - SCAN 01/09/2025 12:49 PM SUKHWINDER ING WILL DIRECTIVE, BHLEX, 05/02/2013 * CPR (Attempt to Resuscitate) (Latest Code Status on File) Date Activated Date Inactivated Comments 01/16/2025 8:54 AM 01/16/2025 1:53 PM Question Answer Comments Code Status (Patient has no pulse and is not breathing): CPR (Attempt to Resuscitate) Medical Interventions (Patie nt has pulse or is breathing): Full Support Level Of Support Discussed With: Patient Care Teams Service Desk Lead Relationship Specialty Start Date End Date Salas Mesa MD [address] [place] [facility] [address] [place] [address] PCP - General Internal Medicine 12/10/24
--- OUTSIDE RECORDS SUMMARY | 2025-05-14 10:51 | XMS_ITS | Encounter Summary ---
Author Organization [facility] Address [address] [place] [address] Care Team Providers Care Information Manager Name Role Phone Salas Mesa MD Primary Care Provider [phone] Encounter Details Date Type Department Care Team (Latest Contact Info) Description 04/22/2025 Travel Social History Tobacco Use Types Packs/Day Years [...] or training? Not on file Preferred Language Maltese 01/09/2025 Sex and Gender Information Value Date Recorded Sex Assigned at Male 10/18/2024 12:38 PM EST Legal Sex Male 12:38 PM EDT Gender Identity Not on file Sexual Orientation Not on file documented as of this encounter Plan of Treatment Upcoming Encounters Date Type Department Care Team (Late st Contact Info) Description 07/19/2025 10:30 AM EST Telemedicine [facility] [address] [facility] [address] [place] [phone] Aiden Vasquez APRN [address] [facility] [address] [place] [address] 05/05/2026 10:30 AM EDT Office Visit [facility] [address] [facility] [address] [place] [phone] Anmol Omalley DO [address] [facility] [address] [place], [place] [id number] documented as of this encounter Visit Diagnoses Not on filedocumented in this encounter Care Teams Information Manager Relationship Specialty Start Date End Date Salas Mesa MD [address] [facility] [address] [place] [address] PCP - General Internal Medicine 12/10/24 documented as of this encounter
== END 2025-05-14 23:59 | disposition home or self-care (01) ==
LOC: RAD 10:10
PROVIDERS: PCP Internal Medicine; Visit Provider Urology
DX: N28.1 Cyst of kidney, acquired (principal); R93.422 Abnormal radiologic findings on diagnostic imaging of left kidney
CPT/HCPCS: 76770

== ENCOUNTER 2025-05-20 11:13 | Outpatient (CLI) | payer MEDICARE, BC, SELFPAY ==
--- OUTSIDE RECORDS SUMMARY | 2025-04-22 11:15 | XMS_ITS | Encounter Summary ---
Author Organization [facility] Address [address] [place] [address] Care Team Providers Care Plant Taxonomy Teacher Name Role Phone Salas Mesa MD Primary Care Provider [phone] Reason for Visit * Reason Comments Persistent atrial fibrillation Encounter Details Date Type Department Care Team (Late st Contact Info) Description 04/22/2025 11:15 AM EDT Office Visit [facility] C[facility]Y [address] [place] [address] Darren De La Fuente PA [address] [facility] [address] [place] [address] Paroxysmal atrial fibrillation (Primary Dx) Social History Tobacco Use Types Packs/Day Years Used Date Smoking Tobacco: Never Smokeless Tobacco: Never Alcohol Use Standard Drinks/Week Comments Not Currently 0 (1 standard drink = 0.6 oz pur e alcohol) after dinner once in a while AUDIT-C Answer Date Recorded Q1: How often do you have a drink containing alcohol? Never 01/16/2025 Q2: How many drinks containi ng alcohol do you have on a typical day when you are drinking? Patient does not drink Q3: How often do you have si x or more drinks on one occasion? Never 01/16/2025 Abuse Screen Answer Date Recorded Feels Unsafe at Home or Work/School no 01/16/2025 Feels Threatened by Someone no 03/2025 Does Anyone Try to Keep You From Having Contact with Others or Doing Things Outside Your Home? no 01/16/2025 Physical Signs of Abuse Present no 01/16/2025 Housing Stability Answer Date Recorded Current Living Arrangements home 03/2025 Potentially Unsafe Housing Conditions Not on heidi e 01/16/2025 Disabilities Answer Date Recorded Difficulty Concentrating, Remembering or Making Decisions no 01/16/2025 Difficulty Managing Errands Independently no 01/16/2025 Education Answer Date Recorded Help with school or training? Not on file Preferred Language Anguillan 01/09/2025 Sex and Gender Information Value Date Recorded Sex Assigned at Male 10/18/2024 12:38 PM EST Legal Sex Male 12:38 PM EDT Gender Identity Not on file Sexual Orientation Not on file documented as of this encounter Last Filed Vital Signs Vital Sign Reading Time Taken Comments Blood Pressure 158/64 04/22/2025 11:03 AM EDT Pulse 76 04/22/2025 11:03 AM EDT Temperature - - Respiratory Rate - - Oxygen Saturation 99% 04/22/2025 11:03 AM EDT Inhaled Oxygen Concentration - - Weight 93.3 kg (205 lb 9.6 oz) 04/22/2025 11:03 AM EDT Height 177.8 cm (5' 10 ) 04/22/2025 11:03 AM EDT Body Mass Index 29.5 04/22/2025 11:03 AM EDT documented in this encounter Progress Notes * Darren De La Fuente PA - 04/22/2025 11:15 AM EDT Images from the original note were not included. Cardiac Electrophysiology Outpatient Follow Up Note [facility] Follow Up Office Visit Ned Melendez [id number] 04/22/2025 Primary Care Physician: Salas Mesa MD Electronic Operator: Dr. Bush. Subjective Chief Complaint: Diagnoses and all orders for this visit: 1. Paroxysmal atrial fibrillation (Primary) Chief Complaint Patient presents with Persistent atrial fibrillation History of Present Illness: Ned Melendez is a 84 y.o. male who presents to electrophysiology clinic for follow up of persistent afib. He is status post successful Watchman device placement. He had a follow-up BRYCE 02/19/2025 no. Advised low normal EF. He is happy results of procedure. He is having no symptoms of A-fib. Denies any chest pain dizziness near syncope syncope or strokelike symptoms. Problem List: Afib-Persistent Chadsvasc=6 Left atrial appendage closure 20mm Watchman FLX pro 01/16/2025 BRYCE 02/19/2025 No rachael device flow , Normal EF 55%, Mild LVH Mild MR. Small pericardal effusion. Atypical chest pain No signiciant [facility] Dr. [facility] No significant CAD [facility]. 2019 HTN DM Type II GERD Crohn's disease Psoriatic arthritis SUMAN, CPAP Past Medical History: Past Medical History: Diagnosis Date Crohn's disease Diabetes mellitus, type 2 Gall stones GERD (gastroesophageal reflux disease) Glaucoma History of Guillain-[place] syndrome History of shingles 12/16/2024 Hyperlipidemia Hypertension Kidney stones Neuropathy bilateral legs Psoriasis Psoriatic arthritis Sepsis caused by Jardiance Sleep apnea Past Surgical History: Past Surgical History: Procedure Laterality Date ATRIAL APPENDAGE EXCLUSION LEFT WITH TRANSESOPHAGEAL ECHOCARDIOGRAM N/A 01/16/2025 Procedure: Atrial Appendage Occlusion; Surgeon: Anmol Omalley DO; Location: [facility] INVASIVE LOCATION; Service: Cardiology; Laterality: N/A; CATARACT EXTRACTION, BILATERAL COLON RESECTION COLONOSCOPY KIDNEY STONE SURGERY OTHER SURGICAL HISTORY 01/16/[address] OMALLEY POLYPECTOMY 5 removed Family History: Family History Problem Relation Age of Onset Brain cancer Mother Lung cancer Father No Known Problems Sister Social History: Social History Socioeconomic History Marital status: Tobacco Use Smoking status: Never Smokeless tobacco: Never Vaping Use Vaping status: Never Used Substance and Sexual Activity Alcohol use: Not Currently Comment: after dinner once in a while Drug use: Never Sexual activity: Defer Medications: Current Outpatient Medications: Apremilast (Otezla) 30 MG tablet, Take 1 tablet twice a day by oral route., Disp: 60 tablet, Rfl: 5 aspirin 81 MG EC tablet, Take 1 tablet by mouth Daily., Disp: , Rfl: atorvastatin (LIPITOR) 40 MG tablet, Take 1 tablet by mouth every night at bedtime., Disp: , Rfl: clopidogrel (PLAVIX) 75 MG tablet, Take 1 tablet by mouth Daily., Disp: 90 tablet, Rfl: 3 digoxin (LANOXIN) 125 MCG tablet, Take 1 tablet by mouth Daily., Disp: , Rfl: dilTIAZem CD (CARDIZEM CD) 120 MG 24 hr capsule, Take 1 capsule by mouth Daily., Disp: , Rfl: ferrous sulfate 325 (65 FE) MG tablet, Take 1 tablet by mouth Daily With Breakfast., Disp: , Rfl: finasteride (PROSCAR) 5 MG tablet, Take 1 tablet by mouth Daily., Disp: , Rfl: folic acid (FOLVITE) 1 MG tablet, Take 1 tablet by mouth Daily., Disp: , Rfl: furosemide (LASIX) 40 MG tablet, Take 1 tablet by mouth As Needed., Disp: , Rfl: glipizide (GLUCOTROL) 5 MG tablet, TAKE 2 TABLETS BY MOUTH ONCE DAILY IN THE MORNING AND 1 TABLET IN THE EVENING, Disp: , Rfl: Janumet 50-500 MG per tablet, Take 1 tablet by mouth 2 (Two) Times a Day With Meals., Disp: , Rfl: latanoprost (XALATAN) 0.005 % ophthalmic solution, Administer 1 drop to both eyes Daily., Disp: , Rfl: losartan (COZAAR) 100 MG tablet, Take 1 tablet by mouth Daily., Disp: , Rfl: NON FORMULARY, Every Night. C PAP MACHINE, Disp: , Rfl: omeprazole (priLOSEC) 20 MG capsule, Take 1 capsule by mouth Daily., Disp: , Rfl: pioglitazone (ACTOS) 15 MG tablet, Take 1 tablet by mouth Daily., Disp: , Rfl: potassium chloride (MICRO-K) 10 MEQ CR capsule, Take 1 capsule by mouth Daily., Disp: , Rfl: spironolactone (ALDACTONE) 25 MG tablet, Take 3 tablets by mouth Daily., Disp: , Rfl: sulfaSALAzine (AZULFIDINE) 500 MG tablet, Take 3 tablets by mouth Daily., Disp: , Rfl: tamsulosin (FLOMAX) 0.4 MG capsule 24 hr capsule, Take 1 capsule by mouth 2 (Two) Times a Day., Disp: , Rfl: methotrexate 2.5 MG tablet, TAKE 4 TABLETS BY MOUTH ONCE WEEKLY (Patient not taking: Reported on 04/22/2025), Disp: , Rfl: Allergies: Allergies Allergen Reactions Remicade [Infliximab] Anaphylaxis and Hives Stellaria Other (See Comments) 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 Jardiance [Empagliflozin] Other (See Comments) UTI, YEAST INFECTION, PERINEAL INFECTION Objective Vital Signs: Vitals: 04/22/25 1103 BP: 158/64 BP Location: Right arm Patient Position: Sitting Cuff Size: Adult Pulse: 76 SpO2: 99% Weight: 93.3 kg (205 lb 9.6 oz) Height: 177.8 cm (70 ) PHYSICAL EXAM General appearance: Awake, alert, cooperative Head: Normocephalic, without obvious abnormality, atraumatic Eyes: Conjunctivae/corneas clear, EOMs intact Neck: no adenopathy, no carotid bruit, no JVD, and thyroid: not enlarged Lungs: clear to auscultation bilaterally and no rhonchi or crackles , ' symmetric Heart: Irregular rate regular rhythm normal S1-2 Abdomen: Soft, non-tender, bowel sounds normal, no organomegaly Extremities: Trace edema Skin: Skin color, turgor normal, no rashes or lesions Neurologic: Grossly normal Lab Results Component Value Date GLUCOSE 156 (H) 01/09/2025 CALCIUM 9.5 01/09/2025 NA 136 01/09/2025 K 4.1 01/09/2025 CO2 26.0 01/09/2025 CL 98 01/09/2025 BUN 12 01/09/2025 CREATININE 0.90 01/09/2025 BCR 13.3 01/09/2025 ANIONGAP 12.0 01/09/2025 Lab Results Component Value Date WBC 9.34 01/09/2025 HGB 10.4 (L) 01/09/2025 HCT 33.7 (L) 01/09/2025 MCV 82.6 01/09/2025 PLT 236 01/09/2025 Cardiac Testing: I personally viewed and interpreted the patient's EKG/Telemetry/lab data Assessment & Plan Diagnoses and all orders for this visit: 1. Paroxysmal atrial fibrillation (Primary) Diagnosis Plan 1. Asymptomatic persistent atrial fibrillation Status post Watchman device follow-up BRYCE stable. Continue DAPT per protocol. 2. HTN: Recheck bp 140/60, followed by Dr. Bush. He will continue to manage at home and check blood pressure regular basis. Return for follow-up in 1 year or sooner as needed. Electronically signed by ALFONSO Rose, 04/22/25, 12:50 PM EDT. documented in this encounter Plan of Treatment Upcoming Encounters Date Type Department Care Team (Late st Contact Info) Description 07/19/2025 10:30 AM EST Telemedicine [facility] [address] [facility] [address] [place] [id number] Aiden Vasquez APRN [address] [facility] [address] [place] [address] 05/05/2026 10:30 AM EDT Office Visit [facility] [address] [facility] [address] [place] [address] Anmol Omalley, DO [address] [facility] [address] [place] [address] documented as of this encounter Visit Diagnoses Diagnosis Paroxysmal atrial fibrillation- Primary Atrial fibrillation documented in this encounter Care Teams Plant Taxonomy Teacher Relationship Specialty Start Date End Date Salas Mesa MD [address] [facility] [address] [place] [address] PCP - General Internal Medicine 12/10/24 documented as of this encounter
--- OUTSIDE RECORDS SUMMARY | 2025-05-20 11:16 | XMS_ITS | Clinical Summary ---
Author Organization [facility] Address [address] [place] [address] Care Team Providers Care Valve Liner Rubber Name Role Phone Salas Mesa MD Primary Care Provider [phone] Allergies Active Allergy Reactions Criticality Noted Date [...] Description 04/22/2025 11:15 AM EDT Office Visit [facility] [address] [place] [address] Darren De La Fuente PA Paroxysmal atrial fibrillation (Primary Dx) 04/22/2025 Travel 02/19/2025 10:05 AM EDT - 02/19/2025 11:59 PM EDT Hospital Encounter [facility] [address] [place] [address] Rupesh Forbes MD Paroxysmal atrial [...] or training? Not on file Preferred Language Venezuelan 01/09/2025 Sex and Gender Information Value Date [...] Info) Description 07/19/2025 10:30 AM EST Telemedicine [facility] [address] [facility] [address] [place] [phone] Aiden Vasquez APRN [address] [place] [address] 05/05/2026 10:30 AM EDT Office Visit [facility] [address] [address] [place] [phone] Anmol Omalley, DO [address] [facility] [address] [place], [place] [id number] Health Maintenance Due Date Last Done Comments TDAP/TD VACCINES (1 - Tdap) 1960 Pneumococcal Vaccine 50+ (1 of 1 - PCV) 1991 ZOSTER VACCINE (1 of 2) 1991 RSV Vaccine - Adults (1 - 1- dose 75+ series) 2016 ANNUAL WELLNESS VISIT 12/10/2024 COVID-19 Vaccine (6 - 2024-2 6 season) 2025 06/23/2022, 03/24/2022, 05/20/2021, Additional history exists INFLUENZA VACCINE 06/12/2025 Goals Goal Patient Goal Type Associated Problems Recent Progress Patient-Stated? Author Specialty Pharmacy General Goal General No Hafsa Yee RPH Note: A reduction in BSA of skin lesions on the body. Medical Devices Implanted Type Area Command And Control Officer Device Identifier Shelf Expiration Date Model / Serial / Lot Dev Cls Ashely Watchman/Flx /Pro 20mm - [id number] Implanted:Qt y: 1 on 01/16/2025 by Anmol Omalley DO at [facility] Implant [employer] 05/01/2027 [id number] / / [id number] Cp Watchman Flx Pro Proc - [id number] Implanted:Qt y: 1 on 01/16/2025 by Anmol Omalley DO at [facility] Implant [employer] WMFLXPROPERPROC / / Cp Sys Watchman Trusteer Access - [id number] Implanted:Qt y: 1 on 01/16/2025 by Anmol Omalley DO at [facility] Implant [employer] WMFLXPROACCPERPROC / [...] 3 Months Insurance MEDICARE A & B [facility] Advance Directives Documents on File Type Date Recorded Patient Corporate Librarian Expl anation LIVING WILL - SCAN 01/09/2025 [...] Of Support Discussed With: Patient Care Teams Valve Liner Rubber Relationship Specialty Start Date End Date Salas Mesa MD [address] [place] [facility] [address] [place] [address] PCP - General Internal Medicine 12/10/24
--- OUTSIDE RECORDS SUMMARY | 2025-05-20 11:16 | XMS_ITS ---
Author Organization [facility] Address [address] [place] [address] Care Team Providers Care Cold Type Artist Name Role Phone Salas Mesa MD Primary Care Provider [phone] Dermatology Status:Enrolled (Active) Start date:04/23/2025 Enrollment date:04/23/2025 Enrollment reason:New start at Current support & services provided:Clinical Assessment, Refill Coordination , Benefits Investigation, [facility] Dispensing Linked medications:Apremilast (Active) Linked problems:Psoriasis vulgaris (Active) Case Team Name Relationship Phone Dave Drake Sr Risk Management Consultant Double Needle Operator Lockstitch Continued Care and Services Coordination
--- OUTSIDE RECORDS SUMMARY | 2025-05-20 11:17 | XMS_ITS | Encounter Summary ---
Author Organization [facility] Address [address] [place] [address] Care Team Providers Care Tread Builder Name Role Phone Salas Mesa MD Primary Care Provider [phone] Encounter Details Date Type Department Care Team [...] or training? Not on file Preferred Language Croatian 01/09/2025 Sex and Gender Information Value Date Recorded Sex Assigned at Male 10/18/2024 12:38 PM EST Legal Sex Male 12:38 PM EDT Gender Identity Not on file Sexual Orientation Not on file documented as of this encounter Plan of Treatment Upcoming Encounters Date Type Department Care Team (Late st Contact Info) Description 07/19/2025 10:30 AM EST Telemedicine [facility] CARDIOLOGY [address] [facility] [address] [place] [phone] Aiden Vasquez APRN [address] [facility] [address] [place] [address] 05/05/2026 10:30 AM EDT Office Visit [facility] [address] [facility] [address] [place] [phone] Anmol Omalley DO [address] [facility] [address] [place], [place] [phone] documented as of this encounter Visit Diagnoses Not on filedocumented in this encounter Care Teams Tread Builder Relationship Specialty Start Date End Date Salas Mesa MD [address] [facility] [address] [place] [address] PCP - General Internal Medicine 12/10/24 documented as of this encounter
[2025-05-20 12:27] LABS: Hematocrit 37.8 % (42.0-52.0); Hemoglobin 11.4 g/dL (14.1-18.0); Immature Granulocytes % 0.3 %; Mean Corpuscular HGB Conc 30.2 g/dL (31.8-35.4); Mean Corpuscular Hemoglobin 23.3 pg (27.0-31.2); Mean Corpuscular Volume 77.3 fl (80-94); Nucleated Red Blood Cells % 0 %; Platelet Count 258 K/mm3 (142-424); Red Blood Count 4.89 M/mm3 (4.60-6.20); Red Cell Distribution Width-SD 60.2 fL; White Blood Count 6.9 K/mm3 (4.8-10.8)
[2025-05-20 12:32] LABS: Albumin Level 4.8 g/dl (3.5-5.0); Chloride 101 mmol/L (98-107); Potassium 4.0 mmoL/L (3.5-5.1); Sodium 137 mmol/L (136-145)
[2025-05-20 12:35] LABS: Alanine Aminotransferase 23 U/L (12-78); Albumin/Globulin Ratio 1.3 (1.1-1.8); Alkaline Phosphatase 220 U/L (38-126); Anion Gap 16.0 mEq/L (5-15); Aspartate Amino Transferase 43 U/L (17-59); Bilirubin,Total 0.7 mg/dl (0.2-1.3); Blood Urea Nitrogen 17 mg/dl (9-20); Carbon Dioxide 24 mmol/L (22.0-30.0); Creatinine,Serum 0.80 mg/dl (0.66-1.25); Estimated Glomerular Filt Rate 92 ml/min (>60); GFR (African American) 111 ML/MIN (>60); Globulin 3.6 g/dL (1.3-3.2); Total Protein,Serum 8.4 g/dl (6.3-8.2)
[2025-05-20 12:36] LABS: Calcium 10.2 mg/dl (8.4-10.2); Glucose 142 mg/dl (74-100)
[2025-05-20 13:25] LABS: Microscopic, Urine URINE MICROSCOPIC (MICROSCOPIC)
[2025-05-20 13:52] LABS: Bilirubin,Urine Negative (Negative); Color,Urine YELLOW (Yellow); Glucose,Urine (UA) Negative (Negative); Ketones,Urine Negative (Negative); Leukocyte Esterase,Urine TRACE (Negative); PH,Urine 6.0 (5.0-8.5); Protein,Urine 1+ (Negative); Specific Gravity, Urine 1.020 (1.005-1.030); Urobilinogen,Urine 0.2 EU/dl (0.2)
[2025-05-20 15:40] LABS: Bacteria,Urine Trace /lpf
== END 2025-05-20 23:59 | disposition home or self-care (01) ==
LOC: LAB 11:14
PROVIDERS: Dermatology; PCP Internal Medicine; Visit Provider Urology
DX: L40.0 Psoriasis vulgaris (principal); N39.0 Urinary tract infection, site not specified
CPT/HCPCS: 36415; 80053; 81001; 85025

== ENCOUNTER 2025-06-26 08:52 | Outpatient (CLI) | payer MEDICARE, BC, SELFPAY ==
--- OUTSIDE RECORDS SUMMARY | 2024-12-17 10:45 | XMS_ITS ---
Author Organization [facility] Address [address] [place] [id number] Care Team Providers Care Signal Manager Name Role Phone Milton Cuenca Unavailable [phone] Allergies Allergen (clinical drug ingredient) Drug/Non Drug Allergy documented on EMR Reaction Allergy Type Onset Date Status empagliflozin Jardiance Unknown Drug Allergy Act benny infliximab Remicade Unknown Drug Allergy Active ustekinumab Stelara Unknown Drug Allergy Activ e REASON FOR VISIT right arm pain Medications Medication SIG (Take, Route, Frequency, Duration) Notes Start Date End Date Status Gabapentin 100 MG 1 capsule at bedtime Orally Three times a day; Duration: 10 day(s) 12/17/2024 Active valACYclovir HCl 1 GM 1 tablet Orally Th ree times a day; Duration: 7 days 12/17/2024 Active Janumet 50-500 MG 1 tablet with meals Orally Twice a day; Duration: 30 day(s) 12/17/2024 Active Apixaban 5 MG 1 tab(s) Orally bid Active Aspirin 81 MG 1 tablet Orally Once a day; Duration: 30 day(s) Active Ferrous Sulfate 325 (65 Fe) MG 1 tablet Orally once daily Active Finasteride 5 MG 1 tablet Orally Once a day; Duration: 30 day(s) Active Atorvastatin Calcium 40 MG 1 tablet Oral ly Once a day; Duration: 30 day(s) Active Digoxin 125 MCG 1 tablet Orally; Duration: 30 day(s) Active dilTIAZem HCl 120 MG as directed Orally Active Folic Acid 1 MG 1 tablet Orally Once a day; Duration: 30 day(s) Active Furosemide 40 MG 1 tablet Orally Once a day; Duration: 30 day(s) Active glipiZIDE 5 MG 1 tablet 30 minutes before breakfast Orally Once a day; Duration: 30 day(s) Active Latanoprost 0.005 % 1 drop into affected eye in the evening Ophthalmic Once a day Active Losartan Potassium 100 MG 1 tablet Orall y Once a day; Duration: 30 day(s) Active Spironolactone 25 MG 1 tablet Orally; Duration: 30 day(s) Active Methotrexate Sodium 2.5 MG 2 tablets Orally Active Omeprazole 20 MG 1 capsule 1/2 to 1 h our before morning meal Orally Once a day; Duration: 30 day(s) Active Pioglitazone HCl 15 MG 1 tablet Orally O nce a day; Duration: 30 day(s) Active Potassium Chloride ER 10 MEQ 1 tablet wi th food Orally Twice a day; Duration: 30 day(s) Active sulfaSALAzine 500 MG 1 tablet Orally Onc e a day; Duration: 30 day(s) Active Tamsulosin HCl 0.4 MG 1 capsule Orally O nce a day; Duration: 30 day(s) Active Vital Signs Blood pressure systolic 140 mm Hg 12/18/19 25 Blood pressure diastolic 78 mm Hg 025 Heart Rate 91 /min 12/17/2024 Height 70 in 12/17/2024 Weight 232.2 lbs 12/17/2024 BMI 33.31 kg/m2 12/17/2024 Encounters Encounter Location Date Provider Diagnosis [facility] [address] [facility] [address] [place], [place] [id number] 12/17/2024 Milton Cuenca Herpes zoster withou t complication B02.9 Assessments Encounter Date Diagnosis (ICD Code) Assessment Notes Treatment Notes Treatment Clinical Notes Section Notes 12/17/2024 Herpes zoster without complication (ICD-10 - B02.9) Current course of treatment reviewed, including pertinent labs and diagnostic imaging. Risks and benefits of the use of controlled substances discussed, including the risk of tolerance and drug dependence. Refer to [facility] Controlled Substance Agreement. Plan Of Treatment Medication Medication Name Sig Start Date Stop Date Notes Gabapentin 100 MG 1 capsule at bedtime Orally Three times a day; Duration: 10 day(s) 12/17/2024 valACYclovir HCl 1 GM 1 tablet Orally Th ree times a day; Duration: 7 days 12/17/2024 Treatment Notes Assessment Notes Herpes zoster without complication Curre nt course of treatment reviewed, including pertinent labs and diagnostic imaging. Risks and benefits of the use of controlled substances discussed, including the risk of tolerance and drug dependence. Refer to [facility] Controlled Substance Agreement. Next Appt Details Follow Up: via phone to repo rt progress, Reason: Progress Notes * Ned MELENDEZDOB: [birth year] (85 yo M)Acc No.[id number]:12/17/2024 Progress Notes Patient: Ned AYALA Provider: Edy Cuenca M.D. :1940 A ge:84 Y S ex:Male Date:12/17/2024 Address:[address] [place], [place] [address] Subjective: * Chief Complaints: * 1 . Right arm pain. * HPI: H PI: 84 year old male presents with c/o Patient is here today for?Pt here to establish care, pt was previously seen by Dr. Mesa. S hokam/Upper arm: c/o radiation of pain P t complains of rt shoulder pain the radiates down to forearm that started last Tuesday. Pt states he saw Dr. Mesa last Tuesday and was dx with pinched nerve. Pt states pain does come and go. Pt states the area around his rt axilla is really sensitive to the touch . * ROS: C ARDIOLOGY: no D izziness. n o C hest pain. G ASTROENTEROLOGY: no N ausea. n o V omiting. U ROLOGY: no D ifficulty urinating. n o B lood in urine. * Medical History: D iabetes Type 2, GERD, Crohns Disease, A-Fib, BPH, Sees Dr. Kasper, Psoriatic Arthritis, Anemia, Psoriasis, Guillain barre syndrome. * Surgical History: B owel Resection . * Hospitalization/Major Diagno stic Procedure: D enies Past Hospitalization. * Family History: F ather: diagnosed with Hypertension, Cancer. P aternal Grand Father: diagnosed with Cancer. 1 brother(s) , 2 sister(s) . 2 son(s) . . * Social History: C URRENT TOBACCO USE: No . C affeine: yes, frequency: twice daily. Alcohol: yes. * Medications: T aking Tamsulosin HCl 0.4 MG Capsule 1 capsule Orally Once a day , Taking sulfaSALAzine 500 MG Tablet 1 tablet Orally Once a day , Taking Spironolactone 25 MG Tablet 1 tablet Orally , Taking Potassium Chloride ER 10 MEQ Tablet Extended Release 1 tablet with food Orally Twice a day , Taking Pioglitazone HCl 15 MG Tablet 1 tablet Orally Once a day , Taking Omeprazole 20 MG Capsule Delayed Release 1 capsule 1/2 to 1 hour before morning meal Orally Once a day , Taking Methotrexate Sodium 2.5 MG Tablet 2 tablets Orally , Taking Losartan Potassium 100 MG Tablet 1 tablet Orally Once a day , Taking Latanoprost 0.005 % Solution 1 drop into affected eye in the evening Ophthalmic Once a day , Taking glipiZIDE 5 MG Tablet 1 tablet 30 minutes before breakfast Orally Once a day , Taking Furosemide 40 MG Tablet 1 tablet Orally Once a day , Taking Folic Acid 1 MG Tablet 1 tablet Orally Once a day , Taking Finasteride 5 MG Tablet 1 tablet Orally Once a day , Taking Ferrous Sulfate 325 (65 Fe) MG Tablet 1 tablet Orally once daily , Taking dilTIAZem HCl 120 MG Tablet as directed Orally , Taking Digoxin 125 MCG Tablet 1 tablet Orally , Taking Atorvastatin Calcium 40 MG Tablet 1 tablet Orally Once a day , Taking Aspirin 81 MG Tablet Delayed Release 1 tablet Orally Once a day , Taking Apixaban 5 MG Tablet 1 tab(s) Orally bid , Taking Janumet 50-500 MG Tablet 1 tablet with meals Orally Twice a day , Medication List reviewed and reconciled with the patient * Allergies: R emicade, Robert Narayanan. Objective: * Vitals: W t:232.2, Temp:97.9, BP:140/78, HR:91, Nurse:leslie, Ht:70, BMI:33.31. * Examination: G eneral Examination: General Appearance: N AD. H eart: irregularly irregular rhythm. L ungs: c lear to auscultation. S kin: s mall patches of reddened skin with a few small vesicles on the distal right inner forearm, another small area on the most superior portion of the right chest. Assessment: * Assessment: 1. H erpes zoster without complication - B02.9 (Primary) Plan: * Treatment: * Procedure Codes: G 2211 Complex e/m visit add on, 3077F SYST BP = 140 MM HG6 IT, 3078F DIAST BP < 80 MM HG * Follow Up: v ia phone to report progress * Images: Billing Information: * Visit Code: 70251 Office Visit, New Pt., Level 3. * Procedure Codes: G2211 Complex e/m visit add on. 3077F SYST BP = 140 MM HG6 IT. 3078F DIAST BP < 80 MM HG. * Electronic signature of Krys Cuenca MD on 06/26/2025 at 09:09 AM EDT Sign off status: Pending * Provider: Edy Cuenca M.D. Date: 0 12/17/2024 Generated for Armandoi chester/Brad/eTransmitting on: 1 09:09 AM EDT History and Physical Notes * HPI (History of Present Illness) Category Sub-Category Detail Notes Category Not es Shoulder/Upper arm radiation of pain Pt complain s of rt shoulder pain the radiates down to forearm that started last Tuesday. Pt states he saw Dr. Mesa last Tuesday and was dx with pinched nerve. Pt states pain does come and go. Pt states the area around his rt axilla is really sensitive to the touch HPI Patient is here toda y for Pt here to establish care, pt was previously seen by Dr. Mesa Examination Category Sub-Category Detail Notes Category Not es General Examination Heart: irregularly irregular rhythm Lungs: clear to auscultatio n General Appearance: NAD Skin: small patches of red dened skin with a few small vesicles on the distal right inner forearm, another small area on the most superior portion of the right chest
--- OUTSIDE RECORDS SUMMARY | 2025-06-26 09:09 | XMS_ITS | Data Portability ---
Author Organization [place] [facility] Address [address] [facility] [address] [place] [address] Care Team Providers Care Supervisor Meter Repair Shop Name Role Phone HOSSEIN VALVERDE Dry Janitor SILVIA UNDERWOOD Primary Care Provider VIVIAN HAMILTON Specialist Wound Care [phone] Assessment No assessment recorded. Plan of Treatment Reminders Order Date Submit Date Provider Last Modified By Organization Details Last Modified Time Details Appointments FOLLOW UP DAK 2024 02:50P M DR. DIAZ Not available Not available Not available Lab CBC w/ auto diff 2024 025 [facility] (Lab), [address] [place] [address] [address], [place], [address], 03/22/2025 14:56:04 CMP, serum or plasma 2024 025 VALARIE [facility] (Lab), [address] [place] [address] [address], [place], [address], 03/20/2025 11:32:50 CMP, serum or plasma 2024 025 [email or web address] [facility] (Lab), [address] [place] [address] [address], [place], [address], 03/27/2025 09:23:06 CBC w/ auto diff 2024 025 [facility] (Lab), [address], [place], [address], 03/29/2025 09:57:48 CMP, serum or plasma 2024 025 [facility] (Lab), [address], [place], [address], 04/03/2025 14:19:51 CBC w/ auto diff 2024 025 [facility] (Lab), [address], [place], [address], 04/05/2025 10:19:05 CMP, serum or plasma 2024 025 [facility] (Lab), [address], [place], [address], 05/01/2025 08:28:49 CBC w/ auto diff 2024 025 [facility] (Lab), [address], [place], [address], 05/01/2025 08:28:49 CMP, serum or plasma 2024 025 [facility] (Lab), [address], [place], [address], 05/31/2025 10:58:40 CBC w/ auto diff 2024 025 [facility] (Lab), [address], [place], [address], 05/31/2025 10:58:40 CMP, serum or plasma 2024 025 [facility] (Lab), [address], [place], [address], 05/31/2025 10:58:40 CBC w/ auto diff 2024 025 [facility] (Lab), [address], [place], [address], 05/31/2025 10:58:40 Referral None recorded. Procedures None recorded. Surgeries None recorded. Imaging None recorded. Medication Orders methotrex ate sodium 2.5 mg tablet 2024 025 [facility] #86361, [address] [facility] [address], [place], [id number], 01/29/2025 13:35:27 methotrex ate sodium 2.5 mg tablet 2024 025 [facility] #48793, [address] [address] [address], [place], [id number], 10/17/2024 14:31:53 methotrex ate sodium 2.5 mg tablet 2023 024 [facility] #11061, [address] [facility] [address], [place], [id number], 06/06/2024 15:01:52 methotrex ate sodium 2.5 mg tablet 2023 024 [facility] #45203, [address] [address] [address], [place], [id number], 02/08/2024 17:37:24 Patient TargetsNo targets recorded. Patient InstructionsNo instructions recorded. Reason for Referral None Reported. Results Created Date Observation Date Name Description Value Unit Range Abnormal Flag Note LastModifiedBy Organization Detail LastModifiedTime Result Notes None recorded. Procedures Surgical History Date Name Laterality Status Provider Name and Address Organization Details Recorded Time left atrial operation completed [facility] 04/17/2025 15:14:43 Imaging Results None recorded. Procedure Notes None recorded. Medical Equipment None Reported. Allergies Allergen ID Allergen Name Allergen Category Reaction Reaction Severity Criticality Documentation Date Start Date Code Code System Note Provider Name and Address Organization Details Recorded Time 828632 Stelara medicatio n Not available Not available Not available 07/26/2023 19378 1 RxNorm Nik Casanova [facility] 12:21:38 084162 Remicade medicatio n Not available Not available Not available 07/26/2023 46664 0 RxNorm Nik Casanova [facility] 12:21:42 662916 Jardiance medicatio n Not available Not available Not available 07/26/2023 16392 59 RxNorm Nik Casanova [facility] 12:21:49 Medications Name Sig Start [...] Not Available Not Availa ble Not Available spironolact one active Not Available Not Available Not Available losartan active Not Available Not [...] Not Available Not Avail able Not Available Otezla 30 mg tablet Take 1 tablet twice a day by oral route. 2024 active Not Available Not Available Not Avai lable sulfacetami de active Not Available Not Available Not Available Vitals None Recorded Social History Question Answer Notes LastModified by Organizat ion Details LastModified Time Tobacco Smoking Status Never Smoker Nik Arteagachino [facility] 07/26/2023 12:25:19 Sunscreen Use? No Informatio n not available 02/08/2024 Tanning Bed Use No Informati on not available 02/08/2024 What Was The Date Of Your Most Recent Tobacco Screening? 04/17/2025 [email or web address] Information not available 04/17/2025 Sex: Unknown Functional Status Question Answer Note LastModified by Organizat ion Details LastModified Time What is your level of alcohol consumption? Occasional Information not available 07/26/2023 Mental Status None recorded. Family History Nothing Reported. Medical History No medical history recorded. Past Encounters Encounter ID Performer Location Encounter Start Date Encounter Closed Date Diagnosis/Indication Diagnosis SNOMED-CT Code Diagnosis ICD10 Code Diagnosis IMO Codes Diagnosis Note [id number] HOSSEIN DIAZ MD [address] [address] 07/26/2023 12:14:06 07/26/2023 12:44:13 Psoriasis vulgaris 773331529 L40.0 Controlled on medication s.Continue methotrexa te and folic acid.Rx prescribed for MTX 2.5mg weekly by mouth. SE reviewed.P t to call if flares. Plaque psoriasis 0573239 09 L40.0 Psoriasis 5766146 L40.9 [id number] HOSSEIN DIAZ MD [address] [address] 02/08/2024 15:32:13 02/08/2024 16:02:43 Psoriasis vulgaris 694992359 L40.0 Z79.899 Controlled on medication s.Pt has not been holding MTX for approx 1 week due to ill .Rx refilled for MTX 2.5mg 4 tabs weekly by mouth. SE reviewed.P t to call if flares/ worsens [id number] HOSSEIN DIAZ MD [facility] [address] [place] [address] 06/06/2024 12:04:05 06/06/2024 13:06:06 Psoriasis vulgaris 999906192 L40.0 Z79.899 Flared after taking 3 week break off from MTX while he had covid.Pt took 2-3 weeks off from MTX due to pt being sick with Covid about 3 wks ago.Rx refilled for MTX 2.5mg 4 tabs weekly by mouth. SE reviewed.P t to call if flares/ worsens [id number] HOSSEIN DIAZ MD [address] [address] 10/17/2024 11:43:43 10/17/2024 12:07:57 Psoriasis vulgaris 973705738 L40.0 Z79.899 The nature of the diagnosis was explained. controlled on MTX 10mg per week. He wants to try to lower dosePt can try going down to 7.5mg MTX per week.Rx refilled for MTX. SE reviewed.p t to call if flares/ worsens. [id number] HOSSEIN DIAZ MD [address] [address] 01/29/2025 12:42:36 01/29/2025 13:18:26 Psoriasis vulgaris 883439819 L40.0 609 The nature of the diagnosis was explained. worsening since he came off MTXPt has been off of MTX for about 1-1.5 months due to having a watchman procedure done.Rx prescribed for Methotrexa te 2.5mg, take 4 tabs po qweekly. SE reviewed.P t has Rx TAC at home.pt to call if flares/ worsens. [facility] [id number] T14.8 XXA [id number] The nature of the diagnosis was explained. needs to see cardiologi st [id number] HOSSEIN DIAZ MD [address] [address] 04/17/2025 15:05:28 04/17/2025 15:47:18 Psoriasis vulgaris 005689083 L40.0 609 The nature of the diagnosis was explained. worsening since he came off MTXwants to avoid biologic due to hx of Guillain BarrePt has been off of MTX for about 3 months due to having a watchman procedure done in January.Livier lemus sent to [place] for [place]. ( all SE reviewed today)Pt has Rx TAC at home.pt to call if flares/ worsens. Health Concerns Section Related Observation LastModified by Organization Detai ls LastModified Time None Recorded Concern Status LastModified by Organization Details LastModified Time None Recorded Advance Directives Directive None Recorded Payers Insurance Date Sequence Insurance Name Policy Number Policy Cervantes Covered Member ID Cervantes Member ID Guarantor Name 04/14/2025 1 [place] Ned Diaz Nora [id number] Ned G Nora 04/14/2025 2 [place] [id number] Ned G Nora [id number] Nde G Nora Notes Date Note Type Note Provider Name and Address Organization Details Recorded Time 02/08/2024 text/html ROS as noted in the HPI psoriasis6 month f/utx: MTX, OTC folic acidreports:I have not take been taking the MTX for 1 week due to my being sick . HOSSEIN DIAZ MD [address] [place] [address], [phone], [facility] 02/08/2024 17:37:34 06/06/2024 text/html psoriasis on MTX 10mg per weekhx of Austen Flores from TNFin psoriasis4 month f/utx: methotrexate, triamcinolonerepor ts: Pt has not been taking methotrexate due to him having covid and the Rx lowering his immune system. The psoriasis is pretty much localized in one area. Pt would like his labs done. HOSSEIN DIAZ MD [address] [place] [address], [phone], [facility] 06/06/2024 17:45:33 10/17/2024 text/html ROS as noted in the HPI psoriasis on mtx 10mg per week---------I am here to follow up on my Psoriasis, everything is going well. tx: MTX, TAC-prn. I am trying to cut down on my MTX. HOSSEIN DIAZ MD [address] [place] [address], [phone], [facility] 10/17/2024 14:31:59 01/29/2025 text/html psoriasismtxhx of guilgege barre I am here for my psoriasis. Went off methotrexate due to other procedures and is having a flare up of psoriasis right now. Pt states he had a heart cath put in recently and he wants his groin area checked out as well. HOSSEIN DIAZ MD [address] [place], [address], [facility] 01/29/2025 13:31:26 04/17/2025 text/html ROS as noted in the HPI psoriasis was on chronic MTX but PCP was concerned about early cirrhosishx of Jennifer Flores w biologic ---I am here f/u on psoriasis. Pt is requesting another tx since gastro dr told pt to not use methotrexate due to liver problem. he has hx of NASHMELD score: 8Psoriasis has spread HOSSEIN DIAZ MD [address] [place], [address], [facility] 04/17/2025 18:37:11
--- OUTSIDE RECORDS SUMMARY | 2025-06-26 09:09 | XMS_ITS | Patient Health Record ---
[facility] [address] [place] [id number] Care Team Providers Care Wood Cabinetmaker Name Role Phone Milton Cuenca Unavailable [phone] Allergies Allergen (clinical drug ingredient) Drug/Non Drug Allergy documented on EMR Reaction Allergy Type Onset Date Status empagliflozin Jardiance Unknown Drug Allergy Act benny infliximab Remicade Unknown Drug Allergy Active ustekinumab Stelara Unknown Drug Allergy Activ e Reason For Referral No Information Medications Medication SIG (Take, Route, Frequency, Duration) Notes Start Date End Date Status Ferrous Sulfate 325 (65 Fe) MG 1 tablet Orally once daily Active Gabapentin 100 MG 1 capsule at bedtime Orally Three times a day; Duration: 10 day(s) 12/17/2024 Active Furosemide 40 MG 1 tablet Orally Once a day; Duration: 30 day(s) Active valACYclovir HCl 1 GM 1 tablet Orally Th ree times a day; Duration: 7 days 12/17/2024 Active glipiZIDE 5 MG 1 tablet 30 minutes before breakfast Orally Once a day; Duration: 30 day(s) Active Latanoprost 0.005 % 1 drop into affected eye in the evening Ophthalmic Once a day Active Janumet 50-500 MG 1 tablet with meals Orally Twice a day; Duration: 30 day(s) 12/17/2024 Active Losartan Potassium 100 MG 1 tablet Orall y Once a day; Duration: 30 day(s) Active Apixaban 5 MG 1 tab(s) Orally bid Active Methotrexate Sodium 2.5 MG 2 tablets Orally Active Aspirin 81 MG 1 tablet Orally Once a day; Duration: 30 day(s) Active Omeprazole 20 MG 1 capsule 1/2 to 1 h our before morning meal Orally Once a day; Duration: 30 day(s) Active Atorvastatin Calcium 40 MG 1 tablet Oral ly Once a day; Duration: 30 day(s) Active Pioglitazone HCl 15 MG 1 tablet Orally O nce a day; Duration: 30 day(s) Active Digoxin 125 MCG 1 tablet Orally; Duration: 30 day(s) Active Potassium Chloride ER 10 MEQ 1 tablet wi th food Orally Twice a day; Duration: 30 day(s) Active dilTIAZem HCl 120 MG as directed Orally Active Spironolactone 25 MG 1 tablet Orally; Duration: 30 day(s) Active sulfaSALAzine 500 MG 1 tablet Orally Onc e a day; Duration: 30 day(s) Active Finasteride 5 MG 1 tablet Orally Once a day; Duration: 30 day(s) Active Tamsulosin HCl 0.4 MG 1 capsule Orally O nce a day; Duration: 30 day(s) Active Folic Acid 1 MG 1 tablet Orally Once a day; Duration: 30 day(s) Active Vital Signs Heart Rate 91 /min 12/17/2024 Blood pressure diastolic 78 mm Hg 12/17/2024 Height 70 in 12/17/2024 Blood pressure systolic 140 mm Hg 12/17/2024 Weight 232.2 lbs 12/17/2024 BMI 33.31 kg/m2 12/17/2024 Encounters Encounter Location Date Provider Diagnosis [facility] [address] [facility] [address] [facility] [address] [place] [id number] 12/17/2024 Milton [place] Herpes zoster withou t complication B02.9 [facility] [address] [facility] [address] [facility] [address] [place] [id number] 12/19/2024 Milton [place] Assessments Encounter Date Diagnosis (ICD Code) Assessment Notes Treatment Notes Treatment Clinical Notes Section Notes 12/17/2024 Herpes zoster without complication (ICD-10 - B02.9) Current course of treatment reviewed, including pertinent labs and diagnostic imaging. Risks and benefits of the use of controlled substances discussed, including the risk of tolerance and drug dependence. Refer to A Controlled Substance Agreement. Plan Of Treatment No Information Insurance Providers Payer Name Payer Address Payer Phone Subscriber Number Group Number Insured Name Patient Relationship to Insured Coverage Start Date Coverage End Date MEDICARE PART B [address] [address] [place] [id number] Ned Ramos Self - patient is the insured ANTHEM MEDICARE [address] [place] [address] [id number] ABEL Dillon , [place] Self - patient is the insured Medical (General) History Medical History History ICD Code Diabetes Type 2 GERD Crohns Disease A-Fib BPH, Sees Dr. Kasper Psoriatic Arthritis Anemia Psoriasis guillain barre syndrome Surgical History Surgery Date(Month/Year) Bowel Resection
--- OUTSIDE RECORDS SUMMARY | 2025-06-26 09:09 | XMS_ITS | Clinical Summary ---
Author Organization [facility] Address [address] [place] [address] Care Team Providers Care Industrial Maintenance Technician Name Role Phone Salas Mesa MD Primary Care Provider [phone] Allergies Active Allergy Reactions Criticality Noted Date [...] day by oral route. 60 tablet 5 06/03/2025 1:29 PM EDT 5 Active Active Problems Problem Noted Date Diagnosed Date Psoriasis vulgaris 04/23/2025 Persistent atrial fibrillation 01/16/2025 Paroxysmal atrial fibrillation 12/10/2024 Falls 12/10/2024 Acute blood loss anemia 12/10/2024 Encounters Date Type Department Care Team Description 04/22/2025 11:15 AM EDT Office Visit [facility] [address] [place] [address] Darren De La Fuente PA Paroxysmal atrial fibrillation (Primary Dx) 04/22/2025 Travel from Last 3 Months Family History [...] or training? Not on file Preferred Language Tajik 01/09/2025 Sex and Gender Information Value Date [...] Telemedicine [facility] [address] [place] [id number] Aiden Vasquez APRN [address] [place] [address] 05/05/2026 10:30 AM EDT Office Visit [facility] [address] [place] [phone] Anmol Omalley DO [address] [facility] [address] [place], [place] [id number] Health Maintenance Due Date Last Done Comments TDAP/TD VACCINES (1 - Tdap) 1960 Pneumococcal Vaccine 50+ (1 of 1 - PCV) 1991 ZOSTER VACCINE (1 of 2) 1991 RSV Vaccine - Adults (1 - 1- dose 75+ series) 2016 ANNUAL WELLNESS VISIT 12/10/2024 INFLUENZA VACCINE 04/12/2025 COVID-19 Vaccine (6 - 2024-2 6 season) 2025 06/23/2022, 03/24/2022, 05/20/2021, Additional history exists Goals Goal Patient Goal Type Associated Problems Recent Progress Patient-Stated? Author Specialty Pharmacy General Goal General No Hafsa Yee, [facility] Note: A reduction in BSA of skin lesions on the body. Medical Devices Implanted Type Area Director Of Accounts Receivable Device Identifier Shelf Expiration Date Model / Serial / Lot Dev Cls Ashely Watchman/Flx /Pro 20mm - [id number] Implanted:Qt y: 1 on 01/16/2025 by Anmol Omalley DO at [facility] Implant [employer]IM 05/01/2027 [id number] / / [id number] Cp Watchman Flx Pro Proc - [id number] Implanted:Qt y: 1 on 01/16/2025 by Anmol Omalley DO at [facility] Implant [employer] WMFLXPROPERPROC / / Cp John Ansari Trusteer Access - [id number] Implanted:Qt y: 1 on 01/16/2025 by Anmol Omalley, DO at [facility] Implant [employer] WMFLXPROACCPERPROC / / Insurance MEDICARE A & B Member Subscriber Plan / Payer ( fective 2006-Present) Name:Ned Melendez Member ID:[id number] Relation to Subscriber:Self Name:Ned Melendez Subscriber ID:[id number] Payer ID:[id number] Group ID:Not on file Type:Not on file Address: [facility] [id number] [place] [id number] [facility] Advance Directives Documents on File Type Date Recorded Patient On Call Pharmacy Technician Expl anation LIVING WILL - SCAN 01/09/2025 [...] Of Support Discussed With: Patient Care Teams Industrial Maintenance Technician Relationship Specialty Start Date End Date Salas Mesa MD [address] [facility] [address] [facility] [address] [place] [address] PCP - General Internal Medicine 12/10/24
--- OUTSIDE RECORDS SUMMARY | 2025-06-26 09:10 | XMS_ITS ---
Author Organization [facility] Address [address] [place] [address] Care Team Providers Care Form Coverer Name Role Phone Salas Mesa MD Primary Care Provider [phone] Dermatology Status:Enrolled (Active) Start date:04/23/2025 Enrollment date:04/23/2025 Enrollment reason:New start at Current support & services provided:Clinical Assessment, Refill Coordination , Benefits Investigation, [facility] Dispensing Linked medications:Apremilast (Active) Linked problems:Psoriasis vulgaris (Active) Case Team Name Relationship Phone Dave Drake Rip/Mould Operator Cnc Wood Lathe Operator Continued Care and Services Coordination
[2025-06-26 09:39] LABS: Hematocrit 30.5 % (42.0-52.0); Hemoglobin 9.8 g/dL (14.1-18.0); Immature Granulocytes % 0.3 %; Mean Corpuscular HGB Conc 32.1 g/dL (31.8-35.4); Mean Corpuscular Hemoglobin 25.3 pg (27.0-31.2); Mean Corpuscular Volume 78.8 fl (80-94); Nucleated Red Blood Cells % 0 %; Platelet Count 224 K/mm3 (142-424); Red Blood Count 3.87 M/mm3 (4.60-6.20); Red Cell Distribution Width-SD 61.1 fL; White Blood Count 6.9 K/mm3 (4.8-10.8)
[2025-06-26 09:51] LABS: Ammonia < 9 umol/L (9-30)
[2025-06-26 09:52] LABS: INR 1.03 (0.9-1.1); Prothrombin Time 11.4 seconds (10.1-12.5)
[2025-06-26 10:21] LABS: Albumin Level 3.9 g/dl (3.5-5.0); Chloride 102 mmol/L (98-107); Potassium 4.5 mmoL/L (3.5-5.1); Sodium 138 mmol/L (136-145)
[2025-06-26 10:23] LABS: Blood Urea Nitrogen 22 mg/dl (9-20); Creatinine,Serum 0.90 mg/dl (0.66-1.25); Estimated Glomerular Filt Rate 80 ml/min (>60); GFR (African American) 97 ML/MIN (>60)
[2025-06-26 10:24] LABS: Alanine Aminotransferase 17 U/L (12-78); Albumin/Globulin Ratio 1.1 (1.1-1.8); Alkaline Phosphatase 183 U/L (38-126); Anion Gap 13.5 mEq/L (5-15); Aspartate Amino Transferase 26 U/L (17-59); Bilirubin,Total 0.8 mg/dl (0.2-1.3); Calcium 9.3 mg/dl (8.4-10.2); Carbon Dioxide 27 mmol/L (22.0-30.0); Globulin 3.4 g/dL (1.3-3.2); Glucose 87 mg/dl (74-100); Total Protein,Serum 7.3 g/dl (6.3-8.2)
[2025-06-27 04:42] LABS: Hep A Ab, Total Negative (Negative); Hep B Core Ab, Total Negative (Negative); Hep B Surface Ab, Qual Non Reactive (.); Hepatitis C Antibody Non Reactive (Non Reactive)
== END 2025-06-26 23:59 | disposition home or self-care (01) ==
LOC: LAB 08:55
PROVIDERS: Internal Medicine Gastroenterology; PCP Internal Medicine; Visit Provider Dermatology
DX: K74.69 Other cirrhosis of liver (principal); R74.8 Abnormal levels of other serum enzymes; K76.6 Portal hypertension; R18.8 Other ascites; B19.20 Unspecified viral hepatitis C without hepatic coma
CPT/HCPCS: 36415; 80053; 82103; 82105; 82140; 85025; 85610; 86706; 86803